=== PATIENT | male | born 1985 | race American Indian/Alaskan Native ===

== ENCOUNTER 2016-09-11 03:20 | Emergency (ER) | payer MEDICAID ==
[2016-09-11 03:20] VITALS: BMI 23.6
[2016-09-11 04:14] VITALS: BP 126/74; PULSE 78; RESP 18; TEMP 98.2; O2SAT 99
--- NOTE | 2016-09-11 04:36 | ED PDOC ---
Arrival/HPI - General Chief Complaint: Lower Extremity Problem/Injury Time Seen by Provider: 09/11/16 03:29 Historian: Patient - History of Present Illness Narrative History of Present Illness (Text): 09/11/16 04:30 Hi Talamantes is a 31 year old male, with a history of diabetes, presents to the emergency department complaining of chronic bilateral leg/foot pain .No hx. of any trauma Patient denies any fever, chills, headache, dizziness, nausea, vomiting, diarrhea, or any other complaints at this time. States he needs a place to sleep. Time/Duration: 4-6 hours Symptom Course: Unchanged Severity Level: Mild Activities at Onset: Light Past Medical History - Provider Review Nursing Documentation Reviewed: Yes - Past History Past History: Non-Contributing - Infectious Disease Hx of Infectious Diseases: None - Tetanus Immunization Tetanus Immunization: Unknown - Cardiac Hx Cardiac Disorders: No - Pulmonary Hx Respiratory Disorders: No - Neurological Hx Neurological Disorder: No - HEENT Hx HEENT Disorder: No - Renal Hx Renal Disorder: No - Endocrine/Metabolic Hx Diabetes Mellitus Type 2: Yes - Hematological/Oncological Hx Blood Disorders: No - Integumentary Hx Dermatological Disorder: No - Musculoskeletal/Rheumatological Hx Musculoskeletal Disorders: No - Gastrointestinal Hx Gastrointestinal Disorders: No - Genitourinary/Gynecological Hx Genitourinary Disorders: No - Psychiatric Hx Psychophysiologic Disorder: Yes Hx Substance Use: Yes (pcp) Other/Comment: substance abuse - Surgical History Other/Comment: hernia surgery - Anesthesia Hx Anesthesia: Yes - Suicidal Assessment Feels Threatened In Home Enviroment: No Family/Social History - Physician Review Nursing Documentation Reviewed: Yes Family/Social History: No Known Family HX Smoking Status: Heavy Smoker > 10 Cigarettes Daily Hx Alcohol Use: Yes Hx Substance Use: Yes (pcp) Substance used: used PCP 08/22/16 Allergies/Home Meds Allergies/Adverse Reactions: Allergies No Known Allergies Allergy (Verified 08/27/16 03:50) Home Medications: Home Meds Medication Instructions Recorded Confirmed No Known Home Med 08/29/16 08/29/16 Review of Systems - Physician Review All systems were reviewed & negative as marked: Yes - Review of Systems Constitutional: Normal. absent: Fatigue, Fevers Respiratory: Normal. absent: SOB, Cough Cardiovascular: Normal. absent: Chest Pain Musculoskeletal: Other (b/l leg pain ) Neurological: Normal. absent: Headache, Dizziness Physical Exam Vital Signs Temp Pulse Resp BP Pulse Ox 09/11/16 04:10 98.2 F 78 18 126/74 99 Temperature: Afebrile Blood Pressure: Normal Pulse: Regular Respiratory Rate: Normal Appearance: Positive for: Well-Appearing, Non-Toxic, Comfortable Pain Distress: None Mental Status: Positive for: Alert and Oriented X 3 - Systems Exam Head: Present: Atraumatic, Normocephalic Pupils: Present: PERRL Extroacular Muscles: Present: EOMI Conjunctiva: Present: Normal Mouth: Present: Moist Mucous Membranes Neck: Present: Normal Range of Motion Respiratory/Chest: Present: Clear to Auscultation, Good Air Exchange. No: Respiratory Distress, Accessory Muscle Use Cardiovascular: Present: Regular Rate and Rhythm, Normal S1, S2. No: Murmurs Back: Present: Normal Inspection Upper Extremity: Present: Normal Inspection, Normal ROM, Neurovascularly Intact. No: Cyanosis, Edema Lower Extremity: Present: Normal Inspection, NORMAL PULSES, Normal ROM, Neurovascularly Intact. No: Edema, Eddie's Sign, Tenderness, Swelling Neurological: Present: GCS=15, CN II-XII Intact, Speech Normal, Motor Func Grossly Intact, Normal Sensory Function Skin: Present: Warm, Dry, Normal Color. No: Rashes Psychiatric: Present: Alert, Oriented x 3, Normal Insight, Normal Concentration Medical Decision Making ED Course and Treatment: 09/11/16 04:47 Impression: A 31 year old male who presents to the emergency department for evaluation of chronic bilateral leg/foot pain. Progress Notes: Patient in no acute distress. Patient is stable for discharge. Advised to present back to emergency department for worsening symptoms and follow up with pmd within few days. - Medication Orders Current Medication Orders: Discontinued Medications Ibuprofen (Motrin Tab) 600 mg PO STAT STA Stop: 09/11/16 04:47 Last Admin: 09/11/16 05:03 Dose: 600 MG - Scribe Statement The provider has reviewed the documentation as recorded by the Dheeraj Zuniga Provider Attestation: All medical record entries made by the Dheeraj were at my direction and personally dictated by me. I have reviewed the chart and agree that the record accurately reflects my personal performance of the history, physical exam, medical decision making, and the department course for this patient. I have also personally directed, reviewed, and agree with the discharge instructions and disposition. Disposition/Present on Arrival - Present on Arrival Any Indicators Present on Arrival: No History of DVT/PE: No History of Uncontrolled Diabetes: No Urinary Catheter: No History of Decub. Ulcer: No History Surgical Site Infection Following: None - Disposition Have Diagnosis and Disposition been Completed?: Yes Diagnosis: Muscle ache of extremity, Chronic leg pain, Homelessness Disposition: HOME/ ROUTINE Disposition Time: 04:42 Patient Plan: Discharge Condition: GOOD Discharge Instructions (ExitCare): Leg Pain (ED), Muscle Strain (ED) Additional Instructions: Rest/avoid excessive walking/advil as directed/follow up [facility] Referrals: [facility], [place], [facility] [Outside] - Follow up with primary
== END 2016-09-11 04:46 | disposition home or self-care (01) ==
LOC: ED 03:20
DX: M79.605 Pain in left leg (principal); M79.604 Pain in right leg; M79.1 Myalgia; G89.29 Other chronic pain; Z59.0 Homelessness

== ENCOUNTER 2016-09-17 01:39 | Emergency (ER) | payer MEDICAID ==
[2016-09-17 01:39] VITALS: BMI 23.6
--- NOTE | 2016-09-17 02:27 | ED PDOC ---
Arrival/HPI <Braden Caceres - Last Filed: 09/17/16 02:48> - General Historian: Patient - History of Present Illness Time/Duration: > month Symptom Course: Unchanged Quality: Aching <Baldev Contreras - Last Filed: 09/17/16 06:04> - General Chief Complaint: Pain, Chronic Time Seen by Provider: 09/17/16 01:48 - History of Present Illness Narrative History of Present Illness (Text): 09/17/16 02:24 22 y/o homeless patient presenting with b/l leg and foot pain. Patient states pain has been ongoing for sometime now. He was seen here in the ED for the same complaints on 09/11/16 before being discharged. He denies any injury, trauma. He denies any fever, chills, n/v/d, chest pain or shortness of breath. (Baldev Contreras) Past Medical History - Provider Review Nursing Documentation Reviewed: Yes - Past History Past History: Non-Contributing - Infectious Disease Hx of Infectious Diseases: None - Tetanus Immunization Tetanus Immunization: Unknown - Cardiac Hx Cardiac Disorders: No - Pulmonary Hx Respiratory Disorders: No - Neurological Hx Neurological Disorder: No - HEENT Hx HEENT Disorder: No - Renal Hx Renal Disorder: No - Endocrine/Metabolic Hx Diabetes Mellitus Type 2: Yes - Hematological/Oncological Hx Blood Disorders: No - Integumentary Hx Dermatological Disorder: No - Musculoskeletal/Rheumatological Hx Musculoskeletal Disorders: No - Gastrointestinal Hx Gastrointestinal Disorders: No - Genitourinary/Gynecological Hx Genitourinary Disorders: No - Psychiatric Hx Psychophysiologic Disorder: Yes Hx Substance Use: Yes (pcp) Other/Comment: substance abuse - Surgical History Other/Comment: hernia surgery - Anesthesia Hx Anesthesia: Yes - Suicidal Assessment Feels Threatened In Home Enviroment: No <Baldev Contreras - Last Filed: 09/17/16 06:04> Family/Social History Family/Social History: Unknown Family HX Smoking Status: Heavy Smoker > 10 Cigarettes Daily Hx Alcohol Use: Yes Hx Substance Use: Yes (pcp) Substance used: used PCP 08/22/16 <Baldev Contreras - Last Filed: 09/17/16 06:04> Allergies/Home Meds <Braden Caceres - Last Filed: 09/17/16 02:48> <Baldev Contreras - Last Filed: 09/17/16 06:04> Allergies/Adverse Reactions: Allergies No Known Allergies Allergy (Verified 08/27/16 03:50) Home Medications: Home Meds Medication Instructions Recorded Confirmed No Known Home Med 08/29/16 08/29/16 Review of Systems - Physician Review All systems were reviewed & negative as marked: Yes - Review of Systems Constitutional: absent: Fevers Musculoskeletal: Other (b/l distal leg and foot pain ) Skin: absent: Rash, Pruritis, Skin Lesions <Baldev Contreras - Last Filed: 09/17/16 06:04> Physical Exam Vital Signs Reviewed: Yes Temperature: Afebrile Blood Pressure: Normal Pulse: Regular Respiratory Rate: Normal Appearance: Positive for: Unkept Pain Distress: Mild Mental Status: Positive for: Alert and Oriented X 3 - Systems Exam Head: Present: Atraumatic, Normocephalic Pupils: Present: PERRL Extroacular Muscles: Present: EOMI Conjunctiva: Present: Normal Mouth: Present: Moist Mucous Membranes Neck: Present: Normal Range of Motion Respiratory/Chest: Present: Clear to Auscultation. No: Wheezes, Rales Cardiovascular: Present: Regular Rate and Rhythm, Normal S1, S2 Abdomen: Present: Normal Bowel Sounds. No: Tenderness Back: Present: Normal Inspection Upper Extremity: Present: Normal Inspection. No: Edema Lower Extremity: No: Normal Inspection (chronic skin changes b/l distal leg. there are no ulcerations or open wounds.) Neurological: Present: GCS=15, Speech Normal Skin: Present: Warm Psychiatric: Present: Alert, Oriented x 3, Normal Insight, Normal Concentration <Baldev Contreras - Last Filed: 09/17/16 06:04> Vital Signs Temp Pulse Resp BP Pulse Ox 09/17/16 02:40 98.1 F 69 18 125/77 96 Medical Decision Making <Braden Caceres - Last Filed: 09/17/16 02:48> <Baldev Contreras - Last Filed: 09/17/16 06:04> ED Course and Treatment: Impression: Pt seen and evaluated with biomedical engineer. Pt presented complaining of chronic bilateral lower extremity pain. Pt is well known to Emergency room staff and has been seen for similar complaint in the past. Pt was seen on 2016 for same complaint and d/c home. Aware and agree with HPI, clinical findings, plan, and management. Plan: -- Reassess and disposition Prior Visits: Notes and results from previous visits were reviewed. (Braden Caceres) 09/17/16 02:30 31 y/o male with presenting with b/l lower extremity pain. Pain is chronic in nature. There is no evidence of cellulitis or wounds. There is no obvious swelling or tenderness. Patient is homeless. Will continue to monitor. 09/17/16 05:59 Leg pain is improved. Patient does not require antibiotics or further treatment. (Baldev Contreras) - PA / VETERINARY PATHOLOGIST / Resident Statement / has reviewed & agrees with the documentation as recorded. / has examined the patient and agrees with the treatment plan. <Braden Caceres - Last Filed: 09/17/16 02:48> Disposition/Present on Arrival <Braden Caceres - Last Filed: 09/17/16 02:48> - Present on Arrival Any Indicators Present on Arrival: No History of DVT/PE: No History of Uncontrolled Diabetes: No Urinary Catheter: No History of Decub. Ulcer: No History Surgical Site Infection Following: None - Disposition Have Diagnosis and Disposition been Completed?: Yes Disposition Time: 06:02 Patient Plan: Discharge <Baldev Contreras - Last Filed: 09/17/16 06:04> - Disposition Diagnosis: Homelessness, Leg pain, bilateral Disposition: HOME/ ROUTINE Condition: GOOD Discharge Instructions (ExitCare): Chronic Wound Care (ED) Additional Instructions: Return to ER if leg pain worsens or symptoms do not resolve.
[2016-09-17 02:42] VITALS: RESP 18; O2SAT 96
[2016-09-17 06:19] VITALS: BP 129/77; PULSE 72; TEMP 97.3
== END 2016-09-17 06:26 | disposition home or self-care (01) ==
LOC: ED 01:39
DX: M79.605 Pain in left leg (principal); M79.604 Pain in right leg; Z59.0 Homelessness

== ENCOUNTER 2016-09-18 02:54 | Emergency (ER) | payer MEDICAID ==
[2016-09-18 23:41] VITALS: BMI 25.1
== END 2016-09-18 06:26 | disposition left against medical advice (07) ==
LOC: ED 02:54
DX: Z02.89 Encounter for other administrative examinations (principal)

== ENCOUNTER 2016-09-18 23:27 | Observation (INO) | payer MEDICAID ==
[2016-09-18 23:41] VITALS: BMI 25.1
[2016-09-18 23:42] VITALS: RESP 18
--- NOTE | 2016-09-19 00:19 | ED PDOC ---
Arrival/HPI - General Chief Complaint: Alcohol Ingestion Time Seen by Provider: 09/18/16 23:28 Historian: Patient - History of Present Illness Narrative History of Present Illness (Text): 09/19/16 00:19 Hi Talamantes is a 31 year old male who presents to the emergency department for alcohol intoxication. Patient admits to drinking alcohol throughout the day. Denies any suicidal or homicidal ideation. Denies any somatic complaints. Patient has numerous visits for etoh intoxication and is well known to emergency department staff. Time/Duration: 4-6 hours Symptom Onset: Gradual Symptom Course: Unchanged Severity Level: Mild Past Medical History - Provider Review Nursing Documentation Reviewed: Yes - Past History Past History: Non-Contributing - Infectious Disease Hx of Infectious Diseases: None - Tetanus Immunization Tetanus Immunization: Unknown - Cardiac Hx Cardiac Disorders: No - Pulmonary Hx Respiratory Disorders: No - Neurological Hx Neurological Disorder: No - HEENT Hx HEENT Disorder: No - Renal Hx Renal Disorder: No - Endocrine/Metabolic Hx Diabetes Mellitus Type 2: Yes - Hematological/Oncological Hx Blood Disorders: No - Integumentary Hx Dermatological Disorder: No - Musculoskeletal/Rheumatological Hx Musculoskeletal Disorders: No - Gastrointestinal Hx Gastrointestinal Disorders: No - Genitourinary/Gynecological Hx Genitourinary Disorders: No - Psychiatric Hx Psychophysiologic Disorder: Yes Hx Substance Use: Yes (pcp) Other/Comment: substance abuse - Surgical History Other/Comment: hernia surgery - Anesthesia Hx Anesthesia: Yes - Suicidal Assessment Feels Threatened In Home Enviroment: No Family/Social History - Physician Review Nursing Documentation Reviewed: Yes Family/Social History: No Known Family HX Smoking Status: Heavy Smoker > 10 Cigarettes Daily Hx Alcohol Use: Yes Hx Substance Use: Yes (pcp) Substance used: used PCP 08/22/16 Allergies/Home Meds Allergies/Adverse Reactions: Allergies No Known Allergies Allergy (Verified 08/27/16 03:50) Home Medications: Home Meds Medication Instructions Recorded Confirmed No Known Home Med 08/29/16 08/29/16 Review of Systems - Physician Review All systems were reviewed & negative as marked: Yes - Review of Systems Constitutional: Normal. absent: Fatigue, Fevers Respiratory: Normal. absent: SOB, Cough Cardiovascular: Normal Gastrointestinal: Normal. absent: Abdominal Pain, Diarrhea, Nausea, Vomiting Genitourinary Male: Normal Psychiatric: Other (intoxicated ). absent: Suicidal Ideation Physical Exam Vital Signs Reviewed: Yes Vital Signs Temp Pulse Resp BP Pulse Ox 09/19/16 02:11 98.0 F 80 18 122/80 98 09/18/16 23:41 98 F 91 H 18 141/76 96 Temperature: Afebrile Blood Pressure: Normal Pulse: Regular Respiratory Rate: Normal Appearance: Positive for: Comfortable Pain Distress: None Mental Status: Positive for: Alert and Oriented X 3 - Systems Exam Head: Present: Atraumatic, Normocephalic Pupils: Present: PERRL Extroacular Muscles: Present: EOMI Conjunctiva: Present: Normal Respiratory/Chest: Present: Clear to Auscultation, Good Air Exchange. No: Respiratory Distress, Accessory Muscle Use Cardiovascular: Present: Regular Rate and Rhythm, Normal S1, S2. No: Murmurs Abdomen: Present: Normal Bowel Sounds. No: Tenderness, Distention, Peritoneal Signs Upper Extremity: Present: Normal Inspection. No: Cyanosis, Edema Lower Extremity: Present: Normal Inspection. No: Edema Neurological: Present: GCS=15, CN II-XII Intact, Speech Normal Psychiatric: Present: Alert, Oriented x 3, Intoxicated Medical Decision Making ED Course and Treatment: 09/19/16 00:23 Impression: A 31 year old male who presents to the emergency department for alcohol intoxication. Progress Notes: Will place patient on EDObs for ETOH intoxication. ED OBSERVATION Discharge: Yes Date of observation admission: 09/18/16 Time of observation admission: 23:55 - Observation admission statement Patient is being placed in observation because:: ETOH intoxication - Goals of Observation Goals of observation are:: awaiting sobriety - Progress Note Progress Note: 09/19/16 00:20 Patient resting comfortably without any complaints. 09/19/16 04:00 Patient sleeping with steady vitals 09/19/16 06:00 Patient is ambulatory in the emergency department with steady gait. Pt is stable for discharge. - Scribe Statement The provider has reviewed the documentation as recorded by the Dheeraj Zuniga Provider Attestation: All medical record entries made by the Scribsaeid were at my direction and personally dictated by me. I have reviewed the chart and agree that the record accurately reflects my personal performance of the history, physical exam, medical decision making, and the department course for this patient. I have also personally directed, reviewed, and agree with the discharge instructions and disposition. Disposition/Present on Arrival - Present on Arrival History of DVT/PE: No History of Uncontrolled Diabetes: No Urinary Catheter: No History of Decub. Ulcer: No History Surgical Site Infection Following: None - Disposition Diagnosis: Homelessness Disposition: HOME/ ROUTINE Patient Problems: Current Active Problems Problem Status Diagnosed Homelessness Acute
[2016-09-19 02:15] VITALS: BP 122/80; PULSE 80; TEMP 98; O2SAT 98
== END 2016-09-19 06:04 | disposition home or self-care (01) ==
LOC: ED 23:27 → EROBSV 23:56
PROVIDERS: ADMIT Emergency Medicine; ATTEND Emergency Medicine
DX: Z59.0 Homelessness (principal)
CPT/HCPCS: 99283; G0378

== ENCOUNTER 2016-09-23 00:03 | Emergency (ER) | payer MEDICAID ==
[2016-09-23 00:03] VITALS: BMI 25.1
[2016-09-23 00:58] VITALS: BP 142/77; PULSE 84; RESP 15; TEMP 99; O2SAT 99
--- NOTE | 2016-09-23 01:12 | ED PDOC ---
Arrival/HPI - General Chief Complaint: Medical Clearance Time Seen by Provider: 09/23/16 00:58 Historian: Patient - History of Present Illness Narrative History of Present Illness (Text): 09/23/16 01:00 Hi Talamantes is a 31 year old male, whose past medical history includes alcohol abuse, who presents to the emergency department for homelessness. Patient is requesting for a place to stay tonight. Patient denies any fever, chills, chest pain, shortness of breath, nausea, vomiting, diarrhea, urinary symptoms, back pain, neck pain, headache, dizziness, or any other complaints. Time/Duration: Other (tonight) Symptom Onset: Gradual Symptom Course: Unchanged Activities at Onset: Rest, Light Context: Street Past Medical History - Provider Review Nursing Documentation Reviewed: Yes - Past History Past History: Non-Contributing - Infectious Disease Hx of Infectious Diseases: None - Tetanus Immunization Tetanus Immunization: Unknown - Cardiac Hx Cardiac Disorders: No - Pulmonary Hx Respiratory Disorders: No - Neurological Hx Neurological Disorder: No - HEENT Hx HEENT Disorder: No - Renal Hx Renal Disorder: No - Endocrine/Metabolic Hx Diabetes Mellitus Type 2: Yes - Hematological/Oncological Hx Blood Disorders: No - Integumentary Hx Dermatological Disorder: No - Musculoskeletal/Rheumatological Hx Musculoskeletal Disorders: No - Gastrointestinal Hx Gastrointestinal Disorders: No - Genitourinary/Gynecological Hx Genitourinary Disorders: No - Psychiatric Hx Psychophysiologic Disorder: Yes Hx Substance Use: Yes (pcp) Other/Comment: substance abuse - Surgical History Other/Comment: hernia surgery - Anesthesia Hx Anesthesia: Yes - Suicidal Assessment Feels Threatened In Home Enviroment: No Family/Social History - Physician Review Nursing Documentation Reviewed: Yes Family/Social History: No Known Family HX Smoking Status: Heavy Smoker > 10 Cigarettes Daily Hx Alcohol Use: Yes Hx Substance Use: Yes (pcp) Substance used: used PCP 08/22/16 Allergies/Home Meds Allergies/Adverse Reactions: Allergies No Known Allergies Allergy (Verified 09/23/16 00:55) Home Medications: Home Meds Medication Instructions Recorded Confirmed No Known Home Med 08/29/16 09/23/16 Review of Systems - Physician Review All systems were reviewed & negative as marked: Yes - Review of Systems Constitutional: Normal. absent: Fevers Eyes: Normal ENT: Normal Respiratory: Normal. absent: SOB, Cough Cardiovascular: Normal. absent: Chest Pain Gastrointestinal: Normal. absent: Abdominal Pain, Diarrhea, Nausea, Vomiting Genitourinary Male: Normal. absent: Dysuria, Frequency, Hematuria, Urinary Output Changes Musculoskeletal: Normal. absent: Back Pain, Neck Pain Skin: Normal. absent: Rash Neurological: Normal. absent: Headache, Dizziness Endocrine: Normal Hemo/Lymphatic: Normal Psychiatric: Normal Physical Exam Vital Signs Reviewed: Yes Vital Signs Temp Pulse Resp BP Pulse Ox 09/23/16 00:56 99 F 84 15 142/77 99 Temperature: Afebrile Blood Pressure: Normal Pulse: Regular Respiratory Rate: Normal Appearance: Positive for: Well-Appearing, Non-Toxic, Comfortable Pain Distress: None Mental Status: Positive for: Alert and Oriented X 3 - Systems Exam Head: Present: Atraumatic, Normocephalic Pupils: Present: PERRL Extroacular Muscles: Present: EOMI Conjunctiva: Present: Normal Mouth: Present: Moist Mucous Membranes Neck: Present: Normal Range of Motion Respiratory/Chest: Present: Clear to Auscultation, Good Air Exchange. No: Respiratory Distress, Accessory Muscle Use Cardiovascular: Present: Regular Rate and Rhythm, Normal S1, S2. No: Murmurs Abdomen: Present: Normal Bowel Sounds. No: Tenderness, Distention, Peritoneal Signs Back: Present: Normal Inspection Upper Extremity: Present: Normal Inspection. No: Cyanosis, Edema Lower Extremity: Present: Normal Inspection. No: Edema Neurological: Present: GCS=15, CN II-XII Intact, Speech Normal Skin: Present: Warm, Dry, Normal Color. No: Rashes Psychiatric: Present: Alert, Oriented x 3, Normal Insight, Normal Concentration Medical Decision Making ED Course and Treatment: 09/23/16 01:00 Impression: 31 year old male requesting a place to stay for tonight. Plan: -- Reassess and disposition Prior Visits: Notes and results from previous visits were reviewed. 09/23/16 02:30 Notified by staff pharmacist hospital julisa borges from ER with announcing. - Scribe Statement The provider has reviewed the documentation as recorded by the Dheeraj Mckee Provider Attestation: All medical record entries made by the Scribe were at my direction and personally dictated by me. I have reviewed the chart and agree that the record accurately reflects my personal performance of the history, physical exam, medical decision making, and the department course for this patient. I have also personally directed, reviewed, and agree with the discharge instructions and disposition. Disposition/Present on Arrival - Present on Arrival Any Indicators Present on Arrival: No History of DVT/PE: No History of Uncontrolled Diabetes: No Urinary Catheter: No History of Decub. Ulcer: No History Surgical Site Infection Following: None - Disposition Have Diagnosis and Disposition been Completed?: Yes Diagnosis: Homelessness Disposition: ELOPEMENT - ER ONLY Disposition Time: 05:00 Condition: UNKNOWN
== END 2016-09-23 03:00 | disposition left against medical advice (07) ==
LOC: ED 00:03
DX: Z59.0 Homelessness (principal)

== ENCOUNTER 2016-09-25 23:35 | Observation (INO) | payer MEDICAID ==
--- NOTE | 2016-09-26 | ED PDOC ---
Arrival/HPI - General Historian: Patient, EMS <Elie Guerrero - Last Filed: 09/26/16 01:52> <Braden Caceres - Last Filed: 09/26/16 06:01> - General Time Seen by Provider: 09/25/16 23:56 - History of Present Illness Narrative History of Present Illness (Text): 09/25/16 23:58 31 y/o male, found etoh in the public with no fall or trauma. Pt. stated that he did had drinks tonight, no abdominal pain or pelvic pain, no dizziness, no headache or night sweat, no other medical or psychological complaints. (Elie Guerrero) Past Medical History - Provider Review Nursing Documentation Reviewed: Yes - Past History Past History: Non-Contributing - Infectious Disease Hx of Infectious Diseases: None - Tetanus Immunization Tetanus Immunization: Unknown - Cardiac Hx Cardiac Disorders: No - Pulmonary Hx Respiratory Disorders: No - Neurological Hx Neurological Disorder: No - HEENT Hx HEENT Disorder: No - Renal Hx Renal Disorder: No - Endocrine/Metabolic Hx Diabetes Mellitus Type 2: Yes - Hematological/Oncological Hx Blood Disorders: No - Integumentary Hx Dermatological Disorder: No - Musculoskeletal/Rheumatological Hx Musculoskeletal Disorders: No - Gastrointestinal Hx Gastrointestinal Disorders: No - Genitourinary/Gynecological Hx Genitourinary Disorders: No - Psychiatric Hx Psychophysiologic Disorder: Yes Hx Substance Use: Yes (pcp) Other/Comment: substance abuse - Surgical History Other/Comment: hernia surgery - Anesthesia Hx Anesthesia: Yes - Suicidal Assessment Feels Threatened In Home Enviroment: No <Elie Guerrero - Last Filed: 09/26/16 01:52> Family/Social History - Physician Review Nursing Documentation Reviewed: Yes Family/Social History: Unknown Family HX Smoking Status: Heavy Smoker > 10 Cigarettes Daily Hx Alcohol Use: Yes Hx Substance Use: Yes (pcp) Substance used: used PCP 08/22/16 <Elie Guerrero - Last Filed: 09/26/16 01:52> Allergies/Home Meds <Elie Guerrero - Last Filed: 09/26/16 01:52> <Braden Caceres - Last Filed: 09/26/16 06:01> Allergies/Adverse Reactions: Allergies No Known Allergies Allergy (Verified 09/23/16 00:55) Home Medications: Home Meds Medication Instructions Recorded Confirmed No Known Home Med 08/29/16 09/23/16 Review of Systems - Review of Systems Systems not reviewed;Unavailable: Intoxicated Constitutional: absent: Fatigue, Fevers Eyes: absent: Vision Changes ENT: absent: Hearing Changes Respiratory: absent: Cough Cardiovascular: absent: Chest Pain Gastrointestinal: absent: Abdominal Pain, Nausea, Vomiting Musculoskeletal: absent: Arthralgias, Back Pain Neurological: absent: Headache, Dizziness, Focal Weakness, Gait Changes, Speech Changes, Facial Droop, Disequilibrium, Seizure Psychiatric: absent: Anxiety, Depression, Suicidal Ideation <Elie Guerrero - Last Filed: 09/26/16 01:52> Physical Exam - Systems Exam Head: Present: Atraumatic, Normocephalic Pupils: Present: PERRL Extroacular Muscles: Present: EOMI Conjunctiva: Present: Normal Mouth: Present: Moist Mucous Membranes Neck: Present: Normal Range of Motion. No: MIDLINE TENDERNESS, Paraspinal Tenderness Respiratory/Chest: Present: Clear to Auscultation, Good Air Exchange. No: Respiratory Distress, Accessory Muscle Use Cardiovascular: Present: Regular Rate and Rhythm, Normal S1, S2. No: Murmurs Abdomen: Present: Normal Bowel Sounds. No: Tenderness, Distention, Peritoneal Signs Back: Present: Normal Inspection. No: CVA Tenderness, Midline Tenderness, Paraspinal Tenderness Upper Extremity: Present: Normal Inspection. No: Cyanosis, Edema Lower Extremity: Present: Normal Inspection. No: Edema Neurological: Present: GCS=15, CN II-XII Intact, Speech Normal, Motor Func Grossly Intact, Gait Normal, Memory Normal Skin: Present: Warm, Dry, Normal Color. No: Rashes Psychiatric: Present: Alert, Oriented x 3, Normal Insight, Normal Concentration <Elie Guerrero - Last Filed: 09/26/16 01:52> Vital Signs Temp Pulse Resp BP Pulse Ox 09/26/16 03:59 98.8 F 65 16 124/76 99 Medical Decision Making <Elie Guerrero - Last Filed: 09/26/16 01:52> <Braden Caceres - Last Filed: 09/26/16 06:01> ED Course and Treatment: 09/26/16 00:01 -FS -Will observe the patient until sober (Elie Guerrero) ED OBSERVATION Date of observation admission: 09/26/16 Time of observation admission: 00:01 <Elie Guerrero - Last Filed: 09/26/16 01:52> Discharge: Yes <Braden Caceres - Last Filed: 09/26/16 06:01> - Observation admission statement Patient is being placed in observation because:: alcohol intoxication (Elie Guerrero) - Goals of Observation Goals of observation are:: sober (Elie Guerrero) - Progress Note Progress Note: 09/26/16 00:01 -FS -Will observe the patient until sober 09/26/16 01:53 -Pt. sign out to the ER attending Dr. Caceres for follow up the patient and re-evaluate until sober. (Elie Guerrero) 09/26/16 02:00 Pt resting comfortably, no new complaints. 09/26/16 04:00 Pt sleeping, in no acute distress. 09/26/16 05:52 Pt awake, alert, and sober. No evidence of intoxication. Pt stable for d/c. ( Braden Caceres) - PA / COLOR BLENDER / Resident Statement JAVON has reviewed & agrees with the documentation as recorded. <Elie Guerrero - Last Filed: 09/26/16 01:52> - PA / COLOR BLENDER / Resident Statement JAVON has reviewed & agrees with the documentation as recorded. <Braden Caceres - Last Filed: 09/26/16 06:01> Disposition/Present on Arrival - Present on Arrival Any Indicators Present on Arrival: No History of DVT/PE: No History of Uncontrolled Diabetes: No Urinary Catheter: No History Surgical Site Infection Following: None - Disposition Have Diagnosis and Disposition been Completed?: Yes Disposition Time: 01:53 <Elie Guerrero - Last Filed: 09/26/16 01:52> - Present on Arrival Any Indicators Present on Arrival: No - Disposition Have Diagnosis and Disposition been Completed?: Yes Disposition Time: 06:01 Patient Plan: Discharge <Braden Caceres - Last Filed: 09/26/16 06:01> - Disposition Diagnosis: Alcohol abuse Disposition: HOME/ ROUTINE Patient Problems: Current Active Problems Problem Status Diagnosed Alcohol abuse Acute Condition: STABLE
[2016-09-26 01:49] VITALS: BMI 23.6
[2016-09-26 04:00] VITALS: RESP 16; TEMP 98.8
[2016-09-26 06:21] VITALS: BP 121/68; PULSE 76; O2SAT 100
== END 2016-09-26 06:01 | disposition home or self-care (01) ==
LOC: ED 23:35 → EROBSV 09-26 01:52
PROVIDERS: ADMIT Emergency Medicine; ATTEND Emergency Medicine
DX: F10.10 Alcohol abuse, uncomplicated (principal)
CPT/HCPCS: 36415; 82947; 99282; G0378

== ENCOUNTER 2016-10-04 13:11 | Inpatient (IN) | payer MEDICAID ==
[2016-10-04 13:46] VITALS: BMI 25.1
--- NOTE | 2016-10-04 13:54 | ED PDOC ---
Arrival/HPI - General Chief Complaint: Psychiatric Evaluation Time Seen by Provider: 10/04/16 13:18 Historian: Patient - History of Present Illness Narrative History of Present Illness (Text): 10/04/16 13:54 31 year old male presents to the emergency department with depression and suicidal ideation. Patient states he wants to "jump in front of a car." Patient admits to drinking. Denies pain or other complaints. Time/Duration: 24 hours Symptom Onset: Gradual Symptom Course: Unchanged Modifying Factors (Text): None Associated Symptoms (Text): None Past Medical History - Provider Review Nursing Documentation Reviewed: Yes - Past History Past History: Non-Contributing - Infectious Disease Hx of Infectious Diseases: None - Tetanus Immunization Tetanus Immunization: Unknown - Cardiac Hx Cardiac Disorders: No - Pulmonary Hx Respiratory Disorders: No - Neurological Hx Neurological Disorder: No - HEENT Hx HEENT Disorder: No - Renal Hx Renal Disorder: No - Endocrine/Metabolic Hx Endocrine Disorders: No - Hematological/Oncological Hx Blood Disorders: No - Integumentary Hx Dermatological Disorder: No - Musculoskeletal/Rheumatological Hx Musculoskeletal Disorders: No - Gastrointestinal Hx Gastrointestinal Disorders: No - Genitourinary/Gynecological Hx Genitourinary Disorders: No - Psychiatric Hx Psychophysiologic Disorder: Yes Hx Substance Use: Yes (pcp) Other/Comment: substance abuse - Surgical History Other/Comment: hernia surgery - Anesthesia Hx Anesthesia: Yes - Suicidal Assessment Feels Threatened In Home Enviroment: No Family/Social History - Physician Review Nursing Documentation Reviewed: Yes Family/Social History: Unknown Family HX Smoking Status: Heavy Smoker > 10 Cigarettes Daily Hx Alcohol Use: Yes Frequency of alcohol use: Daily Hx Substance Use: Yes (pcp) Substance used: used PCP 08/22/16 Allergies/Home Meds Allergies/Adverse Reactions: Allergies No Known Allergies Allergy (Verified 10/04/16 13:45) Home Medications: Home Meds Medication Instructions Recorded Confirmed No Known Home Med 08/29/16 10/04/16 Review of Systems - Physician Review All systems were reviewed & negative as marked: Yes - Review of Systems Respiratory: absent: SOB Psychiatric: Depression, Suicidal Ideation (with plan) Physical Exam Vital Signs Reviewed: Yes Vital Signs Temp Pulse Resp BP Pulse Ox 10/04/16 16:36 66 16 141/76 97 10/04/16 15:49 71 17 135/76 98 10/04/16 13:11 98 F 72 19 144/77 96 Temperature: Afebrile Blood Pressure: Normal Pulse: Regular Respiratory Rate: Normal Appearance: Positive for: Well-Appearing, Non-Toxic, Comfortable Pain Distress: None Mental Status: Positive for: Alert and Oriented X 3 - Systems Exam Head: Present: Atraumatic, Normocephalic Pupils: Present: PERRL Extroacular Muscles: Present: EOMI Conjunctiva: Present: Normal Mouth: Present: Moist Mucous Membranes Neck: Present: Normal Range of Motion Respiratory/Chest: Present: Clear to Auscultation, Good Air Exchange. No: Respiratory Distress, Accessory Muscle Use Cardiovascular: Present: Regular Rate and Rhythm, Normal S1, S2. No: Murmurs Abdomen: Present: Normal Bowel Sounds. No: Tenderness, Distention, Peritoneal Signs Back: Present: Normal Inspection Upper Extremity: Present: Normal Inspection. No: Cyanosis, Edema Lower Extremity: Present: Normal Inspection. No: Edema Neurological: Present: GCS=15, CN II-XII Intact, Speech Normal Skin: Present: Warm, Dry, Normal Color. No: Rashes Psychiatric: Present: Alert, Oriented x 3, Normal Concentration, Suicidal Ideation Medical Decision Making ED Course and Treatment: Impression: 31 year old male presents with depression and suicidal ideation. Differential Diagnosis include but are not limited to: Plan: -- EKG, Chest X-ray -- Labs -- PES evaluation -- Reassess and disposition Prior Visits: Notes and results from previous visits were reviewed. Patient last seen in ED on 09/26/16 for alcohol intoxication and discharged home. Progress Notes: 10/04/16 16:21 Patient is medically cleared 10/04/16 16:[address] Medina - Lab Interpretations Lab Results: 10/04/16 14:00 10/04/16 14:00 Lab Results 10/04/16 16:09: Urine Color Yellow, Urine Appearance Clear, Urine pH 6.0, Ur Specific [place] 1.020, Urine Protein Negative, Urine Glucose (UA) Negative, Urine Ketones Negative, Urine Blood Negative, Urine Nitrate Negative, Urine Bilirubin Negative, Urine Urobilinogen 0.2, Ur Leukocyte Esterase Negative, Urine Opiates Screen Negative, Urine Methadone Screen Negative, Ur Barbiturates Screen Negative, Ur Phencyclidine Scrn Positive H, Ur Amphetamines Screen Negative, U Benzodiazepines Scrn Negative, U Oth Cocaine Metabols Negative, U Cannabinoids Screen Negative 10/04/16 14:00: WBC 7.3, RBC 4.20, Hgb 12.3 L, Hct 36.8 L, MCV 87.6, MCH 29.3, MCHC 33.4, RDW 13.0, Plt Count 241, MPV 9.1, Gran % 59.6, Lymph % (Auto) 30.7, Terry % (Auto) 7.6 H, Eos % (Auto) 2.0, Baso % (Auto) 0.1, Gran # 4.36, Lymph # 2.3, Terry # 0.6, Eos # 0.2, Baso # 0.01, Sodium 137, Potassium 4.4, Chloride 103 , Carbon Dioxide 29, Anion Gap 9 L, BUN 17, Creatinine 1.0, Est GFR ( Amer) > 60, Est GFR (Non-Af Amer) > 60, Random Glucose 97, Calcium 9.2, Total Bilirubin 0.3, AST 24, ALT 41, Alkaline Phosphatase 57, Total Protein 6.7, Albumin 3.8, Globulin 2.9, Albumin/Globulin Ratio 1.3, Salicylates < 1 L, Acetaminophen < 10.0 L, Alcohol, Quantitative < 10 - RAD Interpretation Radiology Orders: 10/04/16 13:47 CHEST PORTABLE [RAD] Stat - EKG Interpretation EKG Interpretation (Text): EKG shows NSR at [address]/T wave changes Interpreted by ED Physician: Yes Type: 12 lead EKG - Scribe Statement The provider has reviewed the documentation as recorded by the Dheeraj Last Provider Scribe Attestation: All medical record entries made by the Dheeraj were at my direction and personally dictated by me. I have reviewed the chart and agree that the record accurately reflects my personal performance of the history, physical exam, medical decision making, and the department course for this patient. I have also personally directed, reviewed, and agree with the discharge instructions and disposition. Disposition/Present on Arrival - Present on Arrival Any Indicators Present on Arrival: No History of DVT/PE: No History of Uncontrolled Diabetes: No Urinary Catheter: No History of Decub. Ulcer: No History Surgical Site Infection Following: None - Disposition Have Diagnosis and Disposition been Completed?: Yes Diagnosis: Depression Disposition: HOSPITALIZED Disposition Time: 09:45 Condition: STABLE
[2016-10-04 14:18] LABS: ADD MANUAL DIFF? NO
[2016-10-04 14:21] LABS: BASO # 0.01 K/mm3 (0.0-2.0); BASO % 0.1 % (0.0-3.0); EOS # 0.2 (0.0-0.7); GRAN # 4.36 (1.4-6.5); GRAN % 59.6 % (50.0-68.0); HEMATOCRIT 36.8 % (42.0-52.0); LYMPH # 2.3 (1.2-3.4); LYMPH % 30.7 % (22.0-35.0); MEAN CELL VOLUME 87.6 fL (80.0-105.0); MEAN CORPUSCULAR HEMOGLOBIN 29.3 pg (25.0-35.0); MEAN CORPUSCULAR HGB CONC 33.4 g/dl (31.0-37.0); MEAN PLATELET VOLUME 9.1 fl (7.0-11.0); MONO # 0.6 (0.1-0.6); MONO % 7.6 % (1.0-6.0); PLATELET COUNT 241 10^3/uL (120.0-450.0); WHITE BLOOD COUNT 7.3 10^3/ul (4.5-11.0)
[2016-10-04 14:32] LABS: ALB/GLOB RATIO 1.3 (1.1-1.8); ALKALINE PHOSPHATASE 57 U/L (38-133); ALT/SGPT 41 U/L (7-56); AST/SGOT 24 U/L (15-59); BILIRUBIN,TOTAL 0.3 mg/dL (0.2-1.3); BLOOD UREA NITROGEN 17 mg/dL (7-21); CALCIUM 9.2 mg/dL (8.4-10.5); CARBON DIOXIDE 29 mmol/L (21-33); CHLORIDE 103 mmol/L (98-107); GFR AFRICAN-AMERICAN > 60; GLUCOSE,RANDOM 97 mg/dL (70-110); POTASSIUM 4.4 mmol/L (3.6-5.0); SODIUM 137 mmol/L (132-148); TOTAL PROTEIN 6.7 g/dL (5.8-8.3)
--- NOTE | 2016-10-04 15:21 | CARD ---
APPROVED REPORT EKG Measurement Heart [id number] <Conclusion> Normal sinus rhythm Normal ECG
[2016-10-04 16:18] LABS: URINE BILIRUBIN NEGATIVE (NEGATIVE); URINE BLOOD NEGATIVE (NEGATIVE); URINE GLUCOSE (UA) NEGATIVE (NEGATIVE); URINE KETONE NEGATIVE (NEGATIVE); URINE LEUKOCYTE ESTERASE NEGATIVE Leu/uL (NEGATIVE); URINE PROTEIN NEGATIVE mg/dL (<30 mg/dL); URINE UROBILINOGEN 0.2 E.U./dL (<1 E.U./dL)
[2016-10-04 16:19] LABS: URINE APPEARANCE CLEAR (CLEAR); URINE COLOR YELLOW (YELLOW)
--- NOTE | 2016-10-04 16:42 | RAD ---
HISTORY: pysch COMPARISON: 08/24/2016 FINDINGS: LUNGS: No active pulmonary disease. PLEURA: No significant pleural effusion identified, no pneumothorax apparent. CARDIOVASCULAR: Normal. OSSEOUS STRUCTURES: No significant abnormalities. VISUALIZED UPPER ABDOMEN: Normal. OTHER FINDINGS: None. IMPRESSION: No active disease.
[2016-10-05 07:17] LABS: CHOLESTEROL 186 mg/dL (130-200); GLUCOSE,FASTING 103 mg/dL (65-110)
--- NOTE | 2016-10-05 11:41 | PCM.PSYCH ---
Initial Psychiatric Evaluation - Initial Psychiatric Evaluation Type of Admission: Voluntary Legal Status: Capacity Chief Complaint (in patient's own words): depressed History of Present Illness and Precipitating Events: Patient is a 31-year-old single -[place] male with a notable history of PCP in alcohol dependence, no prior psychiatric hospital stations no current outpatient psychiatric treatment or medications, who brought him so to our ER for help with depression as well suicidal thoughts of jumping in front of a car. I reviewed recent notes and met with patient at bedside as well as during treatment team meeting. Patient presents as fairly cooperative and oriented to month year and current circumstances. His grooming is poor and he is malodorous. Nonetheless patient can reliably and consistently respond to questioning and appears to be fairly engaged and reliable during the interview process. Patient reports that he's been using a PCP on a daily basis for years and that he has also been drinking 45 beers a day for years. His last use was the day of admission. He indicated he has been depressed and that he feels out of control and would like help with his addiction. Patient also reported he was hallucinating prior to admission however denies having any hallucinations at this time.patient also denies having any suicidal thoughts or or thoughts to harm others. Delusions we're not elicit it during my interviews with him this morning. Presently patient is in fair control and there were no behavioral issues overnight SOCIAL HISTORY Patient was born and raised in [place]. He is single. He has a [id number] daughter. Patient is homeless. Patient has been using PCP daily for years as well as drinking 45 beers daily for years. He indicated he did go to a rehab at 1.3 to 4 years ago for management of both alcohol and PCP to dependency this occurred in [facility]. Patient reports that he smokes 10 cigarettes daily and defers on a nicotine patch. He was apprised of the morbidity and mortality risks associated with continued tobacco use. PSYCHIATRIC HISTORY Patient denies any prior psychiatric hospital stations. Patient denies any prior outpatient psychiatric treatment. He denies any prior suicide attempts Past Psychiatric History - Past Psychiatric History Pertinent Medical Hx (Current Medical&Sleep Prob, Allergies): Allergies Allergy/AdvReac Type Severity Reaction Status Date / Time No Known Allergies Allergy Verified 10/05/16 00:07 No Known Home Med 08/29/16 Mental Status Examination - Affect Affect: Constricted - Motor Activity Motor Activity: Calm - Reliability in Providing Information Reliability in Providing Information: Fair - Speech Speech: Organized - Mood Mood: Depressed, Anxious - Formal Thought Process Formal Thought Process: No Impairment - Cognitive Functions Orientation: Person, Place, Situation Estimate of Intelligence: Average Judgement: Imparied, as evidence by: Lack of insight into illness Memory: Recent intact, as evidence by: Ability to recall events of the day - Risk Risk: Suicidal, Diminished functioning - Strength & Assets Inventory Strength & Assets Inventory: Cooperative DSM 5 DX - DSM 5 DSM 5 Diagnosis: PCP DEPENDENCY ALCOHOL DEPENDENCY SIMD, SIPD R/O MDD, SEVERE - Recommended/Plan of Treatment Treatment Recommendations and Plan of Treatment: * Group, milieu and supportive tx * Ativan 1 mg q6 standing for alcohol withdrawal, taper as vitals tolerate * Risperdal 0.5 mg AM/HS for hx of hallucinations and for help with mood and impulse control * Awaiting medical f/u * Vitals reviewed and noted below: Selected Entries 10/05/16 08:26 Temperature 97.8 F Pulse Rate 75 Respiratory 20 Rate Blood Pressure 102/51 L RECENT FLOOR LABS NOTED BELOW 10/05/16 10/05/16 06:50 07:00 Triglycerides 249 H Cholesterol 186 LDL Cholesterol Direct 104 HDL Cholesterol 43 TSH 3rd Generation 1.30 ER LABS AND STUDIES 10/04/16 16:09: Urine Color Yellow, Urine Appearance Clear, Urine pH 6.0, Ur Specific [place] 1.020, Urine Protein Negative, Urine Glucose (UA) Negative, Urine Ketones Negative, Urine Blood Negative, Urine Nitrate Negative, Urine Bilirubin Negative, Urine Urobilinogen 0.2, Ur Leukocyte Esterase Negative, Urine Opiates Screen Negative, Urine Methadone Screen Negative, Ur Barbiturates Screen Negative, Ur Phencyclidine Scrn Positive H, Ur Amphetamines Screen Negative, U Benzodiazepines Scrn Negative, U Oth Cocaine Metabols Negative, U Cannabinoids Screen Negative 10/04/16 14:00: WBC 7.3, RBC 4.20, Hgb 12.3 L, Hct 36.8 L, MCV 87.6, MCH 29.3, MCHC 33.4, RDW 13.0, Plt Count 241, MPV 9.1, Gran % 59.6, Lymph % (Auto) 30.7, [place] % (Auto) 7.6 H, Eos % (Auto) 2.0, Baso % (Auto) 0.1, Gran # 4.36, Lymph # 2.3, [place] # 0.6, Eos # 0.2, Baso # 0.01, Sodium 137, Potassium 4.4, Chloride 103 , Carbon Dioxide 29, Anion Gap 9 L, BUN 17, Creatinine 1.0, Est GFR ( Amer) > 60, Est GFR (Non-Af Amer) > 60, Random Glucose 97, Calcium 9.2, Total Bilirubin 0.3, AST 24, ALT 41, Alkaline Phosphatase 57, Total Protein 6.7, Albumin 3.8, Globulin 2.9, Albumin/Globulin Ratio 1.3, Salicylates < 1 L, Acetaminophen < 10.0 L, Alcohol, Quantitative < 10 - EKG Interpretation EKG shows NSR at [address]/T wave changes
--- NOTE | 2016-10-05 12:13 | CP.PCM.HP ---
History of Present Illness - History of Present Illness History of Present Illness: Patient is a 31-year-old single -[place] male with history of PCP, alcohol dependence, no prior psychiatric hospital stations no current outpatient psychiatric treatment or medications, who brought him so to our ER for help with depression as well suicidal thoughts of jumping in front of a car. Pt came to ED multiple times in the past with EtOH abuse. Patient presents as fairly cooperative and oriented to month year and current circumstances. His grooming is poor and he is malodorous. Nonetheless patient can reliably and consistently respond to questioning and appears to be fairly engaged and reliable during the interview process. Patient reports that he's been using a PCP on a daily basis for years and that he has also been drinking 4-5 beers a day for years. His last use was the day of admission. He indicated he has been depressed and that he feels out of control and would like help with his addiction. Patient also reported he was hallucinating prior to admission however denies having any hallucinations at this time.patient also denies having any suicidal thoughts or or thoughts to harm others. Delusions we're not elicit it during my interviews with him this morning. Presently patient is in fair control and there were no behavioral issues overnight SOCIAL HISTORY Patient was born and raised in [place]. He is single. He has a [id number] daughter. Patient is homeless. Patient has been using PCP daily for years as well as drinking 4-5 beers daily for years. He indicated he did go to a rehab 3 to 4 years ago for management of both alcohol and PCP to dependency this occurred in [facility]. Patient reports that he smokes 10 cigarettes daily and defers on a nicotine patch. He was apprised of the morbidity and mortality risks associated with continued tobacco use. PSYCHIATRIC HISTORY Patient denies any prior psychiatric hospital stations. Patient denies any prior outpatient psychiatric treatment. He denies any prior suicide attempts Present on Admission - Present on Admission Any Indicators Present on Admission: No Review of Systems - Review of Systems Review of Systems: See HPI Past Patient History - Infectious Disease Hx of Infectious Diseases: None - Tetanus Immunizations Tetanus Immunization: Unknown - Past Social History Smoking Status: Heavy Smoker > 10 Cigarettes Daily - CARDIAC Hx Cardiac Disorders: No - PULMONARY Hx Respiratory Disorders: No - NEUROLOGICAL Hx Neurological Disorder: No - HEENT Hx HEENT Problems: No - RENAL Hx Chronic Kidney Disease: No - ENDOCRINE/METABOLIC Hx Endocrine Disorders: No - HEMATOLOGICAL/ONCOLOGICAL Hx Blood Disorders: No - INTEGUMENTARY Hx Dermatological Problems: No - MUSCULOSKELETAL/RHEUMATOLOGICAL Hx Musculoskeletal Disorders: No - GASTROINTESTINAL Hx Gastrointestinal Disorders: No - GENITOURINARY/GYNECOLOGICAL Hx Genitourinary Disorders: No - PSYCHIATRIC Hx Substance Use: Yes (PCP) - SURGICAL HISTORY Hx Surgeries: Yes (Hernia repair) Other/Comment: hernia surgery - ANESTHESIA Hx Anesthesia: Yes Meds Allergies/Adverse Reactions: Allergies Allergy/AdvReac Type Severity Reaction Status Date / Time No Known Allergies Allergy Verified 10/05/16 00:07 Physical Exam - Constitutional Appears: No Acute Distress - Head Exam Head Exam: ATRAUMATIC, NORMAL INSPECTION, NORMOCEPHALIC - Eye Exam Eye Exam: EOMI, Normal appearance, PERRL Pupil Exam: NORMAL ACCOMODATION, PERRL - ENT Exam ENT Exam: Mucous Membranes Moist, Normal Exam - Neck Exam Neck exam: Positive for: Normal Inspection - Respiratory Exam Respiratory Exam: Clear to Auscultation Bilateral, NORMAL BREATHING PATTERN - Cardiovascular Exam Cardiovascular Exam: REGULAR RHYTHM - GI/Abdominal Exam GI & Abdominal Exam: Normal Bowel Sounds, Soft. absent: Tenderness - Extremities Exam Extremities exam: Positive for: normal inspection - Back Exam Back exam: NORMAL INSPECTION - Neurological Exam Neurological exam: Alert, CN II-XII Intact, Normal Gait, Oriented x3, Reflexes Normal - Psychiatric Exam Psychiatric exam: Flat Affect - Skin Skin Exam: Dry, Intact, Normal Color, Warm Results - Vital Signs Recent Vital Signs: Last Vital Signs Temp 97.8 F 10/05/16 08:26 Pulse 75 10/05/16 08:26 Resp 20 10/05/16 08:26 BP 102/51 L 10/05/16 08:26 Pulse Ox 97 10/04/16 18:26 - Labs Result Diagrams: 10/04/16 14:00 10/04/16 14:00 Labs: Laboratory Results - last 24 hr 10/04/16 10/05/16 10/05/16 18:23 06:50 07:00 POC Glucose (mg/dL) 111 H Fasting Glucose 103 Triglycerides 249 H Cholesterol 186 LDL Cholesterol Direct 104 HDL Cholesterol 43 TSH 3rd Generation 1.30
[2016-10-06 08:25] LABS: CHOLESTEROL 191 mg/dL (130-200)
--- NOTE | 2016-10-06 09:08 | PCM.PYCHPN ---
Psychiatric Progress Note - Psychiatric Progress Note Patient seen today, length of contact: 25 min Patient Chief Complaint: better Problems Identified/Issues Discussed: I reviewed recent notes and met with patient at bedside. Patient remains oriented to month, year and circumstances. He is superficially engaged in questioning this morning. Reports that he is feeling better and denies any recurrence of hallucinations or suicidal thoughts. Patient is not hopeless or suicidal and denies thoughts of harming others. Patient also denies having any paranoid or persecutory thoughts. He doesn't appear to be responding to internal stimuli though does seem a little preoccupied during our meeting. Patient is tolerating his medications and denies any new discomfort or pain. He has been quiet and in good control on the unit. Observed to be playing cards with peers and acting appropriately. There were no behavioral issues overnight. Diagnostic Results: PCP DEPENDENCY ALCOHOL DEPENDENCY SIMD, SIPD R/O MDD, SEVERE Medication Change: No Medical Record Reviewed: Yes (notes, reports, labs, vitals) Mental Status Examination - Cognitive Function Orientation: Person, Place, Situation Attention: Poor Concentration: Poor - Mood Mood: Depressed (better), Anxious - Affect Affect: Constricted - Formal Thought Process Formal Thought Process: No Impairment - Homicidal Ideation Homicidal Ideation: No Goal/Treatment Plan - Goal/Treatment Plan Progress Toward Problem(s) and Goals/Treatment Plan: * Group, milieu and supportive tx * Appreciate f/u by Dr. Tena on 10/05/16~no new recommendations * Ativan 1 mg q6 standing for alcohol withdrawal, taper to 1 mg q8 today, continue taper as vitals tolerate * Risperdal 0.5 mg AM/HS for hx of hallucinations and for help with mood and impulse control * Vitals reviewed and noted below: Selected Entries 10/05/16 10/05/16 08:26 16:20 Temperature 97.8 F Pulse Rate 75 73 Respiratory 20 Rate Blood Pressure 102/51 L 104/62 RECENT FLOOR LABS NOTED BELOW 10/06/16 07:30 Triglycerides 197 H Cholesterol 191 LDL Cholesterol Direct 107 HDL Cholesterol 45 10/05/16 10/05/16 06:50 07:00 Triglycerides 249 H Cholesterol 186 LDL Cholesterol Direct 104 HDL Cholesterol 43 TSH 3rd Generation 1.30 ER LABS AND STUDIES 10/04/16 16:09: Urine Color Yellow, Urine Appearance Clear, Urine pH 6.0, Ur Specific [place] 1.020, Urine Protein Negative, Urine Glucose (UA) Negative, Urine Ketones Negative, Urine Blood Negative, Urine Nitrate Negative, Urine Bilirubin Negative, Urine Urobilinogen 0.2, Ur Leukocyte Esterase Negative, Urine Opiates Screen Negative, Urine Methadone Screen Negative, Ur Barbiturates Screen Negative, Ur Phencyclidine Scrn Positive H, Ur Amphetamines Screen Negative, U Benzodiazepines Scrn Negative, U Oth Cocaine Metabols Negative, U Cannabinoids Screen Negative 10/04/16 14:00: WBC 7.3, RBC 4.20, Hgb 12.3 L, Hct 36.8 L, MCV 87.6, MCH 29.3, MCHC 33.4, RDW 13.0, Plt Count 241, MPV 9.1, Gran % 59.6, Lymph % (Auto) 30.7, [place] % (Auto) 7.6 H, Eos % (Auto) 2.0, Baso % (Auto) 0.1, Gran # 4.36, Lymph # 2.3, [place] # 0.6, Eos # 0.2, Baso # 0.01, Sodium 137, Potassium 4.4, Chloride 103 , Carbon Dioxide 29, Anion Gap 9 L, BUN 17, Creatinine 1.0, Est GFR ( Amer) > 60, Est GFR (Non-Af Amer) > 60, Random Glucose 97, Calcium 9.2, Total Bilirubin 0.3, AST 24, ALT 41, Alkaline Phosphatase 57, Total Protein 6.7, Albumin 3.8, Globulin 2.9, Albumin/Globulin Ratio 1.3, Salicylates < 1 L, Acetaminophen < 10.0 L, Alcohol, Quantitative < 10 - EKG Interpretation EKG shows NSR at [address]/T wave changes - Smoking Cessation Smoking Cessation Initiated: No
--- NOTE | 2016-10-07 08:50 | PCM.PYCHPN ---
Psychiatric Progress Note - Psychiatric Progress Note Patient seen today, length of contact: 25 min Patient Chief Complaint: better Problems Identified/Issues Discussed: I reviewed recent notes and met with patient at bedside. Patient remains oriented to month, year and circumstances. He is a little more engaged with questioning this morning. Reports that he is feeling better and denies any recent recurrence of hallucinations or suicidal thoughts. Fears that hallucinations may return. Patient is not hopeless or suicidal and denies thoughts of harming others. Patient also denies having any paranoid or persecutory thoughts. He doesn't appear to be responding to internal stimuli though does seem a little preoccupied during our meeting. Patient is tolerating his medications and denies any new discomfort or pain. Staff notes indicate that patient has been in good control on the unit. Appears a little brighter and more animated in community. Less quiet and less guarded. Observed to be playing cards with peers and acting appropriately. There were no behavioral issues over the weekend. Diagnostic Results: PCP DEPENDENCY ALCOHOL DEPENDENCY SIMD, SIPD R/O MDD, SEVERE Medication Change: No Medical Record Reviewed: Yes (notes, reports, labs, vitals) Mental Status Examination - Cognitive Function Orientation: Person, Place, Situation Attention: Poor Concentration: Poor - Mood Mood: Depressed (better), Anxious - Affect Affect: Constricted - Formal Thought Process Formal Thought Process: No Impairment - Homicidal Ideation Homicidal Ideation: No Goal/Treatment Plan - Goal/Treatment Plan Progress Toward Problem(s) and Goals/Treatment Plan: * Group, milieu and supportive tx * Appreciate f/u by Dr. Tena on 10/05/16~no new recommendations * Ativan 1 mg q6 standing for alcohol withdrawal, taper to 1 mg q8 today, continue taper as vitals tolerate * Risperdal 0.5 mg AM/HS for hx of hallucinations and for help with mood and impulse control * Vitals reviewed and noted below: Selected Entries 10/06/16 10/06/16 06:00 16:14 Temperature 98.0 F Pulse Rate 75 62 Respiratory 20 Rate Blood Pressure 111/64 117/68 RECENT FLOOR LABS NOTED BELOW 10/06/16 07:30 Triglycerides 197 H Cholesterol 191 LDL Cholesterol Direct 107 HDL Cholesterol 45 10/05/16 10/05/16 06:50 07:00 Triglycerides 249 H Cholesterol 186 LDL Cholesterol Direct 104 HDL Cholesterol 43 TSH 3rd Generation 1.30 ER LABS AND STUDIES 10/04/16 16:09: Urine Color Yellow, Urine Appearance Clear, Urine pH 6.0, Ur Specific [place] 1.020, Urine Protein Negative, Urine Glucose (UA) Negative, Urine Ketones Negative, Urine Blood Negative, Urine Nitrate Negative, Urine Bilirubin Negative, Urine Urobilinogen 0.2, Ur Leukocyte Esterase Negative, Urine Opiates Screen Negative, Urine Methadone Screen Negative, Ur Barbiturates Screen Negative, Ur Phencyclidine Scrn Positive H, Ur Amphetamines Screen Negative, U Benzodiazepines Scrn Negative, U Oth Cocaine Metabols Negative, U Cannabinoids Screen Negative 10/04/16 14:00: WBC 7.3, RBC 4.20, Hgb 12.3 L, Hct 36.8 L, MCV 87.6, MCH 29.3, MCHC 33.4, RDW 13.0, Plt Count 241, MPV 9.1, Gran % 59.6, Lymph % (Auto) 30.7, [place] % (Auto) 7.6 H, Eos % (Auto) 2.0, Baso % (Auto) 0.1, Gran # 4.36, Lymph # 2.3, [place] # 0.6, Eos # 0.2, Baso # 0.01, Sodium 137, Potassium 4.4, Chloride 103 , Carbon Dioxide 29, Anion Gap 9 L, BUN 17, Creatinine 1.0, Est GFR ( Amer) > 60, Est GFR (Non-Af Amer) > 60, Random Glucose 97, Calcium 9.2, Total Bilirubin 0.3, AST 24, ALT 41, Alkaline Phosphatase 57, Total Protein 6.7, Albumin 3.8, Globulin 2.9, Albumin/Globulin Ratio 1.3, Salicylates < 1 L, Acetaminophen < 10.0 L, Alcohol, Quantitative < 10 - EKG Interpretation EKG shows NSR at [address]/T wave changes
[2016-10-08 06:48] VITALS: O2SAT 99
--- NOTE | 2016-10-08 10:51 | PCM.PYCHPN ---
Psychiatric Progress Note - Psychiatric Progress Note Patient seen today, length of contact: 25 min Patient Chief Complaint: better Problems Identified/Issues Discussed: I reviewed recent notes and met with patient in the dayroom. Patient remains oriented to month, year and circumstances. His affect continues to improve in reactivity and relatedness. Reports that he is feeling better and denies any recent recurrence of hallucinations or suicidal thoughts. Fears that hallucinations may return. Patient is not hopeless or suicidal and denies thoughts of harming others. Patient also denies having any paranoid or persecutory thoughts. He doesn't appear to be responding to internal stimuli and seems less preoccupied during our follow up today. Patient is tolerating his medications and denies any new discomfort or pain. Staff notes indicate that patient has been in good control on the unit. Appears a little brighter and more animated in community. Less quiet and less guarded. Interactive with peers and generally acts appropriately with them. Seen socializing a little this morning. There were no behavioral issues overnight. Diagnostic Results: PCP DEPENDENCY ALCOHOL DEPENDENCY SIMD, SIPD R/O MDD, SEVERE Medication Change: Yes (ativan tapered, risperdal decreased) Medical Record Reviewed: Yes (notes, reports, labs, vitals) Mental Status Examination - Cognitive Function Orientation: Person, Place, Situation Attention: Poor Concentration: Poor - Mood Mood: Depressed (better), Anxious - Affect Affect: Constricted - Formal Thought Process Formal Thought Process: No Impairment - Homicidal Ideation Homicidal Ideation: No Goal/Treatment Plan - Goal/Treatment Plan Progress Toward Problem(s) and Goals/Treatment Plan: * Group, milieu and supportive tx * Appreciate f/u by Dr. Tena on 10/05/16~no new recommendations * Ativan tapered to 1 mg qhs, continue taper as vitals tolerate * Risperdal decreased to 0.5 mg AM. Prescribed for hx of PCP related hallucinations and for help with mood and impulse control * Vitals reviewed and noted below: Selected Entries 10/07/16 10/07/16 06:00 14:00 Temperature 97.4 F L Pulse Rate 65 72 Respiratory 18 Rate Blood Pressure 128/73 113/68 RECENT FLOOR LABS NOTED BELOW 10/06/16 07:30 Triglycerides 197 H Cholesterol 191 LDL Cholesterol Direct 107 HDL Cholesterol 45 10/05/16 10/05/16 06:50 07:00 Triglycerides 249 H Cholesterol 186 LDL Cholesterol Direct 104 HDL Cholesterol 43 TSH 3rd Generation 1.30 ER LABS AND STUDIES 10/04/16 16:09: Urine Color Yellow, Urine Appearance Clear, Urine pH 6.0, Ur Specific [place] 1.020, Urine Protein Negative, Urine Glucose (UA) Negative, Urine Ketones Negative, Urine Blood Negative, Urine Nitrate Negative, Urine Bilirubin Negative, Urine Urobilinogen 0.2, Ur Leukocyte Esterase Negative, Urine Opiates Screen Negative, Urine Methadone Screen Negative, Ur Barbiturates Screen Negative, Ur Phencyclidine Scrn Positive H, Ur Amphetamines Screen Negative, U Benzodiazepines Scrn Negative, U Oth Cocaine Metabols Negative, U Cannabinoids Screen Negative 10/04/16 14:00: WBC 7.3, RBC 4.20, Hgb 12.3 L, Hct 36.8 L, MCV 87.6, MCH 29.3, MCHC 33.4, RDW 13.0, Plt Count 241, MPV 9.1, Gran % 59.6, Lymph % (Auto) 30.7, [place] % (Auto) 7.6 H, Eos % (Auto) 2.0, Baso % (Auto) 0.1, Gran # 4.36, Lymph # 2.3, [place] # 0.6, Eos # 0.2, Baso # 0.01, Sodium 137, Potassium 4.4, Chloride 103 , Carbon Dioxide 29, Anion Gap 9 L, BUN 17, Creatinine 1.0, Est GFR ( Amer) > 60, Est GFR (Non-Af Amer) > 60, Random Glucose 97, Calcium 9.2, Total Bilirubin 0.3, AST 24, ALT 41, Alkaline Phosphatase 57, Total Protein 6.7, Albumin 3.8, Globulin 2.9, Albumin/Globulin Ratio 1.3, Salicylates < 1 L, Acetaminophen < 10.0 L, Alcohol, Quantitative < 10 - EKG Interpretation EKG shows NSR at [address]/T wave changes
--- NOTE | 2016-10-08 13:19 | RAD ---
PROCEDURE: Right Foot Radiographs. HISTORY: foot pain COMPARISON: None. FINDINGS: BONES: Normal. No fracture. JOINTS: Normal. SOFT TISSUES: Normal. OTHER FINDINGS: None. IMPRESSION: Normal right foot radiographs.
--- NOTE | 2016-10-09 10:13 | PCM.PYCHPN ---
Psychiatric Progress Note - Psychiatric Progress Note Patient seen today, length of contact: 25 min Patient Chief Complaint: better Problems Identified/Issues Discussed: I reviewed recent notes and met with patient at bedside. Patient remains oriented to month, year and circumstances. His affect continues to improve in reactivity and relatedness. Reports that he is feeling better and denies any recent recurrence of hallucinations or suicidal thoughts. Patient is not hopeless and denies thoughts of harming others. Patient also denies having any paranoid or persecutory thoughts. He doesn't appear to be responding to internal stimuli and appears more open and less preoccupied daily. Patient is tolerating the tapering of his medications and denies any new discomfort or pain. Staff notes indicate that patient has been in good control on the unit. Appears brighter and more animated in community. Less quiet and less guarded. Interactive and socializes with peers and generally acts appropriately with them. There were no behavioral issues overnight. Diagnostic Results: PCP DEPENDENCY ALCOHOL DEPENDENCY SIMD, SIPD R/O MDD, SEVERE Medication Change: Yes (ativan tapered, risperdal decreased) Medical Record Reviewed: Yes (notes, reports, labs, vitals) Mental Status Examination - Cognitive Function Orientation: Person, Place, Situation Attention: Poor Concentration: Poor - Mood Mood: Depressed (better), Anxious - Affect Affect: Constricted - Formal Thought Process Formal Thought Process: No Impairment - Homicidal Ideation Homicidal Ideation: No Goal/Treatment Plan - Goal/Treatment Plan Progress Toward Problem(s) and Goals/Treatment Plan: * Group, milieu and supportive tx * Appreciate f/u by Dr. Tena on 10/05/16~no new recommendations * Note, foot xray on 10/08/16 showed normal right foot. * Ativan tapered to 0.5 mg qhs x1 dose today and discontinue. * Will d/c Risperdal today. Initially prescribed for hx of PCP related hallucinations and for help with mood and impulse control * Vitals reviewed and noted below: Selected Entries 10/08/16 10/08/16 06:47 15:49 Temperature 97.5 F L Pulse Rate 77 84 Respiratory 20 Rate Blood Pressure 120/75 132/79 RECENT FLOOR LABS NOTED BELOW 10/06/16 07:30 Triglycerides 197 H Cholesterol 191 LDL Cholesterol Direct 107 HDL Cholesterol 45 10/05/16 10/05/16 06:50 07:00 Triglycerides 249 H Cholesterol 186 LDL Cholesterol Direct 104 HDL Cholesterol 43 TSH 3rd Generation 1.30 ER LABS AND STUDIES 10/04/16 16:09: Urine Color Yellow, Urine Appearance Clear, Urine pH 6.0, Ur Specific [place] 1.020, Urine Protein Negative, Urine Glucose (UA) Negative, Urine Ketones Negative, Urine Blood Negative, Urine Nitrate Negative, Urine Bilirubin Negative, Urine Urobilinogen 0.2, Ur Leukocyte Esterase Negative, Urine Opiates Screen Negative, Urine Methadone Screen Negative, Ur Barbiturates Screen Negative, Ur Phencyclidine Scrn Positive H, Ur Amphetamines Screen Negative, U Benzodiazepines Scrn Negative, U Oth Cocaine Metabols Negative, U Cannabinoids Screen Negative 10/04/16 14:00: WBC 7.3, RBC 4.20, Hgb 12.3 L, Hct 36.8 L, MCV 87.6, MCH 29.3, MCHC 33.4, RDW 13.0, Plt Count 241, MPV 9.1, Gran % 59.6, Lymph % (Auto) 30.7, [place] % (Auto) 7.6 H, Eos % (Auto) 2.0, Baso % (Auto) 0.1, Gran # 4.36, Lymph # 2.3, [place] # 0.6, Eos # 0.2, Baso # 0.01, Sodium 137, Potassium 4.4, Chloride 103 , Carbon Dioxide 29, Anion Gap 9 L, BUN 17, Creatinine 1.0, Est GFR ( Amer) > 60, Est GFR (Non-Af Amer) > 60, Random Glucose 97, Calcium 9.2, Total Bilirubin 0.3, AST 24, ALT 41, Alkaline Phosphatase 57, Total Protein 6.7, Albumin 3.8, Globulin 2.9, Albumin/Globulin Ratio 1.3, Salicylates < 1 L, Acetaminophen < 10.0 L, Alcohol, Quantitative < 10 - EKG Interpretation EKG shows NSR at [address]/T wave changes
[2016-10-10 09:30] VITALS: BP 120/63; PULSE 80; RESP 18; TEMP 97.9
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
== END 2016-10-10 10:31 | disposition home or self-care (01) | DRG 748 ==
LOC: ED 13:11 → ERH 16:19 → PSYC 18:55
PROVIDERS: ADMIT Psychologist; ATTEND Psychologist
DX: F16.20 Hallucinogen dependence, uncomplicated (principal); F10.20 Alcohol dependence, uncomplicated; Y90.0 Blood alcohol level of less than 20 mg/100 ml; F17.210 Nicotine dependence, cigarettes, uncomplicated; F32.9 Major depressive disorder, single episode, unspecified; Z59.0 Homelessness

== ENCOUNTER 2016-10-12 02:36 | Emergency (ER) | payer MEDICAID ==
[2016-10-12 02:39] VITALS: BMI 30.1
[2016-10-12 02:53] VITALS: TEMP 98.1
--- NOTE | 2016-10-12 02:55 | ED PDOC ---
Arrival/HPI - General Chief Complaint: Medical Clearance Time Seen by Provider: 10/12/16 02:39 Historian: Patient - History of Present Illness Narrative History of Present Illness (Text): 10/12/16 02:50 Hi Talamantes is a 31 year old male who presents to the emergency department requesting for place to stay for the night because he is homeless. Denies any somatic or psychiatric complaints. Severity Level: Mild Past Medical History - Provider Review Nursing Documentation Reviewed: Yes - Past History Past History: Non-Contributing - Infectious Disease Hx of Infectious Diseases: None - Tetanus Immunization Tetanus Immunization: Unknown - Cardiac Hx Cardiac Disorders: No - Pulmonary Hx Respiratory Disorders: No - Neurological Hx Neurological Disorder: No - HEENT Hx HEENT Disorder: No - Renal Hx Renal Disorder: No - Endocrine/Metabolic Hx Endocrine Disorders: No - Hematological/Oncological Hx Blood Disorders: No - Integumentary Hx Dermatological Disorder: No - Musculoskeletal/Rheumatological Hx Musculoskeletal Disorders: No - Gastrointestinal Hx Gastrointestinal Disorders: No - Genitourinary/Gynecological Hx Genitourinary Disorders: No - Psychiatric Hx Psychophysiologic Disorder: Yes Hx Substance Use: Yes (PCP) Other/Comment: substance abuse - Surgical History Other/Comment: hernia surgery - Anesthesia Hx Anesthesia: Yes - Suicidal Assessment Feels Threatened In Home Enviroment: No Family/Social History - Physician Review Nursing Documentation Reviewed: Yes Family/Social History: No Known Family HX Smoking Status: Heavy Smoker > 10 Cigarettes Daily Hx Alcohol Use: Yes Hx Substance Use: Yes (PCP) Substance used: used PCP 08/22/16 Allergies/Home Meds Allergies/Adverse Reactions: Allergies No Known Allergies Allergy (Verified 10/05/16 00:07) Home Medications: Home Meds Medication Instructions Recorded Confirmed No Known Home Med 08/29/16 10/05/16 Physical Exam - Physical Exam Narrative Physical Exam (Text): - Review of Systems Constitutional: Normal. absent: Fatigue, Weight Change, Fevers Eyes: Normal ENT: Normal Respiratory: Normal absent: SOB, Cough, Sputum Cardiovascular: Normal absent: Chest pain, Palpitations, Syncope Gastrointestinal: Normal absent: Abdominal pain, Diarrhea, Nausea, Vomiting Genitourinary: Normal. absent: Dysuria, Frequency, Hematuria Musculoskeletal: Normal. absent: Arthralgias, Back Pain, Neck Pain Skin: Normal Neurological: Normal absent: Focal Weakness Endocrine: Normal Hemo/Lymphatic: Normal Psychiatric: denies suicidal or homicidal ideations - Physical exam Patient appears age appropriate, speaking full sentences without difficulty - Systems Exam Head: Present: Atraumatic, Normocephalic Pupils: Present: PERRL Extraocular Muscles: Present: EOMI Conjunctiva: Present: Normal Mouth: Present: Moist Mucous Membranes Neck: Present: Normal Range of Motion. No: MIDLINE TENDERNESS, Paraspinal Tenderness Respiratory/Chest: Present: Clear to Auscultation, Good Air Exchange. No: Respiratory Distress, Accessory Muscle Use, Tachypneic Cardiovascular: Present: Regular Rate and Rhythm, Normal S1, S2, Peripheral Pulses Present. No: Murmurs Abdomen: Present: Normal Bowel Sounds, No: Tenderness, Peritoneal Signs, Rebound, Guarding, Distention Back: Present: Normal Inspection. No: Midline Tenderness, Paraspinal Tenderness Upper Extremity: Present: Normal Inspection. No: Cyanosis, Edema Lower Extremity: Present: Normal Inspection. No: Edema Neurological: Present: GCS=15, Speech Normal, cranial nerves II through XII fully intact with no cerebellar abnormality, neuro-sensory fully intact. No focal neurological deficits. Ambulatory with steady gait. Skin: Present: Warm, Dry, Normal Color. No: Rashes Lymphatic: Present: OX3, NI, NC Psychiatric: Present: Alert, Oriented x 3, Normal Insight, Normal Concentration Vital Signs Reviewed: Yes Vital Signs Temp Pulse Resp BP Pulse Ox 10/12/16 06:50 68 16 115/76 97 10/12/16 02:52 98.1 F 74 17 113/75 98 Temperature: Afebrile Blood Pressure: Normal Pulse: Regular Respiratory Rate: Normal Appearance: Positive for: Well-Appearing, Non-Toxic, Comfortable Pain Distress: None Mental Status: Positive for: Alert and Oriented X 3 Medical Decision Making ED Course and Treatment: 10/12/16 02:53 Impression: A 31 year old homeless male who presents to the emergency department requesting for place to stay. He denies any somatic complaints. Patient with a alert, Oriented X3 with a steady gait in the emergency department. Progress Notes: Patient is stable for discharge. States that he feels comfortable being dc'd at this time. Has been given a list of shelters. - Scribe Statement The provider has reviewed the documentation as recorded by the Dheeraj Zuniga Provider Attestation: All medical record entries made by the Scribe were at my direction and personally dictated by me. I have reviewed the chart and agree that the record accurately reflects my personal performance of the history, physical exam, medical decision making, and the department course for this patient. I have also personally directed, reviewed, and agree with the discharge instructions and disposition. Disposition/Present on Arrival - Present on Arrival Any Indicators Present on Arrival: No History of DVT/PE: No History of Uncontrolled Diabetes: No Urinary Catheter: No History of Decub. Ulcer: No History Surgical Site Infection Following: None - Disposition Have Diagnosis and Disposition been Completed?: Yes Diagnosis: Homelessness Disposition: HOME/ ROUTINE Disposition Time: 02:52 Patient Plan: Discharge Condition: GOOD Additional Instructions: PLEASE RETURN TO THE EMERGENCY DEPARTMENT FOR NEW OR WORSENING SYMPTOMS. RETURN RIGHT AWAY IF YOU CANNOT FOLLOW UP WITH YOUR PRIMARY CARE DOCTOR, CLINIC, OR SPECIALIST Referrals: at [facility] [Outside] - Follow up with primary
[2016-10-12 06:50] VITALS: BP 115/76; PULSE 68; RESP 16; O2SAT 97
== END 2016-10-12 06:50 | disposition home or self-care (01) ==
LOC: ED 02:36
DX: Z59.0 Homelessness (principal)

== ENCOUNTER 2016-10-14 04:18 | Emergency (ER) | payer MEDICAID ==
[2016-10-14 04:28] VITALS: BMI 25.8
[2016-10-14 04:34] VITALS: TEMP 98; O2SAT 100
--- NOTE | 2016-10-14 04:42 | ED PDOC ---
Arrival/HPI - General Chief Complaint: Medical Clearance Time Seen by Provider: 10/14/16 04:26 Historian: Patient - History of Present Illness Narrative History of Present Illness (Text): 10/14/16 04:42 Hi Talamantes is a 31 year old male, whose past medical history includes alcohol abuse, who presents to the emergency department for homelessness. Patient is requesting for a place to stay tonight. Patient is well known to ER staff and has been seen on multiple occasions for similar complaint. Patient denies any suicidal ideation, homicidal ideation, chest pain, shortness of breath, nausea, vomiting, diarrhea, back pain, neck pain, headache, dizziness, or any other complaints. Time/Duration: Other (tonight) Symptom Onset: Gradual Symptom Course: Unchanged Activities at Onset: Light Context: Street Past Medical History - Provider Review Nursing Documentation Reviewed: Yes - Past History Past History: Non-Contributing - Infectious Disease Hx of Infectious Diseases: None - Tetanus Immunization Tetanus Immunization: Unknown - Cardiac Hx Cardiac Disorders: No - Pulmonary Hx Respiratory Disorders: No - Neurological Hx Neurological Disorder: No - HEENT Hx HEENT Disorder: No - Renal Hx Renal Disorder: No - Endocrine/Metabolic Hx Endocrine Disorders: No - Hematological/Oncological Hx Blood Disorders: No - Integumentary Hx Dermatological Disorder: No - Musculoskeletal/Rheumatological Hx Musculoskeletal Disorders: No - Gastrointestinal Hx Gastrointestinal Disorders: No - Genitourinary/Gynecological Hx Genitourinary Disorders: No - Psychiatric Hx Psychophysiologic Disorder: Yes Hx Substance Use: Yes (PCP) Other/Comment: substance abuse - Surgical History Other/Comment: hernia surgery - Anesthesia Hx Anesthesia: Yes - Suicidal Assessment Feels Threatened In Home Enviroment: No Family/Social History - Physician Review Nursing Documentation Reviewed: Yes Family/Social History: No Known Family HX Smoking Status: Current Some Days Smoker Hx Alcohol Use: Yes Hx Substance Use: Yes (PCP) Substance used: used PCP 08/22/16 Allergies/Home Meds Allergies/Adverse Reactions: Allergies No Known Allergies Allergy (Verified 10/05/16 00:07) Home Medications: Home Meds Medication Instructions Recorded Confirmed No Known Home Med 08/29/16 10/05/16 Review of Systems - Physician Review All systems were reviewed & negative as marked: Yes - Review of Systems Constitutional: Normal. absent: Fevers Eyes: Normal ENT: Normal Respiratory: Normal. absent: SOB, Cough Cardiovascular: Normal. absent: Chest Pain Gastrointestinal: Normal. absent: Abdominal Pain, Diarrhea, Nausea, Vomiting Genitourinary Male: Normal. absent: Dysuria, Frequency, Hematuria, Urinary Output Changes Musculoskeletal: Normal. absent: Back Pain, Neck Pain Skin: Normal. absent: Rash Neurological: Normal. absent: Headache, Dizziness Endocrine: Normal Hemo/Lymphatic: Normal Psychiatric: Normal. absent: Depression, Suicidal Ideation Physical Exam Vital Signs Reviewed: Yes Vital Signs Temp Pulse Resp BP Pulse Ox 10/14/16 04:28 98 F 92 H 20 142/88 100 Temperature: Afebrile Blood Pressure: Normal Pulse: Regular Respiratory Rate: Normal Appearance: Positive for: Well-Appearing, Non-Toxic, Comfortable Pain Distress: None Mental Status: Positive for: Alert and Oriented X 3 - Systems Exam Head: Present: Atraumatic, Normocephalic Pupils: Present: PERRL Extroacular Muscles: Present: EOMI Conjunctiva: Present: Normal Mouth: Present: Moist Mucous Membranes Neck: Present: Normal Range of Motion Respiratory/Chest: Present: Clear to Auscultation, Good Air Exchange. No: Respiratory Distress, Accessory Muscle Use Cardiovascular: Present: Regular Rate and Rhythm, Normal S1, S2. No: Murmurs Abdomen: Present: Normal Bowel Sounds. No: Tenderness, Distention, Peritoneal Signs Back: Present: Normal Inspection Upper Extremity: Present: Normal Inspection. No: Cyanosis, Edema Lower Extremity: Present: Normal Inspection. No: Edema Neurological: Present: GCS=15, CN II-XII Intact, Speech Normal Skin: Present: Warm, Dry, Normal Color. No: Rashes Psychiatric: Present: Alert, Oriented x 3, Normal Insight, Normal Concentration Medical Decision Making ED Course and Treatment: 10/14/16 04:42 Impression: 31 year old male requesting a place to stay for tonight. Plan: -- Reassess and disposition Prior Visits: Notes and results from previous visits were reviewed. Pt is well known to ER staff and has been seen on multiple occasions for similar complaint. - Scribe Statement The provider has reviewed the documentation as recorded by the Dheeraj Mckee Provider Attestation: All medical record entries made by the Scribsaeid were at my direction and personally dictated by me. I have reviewed the chart and agree that the record accurately reflects my personal performance of the history, physical exam, medical decision making, and the department course for this patient. I have also personally directed, reviewed, and agree with the discharge instructions and disposition. Disposition/Present on Arrival - Present on Arrival Any Indicators Present on Arrival: No History of DVT/PE: No History of Uncontrolled Diabetes: No Urinary Catheter: No History of Decub. Ulcer: No History Surgical Site Infection Following: None - Disposition Have Diagnosis and Disposition been Completed?: Yes Diagnosis: Homelessness Disposition: HOME/ ROUTINE Disposition Time: 04:54 Patient Plan: Discharge Patient Problems: Current Active Problems Problem Status Diagnosed Homelessness Acute Condition: STABLE Referrals: [facility] at [facility] [Outside] - Follow up with primary
[2016-10-14 05:44] VITALS: BP 138/77; PULSE 86; RESP 18
== END 2016-10-14 05:44 | disposition home or self-care (01) ==
LOC: ED 04:18
DX: Z59.0 Homelessness (principal)

== ENCOUNTER 2016-10-16 03:42 | Emergency (ER) | payer MEDICAID ==
[2016-10-16 03:43] VITALS: BMI 30.1
== END 2016-10-16 08:00 | disposition left against medical advice (07) ==
LOC: ED 03:42
DX: Z02.89 Encounter for other administrative examinations (principal); Z59.0 Homelessness

== ENCOUNTER 2016-10-16 22:25 | Observation (INO) | payer MEDICAID ==
[2016-10-16 22:41] VITALS: TEMP 98.1; BMI 28.7
[2016-10-17] MEDS ORDERED: Alum-Mag Hydrox-Simethicone Susp (30 mL) PO STA (00:15)
--- NOTE | 2016-10-17 00:17 | ED PDOC ---
Arrival/HPI - General Chief Complaint: Medical Clearance Time Seen by Provider: 10/16/16 22:43 Historian: Patient - History of Present Illness Narrative History of Present Illness (Text): 10/17/16 00:20 31 yo M reports that he is homeless and is requesting to stay for a couple of hours in the emergency room so he has a place to sleep. Patient does report mild heartburn sensation to the lower sternal chest which is not new for him and is chronic related to eating spicy food, states that his symptoms always occur after eating spicy food. Otherwise: (-) chest pain, (-) radiation, (-) diaphoresis, (-) dyspnea, (-) pleuritic component, (-) ripping or tearing quality, (-) positional component, (-) exertional component, (-) dizziness, (-) syncope, (-) nausea, (-) vomiting, (-) abdominal pain, (-) diarrhea, (-) calf swelling/pain, (-) neuro deficits. NATALIE Tello Past Medical History - Provider Review Nursing Documentation Reviewed: Yes - Past History Past History: Non-Contributing - Infectious Disease Hx of Infectious Diseases: None - Tetanus Immunization Tetanus Immunization: Unknown - Cardiac Hx Cardiac Disorders: No - Pulmonary Hx Respiratory Disorders: No - Neurological Hx Neurological Disorder: No - HEENT Hx HEENT Disorder: No - Renal Hx Renal Disorder: No - Endocrine/Metabolic Hx Endocrine Disorders: No - Hematological/Oncological Hx Blood Disorders: No - Integumentary Hx Dermatological Disorder: No - Musculoskeletal/Rheumatological Hx Musculoskeletal Disorders: No - Gastrointestinal Hx Gastrointestinal Disorders: No - Genitourinary/Gynecological Hx Genitourinary Disorders: No - Psychiatric Hx Psychophysiologic Disorder: Yes Hx Substance Use: Yes (PCP) Other/Comment: substance abuse - Surgical History Other/Comment: hernia surgery - Anesthesia Hx Anesthesia: Yes - Suicidal Assessment Feels Threatened In Home Enviroment: No Family/Social History - Physician Review Nursing Documentation Reviewed: Yes Family/Social History: No Known Family HX Smoking Status: Current Some Days Smoker Hx Alcohol Use: Yes Hx Substance Use: Yes (PCP) Substance used: used PCP 08/22/16 Allergies/Home Meds Allergies/Adverse Reactions: Allergies No Known Allergies Allergy (Verified 10/05/16 00:07) Home Medications: Home Meds Medication Instructions Recorded Confirmed No Known Home Med 08/29/16 10/05/16 Review of Systems - Review of Systems Constitutional: Normal. absent: Fatigue, Weight Change, Fevers Respiratory: Normal. absent: SOB, Cough, Sputum Cardiovascular: Normal. absent: Chest Pain, Palpitations, Edema Gastrointestinal: Normal. absent: Abdominal Pain, Stool Changes, Constipation Musculoskeletal: Normal. absent: Arthralgias, Back Pain, Neck Pain Skin: Normal. absent: Rash, Pruritis, Skin Lesions Physical Exam - Physical Exam Narrative Physical Exam (Text): 10/17/16 00:19 GENERAL APPEARANCE: Patient is awake, alert, oriented x 3, in no acute distress. Patient is ill kept. SKIN: Warm, dry; (-) cyanosis. EYES: (-) conjunctival pallor. ENMT: Mucous membranes moist. NECK: (-) tenderness, (-) stiffness, (-) lymphadenopathy, (-) JVD. CHEST AND RESPIRATORY: (-) rash, (-) chest wall tenderness. Lungs: (-) rales , (-) rhonchi, (-) wheezes, (-) rub; breath sounds equal bilaterally. HEART AND CARDIOVASCULAR: (-) irregularity; (-) murmur, (-) gallop, (-) rub. ABDOMEN AND GI: Soft; (-) distention, (-) tenderness, (-) palpable pulsatile mass. EXTREMITIES: (-) deformity; (-) edema, (-) calf tenderness. (+) distal pulses. NEURO AND PSYCH: Mental status as above. Cranial nerves grossly intact; strength symmetric. Vital Signs Temp Pulse Resp BP Pulse Ox 10/16/16 22:39 98.1 F 82 18 144/90 99 Medical Decision Making ED Course and Treatment: 10/17/16 00:18 31 yo M presents to the ER with heartburn symptoms, he is also homeless and is requesting for a place to sleep for the night, has no other complaints. PE is normal. EKG: NSR at 72 bpm, (-) acute ST changes, as read by PA. Patient given Pepcid and Maalox by mouth. Placed in ED observation for further observation and reassessment. - Medication Orders Current Medication Orders: Discontinued Medications Al Hydrox/Mg Hydrox/Simethicone (Maalox Plus 30 Ml) 30 ml PO STAT STA Stop: 10/17/16 00:16 Famotidine (Pepcid) 40 mg PO STAT STA Stop: 10/17/16 00:16 ED OBSERVATION Date of observation admission: 10/16/16 Time of observation admission: 23:30 - Observation admission statement Patient is being placed in observation because:: Patient is homeless and has no place to stay. - Goals of Observation Goals of observation are:: To monitor the patient, see if he develops any other symptoms. - Progress Note Progress Note: 10/17/16 00:15 On reevaluation, patient is lying in bed comfortably in no acute distress. Patient has no other complaints at this time. Given Pepcid by mouth and Maalox by mouth. Vital signs are stable. 10/17/16 02:00 On secondary evaluation, patient is resting comfortably in bed in no acute distress. Patient easily arousable, reports no complaints at this time, denies any chest pain, dyspnea, shortness of breath, abdominal pain or nausea at this time. Physical exam is unchanged. Case endorsed to Dr. Cummings pending re-evaluation and disposition. - PA / HOT WORKER / Resident Statement MD/DO has reviewed & agrees with the documentation as recorded. Disposition/Present on Arrival - Present on Arrival Any Indicators Present on Arrival: No History of DVT/PE: No History of Uncontrolled Diabetes: No Urinary Catheter: No History of Decub. Ulcer: No History Surgical Site Infection Following: None - Disposition Have Diagnosis and Disposition been Completed?: Yes Diagnosis: Heartburn symptom, Homelessness Disposition: HOME/ ROUTINE Disposition Time: 06:00 Patient Plan: Discharge Patient Problems: Current Active Problems Problem Status Onset Heartburn symptom Acute Homelessness Acute Condition: STABLE
[2016-10-17 01:31] VITALS: O2SAT 98
[2016-10-17 04:47] VITALS: BP 142/78; PULSE 82; RESP 16
--- NOTE | 2016-10-17 12:59 | CARD ---
APPROVED REPORT EKG Measurement Heart [id number] TX [id number] <Conclusion> Normal sinus rhythm Normal ECG
== END 2016-10-17 06:00 | disposition home or self-care (01) ==
LOC: ED 22:25 → EROBSV 23:30
PROVIDERS: ADMIT Emergency Medicine; ATTEND Emergency Medicine
DX: R12 Heartburn (principal); Z59.0 Homelessness
CPT/HCPCS: 93005; 99283; G0378

== ENCOUNTER 2016-10-21 18:53 | Inpatient (IN) | payer MEDICAID, OTHER ==
[2016-10-21 18:53] VITALS: BMI 30.1
[2016-10-21 19:07] VITALS: O2SAT 99
--- NOTE | 2016-10-21 19:25 | ED PDOC ---
Arrival/HPI - General Chief Complaint: Psychiatric Evaluation Time Seen by Provider: 10/21/16 19:13 Historian: Patient - History of Present Illness Narrative History of Present Illness (Text): 10/21/16 19:22 31yo male with Pmhx of alcohol dependence and homelessness present to ED for complaint of depression and suicidal ideation. States Depression and suicidal ideation started this evening. He denies somatic complaint, homicidal ideation, hallucination. Past Medical History - Provider Review Nursing Documentation Reviewed: Yes - Past History Past History: Non-Contributing - Infectious Disease Hx of Infectious Diseases: None - Tetanus Immunization Tetanus Immunization: Unknown - Cardiac Hx Cardiac Disorders: No - Pulmonary Hx Respiratory Disorders: No - Neurological Hx Neurological Disorder: No - HEENT Hx HEENT Disorder: No - Renal Hx Renal Disorder: No - Endocrine/Metabolic Hx Endocrine Disorders: No - Hematological/Oncological Hx Blood Disorders: No - Integumentary Hx Dermatological Disorder: No - Musculoskeletal/Rheumatological Hx Musculoskeletal Disorders: No - Gastrointestinal Hx Gastrointestinal Disorders: No - Genitourinary/Gynecological Hx Genitourinary Disorders: No - Psychiatric Hx Psychophysiologic Disorder: Yes Hx Depression: Yes Hx Substance Use: Yes (PCP) Other/Comment: substance abuse - Surgical History Other/Comment: hernia surgery - Anesthesia Hx Anesthesia: Yes Hx Anesthesia Reactions: No Hx Malignant Hyperthermia: No - Suicidal Assessment Feels Threatened In Home Enviroment: No Family/Social History - Physician Review Nursing Documentation Reviewed: Yes Family/Social History: Unknown Family HX Smoking Status: Current Some Days Smoker Hx Alcohol Use: Yes Hx Substance Use: Yes (PCP) Substance used: used PCP 08/22/16 Allergies/Home Meds Allergies/Adverse Reactions: Allergies No Known Allergies Allergy (Verified 10/21/16 19:07) Home Medications: Home Meds Medication Instructions Recorded Confirmed No Known Home Med 08/29/16 10/21/16 Review of Systems - Physician Review All systems were reviewed & negative as marked: Yes - Review of Systems Constitutional: Normal Eyes: Normal ENT: Normal Respiratory: Normal Cardiovascular: Normal Gastrointestinal: Normal Genitourinary Male: Normal Musculoskeletal: Normal Skin: Normal Neurological: Normal Endocrine: Normal Hemo/Lymphatic: Normal Psychiatric: Depression, Suicidal Ideation Physical Exam Vital Signs Reviewed: Yes Vital Signs Temp Pulse Resp BP Pulse Ox 10/21/16 19:02 98 F 73 20 121/77 99 Temperature: Afebrile Blood Pressure: Normal Pulse: Regular Respiratory Rate: Normal Appearance: Positive for: Well-Appearing, Non-Toxic, Comfortable, Other (Poor hygiene) Pain Distress: None Mental Status: Positive for: Alert and Oriented X 3 - Systems Exam Head: Present: Atraumatic, Normocephalic Pupils: Present: PERRL Extroacular Muscles: Present: EOMI Conjunctiva: Present: Normal Mouth: Present: Moist Mucous Membranes Neck: Present: Normal Range of Motion Respiratory/Chest: Present: Clear to Auscultation, Good Air Exchange. No: Respiratory Distress, Accessory Muscle Use Cardiovascular: Present: Regular Rate and Rhythm, Normal S1, S2. No: Murmurs Abdomen: Present: Normal Bowel Sounds. No: Tenderness, Distention, Peritoneal Signs Back: Present: Normal Inspection Upper Extremity: Present: Normal Inspection. No: Cyanosis, Edema Lower Extremity: Present: Normal Inspection. No: Edema Neurological: Present: GCS=15, CN II-XII Intact, Speech Normal Skin: Present: Warm, Dry, Normal Color. No: Rashes Psychiatric: Present: Alert, Oriented x 3, Normal Insight, Normal Concentration Medical Decision Making ED Course and Treatment: 10/21/16 20:49 Pt was cleared medically for psych evaluation. He was seen in ED by channel HALLIE screener. she discussed case with Dr. Green, and concluded that patient will be admitted to the inpatient psych unit. - Lab Interpretations Lab Results: 10/21/16 19:00 10/21/16 19:00 Lab Results 10/21/16 19:00: Alcohol, Quantitative < 10 10/21/16 19:00: Salicylates < 1 L, Acetaminophen < 10.0 L 10/21/16 19:00: Urine Opiates Screen Negative, Urine Methadone Screen Negative, Ur Barbiturates Screen Negative, Ur Phencyclidine Scrn Positive H, Ur Amphetamines Screen Negative, U Benzodiazepines Scrn Negative, U Oth Cocaine Metabols Negative, U Cannabinoids Screen Negative 10/21/16 19:00: Sodium 138, Potassium 3.5 L, Chloride 105, Carbon Dioxide 24, Anion Gap 13, BUN 14, Creatinine 1.0, Est GFR ( Amer) > 60, Est GFR (Non- Af Amer) > 60, Random Glucose 142 H, Calcium 8.8, Total Bilirubin 0.5, AST 22, ALT 45, Alkaline Phosphatase 58, Total Protein 6.8, Albumin 4.0, Globulin 2.9, Albumin/Globulin Ratio 1.4 10/21/16 19:00: Urine Color Yellow, Urine Appearance Clear, Urine pH 5.5, Ur Specific [place] >= 1.030, Urine Protein Negative, Urine Glucose (UA) Negative, Urine Ketones Negative, Urine Blood Negative, Urine Nitrate Negative, Urine Bilirubin Negative, Urine Urobilinogen 0.2, Ur Leukocyte Esterase Negative 10/21/16 19:00: WBC 8.3, RBC 4.24, Hgb 12.5 L, Hct 36.1 L, MCV 85.1, MCH 29.5, MCHC 34.6, RDW 12.7, Plt Count 271, MPV 8.6, Gran % 58.2, Lymph % (Auto) 32.6, [place] % (Auto) 7.4 H, Eos % (Auto) 1.6, Baso % (Auto) 0.2, Gran # 4.82, Lymph # 2.7, [place] # 0.6, Eos # 0.1, Baso # 0.02 Disposition/Present on Arrival - Present on Arrival Any Indicators Present on Arrival: No History of DVT/PE: No History of Uncontrolled Diabetes: No Urinary Catheter: No History of Decub. Ulcer: No History Surgical Site Infection Following: None - Disposition Have Diagnosis and Disposition been Completed?: Yes Diagnosis: Depression, PCP abuse, Suicidal ideation Disposition: HOSPITALIZED Disposition Time: 20:50 Patient Problems: Current Active Problems Problem Status Onset Depression Acute PCP abuse Acute Suicidal ideation Acute Condition: STABLE Referrals: [facility]and[facility], [Non-Staff] - Follow up with primary
[2016-10-21 19:42] LABS: ADD MANUAL DIFF? NO
[2016-10-21 19:45] LABS: BASO # 0.02 K/mm3 (0.0-2.0); BASO % 0.2 % (0.0-3.0); EOS # 0.1 (0.0-0.7); EOS % 1.6 % (1.5-5.0); GRAN # 4.82 (1.4-6.5); GRAN % 58.2 % (50.0-68.0); HEMATOCRIT 36.1 % (42.0-52.0); LYMPH # 2.7 (1.2-3.4); LYMPH % 32.6 % (22.0-35.0); MEAN CELL VOLUME 85.1 fL (80.0-105.0); MEAN CORPUSCULAR HEMOGLOBIN 29.5 pg (25.0-35.0); MEAN CORPUSCULAR HGB CONC 34.6 g/dl (31.0-37.0); MEAN PLATELET VOLUME 8.6 fl (7.0-11.0); MONO # 0.6 (0.1-0.6); MONO % 7.4 % (1.0-6.0); PLATELET COUNT 271 10^3/uL (120.0-450.0); RED CELL DISTRIBUTION WIDTH 12.7 % (11.5-14.5); WHITE BLOOD COUNT 8.3 10^3/ul (4.5-11.0)
[2016-10-21 19:48] LABS: PH,URINE 5.5 (4.7-8.0); URINE BILIRUBIN NEGATIVE (NEGATIVE); URINE BLOOD NEGATIVE (NEGATIVE); URINE GLUCOSE (UA) NEGATIVE (NEGATIVE); URINE KETONE NEGATIVE (NEGATIVE); URINE LEUKOCYTE ESTERASE NEGATIVE Leu/uL (NEGATIVE); URINE PROTEIN NEGATIVE mg/dL (<30 mg/dL); URINE UROBILINOGEN 0.2 E.U./dL (<1 E.U./dL)
[2016-10-21 19:52] LABS: URINE APPEARANCE CLEAR (CLEAR); URINE COLOR YELLOW (YELLOW)
[2016-10-21 19:57] LABS: ALB/GLOB RATIO 1.4 (1.1-1.8); ALKALINE PHOSPHATASE 58 U/L (38-133); ALT/SGPT 45 U/L (7-56); AST/SGOT 22 U/L (15-59); BILIRUBIN,TOTAL 0.5 mg/dL (0.2-1.3); BLOOD UREA NITROGEN 14 mg/dL (7-21); CALCIUM 8.8 mg/dL (8.4-10.5); CARBON DIOXIDE 24 mmol/L (21-33); CHLORIDE 105 mmol/L (98-107); GFR AFRICAN-AMERICAN > 60; GLUCOSE,RANDOM 142 mg/dL (70-110); POTASSIUM 3.5 mmol/L (3.6-5.0); SODIUM 138 mmol/L (132-148); TOTAL PROTEIN 6.8 g/dL (5.8-8.3)
[2016-10-21] MEDS ORDERED: Magnesium Hydroxide Susp 30 ml UD PO PRN (22:45)
[2016-10-21] MEDS ORDERED: Alum-Mag Hydrox-Simethicone Susp (30 mL) PO PRN (22:45)
[2016-10-22 07:59] LABS: CHOLESTEROL 178 mg/dL (130-200); GLUCOSE,FASTING 92 mg/dL (65-110)
[2016-10-22] MEDS ORDERED: Potassium Chloride 20 mEq ER Tab PO ONE (12:10)
--- NOTE | 2016-10-22 12:12 | CP.PCM.CON ---
<Timothy Briones - Last Filed: 10/22/16 12:07> History of Present Illness - History of Present Illness History of Present Illness: Dr. Briones PGY1 Hospitalist Note Patient is a 31 y/p AA M with past medical hx of substance abuse, depression, inguinal hernia, and homelessness who presents to the ED with complaint of suicidal ideations and depression. 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 He is unlcear about plan for killing himself, he says, "I just wanna." He denies any audio or visual hallucinations. He complains of mild chest pain that occurs after eating. When asked to point to the location he points to his stomach. The pain is not reproducible on palpation. He also complains of occasional leg pain but denies any trauma or recent falls. He states he has athelete's foot. He denies any nausea, vomiting, fever, chills, SOB, headache, palpitations. PMD: none Past medical hx: substance abuse, depression, inguinal hernia Past surgical hx: left inguinal hernia repair Family hx: father had lung cancer Social hx: homeless, smokes 10 cigarettes a day, 3L of vodka daily, PCP and marijuana Allergies: NKDA Review of Systems - Constitutional Constitutional: absent: Chills, Fever - EENT Eyes: absent: Change in Vision Ears: absent: Decreased Hearing Nose/Mouth/Throat: absent: Dry Mouth, Mouth Lesions, Odynophagia, Sore Throat - Cardiovascular Cardiovascular: Chest Pain (located in epigastric region). absent: Diaphoresis , Dyspnea, Edema, Palpitations, Pedal Edema - Respiratory Respiratory: absent: Cough, Dyspnea - Gastrointestinal Gastrointestinal: Abdominal Pain. absent: Cramping, Diarrhea, Hematemesis, Melena, Nausea, Vomiting - Musculoskeletal Musculoskeletal: absent: Back Pain, Neck Pain - Integumentary Integumentary: Skin Pain (bilateral feet). absent: Dry Skin, Rash - Neurological Neurological: absent: Dizziness, Weakness - Psychiatric Psychiatric: Depression, Suicidal Ideation. absent: Homicidal Ideation, Visual Hallucinations - Endocrine Endocrine: absent: Fatigue, Palpitations Past Patient History - Infectious Disease Hx of Infectious Diseases: None - Tetanus Immunizations Tetanus Immunization: Unknown - Past Social History Smoking Status: Heavy Smoker > 10 Cigarettes Daily Alcohol: > 2 Drinks/Day Drugs: Cannabis, Other (PCP) Home Situation {Lives}: Homeless - CARDIAC Hx Cardiac Disorders: No - PULMONARY Hx Respiratory Disorders: No - NEUROLOGICAL Hx Neurological Disorder: No - HEENT Hx HEENT Problems: No - RENAL Hx Chronic Kidney Disease: No - ENDOCRINE/METABOLIC Hx Endocrine Disorders: No - HEMATOLOGICAL/ONCOLOGICAL Hx Blood Disorders: No - INTEGUMENTARY Hx Dermatological Problems: No - MUSCULOSKELETAL/RHEUMATOLOGICAL Hx Musculoskeletal Disorders: No - GASTROINTESTINAL Hx Gastrointestinal Disorders: No - GENITOURINARY/GYNECOLOGICAL Hx Genitourinary Disorders: No - PSYCHIATRIC Hx Psychophysiologic Disorder: Yes Hx Depression: Yes Hx Substance Use: Yes (PCP) - SURGICAL HISTORY Hx Surgeries: No Other/Comment: hernia surgery - ANESTHESIA Hx Anesthesia: Yes Hx Anesthesia Reactions: No Hx Malignant Hyperthermia: No Meds Allergies/Adverse Reactions: Allergies Allergy/AdvReac Type Severity Reaction Status Date / Time No Known Allergies Allergy Verified 10/22/16 00:11 - Medications Medications: Current Medications Acetaminophen (Tylenol 325mg Tab) 650 mg PO Q4H PRN PRN Reason: Pain, Mild (1-3) Al Hydrox/Mg Hydrox/Simethicone (Maalox Plus 30 Ml) 30 ml PO DAILY PRN PRN Reason: Upset Stomach Citalopram Hydrobromide (Celexa) 10 mg PO DAILY [facility] Magnesium Hydroxide (Milk Of Magnesia) 30 ml PO DAILY PRN PRN Reason: Constipation Zaleplon (Sonata) 10 mg PO HS PRN PRN Reason: Insomnia Physical Exam - Constitutional Appears: Non-toxic, No Acute Distress, Older Than Stated Age - Head Exam Head Exam: ATRAUMATIC, NORMOCEPHALIC - Eye Exam Eye Exam: EOMI, Normal appearance, PERRL Pupil Exam: NORMAL ACCOMODATION, PERRL - ENT Exam ENT Exam: Mucous Membranes Moist. absent: Normal Oropharynx (poor dentition) - Neck Exam Neck exam: Positive for: Normal Inspection. Negative for: Tenderness - Respiratory Exam Respiratory Exam: NORMAL BREATHING PATTERN. absent: Chest Wall Tenderness, Rales, Rhonchi, Wheezes - Cardiovascular Exam Cardiovascular Exam: REGULAR RHYTHM, +S1, +S2. absent: Gallop, Rubs, Systolic Murmur - GI/Abdominal Exam GI & Abdominal Exam: Normal Bowel Sounds, Soft. absent: Distended, Firm, Tenderness - Extremities Exam Extremities exam: Positive for: normal capillary refill, pedal pulses present. Negative for: normal inspection (dry cracking with mild erythema), pedal edema, tenderness - Back Exam Back exam: NORMAL INSPECTION. absent: rash noted, tenderness - Neurological Exam Neurological exam: Alert, CN II-XII Intact, Oriented x3 - Psychiatric Exam Psychiatric exam: Normal Affect, Normal Mood - Skin Skin Exam: Dry, Intact, Normal Color, Warm Results - Vital Signs Recent Vital Signs: Last Vital Signs Temp 98.2 F 10/22/16 06:43 Pulse 52 L 10/22/16 06:43 Resp 22 10/22/16 06:43 BP 104/61 10/22/16 06:43 Pulse Ox 99 10/21/16 19:02 - Labs Result Diagrams: 10/21/16 19:00 10/21/16 19:00 Labs: Laboratory Results - last 24 hr 10/22/16 10/22/16 06:00 06:00 Fasting Glucose 92 Triglycerides 157 Cholesterol 178 LDL Cholesterol Direct 108 HDL Cholesterol 39 TSH 3rd Generation 1.0 Assessment & Plan - Assessment and Plan (Free Text) Assessment: Patient is a 31 y/o AA M with history of substance abuse, depression, inguinal hernia and homelessness who presented with suicidal ideation. Complaint of abdominal/chest pain after eating and athletes foot. Plan: Depression w/ SI * Patient on psychiatry floor * Management as per psychiatry. * Continue Celexa and Sonata * encouraged to attend groups Chest/Abdominal pain * order EKG * asymptomatic at this time * LFT's and Alk phos wnl * Lipid panel wnl * Start on pepcid Athelete's foot * Lotrimin cream Electrolyte abnormality * Potassium 3.5 on admission * replenish as needed Drug abuse * UDS positive for PCP * encourage cessation * started on thiamine, folic acid, and multivitamin * monitor for withdrawal symptoms PPX: * Tylenol * Milk of Mag * Maalox * Encouraged to ambulate. Assessment and plan discussed with attending. <Regina FARR,Issa - Last Filed: 10/22/16 14:49> Meds - Medications Medications: Current Medications Acetaminophen (Tylenol 325mg Tab) 650 mg PO Q4H PRN PRN Reason: Pain, Mild (1-3) Al Hydrox/Mg Hydrox/Simethicone (Maalox Plus 30 Ml) 30 ml PO DAILY PRN PRN Reason: Upset Stomach Citalopram Hydrobromide (Celexa) 10 mg PO DAILY [facility] Last Admin: 10/22/16 12:34 Dose: 10 mg Clotrimazole (Lotrimin 1%) 0 gm TOP BID [facility] Famotidine (Pepcid) 40 mg PO HS [facility] Folic Acid (Folic Acid) 1 mg PO DAILY [facility] Magnesium Hydroxide (Milk Of Magnesia) 30 ml PO DAILY PRN PRN Reason: Constipation Multivitamins (Thera Tab) 1 tab PO DAILY [facility] Thiamine HCl (Vitamin B1 Tab) 100 mg PO DAILY [facility] Zaleplon (Sonata) 10 mg PO HS PRN PRN Reason: Insomnia Results - Vital Signs Recent Vital Signs: Last Vital Signs Temp 98.2 F 10/22/16 06:43 Pulse 52 L 10/22/16 06:43 Resp 22 10/22/16 06:43 BP 104/61 10/22/16 06:43 Pulse Ox 99 10/21/16 19:02 - Labs Result Diagrams: 10/21/16 19:00 10/21/16 19:00 Labs: Laboratory Results - last 24 hr 10/22/16 10/22/16 06:00 06:00 Fasting Glucose 92 Triglycerides 157 Cholesterol 178 LDL Cholesterol Direct 108 HDL Cholesterol 39 TSH 3rd Generation 1.0 Attending/Attestation - Attestation I have personally seen and examined this patient.: Yes I have fully participated in the care of the patient.: Yes I have reviewed all pertinent clinical information: Yes Notes (Text): Patient was seen and examined with medical office representative .Agreed with resident assessment and plan. 31 y/p AA M with PMH of substance abuse, depression, SP inguinal hernia repair , and homelessness was admitted with suicidal ideation.There is no acute medicalissue.He has epigastric tenderness , localized, not associated with shortness of breath, diaphoresis or radiation.There is no aggravating and relieving factor.EKG is normal. Patient is ambulatory, will recommend trial of PPI. The issue of chronic smoking and drug abuse was discussed in detail with patient. Patient is medically stable, we will sign off, please call us back if any question Management plan was discussed in detail with patient Education was provided.
--- NOTE | 2016-10-22 15:19 | CARD ---
APPROVED REPORT EKG Measurement Heart [id number] <Conclusion> Sinus bradycardia with sinus arrhythmia Otherwise normal ECG
--- NOTE | 2016-10-22 15:26 | PCM.PSYCH ---
Initial Psychiatric Evaluation - Initial Psychiatric Evaluation Type of Admission: Voluntary Legal Status: Capacity (patient has capacity to sign consent for treatment) Chief Complaint (in patient's own words): "I was feeling depressed, I tried to choke myself" Patient's Reaction to Hospitalization: patient was admitted for evaluation and stabilization of possible depressive symptoms, possible thoughts of harming himself , others. History of Present Illness and Precipitating Events: Patient is a 31-year-old single -[place] male with a notable history of PCP in alcohol dependence, one prior psychiatric hospitalization in this facility less than a month ago, pt was d/c with no meds, pt refused to f/u with outpatient psychiatrist and f/u clinics. Pt is homeless, chronic PCP user, brought himself to the hospital, saying that he is depressed, thoughts of harming others and himself (mother of his kids "for messing around with my friend"), pt said that he did not like that feeling and brought himself to the hospital to be "on the safe side", pt needs further observation and stabilization. patient was seen at the treatment team meeting, presented to have poor personal hygiene, fare ADLs. Patient presented to be psychotic, no boundaries pt was cursing during the interview, patient's thought process is disorganized. during the tx team pt said that he wanted to harm his ex-girlfriend and her partner because "they were messing around for a year already", pt said that he was depressed because of that and he wanted to harm her and him, then pt was observed giggling inappropriately. , does why he came to the hospital looking for admission. As per PES evaluation (ED), pt denied any thoughts of harming self or others. during the interview pt said that he tried to choke himself prior to come to the hospital In the ED during the PES evaluation pt: indicated he has been depressed and that he feels out of control and would like help with his addiction. pt denied v/a/t hallucinations, but thought process is disorganized. as per previous assessment: Patient has been using PCP daily for years as well as drinking 45 beers daily for years. He indicated he did go to a rehab at 1.3 to 4 years ago for management of both alcohol and PCP to dependency this occurred in [facility]. Patient reports that he smokes 10 cigarettes daily and defers on a nicotine patch. He was apprised of the morbidity and mortality risks associated with continued tobacco use. past psych h/o: one admission in this facility Less than a month ago, was discharged with no medications, refused to have follow-up plan. Medical history: Denied, patient was seen by medical team. Family history unknown Patient treatment goals are;To go to inpatient rehabilitation 10/21/16 19:00 10/21/16 19:00 Lab Results 10/22/16 06:00: TSH 3rd Generation 1.0 10/22/16 06:00: Fasting Glucose 92, Triglycerides 157, Cholesterol 178, LDL Cholesterol Direct 108, HDL Cholesterol 39 10/21/16 19:00: Alcohol, Quantitative < 10 10/21/16 19:00: Salicylates < 1 L, Acetaminophen < 10.0 L 10/21/16 19:00: Urine Opiates Screen Negative, Urine Methadone Screen Negative, Ur Barbiturates Screen Negative, Ur Phencyclidine Scrn Positive H, Ur Amphetamines Screen Negative, U Benzodiazepines Scrn Negative, U Oth Cocaine Metabols Negative, U Cannabinoids Screen Negative 10/21/16 19:00: Sodium 138, Potassium 3.5 L, Chloride 105, Carbon Dioxide 24, Anion Gap 13, BUN 14, Creatinine 1.0, Est GFR ( Amer) > 60, Est GFR (Non- Af Amer) > 60, Random Glucose 142 H, Calcium 8.8, Total Bilirubin 0.5, AST 22, ALT 45, Alkaline Phosphatase 58, Total Protein 6.8, Albumin 4.0, Globulin 2.9, Albumin/Globulin Ratio 1.4 10/21/16 19:00: Urine Color Yellow, Urine Appearance Clear, Urine pH 5.5, Ur Specific [place] >= 1.030, Urine Protein Negative, Urine Glucose (UA) Negative, Urine Ketones Negative, Urine Blood Negative, Urine Nitrate Negative, Urine Bilirubin Negative, Urine Urobilinogen 0.2, Ur Leukocyte Esterase Negative 10/21/16 19:00: WBC 8.3, RBC 4.24, Hgb 12.5 L, Hct 36.1 L, MCV 85.1, MCH 29.5, MCHC 34.6, RDW 12.7, Plt Count 271, MPV 8.6, Gran % 58.2, Lymph % (Auto) 32.6, [place] % (Auto) 7.4 H, Eos % (Auto) 1.6, Baso % (Auto) 0.2, Gran # 4.82, Lymph # 2.7, [place] # 0.6, Eos # 0.1, Baso # 0.02 Vital Signs Temp Pulse Resp BP Pulse Ox 10/22/16 06:43 98.2 F 52 L 22 104/61 10/21/16 23:42 20 10/21/16 19:02 98 F 73 20 121/77 99 Current Medications: Active Medications Generic Name Dose Route Start Last Admin Trade Name Freq PRN Reason Stop Dose Admin Acetaminophen 650 mg 10/21/16 22:45 Tylenol 325mg Tab PO Q4H PRN Pain, Mild (1-3) Al Hydrox/Mg Hydrox/Simethicone 30 ml 10/21/16 22:45 Maalox Plus 30 Ml PO DAILY PRN Upset Stomach Citalopram Hydrobromide 10 mg 10/22/16 08:00 10/22/16 12:34 Celexa PO 10 mg DAILY [facility] Administration Clotrimazole 0 gm 10/22/16 16:00 Lotrimin 1% TOP BID [facility] Famotidine 40 mg 10/22/16 22:00 Pepcid PO HS [facility] Folic Acid 1 mg 10/22/16 12:15 Folic Acid PO DAILY [facility] Magnesium Hydroxide 30 ml 10/21/16 22:45 Milk Of Magnesia PO DAILY PRN Constipation Multivitamins 1 tab 10/22/16 12:15 Thera Tab PO DAILY [facility] Thiamine HCl 100 mg 10/22/16 12:15 Vitamin B1 Tab PO DAILY [facility] Zaleplon 10 mg 10/21/16 22:35 Sonata PO HS PRN Insomnia Past Psychiatric History - Past Psychiatric History Previous Treatment History: Inpatient Prior Professional Help: see HPI Prior Psychiatric Treatment: see HPI At what hospital: see HPI Duration: see HPI Nature of Treatment: see HPI Explanation of prior treatment: see HPI History of Abuse: see HPI History of ETOH/Drug Use: see HPI History of Family Illness: see HPI Pertinent Medical Hx (Current Medical&Sleep Prob, Allergies): Allergies Allergy/AdvReac Type Severity Reaction Status Date / Time No Known Allergies Allergy Verified 10/22/16 00:11 No Known Home Med 08/29/16 Review of Systems - Review of Systems Systems not reviewed;Unavailable: Acuity of Condition - EENT Eyes: As Per HPI Ears: As Per HPI Nose/Mouth/Throat: As Per HPI - Cardiovascular Cardiovascular: As Per HPI - Respiratory Respiratory: As Per HPI - Gastrointestinal Gastrointestinal: As Per HPI - Genitourinary Genitourinary: As Per HPI - Reproductive: Male Reproductive:Male: As Per HPI - Musculoskeletal Musculoskeletal: As Par HPI - Integumentary Integumentary: As Per HPI - Neurological Neurological: As Per HPI - Psychiatric Psychiatric: As Per HPI - Endocrine Endocrine: As Per HPI - Hematologic/Lymphatic Hematologic: As Per HPI Mental Status Examination - Personal Presentation Personal Presentation: Looks stated age - Affect Affect: Other (inappropriate, patient was giggling when he was talking that he is depressed) - Motor Activity Motor Activity: Calm - Reliability in Providing Information Reliability in Providing Information: Fair, Poor, due to alteration in thoughts - Speech Speech: Disorganized - Mood Mood: Depressed - Formal Thought Process Formal Thought Process: Other (hought processes disorganized) - Obsessions/Compulsions Obsessions: None Compulsions: None - Cognitive Functions Orientation: Person, Place, Situation Sensorium: Alert Attention/Concentration: Easily distracted Abstract Thinking: [place] Estimate of Intelligence: Average Judgement: Intact, as evidence by: Insight regarding need for hospitalization - Risk Risk: Suicidal, Homicidal, Self-mutilation, Diminished functioning - Strength & Assets Inventory Strength & Assets Inventory: Cooperative - Limitations Limitations: Other (chronic piece P Heuser, was noncompliant with the treatment options in the past) DSM 5 DX - DSM 5 DSM 5 Diagnosis: rule out substance-induced psychosis Rule out schizophrenia spectrum PCP use disorder - Recommended/Plan of Treatment Treatment Recommendations and Plan of Treatment: milieu, structure, supportive therapy Celexa was started by Dr. Hermosillo we'll continue that This display card writer cannot exclude that psychotic symptoms related to chronic PCP use, moreover patient want to go to a rehabilitation where psychotropic medications will be not allowed we will give when necessary medications of Geodon in case of psychosis and agitation floor worker well service evaluation Medical team consultation appreciated We'll monitor closely Projected ELOS: days Prognosis: fair Discharge Plan and Discharge Criteria: Pt will be not depressed or manic, will be more hopeful, will be not psychotic or anxious, will be tolerating medications well, will not have major side effects, will be able to function, will not pose threat to self or others. - Smoking Cessation Smoking Cessation Initiated: Yes
[2016-10-22] MEDS: Clotrimazole 1% Cream(30 gm) TOP SCH (17:03)
[2016-10-22] MEDS: Multivitamin Therapeutic Tab PO SCH (17:10)
[2016-10-23] MEDS: Multivitamin Therapeutic Tab PO SCH (09:10)
[2016-10-23] MEDS: Clotrimazole 1% Cream(30 gm) TOP SCH (09:11)
--- NOTE | 2016-10-23 15:22 | PCM.PYCHPN ---
Psychiatric Progress Note - Psychiatric Progress Note Patient seen today, length of contact: 30 minutes Patient Chief Complaint: "I think my body is reacting, I have diarrhea, I had 2 bowel movements" Problems Identified/Issues Discussed: Suicide/ homicide prevention, past psychiatric h/o, current psychiatric symptoms , medical problems, risk/benefits and alternatives of medications, medications compliance, coping strategies, substance abuse h/o, relapse prevention, importance of follow up with psychiatrist and therapist, discharge plan. Medical Problems: patient is healthy Diagnostic Results: 10/21/16 19:00 10/21/16 19:00 Lab Results 10/22/16 06:00: TSH 3rd Generation 1.0 10/22/16 06:00: Fasting Glucose 92, Triglycerides 157, Cholesterol 178, LDL Cholesterol Direct 108, HDL Cholesterol 39 10/21/16 19:00: Alcohol, Quantitative < 10 10/21/16 19:00: Salicylates < 1 L, Acetaminophen < 10.0 L 10/21/16 19:00: Urine Opiates Screen Negative, Urine Methadone Screen Negative, Ur Barbiturates Screen Negative, Ur Phencyclidine Scrn Positive H, Ur Amphetamines Screen Negative, U Benzodiazepines Scrn Negative, U Oth Cocaine Metabols Negative, U Cannabinoids Screen Negative 10/21/16 19:00: Sodium 138, Potassium 3.5 L, Chloride 105, Carbon Dioxide 24, Anion Gap 13, BUN 14, Creatinine 1.0, Est GFR ( Amer) > 60, Est GFR (Non- Af Amer) > 60, Random Glucose 142 H, Calcium 8.8, Total Bilirubin 0.5, AST 22, ALT 45, Alkaline Phosphatase 58, Total Protein 6.8, Albumin 4.0, Globulin 2.9, Albumin/Globulin Ratio 1.4 10/21/16 19:00: Urine Color Yellow, Urine Appearance Clear, Urine pH 5.5, Ur Specific [place] >= 1.030, Urine Protein Negative, Urine Glucose (UA) Negative, Urine Ketones Negative, Urine Blood Negative, Urine Nitrate Negative, Urine Bilirubin Negative, Urine Urobilinogen 0.2, Ur Leukocyte Esterase Negative 10/21/16 19:00: WBC 8.3, RBC 4.24, Hgb 12.5 L, Hct 36.1 L, MCV 85.1, MCH 29.5, MCHC 34.6, RDW 12.7, Plt Count 271, MPV 8.6, Gran % 58.2, Lymph % (Auto) 32.6, [place] % (Auto) 7.4 H, Eos % (Auto) 1.6, Baso % (Auto) 0.2, Gran # 4.82, Lymph # 2.7, [place] # 0.6, Eos # 0.1, Baso # 0.02 Vital Signs Temp Pulse Resp BP Pulse Ox 10/23/16 07:07 97.4 F L 49 L 20 107/65 10/22/16 16:13 55 L 112/58 L 10/22/16 06:43 98.2 F 52 L 22 104/61 10/21/16 23:42 20 10/21/16 19:02 98 F 73 20 121/77 99 DSM 5 Symptoms Update: Patient is a 31-year-old single -Irish male with a notable history of PCP in alcohol dependence, one prior psychiatric hospitalization in this facility less than a month ago, pt was d/c with no meds, pt refused to f/u with outpatient psychiatrist and f/u clinics. Pt is homeless, chronic PCP user, brought himself to the hospital, saying that he is depressed, thoughts of harming others and himself (mother of his kids "for messing around with my friend"), pt said that he did not like that feeling and brought himself to the hospital to be "on the safe side", pt needs further observation and stabilization. patient was seen at the treatment team meeting, presented to have poor personal hygiene, fare ADLs. Patient presented to be less psychotic, patient was not giggling inappropriately , has some improvement with presentation. based on presentation patient is improving in regards of his psychotic symptoms, patient was not on any antipsychotic medications, most likely disorganized thoughts and behavior related to substance abuse, PCP induced psychosis. Patient reported his mood to be "kind of okay, but I think my body is really acting, I have diarrhea, I I'm concerned about that",, patient reported to have 2 bowel movements on the patient was advised to hydrate himself, drinking [place]ie, patient verbalized understanding. Patient denied thoughts of harming himself, denied thoughts of harming others, patient reported no angry feelings towards his ex-girlfriend, patient reported that her lover is incarcerated in skilled nursing. patient has future oriented plans, wants to go to inpatient rehabilitation, was seen by social media strategist, phone calls were made. As per staff patient was pleasant, corporative, no aggressive or agitated behavior. Impression: rule out substance-induced psychosis Rule out schizophrenia spectrum PCP use disorder Medication Change: No Medical Record Reviewed: Yes Consults ordered or reviewed: medical consult appreciated, please see notes for more detailed information. Mental Status Examination - Cognitive Function Orientation: Person, Place, Situation Memory: Intact Attention: Poor (improving) Concentration: Poor (improving) Association: WNL Fund of Knowledge: Poor (cchronic) - Mood Mood: Depressed (I feel kind of okay) - Affect Affect: Broad (mmood-congruent) - Speech Speech: Appropriate - Formal Thought Process Formal Thought Process: No Impairment - Suicidal Ideation Suicidal Ideation: No - Homicidal Ideation Homicidal Ideation: No Goal/Treatment Plan - Goal/Treatment Plan Need for Continued Stay: Remain at risks for inpatient hospitalization, Severe depression anxiety, Discharge may exacerbated symptoms, Failed transitioning, Severe functional impairment Progress Toward Problem(s) and Goals/Treatment Plan: milieu, structure, supportive therapy Celexa was started by Dr. 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
--- NOTE | 2016-10-24 14:29 | PCM.PYCHPN ---
Psychiatric Progress Note - Psychiatric Progress Note Patient seen today, length of contact: 30 minutes Patient Chief Complaint: "I am sleepy" Problems Identified/Issues Discussed: Suicide/ homicide prevention, past psychiatric h/o, current psychiatric symptoms , medical problems, risk/benefits and alternatives of medications, medications compliance, coping strategies, substance abuse h/o, relapse prevention, importance of follow up with psychiatrist and therapist, discharge plan. Medical Problems: patient is healthy Diagnostic Results: 10/21/16 19:00 10/21/16 19:00 Lab Results 10/22/16 06:00: TSH 3rd Generation 1.0 10/22/16 06:00: Fasting Glucose 92, Triglycerides 157, Cholesterol 178, LDL Cholesterol Direct 108, HDL Cholesterol 39 10/21/16 19:00: Alcohol, Quantitative < 10 10/21/16 19:00: Salicylates < 1 L, Acetaminophen < 10.0 L 10/21/16 19:00: Urine Opiates Screen Negative, Urine Methadone Screen Negative, Ur Barbiturates Screen Negative, Ur Phencyclidine Scrn Positive H, Ur Amphetamines Screen Negative, U Benzodiazepines Scrn Negative, U Oth Cocaine Metabols Negative, U Cannabinoids Screen Negative 10/21/16 19:00: Sodium 138, Potassium 3.5 L, Chloride 105, Carbon Dioxide 24, Anion Gap 13, BUN 14, Creatinine 1.0, Est GFR ( Amer) > 60, Est GFR (Non- Af Amer) > 60, Random Glucose 142 H, Calcium 8.8, Total Bilirubin 0.5, AST 22, ALT 45, Alkaline Phosphatase 58, Total Protein 6.8, Albumin 4.0, Globulin 2.9, Albumin/Globulin Ratio 1.4 10/21/16 19:00: Urine Color Yellow, Urine Appearance Clear, Urine pH 5.5, Ur Specific [place] >= 1.030, Urine Protein Negative, Urine Glucose (UA) Negative, Urine Ketones Negative, Urine Blood Negative, Urine Nitrate Negative, Urine Bilirubin Negative, Urine Urobilinogen 0.2, Ur Leukocyte Esterase Negative 10/21/16 19:00: WBC 8.3, RBC 4.24, Hgb 12.5 L, Hct 36.1 L, MCV 85.1, MCH 29.5, MCHC 34.6, RDW 12.7, Plt Count 271, MPV 8.6, Gran % 58.2, Lymph % (Auto) 32.6, [place] % (Auto) 7.4 H, Eos % (Auto) 1.6, Baso % (Auto) 0.2, Gran # 4.82, Lymph # 2.7, Ma[place] # 0.6, Eos # 0.1, Baso # 0.02 Vital Signs Temp Pulse Resp BP Pulse Ox 10/23/16 07:07 97.4 F L 49 L 20 107/65 10/22/16 16:13 55 L 112/58 L 10/22/16 06:43 98.2 F 52 L 22 104/61 10/21/16 23:42 20 10/21/16 19:02 98 F 73 20 121/77 99 Temp Pulse Resp BP Pulse Ox 98.1 F 56 L 20 123/66 99 10/24/16 07:26 10/24/16 07:26 10/24/16 07:26 10/24/16 07:26 10/21/16 19:02 DSM 5 Symptoms Update: Patient is a 31-year-old single -Russian male with a notable history of PCP in alcohol dependence, one prior psychiatric hospitalization in this facility less than a month ago, pt was d/c with no meds, pt refused to f/u with outpatient psychiatrist and f/u clinics. Pt is homeless, chronic PCP user, brought himself to the hospital, saying that he is depressed, thoughts of harming others and himself (mother of his kids "for messing around with my friend"), pt said that he did not like that feeling and brought himself to the hospital to be "on the safe side", pt needs further observation and stabilization. patient was seen at the dining area, fair personal hygiene, fair ADLs. Patient presented to be less psychotic, patient was not giggling inappropriately , has some improvement with presentation.patient does not want to be on any medications, patient wants to go to inpatient rehabilitation, patient denied thoughts of killing himself, denied thoughts of killing others, the same time patient said his mind is "jorge messy", when was asked detailed questions, pt said that he feels "sleepy". As per staff patient was pleasant, corporative, no aggressive or agitated behavior, at times pt giggling inappropriately. yesterday the patient complained of diarrhea, No diarrhea today. Impression: rule out substance-induced psychosis Rule out schizophrenia spectrum PCP use disorder Medication Change: No Medical Record Reviewed: Yes Consults ordered or reviewed: medical consult appreciated, please see notes for more detailed information. Mental Status Examination - Cognitive Function Orientation: Person, Place, Situation Memory: Intact Attention: Poor (improving) Concentration: Poor (improving) Association: WNL Fund of Knowledge: Poor (cchronic) - Mood Mood: Depressed (I feel kind of okay) - Affect Affect: Broad (mmood-congruent) - Speech Speech: Appropriate - Formal Thought Process Formal Thought Process: No Impairment - Suicidal Ideation Suicidal Ideation: No - Homicidal Ideation Homicidal Ideation: No Goal/Treatment Plan - Goal/Treatment Plan Need for Continued Stay: Remain at risks for inpatient hospitalization, Severe depression anxiety, Discharge may exacerbated symptoms, Failed transitioning, Severe functional impairment Progress Toward Problem(s) and Goals/Treatment Plan: milieu, structure, supportive therapy Celexa was started by Dr. Green, but pt does not want to be on it. 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 Estimated Date of D/C: 10/25/16 (we'll monitor closely)
[2016-10-24] MEDS: Clotrimazole 1% Cream(30 gm) TOP SCH (14:51)
[2016-10-24] MEDS: Multivitamin Therapeutic Tab PO SCH (14:51)
[2016-10-25] MEDS: Clotrimazole 1% Cream(30 gm) TOP SCH (09:23)
[2016-10-25] MEDS: Multivitamin Therapeutic Tab PO SCH (09:23)
[2016-10-25 10:09] VITALS: BP 102/64; PULSE 78; RESP 18; TEMP 97.2
--- NOTE | 2016-10-25 15:00 | PCM.PYCHDC ---
Mental Status Examination - Mental Status Examination Orientation: Person, Place, Situation, Time Memory: Intact Mood: Neutral Affect: Broad Speech: Soft Attention: WNL Concentration: WNL Association: WNL Fund of Knowledge: WNL Formal Thought Process: No Impairment (patient still has mildly disorganized thoughts but much better) Description of patient's judgement and insight: Pt has improved insight into mental and medical illness, pt was compliant with medications and unit rules and regulations, pt was going to groups, was calm, cooperative, socially appropriate, no behavioral incidents, no agitation, no aggression. Psychotic Thoughts and Behaviors: Pt denied v/a/t hallucinations, denied paranoid ideations, pt does not appear to be psychotic, and thought process is goal directed. Suicidal Ideation: No Current Homicidal Ideation?: No Plan: pt adamantly denied thoughts of harming self or others denied intent or plan. Discharge Summary - Discharge Note Reason for Hospitalization: patient was admitted for evaluation and stabilization of possible depressive symptoms, possible thoughts of harming himself , others. Psychiatric History (includes Medical, Family, Personal Hx): see HPI Laboratory Data: 10/21/16 19:00 10/21/16 19:00 Lab Results 10/22/16 06:00: TSH 3rd Generation 1.0 10/22/16 06:00: Fasting Glucose 92, Triglycerides 157, Cholesterol 178, LDL Cholesterol Direct 108, HDL Cholesterol 39 10/21/16 19:00: Alcohol, Quantitative < 10 10/21/16 19:00: Salicylates < 1 L, Acetaminophen < 10.0 L 10/21/16 19:00: Urine Opiates Screen Negative, Urine Methadone Screen Negative, Ur Barbiturates Screen Negative, Ur Phencyclidine Scrn Positive H, Ur Amphetamines Screen Negative, U Benzodiazepines Scrn Negative, U Oth Cocaine Metabols Negative, U Cannabinoids Screen Negative 10/21/16 19:00: Sodium 138, Potassium 3.5 L, Chloride 105, Carbon Dioxide 24, Anion Gap 13, BUN 14, Creatinine 1.0, Est GFR ( Amer) > 60, Est GFR (Non- Af Amer) > 60, Random Glucose 142 H, Calcium 8.8, Total Bilirubin 0.5, AST 22, ALT 45, Alkaline Phosphatase 58, Total Protein 6.8, Albumin 4.0, Globulin 2.9, Albumin/Globulin Ratio 1.4 10/21/16 19:00: Urine Color Yellow, Urine Appearance Clear, Urine pH 5.5, Ur Specific [place] >= 1.030, Urine Protein Negative, Urine Glucose (UA) Negative, Urine Ketones Negative, Urine Blood Negative, Urine Nitrate Negative, Urine Bilirubin Negative, Urine Urobilinogen 0.2, Ur Leukocyte Esterase Negative 10/21/16 19:00: WBC 8.3, RBC 4.24, Hgb 12.5 L, Hct 36.1 L, MCV 85.1, MCH 29.5, MCHC 34.6, RDW 12.7, Plt Count 271, MPV 8.6, Gran % 58.2, Lymph % (Auto) 32.6, [place] % (Auto) 7.4 H, Eos % (Auto) 1.6, Baso % (Auto) 0.2, Gran # 4.82, Lymph # 2.7, [place] # 0.6, Eos # 0.1, Baso # 0.02 Vital Signs Temp Pulse Resp BP Pulse Ox 10/25/16 08:00 97.2 F L 78 18 102/64 10/25/16 07:34 97.4 F L 50 L 20 91/46 L 10/24/16 16:40 70 19 106/56 L 10/24/16 07:26 98.1 F 56 L 20 123/66 10/23/16 15:59 57 L 108/62 10/23/16 07:07 97.4 F L 49 L 20 107/65 10/22/16 16:13 55 L 112/58 L 10/22/16 06:43 98.2 F 52 L 22 104/61 10/21/16 23:42 20 10/21/16 19:02 98 F 73 20 121/77 99 Consultations:: List each consultation separately and include: 1. Reason for request. 2. Findings. 3. Follow-up Consultations: medical consult appreciated, please see notes for more detailed information. Summary of Hospital Course include:: 1. Description of specific treatment plan utilized for patients during their course of treatmen. 2. Summarize the time- course for resolution of acute symptoms and/or regressed behaviors. 3. Describe issues identified and worked on during hospitalization. 4. Describe medication utilized. 5. Describe medical problems identified and treated. 6. Reassessment of suicide risk Summary of Hospital Course: Patient is a 31-year-old single -[place] male with a notable history of PCP in alcohol dependence, one prior psychiatric hospitalization in this facility less than a month ago, pt was d/c with no meds, pt refused to f/u with outpatient psychiatrist and f/u clinics. Pt is homeless, chronic PCP user, brought himself to the hospital, saying that he is depressed, thoughts of harming others and himself (mother of his kids "for messing around with my friend"), pt said that he did not like that feeling and brought himself to the hospital to be "on the safe side", pt needs further observation and stabilization. at the time of admission, presented to have poor personal hygiene, fare ADLs. Patient presented to be psychotic, no boundaries pt was cursing during the interview, patient's thought process is disorganized. most likely psychosis was related to the chronic substance abuse. 10/21/16 19:00 10/21/16 19:00 Lab Results 10/22/16 06:00: TSH 3rd Generation 1.0 10/22/16 06:00: Fasting Glucose 92, Triglycerides 157, Cholesterol 178, LDL Cholesterol Direct 108, HDL Cholesterol 39 10/21/16 19:00: Alcohol, Quantitative < 10 10/21/16 19:00: Salicylates < 1 L, Acetaminophen < 10.0 L 10/21/16 19:00: Urine Opiates Screen Negative, Urine Methadone Screen Negative, Ur Barbiturates Screen Negative, Ur Phencyclidine Scrn Positive H, Ur Amphetamines Screen Negative, U Benzodiazepines Scrn Negative, U Oth Cocaine Metabols Negative, U Cannabinoids Screen Negative 10/21/16 19:00: Sodium 138, Potassium 3.5 L, Chloride 105, Carbon Dioxide 24, Anion Gap 13, BUN 14, Creatinine 1.0, Est GFR ( Amer) > 60, Est GFR (Non- Af Amer) > 60, Random Glucose 142 H, Calcium 8.8, Total Bilirubin 0.5, AST 22, ALT 45, Alkaline Phosphatase 58, Total Protein 6.8, Albumin 4.0, Globulin 2.9, Albumin/Globulin Ratio 1.4 10/21/16 19:00: Urine Color Yellow, Urine Appearance Clear, Urine pH 5.5, Ur Specific [place] >= 1.030, Urine Protein Negative, Urine Glucose (UA) Negative, Urine Ketones Negative, Urine Blood Negative, Urine Nitrate Negative, Urine Bilirubin Negative, Urine Urobilinogen 0.2, Ur Leukocyte Esterase Negative 10/21/16 19:00: WBC 8.3, RBC 4.24, Hgb 12.5 L, Hct 36.1 L, MCV 85.1, MCH 29.5, MCHC 34.6, RDW 12.7, Plt Count 271, MPV 8.6, Gran % 58.2, Lymph % (Auto) 32.6, [place] % (Auto) 7.4 H, Eos % (Auto) 1.6, Baso % (Auto) 0.2, Gran # 4.82, Lymph # 2.7, [place] # 0.6, Eos # 0.1, Baso # 0.02 Vital Signs Temp Pulse Resp BP Pulse Ox 10/22/16 06:43 98.2 F 52 L 22 104/61 10/21/16 23:42 20 10/21/16 19:02 98 F 73 20 121/77 99 pt was not on any antipsychotic meds, but improved significantly pt refused to take celexa which was started by . pt did not want to take any vitamines. pt's tx goal was to go to Rehab pt was accepted to [facility]. Over the course of this hospitalization pt was attending groups, had therapeutic milieu. Overall pt improved significantly, pt's affect became brighter, pt was less depressed, has realistic future oriented plans, pt also does not appear to be psychotic, or anxious, pt was socially appropriate, no behavioral issues, pts insight improved as well and soon pt deemed to be ready for discharge. At the time of the discharge pt denied been depressed, denied thoughts of harming self or others, denied psychotic symptoms, and pt does not appeared to be psychotic, denied been anxious, was considered to pose no threat to self or others, will be d/c to [facility], information about follow up appointment, time and address provided to the pt, it is patient responsibility to follow up with outpatient clinic, PMD as well as specialists (see SW note for more detailed information). In case pt will need to obtain results of studies pending at discharge pt was provided with contact information of Psychiatric Inpatient unit [phone] as well as Medical Record Department [phone]. Nicotine patch was offered Counseling about smoking and alcohol cessation provided AA meetings as well as [facility] smoking cessation treatment program information was provided by the pt was not provided with prescriptions pt refused to be on any meds moreover pt was found not depressed, psychosis is much better. Pt was educated about safety plan in case of worsening of symptoms or in case of suicidal or homicidal ideation call 911 or go to the nearest ER, also was educated to take meds as prescribed and stay away from drugs, pt verbalized understanding. - Diagnosis (1) Phencyclidine (PCP)-induced psychosis Status: Acute (2) Stimulant use disorder Status: Acute - Final Diagnosis (DSM 5) Condition upon Discharge: STABLE Disposition: HOME/ ROUTINE Follow-up Treatment Plan: At the time of the discharge pt denied been depressed, denied thoughts of harming self or others, denied psychotic symptoms, and pt does not appeared to be psychotic, denied been anxious, was considered to pose no threat to self or others, will be d/c to [facility], information about follow up appointment, time and address provided to the pt, it is patient responsibility to follow up with outpatient clinic, PMD as well as specialists (see note for more detailed information). In case pt will need to obtain results of studies pending at discharge pt was provided with contact information of Psychiatric Inpatient unit [phone] as well as Medical Record Department [phone]. Nicotine patch was offered Counseling about smoking and alcohol cessation provided AA meetings as well as [facility] smoking cessation treatment program information was provided by the pt was not provided with prescriptions pt refused to be on any meds moreover pt was found not depressed, psychosis is much better. Pt was educated about safety plan in case of worsening of symptoms or in case of suicidal or homicidal ideation call 911 or go to the nearest ER, also was educated to take meds as prescribed and stay away from drugs, pt verbalized understanding. - Smoking Cessation Smoking Cessation Medication prescribed: Yes - Antipsychotic Medications Pt discharged on 2 or more routine antipsychotic medications: No
== END 2016-10-25 13:24 | disposition home or self-care (01) | DRG 748 ==
LOC: ED 18:53 → ERH 20:48 → PSYC 22:11
PROVIDERS: ADMIT Psychiatry & Neurology Psychiatry; ATTEND Psychiatry & Neurology Psychiatry
DX: F16.159 Hallucinogen abuse with hallucinogen-induced psychotic disorder, unspecified (principal); F10.20 Alcohol dependence, uncomplicated; F32.9 Major depressive disorder, single episode, unspecified; R45.851 Suicidal ideations; Z59.0 Homelessness; F17.210 Nicotine dependence, cigarettes, uncomplicated; Z80.1 Family history of malignant neoplasm of trachea, bronchus and lung

== ENCOUNTER 2016-10-26 03:40 | Emergency (ER) | payer MEDICAID, OTHER ==
[2016-10-26 03:42] VITALS: BMI 28.7
--- NOTE | 2016-10-26 03:52 | ED PDOC ---
Arrival/HPI - General Chief Complaint: Lower Extremity Problem/Injury Time Seen by Provider: 10/26/16 03:41 Historian: Patient - History of Present Illness Narrative History of Present Illness (Text): 10/26/16 03:49 31 y.o. male whose PMHx includes etoh and PCP abuse who says he was walking near the hospital and felt a a pain below the right knee anteriorly about 20 minutes prior to arrival. No cp or sob. No injury. Past Medical History - Past History Past History: Non-Contributing - Infectious Disease Hx of Infectious Diseases: None - Tetanus Immunization Tetanus Immunization: Unknown - Cardiac Hx Cardiac Disorders: No - Pulmonary Hx Respiratory Disorders: No - Neurological Hx Neurological Disorder: No - HEENT Hx HEENT Disorder: No - Renal Hx Renal Disorder: No - Endocrine/Metabolic Hx Endocrine Disorders: No - Hematological/Oncological Hx Blood Disorders: No - Integumentary Hx Dermatological Disorder: No - Musculoskeletal/Rheumatological Hx Musculoskeletal Disorders: No - Gastrointestinal Hx Gastrointestinal Disorders: No - Genitourinary/Gynecological Hx Genitourinary Disorders: No - Psychiatric Hx Psychophysiologic Disorder: Yes Hx Depression: Yes Hx Substance Use: Yes (PCP) - Surgical History Other/Comment: hernia surgery - Anesthesia Hx Anesthesia: Yes Hx Anesthesia Reactions: No Hx Malignant Hyperthermia: No - Suicidal Assessment Feels Threatened In Home Enviroment: No Family/Social History Family/Social History: Unknown Family HX Smoking Status: Heavy Smoker > 10 Cigarettes Daily Hx Alcohol Use: Yes Hx Substance Use: Yes (PCP) Substance used: used PCP 08/22/16 Allergies/Home Meds Allergies/Adverse Reactions: Allergies No Known Allergies Allergy (Verified 10/22/16 00:11) Home Medications: Home Meds Medication Instructions Recorded Confirmed No Known Home Med 08/29/16 10/22/16 Review of Systems - Review of Systems Constitutional: absent: Fevers Respiratory: absent: SOB Cardiovascular: absent: Chest Pain Musculoskeletal: Other (R leg pain; no calf pain) Physical Exam Temperature: Afebrile Blood Pressure: Normal Pulse: Regular Respiratory Rate: Normal Appearance: Positive for: Well-Appearing, Non-Toxic, Comfortable Pain Distress: None Mental Status: Positive for: Alert and Oriented X 3 - Systems Exam Head: Present: Atraumatic, Normocephalic Respiratory/Chest: No: Respiratory Distress Lower Extremity: Present: Normal Inspection, NORMAL PULSES, Normal ROM. No: Edema, CALF TENDERNESS, Tenderness, Swelling, Erythema, Deformity Medical Decision Making ED Course and Treatment: 10/26/16 03:51 Patient c/o pain below the right knee without injury x 20 minutes. No other symptoms. Normal exam and is nv intact. No further w/u is indicated at this time - will d/c. - Medication Orders Current Medication Orders: Ibuprofen (Motrin Tab) 200 mg PO STAT STA Stop: 10/26/16 03:49 Disposition/Present on Arrival - Present on Arrival Any Indicators Present on Arrival: No History of DVT/PE: No History of Uncontrolled Diabetes: No Urinary Catheter: No History of Decub. Ulcer: No History Surgical Site Infection Following: None - Disposition Have Diagnosis and Disposition been Completed?: Yes Diagnosis: Right leg pain Disposition: HOME/ ROUTINE Disposition Time: 03:55 Patient Plan: Discharge Condition: GOOD Additional Instructions: Return to the emergency department if any new concerning symptoms. Referrals: [facility] at [facility] [Outside] - Follow up with primary
[2016-10-26 03:59] VITALS: BP 133/76; PULSE 84; RESP 16; TEMP 98.3; O2SAT 98
--- NOTE | 2016-10-27 15:36 | CARD ---
APPROVED REPORT EKG Measurement Heart [id number] <Conclusion> Normal sinus rhythm Possible Left atrial enlargement Borderline ECG
== END 2016-10-26 04:05 | disposition home or self-care (01) ==
LOC: ED 03:40
DX: M79.604 Pain in right leg (principal)

== ENCOUNTER 2016-10-26 22:39 | Emergency (ER) | payer MEDICAID, OTHER ==
[2016-10-26 22:40] VITALS: BMI 28.7
--- NOTE | 2016-10-26 23:06 | ED PDOC ---
Arrival/HPI - General Historian: Patient - General Chief Complaint: Cough, Cold, Congestion Time Seen by Provider: 10/26/16 22:56 - History of Present Illness Narrative History of Present Illness (Text): 10/26/16 23:06 31yo male with history of alcohol abuse and PCP present with complaint of generalized bodyache. He denies fever, chills, chest pain, SOB, diaphoresis, any other complaint. He was seen here earlier in the morning for leg pain and was DC home yesterday. (Agatha Vinson) Past Medical History - Provider Review Nursing Documentation Reviewed: Yes - Past History Past History: Non-Contributing - Infectious Disease Hx of Infectious Diseases: None - Tetanus Immunization Tetanus Immunization: Unknown - Cardiac Hx Cardiac Disorders: No - Pulmonary Hx Respiratory Disorders: No - Neurological Hx Neurological Disorder: No - HEENT Hx HEENT Disorder: No - Renal Hx Renal Disorder: No - Endocrine/Metabolic Hx Endocrine Disorders: No - Hematological/Oncological Hx Blood Disorders: No - Integumentary Hx Dermatological Disorder: No - Musculoskeletal/Rheumatological Hx Musculoskeletal Disorders: No - Gastrointestinal Hx Gastrointestinal Disorders: No - Genitourinary/Gynecological Hx Genitourinary Disorders: No - Psychiatric Hx Psychophysiologic Disorder: Yes Hx Depression: Yes Hx Substance Use: Yes (PCP) - Surgical History Other/Comment: hernia surgery - Anesthesia Hx Anesthesia: Yes Hx Anesthesia Reactions: No Hx Malignant Hyperthermia: No - Suicidal Assessment Feels Threatened In Home Enviroment: No Family/Social History - Physician Review Nursing Documentation Reviewed: Yes Family/Social History: Unknown Family HX Smoking Status: Heavy Smoker > 10 Cigarettes Daily Hx Alcohol Use: Yes Frequency of alcohol use: Daily Hx Substance Use: Yes (PCP) Substance used: used PCP 08/22/16 Allergies/Home Meds Allergies/Adverse Reactions: Allergies No Known Allergies Allergy (Verified 10/26/16 22:50) Home Medications: Home Meds Medication Instructions Recorded Confirmed No Known Home Med 08/29/16 10/26/16 Review of Systems - Physician Review All systems were reviewed & negative as marked: Yes - Review of Systems Constitutional: Fatigue Eyes: Normal ENT: Normal Respiratory: Normal Cardiovascular: Normal Gastrointestinal: Normal Genitourinary Male: Normal Musculoskeletal: Normal Skin: Normal Neurological: Normal Endocrine: Normal Hemo/Lymphatic: Normal Psychiatric: Normal Physical Exam Vital Signs Reviewed: Yes Temperature: Afebrile Blood Pressure: Normal Pulse: Regular Respiratory Rate: Normal Appearance: Positive for: Well-Appearing, Non-Toxic, Comfortable Pain Distress: None Mental Status: Positive for: Alert and Oriented X 3 - Systems Exam Head: Present: Atraumatic, Normocephalic Pupils: Present: PERRL Extroacular Muscles: Present: EOMI Conjunctiva: Present: Normal Mouth: Present: Moist Mucous Membranes Neck: Present: Normal Range of Motion Respiratory/Chest: Present: Clear to Auscultation, Good Air Exchange. No: Respiratory Distress, Accessory Muscle Use Cardiovascular: Present: Regular Rate and Rhythm, Normal S1, S2. No: Murmurs Abdomen: Present: Normal Bowel Sounds. No: Tenderness, Distention, Peritoneal Signs Back: Present: Normal Inspection Upper Extremity: Present: Normal Inspection. No: Cyanosis, Edema Lower Extremity: Present: Normal Inspection. No: Edema Neurological: Present: GCS=15, CN II-XII Intact, Speech Normal Skin: Present: Warm, Dry, Normal Color. No: Rashes Psychiatric: Present: Alert, Oriented x 3, Normal Insight, Normal Concentration Vital Signs Temp Pulse Resp BP Pulse Ox 10/26/16 23:08 98.5 F 85 20 147/82 97 Medical Decision Making ED Course and Treatment: 10/26/16 23:24 I was available for consultation during PA evaluation. The chart was reviewed by me, and I agree with disposition. The documented history was done by the physician regulatory agency director. The documented physical exam was done by the physician regulatory agency director. The documented procedures were done by the physician regulatory agency director. (Kevin Shook) 10/27/16 02:09 PT was comfortable. Ambulatory with normal gait. AAO x3. In no distress while in ED. I suspect malingering. He was DC home . Referred to his PMD. (Agatha Vinson A) - Medication Orders Current Medication Orders: Discontinued Medications Ibuprofen (Motrin Tab) 600 mg PO STAT STA Stop: 10/26/16 23:06 Last Admin: 10/26/16 23:14 Dose: 600 mg Disposition/Present on Arrival - Present on Arrival Any Indicators Present on Arrival: No History of DVT/PE: No History of Uncontrolled Diabetes: No Urinary Catheter: No History of Decub. Ulcer: No History Surgical Site Infection Following: None - Disposition Have Diagnosis and Disposition been Completed?: Yes Disposition Time: 23:15 Patient Plan: Discharge - Disposition Diagnosis: Malaise Disposition: HOME/ ROUTINE Condition: STABLE Discharge Instructions (ExitCare): Fatigue (ED) Additional Instructions: Follow up with the clinic Return to ED for any new or worsening symptoms Referrals: [facility] at [facility] [Outside] - Follow up with primary
[2016-10-26 23:09] VITALS: BP 147/82; PULSE 85; RESP 20; TEMP 98.5; O2SAT 97
== END 2016-10-26 23:24 | disposition home or self-care (01) ==
LOC: ED 22:39
DX: R53.81 Other malaise (principal)

== ENCOUNTER 2016-11-10 21:52 | Inpatient (IN) | payer MEDICAID, OTHER ==
--- NOTE | 2016-11-10 22:34 | ED PDOC ---
Arrival/HPI - General Time Seen by Provider: 11/10/16 22:25 Historian: Patient - History of Present Illness Narrative History of Present Illness (Text): 11/10/16 22:33 Hi Talamantes is a 31 year old male, whose past medical history includes substance abuse and depression, who presents to the Emergency department complaining of suicidal ideation. Patient states he has been feeling depressed and suicidal. Patient states he wants to choke himself to . Patient admits to smoking and using PCP. Patient denies any alcohol use, homicidal ideation, fever, chills, chest pain, shortness of breath, nausea, vomiting, diarrhea, urinary symptoms, back pain, neck pain, headache, dizziness, or any other complaints. Time/Duration: Other (tonight) Symptom Onset: Gradual Symptom Course: Unchanged Activities at Onset: Rest, Light Past Medical History - Provider Review Nursing Documentation Reviewed: Yes - Past History Past History: Non-Contributing - Infectious Disease Hx of Infectious Diseases: None - Tetanus Immunization Tetanus Immunization: Unknown - Cardiac Hx Cardiac Disorders: No - Pulmonary Hx Respiratory Disorders: No - Neurological Hx Neurological Disorder: No - HEENT Hx HEENT Disorder: No - Renal Hx Renal Disorder: No - Endocrine/Metabolic Hx Endocrine Disorders: No - Hematological/Oncological Hx Blood Disorders: No - Integumentary Hx Dermatological Disorder: No - Musculoskeletal/Rheumatological Hx Musculoskeletal Disorders: No - Gastrointestinal Hx Gastrointestinal Disorders: No - Genitourinary/Gynecological Hx Genitourinary Disorders: No - Psychiatric Hx Psychophysiologic Disorder: Yes Hx Depression: Yes Hx Substance Use: Yes (PCP) - Surgical History Other/Comment: hernia surgery - Anesthesia Hx Anesthesia: Yes Hx Anesthesia Reactions: No Hx Malignant Hyperthermia: No - Suicidal Assessment Feels Threatened In Home Enviroment: No Family/Social History - Physician Review Nursing Documentation Reviewed: Yes Family/Social History: No Known Family HX Smoking Status: Heavy Smoker > 10 Cigarettes Daily Hx Alcohol Use: Yes Hx Substance Use: Yes (PCP) Substance used: used PCP 08/22/16 Allergies/Home Meds Allergies/Adverse Reactions: Allergies No Known Allergies Allergy (Verified 10/26/16 22:50) Home Medications: Home Meds Medication Instructions Recorded Confirmed No Known Home Med 08/29/16 11/10/16 Review of Systems - Physician Review All systems were reviewed & negative as marked: Yes - Review of Systems Constitutional: Normal. absent: Fevers Eyes: Normal ENT: Normal Respiratory: Normal. absent: SOB, Cough Cardiovascular: Normal. absent: Chest Pain Gastrointestinal: Normal. absent: Abdominal Pain, Diarrhea, Nausea, Vomiting Genitourinary Male: Normal. absent: Dysuria, Frequency, Hematuria, Urinary Output Changes Musculoskeletal: Normal. absent: Back Pain, Neck Pain Skin: Normal. absent: Rash Neurological: Normal. absent: Headache, Dizziness Endocrine: Normal Hemo/Lymphatic: Normal Psychiatric: Depression, Suicidal Ideation Physical Exam Vital Signs Reviewed: Yes Vital Signs Temp Pulse Resp BP Pulse Ox 11/10/16 22:51 97.6 F 78 18 130/80 98 Temperature: Afebrile Blood Pressure: Normal Pulse: Regular Respiratory Rate: Normal Appearance: Positive for: Well-Appearing, Non-Toxic, Comfortable Pain Distress: None Mental Status: Positive for: Alert and Oriented X 3 - Systems Exam Head: Present: Atraumatic, Normocephalic Pupils: Present: PERRL Extroacular Muscles: Present: EOMI Conjunctiva: Present: Normal Mouth: Present: Moist Mucous Membranes Neck: Present: Normal Range of Motion Respiratory/Chest: Present: Clear to Auscultation, Good Air Exchange. No: Respiratory Distress, Accessory Muscle Use Cardiovascular: Present: Regular Rate and Rhythm, Normal S1, S2. No: Murmurs Abdomen: Present: Normal Bowel Sounds. No: Tenderness, Distention, Peritoneal Signs Back: Present: Normal Inspection Upper Extremity: Present: Normal Inspection. No: Cyanosis, Edema Lower Extremity: Present: Normal Inspection. No: Edema Neurological: Present: GCS=15, CN II-XII Intact, Speech Normal Skin: Present: Warm, Dry, Normal Color. No: Rashes Psychiatric: Present: Alert, Oriented x 3, Normal Insight, Normal Concentration Medical Decision Making ED Course and Treatment: 11/10/16 22:33 Impression: 31 year old male complaining of depression and suicidal ideation. Differential Diagnosis include but are not limited to: depression vs. suicidal ideation Plan: -- EKG -- Chest X-ray -- Labs, alcohol level -- Urinalysis, urine drug screen -- Reassess and disposition Prior Visits: Notes and results from previous visits were reviewed. Progress Notes: 11/10/16 22:55 Reviewed EKG, NSR at [address]-segment elevations or depressions, no T-wave inversions, normal intervals. 11/10/16 23:01 Reviewed radiology, Chest X-ray shows no acute processes. 11/11/16 01:05 Reviewed labs, no acute abnormalities, alcohol<10, positive PCP. Pt medically cleared for psychiatric evaluation. 11/11/16 06:15 Pt seen and evaluated by PES wong Leonard, who discussed case with psychiatrist. Pt will be admitted to behavioral health for depression under Dr. Palacios's service. Pt agreeable with plan. - Lab Interpretations Lab Results: 11/10/16 22:45 11/10/16 22:45 Lab Results 11/10/16 23:50: Urine Opiates Screen Negative, Urine Methadone Screen Negative, Ur Barbiturates Screen Negative, Ur Phencyclidine Scrn Positive H, Ur Amphetamines Screen Negative, U Benzodiazepines Scrn Negative, U Oth Cocaine Metabols Negative, U Cannabinoids Screen Negative 11/10/16 22:45: Alcohol, Quantitative < 10 11/10/16 22:45: Salicylates < 1 L, Acetaminophen < 10.0 L 11/10/16 22:45: Sodium 140, Potassium 4.1, Chloride 105, Carbon Dioxide 25, Anion Gap 14, BUN 14, Creatinine 0.9, Est GFR ( Amer) > 60, Est GFR (Non- Af Amer) > 60, Random Glucose 85, Calcium 9.3, Total Bilirubin 0.4, AST 28, ALT 44, Alkaline Phosphatase 68, Total Protein 7.7, Albumin 4.7, Globulin 3.0, Albumin/Globulin Ratio 1.6 11/10/16 22:45: WBC 9.6, RBC 4.73, Hgb 13.8 L, Hct 40.0 L, MCV 84.6, MCH 29.2, MCHC 34.5, RDW 13.0, Plt Count 259, MPV 8.6, Gran % 54.4, Lymph % (Auto) 36.1 H , [place] % (Auto) 7.1 H, Eos % (Auto) 2.2, Baso % (Auto) 0.2, Gran # 5.25, Lymph # 3.5 H, [place] # 0.7 H, Eos # 0.2, Baso # 0.02 I have reviewed the lab results: Yes - RAD Interpretation Radiology Orders: 11/10/16 22:38 CHEST PORTABLE [RAD] Stat Customer Contact Sales Associate: ED Physician - EKG Interpretation Interpreted by ED Physician: Yes Type: 12 lead EKG - Scribe Statement The provider has reviewed the documentation as recorded by the Dawitibsaeid Mckee All medical record entries made by the Dawitibsaeid were at my direction and personally dictated by me. I have reviewed the chart and agree that the record accurately reflects my personal performance of the history, physical exam, medical decision making, and the department course for this patient. I have also personally directed, reviewed, and agree with the discharge instructions and disposition. Disposition/Present on Arrival - Present on Arrival Any Indicators Present on Arrival: No History of DVT/PE: No History of Uncontrolled Diabetes: No Urinary Catheter: No History Surgical Site Infection Following: None - Disposition Have Diagnosis and Disposition been Completed?: Yes Diagnosis: Depression Disposition: HOSPITALIZED Disposition Time: 06:00 Patient Plan: Admission Condition: STABLE
[2016-11-10 22:37] VITALS: BMI 25.8
[2016-11-10 22:53] LABS: ADD MANUAL DIFF? NO
[2016-11-10 23:02] LABS: BASO # 0.02 K/mm3 (0.0-2.0); BASO % 0.2 % (0.0-3.0); EOS # 0.2 (0.0-0.7); EOS % 2.2 % (1.5-5.0); GRAN # 5.25 (1.4-6.5); GRAN % 54.4 % (50.0-68.0); LYMPH # 3.5 (1.2-3.4); LYMPH % 36.1 % (22.0-35.0); MEAN CELL VOLUME 84.6 fL (80.0-105.0); MEAN CORPUSCULAR HEMOGLOBIN 29.2 pg (25.0-35.0); MEAN CORPUSCULAR HGB CONC 34.5 g/dl (31.0-37.0); MEAN PLATELET VOLUME 8.6 fl (7.0-11.0); MONO # 0.7 (0.1-0.6); MONO % 7.1 % (1.0-6.0); PLATELET COUNT 259 10^3/uL (120.0-450.0); WHITE BLOOD COUNT 9.6 10^3/ul (4.5-11.0)
[2016-11-10 23:05] LABS: ALB/GLOB RATIO 1.6 (1.1-1.8); ALKALINE PHOSPHATASE 68 U/L (38-133); ALT/SGPT 44 U/L (7-56); AST/SGOT 28 U/L (15-59); BILIRUBIN,TOTAL 0.4 mg/dL (0.2-1.3); BLOOD UREA NITROGEN 14 mg/dL (7-21); CALCIUM 9.3 mg/dL (8.4-10.5); CARBON DIOXIDE 25 mmol/L (21-33); CHLORIDE 105 mmol/L (98-107); GFR AFRICAN-AMERICAN > 60; GLUCOSE,RANDOM 85 mg/dL (70-110); POTASSIUM 4.1 mmol/L (3.6-5.0); SODIUM 140 mmol/L (132-148); TOTAL PROTEIN 7.7 g/dL (5.8-8.3)
[2016-11-11 06:56] VITALS: O2SAT 99
--- NOTE | 2016-11-11 10:55 | RAD ---
HISTORY: medical clearance COMPARISON: 10/04/2016 FINDINGS: LUNGS: No active pulmonary disease. PLEURA: No significant pleural effusion identified, no pneumothorax apparent. CARDIOVASCULAR: Normal. OSSEOUS STRUCTURES: No significant abnormalities. VISUALIZED UPPER ABDOMEN: Normal. OTHER FINDINGS: None. IMPRESSION: No active disease.
[2016-11-11] MEDS ORDERED: Magnesium Hydroxide Susp 30 ml UD PO PRN (11:06)
[2016-11-11] MEDS ORDERED: Alum-Mag Hydrox-Simethicone Susp (30 mL) PO PRN (11:06)
--- NOTE | 2016-11-11 17:12 | CP.PCM.CON ---
History of Present Illness - History of Present Illness History of Present Illness: Patient is a 31 y/p AA M with past medical hx of substance abuse, depression, inguinal hernia, and homelessness who presents to the ED with complaint of suicidal ideation and depression. He has history of multiple admission to Psychiatry for similar reason. Patient states he has been feeling depressed and suicidal. Patient states he wants to choke himself to . Patient was using PCP and was also drinking alcohol. He is having epeigastric abdominal pain when ever he is drinking, there is no history of abdominal distension,nausea, vomiting or diarrhea. There is no history of radiation of pain.There is no history of fever , chills or rigor. There is no history of retrosternal chest pain, no history of dyspnea, .There is no history of fever or chills. There is no H/O swelling of leg. Review of Systems - Constitutional Constitutional: As Per HPI - Gastrointestinal Gastrointestinal: Abdominal Pain Additional comments: epigastric pain as described above - Psychiatric Psychiatric: Depression, Suicidal Ideation Past Patient History - Tetanus Immunizations Tetanus Immunization: Unknown - Past Medical History & Family History Past Medical History?: No - Past Social History Smoking Status: Heavy Smoker > 10 Cigarettes Daily Drugs: Other (homeless, smokes 10 cigarettes a day, drink alcohl, last intake 2 days back, about 2-3 drinks daily, PCP and marijuana) Home Situation {Lives}: Homeless - CARDIAC Hx Cardiac Disorders: No Hx Angina: No Hx Atrial Fibrillation: No Hx Cardia Arrhythmia: No Hx Circulatory Problems: No Hx Congestive Heart Failure: No Hx Heart Attack: No Hx Heart Murmur: No Hx Heart Transplant: No Hx Hypertension: No Hx Hypotension: No Hx Internal Defibrillator: No Hx Mitral Valve Prolapse: No Hx Pacemaker: No Hx Peripheral Edema: No Hx Peripheral Vascular Disease: No - PULMONARY Hx Respiratory Disorders: No Hx Asthma: No Hx Bronchitis: No Hx Chronic Obstructive Pulmonary Disease (COPD): No Hx Emphysema: No Hx Lung Cancer: No Hx Pneumonia: No Hx Pulmonary Edema: No Hx Pulmonary Embolism: No Hx Respiratory Aspiration: No Hx Respiratory Tract Infection: No Hx Sleep Apnea: No Hx Tuberculosis: No - NEUROLOGICAL Hx Neurological Disorder: No Hx Alzheimer's Disease: No HX Cerebrovascular Accident: No Hx Dementia: No Hx Dizziness: No Hx Meningitis: No Hx Migraine: No Hx Multiple Sclerosis: No Hx Paralysis: No Hx Parkinson's Disease: No Hx Seizures: No Hx Syncope: No Hx Transient Ischemic Attacks (TIA): No Hx Vertigo: No - HEENT Hx HEENT Problems: No Hx Blind: No Hx Cataracts: No Hx Deafness: No Hx Difficulty Chewing: No Hx Epistaxis: No Hx Glaucoma: No Hx Macular Degeneration: No Hx Sinusitis: No - RENAL Hx Chronic Kidney Disease: No - ENDOCRINE/METABOLIC Hx Endocrine Disorders: No - HEMATOLOGICAL/ONCOLOGICAL Hx Blood Disorders: No - INTEGUMENTARY Hx Dermatological Problems: No - MUSCULOSKELETAL/RHEUMATOLOGICAL Hx Musculoskeletal Disorders: No - GASTROINTESTINAL Hx Gastrointestinal Disorders: No - GENITOURINARY/GYNECOLOGICAL Hx Genitourinary Disorders: No - PSYCHIATRIC Hx Substance Use: Yes - SURGICAL HISTORY Other/Comment: hernia surgery - ANESTHESIA Hx Anesthesia: Yes Hx Anesthesia Reactions: No Hx Malignant Hyperthermia: No Meds Allergies/Adverse Reactions: Allergies Allergy/AdvReac Type Severity Reaction Status Date / Time No Known Allergies Allergy Verified 10/26/16 22:50 - Medications Medications: Current Medications Acetaminophen (Tylenol 325mg Tab) 650 mg PO Q6H PRN PRN Reason: Pain, Mild (1-3) Al Hydrox/Mg Hydrox/Simethicone (Maalox Plus 30 Ml) 30 ml PO DAILY PRN PRN Reason: Upset Stomach Lorazepam (Ativan) 0.5 mg PO AMHS VALERIA PRN Reason: Protocol Magnesium Hydroxide (Milk Of Magnesia) 30 ml PO DAILY PRN PRN Reason: Constipation Zaleplon (Sonata) 10 mg PO HS PRN PRN Reason: Insomnia Physical Exam - Constitutional Appears: Non-toxic, No Acute Distress - Head Exam Head Exam: ATRAUMATIC, NORMAL INSPECTION - Eye Exam Eye Exam: Normal appearance Pupil Exam: NORMAL ACCOMODATION - ENT Exam ENT Exam: Mucous Membranes Moist - Neck Exam Neck exam: Positive for: Normal Inspection - Respiratory Exam Respiratory Exam: Clear to Auscultation Bilateral - Cardiovascular Exam Cardiovascular Exam: REGULAR RHYTHM Additional comments: no rubs or gallop - GI/Abdominal Exam GI & Abdominal Exam: Normal Bowel Sounds, Soft Additional comments: mild epigastric tenderness - Extremities Exam Additional comments: no cynosis or clubbing, no edema - Neurological Exam Neurological exam: Alert, CN II-XII Intact, Oriented x3 Additional comments: non focal - Psychiatric Exam Psychiatric exam: Suicidal Ideation Results - Vital Signs Recent Vital Signs: Last Vital Signs Temp 97.9 F 11/11/16 04:00 Pulse 78 11/11/16 06:00 Resp 18 11/11/16 06:00 BP 128/74 11/11/16 06:00 Pulse Ox 99 11/11/16 06:00 - Labs Result Diagrams: 11/10/16 22:45 11/10/16 22:45 Assessment & Plan - Assessment and Plan (Free Text) Assessment: Patient is a 31 y/o AA M with history of substance abuse, depression, inguinal hernia and homelessness who presented with suicidal ideation. Complaint of intermittent epigastric pain, has epigastric tenderness 1. Depression w/ SI Patient on psychiatry floor Management as per psychiatry. 2.Epigastric Pain likely GERD/Gastritis, EKG is NSR, no ischemic changes asymptomatic at this time LFT's and Alk phos wnl Previous Lipid panel wnl Start on protonix 40 mg PO daily Avoid NSAID 3.Alcohol and drug Drug abuse No sign of alcohol encourage cessation started on thiamine, folic acid, and multivitamin monitor for withdrawal symptoms There is no active medical issue at this time .We will sign off .Please call us back if any question.
--- NOTE | 2016-11-12 01:38 | CARD ---
APPROVED REPORT EKG Measurement Heart [id number] ID [id number] <Conclusion> Normal sinus rhythm Normal ECG
[2016-11-12] MEDS ORDERED: Pantoprazole 40 mg EC Tab PO SCH (06:30)
[2016-11-12] MEDS: Pantoprazole 40 mg EC Tab PO SCH (08:51)
[2016-11-12 09:14] LABS: CHOLESTEROL 196 mg/dL (130-200); GLUCOSE,FASTING 150 mg/dL (65-110)
[2016-11-12 09:38] LABS: FREE T4 0.68 ng/dL (0.78-2.19)
[2016-11-12 09:52] LABS: THYROID STIMULATING HORMONE 0.85 mIU/mL (0.46-4.68)
--- NOTE | 2016-11-12 15:37 | PCM.PSYCH ---
Initial Psychiatric Evaluation - Initial Psychiatric Evaluation Type of Admission: Voluntary Legal Status: Capacity (patient has capacity to sign consent for treatment) Chief Complaint (in patient's own words): "I know my problem, I need to stop using drugs, but I am enjoying it, what should I do?" Patient's Reaction to Hospitalization: patient was admitted to psychiatric inpatient unit for questionable suicidal ideations, at the moment of interview patient denied History of Present Illness and Precipitating Events: Patient is a 31-year-old single -[place]ian male with a notable history of PCP in alcohol dependence, one prior psychiatric hospitalization in this facility less than a month ago, pt was d/c with no meds, last admission patient was discharged to inpatient rehabilitation. Pt is homeless, chronic PCP user, brought himself to the hospital, saying that he is depressed, thoughts of harming imself, patient denied thoughts of killing himself during the interview today. patient was seen at the treatment team meeting, presented to have poor personal hygiene, fare ADLs. Patient presented to be not psychotic, not depressed, not anxious. Patient presented to have some cognitive limitations most likely due to his chronic substance abuse. patient was giggling inappropriately, patient said "I know my problem, I need to stop using drugs, but I really enjoyed it, I know that I need to go to 3 years inpatient rehabilitation, this is what they really needed" In the ED during the PES evaluation pt: "Feeling suicidal on and off, was feeling depressed" pt denied v/a/t hallucinations, but thought process is disorganized. as per previous assessment: Patient has been using PCP daily for years as well as drinking 45 beers daily for years. He indicated he did go to a rehab at 1.3 to 4 years ago for management of both alcohol and PCP to dependency this occurred in [facility]. Patient reports that he smokes 10 cigarettes daily and defers on a nicotine patch. He was apprised of the morbidity and mortality risks associated with continued tobacco use. past psych h/o: one admission in this facility Less than a month ago, was discharged to [facility] rehabilitation. Medical history: Denied, patient was seen by medical team. Family history unknown Patient treatment goals are;To go to inpatient rehabilitation 11/10/16 22:45 11/10/16 22:45 Lab Results 11/12/16 09:00: Free T4 0.68 L, TSH 3rd Generation 0.85 11/12/16 09:00: Fasting Glucose 150 H, Triglycerides 235 H, Cholesterol 196, LDL Cholesterol Direct 102, HDL Cholesterol 47 11/10/16 23:50: Urine Opiates Screen Negative, Urine Methadone Screen Negative, Ur Barbiturates Screen Negative, Ur Phencyclidine Scrn Positive H, Ur Amphetamines Screen Negative, U Benzodiazepines Scrn Negative, U Oth Cocaine Metabols Negative, U Cannabinoids Screen Negative 11/10/16 22:45: Alcohol, Quantitative < 10 11/10/16 22:45: Salicylates < 1 L, Acetaminophen < 10.0 L 11/10/16 22:45: Sodium 140, Potassium 4.1, Chloride 105, Carbon Dioxide 25, Anion Gap 14, BUN 14, Creatinine 0.9, Est GFR ( Amer) > 60, Est GFR (Non- Af Amer) > 60, Random Glucose 85, Calcium 9.3, Total Bilirubin 0.4, AST 28, ALT 44, Alkaline Phosphatase 68, Total Protein 7.7, Albumin 4.7, Globulin 3.0, Albumin/Globulin Ratio 1.6 11/10/16 22:45: WBC 9.6, RBC 4.73, Hgb 13.8 L, Hct 40.0 L, MCV 84.6, MCH 29.2, MCHC 34.5, RDW 13.0, Plt Count 259, MPV 8.6, Gran % 54.4, Lymph % (Auto) 36.1 H , [place] % (Auto) 7.1 H, Eos % (Auto) 2.2, Baso % (Auto) 0.2, Gran # 5.25, Lymph # 3.5 H, [place] # 0.7 H, Eos # 0.2, Baso # 0.02 11/10/16 22:42: POC Glucose (mg/dL) 100 Vital Signs Temp Pulse Resp BP Pulse Ox 11/12/16 07:48 97.9 F 66 20 114/73 11/11/16 16:00 97.9 F 62 18 116/68 11/11/16 06:00 78 18 128/74 99 11/11/16 04:00 97.9 F 72 16 122/74 100 11/11/16 02:00 78 18 127/74 99 11/11/16 00:00 74 18 100 05/20/17 22:51 97.6 F 78 18 130/80 98 Current Medications: Active Medications Generic Name Dose Route Start Last Admin Trade Name Chanelle PRN Reason Stop Dose Admin Acetaminophen 650 mg 11/11/16 11:06 Tylenol 325mg Tab PO Q6H PRN Pain, Mild (1-3) Al Hydrox/Mg Hydrox/Simethicone 30 ml 11/11/16 11:06 Maalox Plus 30 Ml PO DAILY PRN Upset Stomach Folic Acid 1 mg 11/12/16 08:00 11/12/16 08:52 Folic Acid PO 1 mg DAILY VALERIA Administration Lorazepam 0.5 mg 11/11/16 22:00 11/12/16 10:49 Ativan PO 0.5 mg AMHS VALERIA Administration Protocol Magnesium Hydroxide 30 ml 11/11/16 11:06 Milk Of Magnesia PO DAILY PRN Constipation Pantoprazole Sodium 40 mg 11/12/16 07:30 11/12/16 08:51 Protonix Ec Tab PO 40 mg ACB VALERIA Administration Thiamine HCl 100 mg 11/12/16 08:00 11/12/16 08:51 Vitamin B1 Tab PO 100 mg DAILY VALERIA Administration Zaleplon 10 mg 11/11/16 13:22 Sonata PO HS PRN Insomnia Past Psychiatric History - Past Psychiatric History Previous Treatment History: Inpatient Prior Professional Help: see HPI Prior Psychiatric Treatment: see HPI At what hospital: see HPI Duration: see HPI Nature of Treatment: see HPI Explanation of prior treatment: see HPI History of Abuse: see HPI History of ETOH/Drug Use: see HPI History of Family Illness: see HPI Pertinent Medical Hx (Current Medical&Sleep Prob, Allergies): Allergies Allergy/AdvReac Type Severity Reaction Status Date / Time No Known Allergies Allergy Verified 11/12/16 06:04 No Known Home Med 08/29/16 Review of Systems - Review of Systems Systems not reviewed;Unavailable: Acuity of Condition - EENT Eyes: As Per HPI Ears: As Per HPI Nose/Mouth/Throat: As Per HPI - Cardiovascular Cardiovascular: As Per HPI - Respiratory Respiratory: As Per HPI - Gastrointestinal Gastrointestinal: As Per HPI - Genitourinary Genitourinary: As Per HPI - Reproductive: Male Reproductive:Male: As Per HPI - Musculoskeletal Musculoskeletal: As Par HPI - Integumentary Integumentary: As Per HPI - Neurological Neurological: As Per HPI - Psychiatric Psychiatric: As Per HPI - Endocrine Endocrine: As Per HPI - Hematologic/Lymphatic Hematologic: As Per HPI Mental Status Examination - Personal Presentation Personal Presentation: Looks stated age - Affect Affect: Other (giggling inappropriately) - Motor Activity Motor Activity: Calm - Reliability in Providing Information Reliability in Providing Information: Poor, due to cognitve impairment (likely due to chronic PCP use) - Speech Speech: Disorganized - Obsessions/Compulsions Obsessions: None Compulsions: None - Cognitive Functions Orientation: Person, Place Sensorium: Alert Attention/Concentration: Easily distracted Abstract Thinking: [place] Estimate of Intelligence: Below average Judgement: Intact, as evidence by: Insight regarding need for hospitalization - Risk Risk: Diminished functioning - Strength & Assets Inventory Strength & Assets Inventory: Cooperative - Limitations Limitations: Other (chronic substance abuse) DSM 5 DX - DSM 5 DSM 5 Diagnosis: rule out substance-induced mood disorder PCP use disorder rule out malingering - Recommended/Plan of Treatment Treatment Recommendations and Plan of Treatment: milieu, structure, supportive therapy workers compensation defense attorney evaluation We'll observe patient for 24 hours most likely patient will be discharged then There is no signs of depression, anxiety, psychosis But obviously patient is having cognitive limitations due to chronic substance abuse We'll monitor closely Projected ELOS: 48 hours Prognosis: guarded Discharge Plan and Discharge Criteria: Pt will be not depressed or manic, will be more hopeful, will be not psychotic or anxious, will be not having thoughts of harming self or others, will be tolerating medications well, will not have major side effects, will be able to function, will not pose threat to self or others. - Smoking Cessation Smoking Cessation Initiated: Yes
[2016-11-13] MEDS: Pantoprazole 40 mg EC Tab PO SCH (08:21)
--- NOTE | 2016-11-13 16:02 | PCM.PYCHPN ---
Psychiatric Progress Note - Psychiatric Progress Note Patient seen today, length of contact: 30 minutes Patient Chief Complaint: "I heard some voices that everything is going to be okay" Problems Identified/Issues Discussed: Suicide/ homicide prevention, past psychiatric h/o, current psychiatric symptoms , medical problems, risk/benefits and alternatives of medications, medications compliance, coping strategies, substance abuse h/o, relapse prevention, importance of follow up with psychiatrist and therapist, discharge plan. Medical Problems: patient is healthy Diagnostic Results: Acetaminophen (Tylenol 325mg Tab) 650 mg PO Q6H PRN PRN Reason: Pain, Mild (1-3) Al Hydrox/Mg Hydrox/Simethicone (Maalox Plus 30 Ml) 30 ml PO DAILY PRN PRN Reason: Upset Stomach Folic Acid (Folic Acid) 1 mg PO DAILY [facility] Last Admin: 11/13/16 08:21 Dose: 1 mg Magnesium Hydroxide (Milk Of Magnesia) 30 ml PO DAILY PRN PRN Reason: Constipation Pantoprazole Sodium (Protonix Ec Tab) 40 mg PO ACB [facility] Last Admin: 11/13/16 08:21 Dose: 40 mg Paroxetine HCl (Paxil) 20 mg PO HS [facility] Risperidone (Risperdal Tab) 0.5 mg PO AMHS [facility] PRN Reason: Protocol Risperidone (Risperdal Tab) 0.5 mg PO 1400 [facility] PRN Reason: Protocol Last Admin: 11/13/16 15:17 Dose: 0.5 mg Thiamine HCl (Vitamin B1 Tab) 100 mg PO DAILY [facility] Last Admin: 11/13/16 08:21 Dose: 100 mg Zaleplon (Sonata) 10 mg PO HS PRN PRN Reason: Insomnia Last Admin: 11/12/16 21:35 Dose: 10 mg Discontinued Medications Lorazepam (Ativan) 0.5 mg PO AMHS [facility] PRN Reason: Protocol Last Admin: 11/13/16 09:06 Dose: 0.5 mg Re-Assess: Reassess Psych Meds Document 11/13/16 10:06 SD (Rec: 11/13/16 10:26 SD [id number]) Reassess Psych Med Effective Pantoprazole Sodium (Protonix Ec Tab) 40 mg PO 0630 [facility] Vital Signs Temp Pulse Resp BP Pulse Ox 11/13/16 09:51 97.8 F 67 20 119/52 L 11/13/16 06:55 97.8 F 67 20 119/50 L 11/12/16 16:32 68 103/54 L 11/12/16 07:48 97.9 F 66 20 114/73 11/11/16 16:00 97.9 F 62 18 116/68 11/11/16 06:00 78 18 128/74 99 11/11/16 04:00 97.9 F 72 16 122/74 100 11/11/16 02:00 78 18 127/74 99 11/11/16 00:00 74 18 100 11/10/16 22:51 97.6 F 78 18 130/80 98 DSM 5 Symptoms Update: Patient is a 31-year-old single -Surinamese male with a notable history of PCP in alcohol dependence, one prior psychiatric hospitalization in this facility less than a month ago, pt was d/c with no meds, last admission patient was discharged to inpatient rehabilitation. Pt is homeless, chronic PCP user, brought himself to the hospital, saying that he is depressed, thoughts of harming imself, patient denied thoughts of killing himself during the interview today. patient was seen at the treatment team Room, presented to have poor personal hygiene, fare ADLs. as per staff patient had inappropriate behavior, patient tries to show his penis to female staff, patient was redirected, no physical aggression, no agitation. This sign writer letterer or painter educated patient about unit rules and regulations, patient was advised to be socially appropriate, patient verbalized understanding , patient said that he will apologize to the staff, at the same time patient was giggling about this incident. Patient reported to hear some voices saying"you can do it" when patient was asked about the interpretation patient said"I don't know what does it mean". Patient was educated about the Risperdal, risk, benefits, alternatives explained. Patient presented to have some cognitive limitations most likely due to his chronic substance abuse. patient reported to feel depressed, feeling of hopelessness,denied suicidal ideations today. Patient was educated about Paxilrisk: Benefits, alternatives discussed. Impression: Substance-induced mood disorder Substance-induced psychotic disorder Stimulant use disorder Medication Change: Yes (Risperdal, Paxil started) Medical Record Reviewed: Yes Consults ordered or reviewed: medical consult called Mental Status Examination - Cognitive Function Orientation: Person, Place Memory: Impaired Attention: Poor Concentration: Poor Association: Loose Fund of Knowledge: Poor - Mood Mood: Depressed, Anxious - Affect Affect: Constricted, Other (giggling inappropriately) - Speech Speech: Appropriate (there is some poverty of speech) - Formal Thought Process Formal Thought Process: Hallucinations (patient reported to hear voices today) Psychotic Thoughts and Behaviors: patient tried to show his penis to female staff - Suicidal Ideation Suicidal Ideation: No - Homicidal Ideation Homicidal Ideation: No Goal/Treatment Plan - Goal/Treatment Plan Need for Continued Stay: Remain at risks for inpatient hospitalization, Severe depression anxiety, Discharge may exacerbated symptoms, Failed transitioning, Severe functional impairment Progress Toward Problem(s) and Goals/Treatment Plan: milieu, structure, supportive therapy roll scale worker evaluation risperdal 0.5 mg 3 times a day for psychotic symptoms Paxil 20 mg at the nighttime for depression as well as anxiety patient meets criteria to stay in the hospital longer, because it will be not see discharge patient is sexually inappropriate But obviously patient is having cognitive limitations due to chronic substance abuse We'll monitor closely Estimated Date of D/C: 11/19/16 (we'll monitor closely) - Smoking Cessation Smoking Cessation Initiated: Yes
[2016-11-14] MEDS: Pantoprazole 40 mg EC Tab PO SCH (09:28)
--- NOTE | 2016-11-14 16:15 | PCM.PYCHPN ---
Psychiatric Progress Note - Psychiatric Progress Note Patient seen today, length of contact: 30 minutes Patient Chief Complaint: "I feel sleepy today" Problems Identified/Issues Discussed: Suicide/ homicide prevention, past psychiatric h/o, current psychiatric symptoms , medical problems, risk/benefits and alternatives of medications, medications compliance, coping strategies, substance abuse h/o, relapse prevention, importance of follow up with psychiatrist and therapist, discharge plan. Medical Problems: patient is healthy Diagnostic Results: Acetaminophen (Tylenol 325mg Tab) 650 mg PO Q6H PRN PRN Reason: Pain, Mild (1-3) Al Hydrox/Mg Hydrox/Simethicone (Maalox Plus 30 Ml) 30 ml PO DAILY PRN PRN Reason: Upset Stomach Folic Acid (Folic Acid) 1 mg PO DAILY [facility] Last Admin: 11/13/16 08:21 Dose: 1 mg Magnesium Hydroxide (Milk Of Magnesia) 30 ml PO DAILY PRN PRN Reason: Constipation Pantoprazole Sodium (Protonix Ec Tab) 40 mg PO ACB [facility] Last Admin: 11/13/16 08:21 Dose: 40 mg Paroxetine HCl (Paxil) 20 mg PO HS [facility] Risperidone (Risperdal Tab) 0.5 mg PO AMHS [facility] PRN Reason: Protocol Risperidone (Risperdal Tab) 0.5 mg PO 1400 [facility] PRN Reason: Protocol Last Admin: 11/13/16 15:17 Dose: 0.5 mg Thiamine HCl (Vitamin B1 Tab) 100 mg PO DAILY [facility] Last Admin: 11/13/16 08:21 Dose: 100 mg Zaleplon (Sonata) 10 mg PO HS PRN PRN Reason: Insomnia Last Admin: 11/12/16 21:35 Dose: 10 mg Discontinued Medications Lorazepam (Ativan) 0.5 mg PO AMHS [facility] PRN Reason: Protocol Last Admin: 11/13/16 09:06 Dose: 0.5 mg Re-Assess: Reassess Psych Meds Document 11/13/16 10:06 SD (Rec: 11/13/16 10:26 SD [id number]) Reassess Psych Med Effective Pantoprazole Sodium (Protonix Ec Tab) 40 mg PO 0630 [facility] Vital Signs Temp Pulse Resp BP Pulse Ox 11/13/16 09:51 97.8 F 67 20 119/52 L 11/13/16 06:55 97.8 F 67 20 119/50 L 11/12/16 16:32 68 103/54 L 11/12/16 07:48 97.9 F 66 20 114/73 11/11/16 16:00 97.9 F 62 18 116/68 11/11/16 06:00 78 18 128/74 99 11/11/16 04:00 97.9 F 72 16 122/74 100 11/11/16 02:00 78 18 127/74 99 11/11/16 00:00 74 18 100 11/10/16 22:51 97.6 F 78 18 130/80 98 Temp Pulse Resp BP Pulse Ox 98.0 F 54 L 20 114/68 99 11/14/16 07:46 11/14/16 07:46 11/14/16 07:46 11/14/16 07:46 11/11/16 06:00 DSM 5 Symptoms Update: Patient is a 31-year-old single -[place] male with a notable history of PCP in alcohol dependence, one prior psychiatric hospitalization in this facility less than a month ago, pt was d/c with no meds, last admission patient was discharged to inpatient rehabilitation. Pt is homeless, chronic PCP user, brought himself to the hospital, saying that he is depressed, thoughts of harming imself, patient denied thoughts of killing himself during the interview today. patient was seen at the treatment team Room, presented to have poor personal hygiene, fare ADLs, sleepy, as per RN there is no inappropriate behavior, of note yesterday patient tries to show his penis to female staff. pt reported his mood to be "improving", pt denied thoughts of harming self or others, pt reported no voices today. Patient presented to have some cognitive limitations most likely due to his chronic substance abuse. patient reported to feel depressed, feeling of hopelessness,denied suicidal ideations today. Patient was educated about Paxilrisk: Benefits, alternatives discussed. Impression: Substance-induced mood disorder Substance-induced psychotic disorder Stimulant use disorder Medication Change: Yes (Risperdal, Paxil started) Medical Record Reviewed: Yes Consults ordered or reviewed: medical consult appreciated Mental Status Examination - Cognitive Function Orientation: Person, Place Memory: Impaired Attention: Poor Concentration: Poor Association: Loose Fund of Knowledge: Poor - Mood Mood: Depressed, Anxious - Affect Affect: Constricted, Other (giggling inappropriately) - Speech Speech: Appropriate (there is some poverty of speech) - Formal Thought Process Formal Thought Process: Hallucinations (patient reported to hear voices today) Psychotic Thoughts and Behaviors: patient tried to show his penis to female staff - Suicidal Ideation Suicidal Ideation: No - Homicidal Ideation Homicidal Ideation: No Goal/Treatment Plan - Goal/Treatment Plan Need for Continued Stay: Remain at risks for inpatient hospitalization, Severe depression anxiety, Discharge may exacerbated symptoms, Failed transitioning, Severe functional impairment Progress Toward Problem(s) and Goals/Treatment Plan: milieu, structure, supportive therapy cue worker evaluation risperdal 0.5 mg 3 times a day for psychotic symptoms Paxil 20 mg at the nighttime for depression as well as anxiety patient meets criteria to stay in the hospital longer, because it will be not see discharge patient is sexually inappropriate But obviously patient is having cognitive limitations due to chronic substance abuse We'll monitor closely UDS will be checked today, in order to go to inpatient rehab Estimated Date of D/C: 11/19/16 (we'll monitor closely)
[2016-11-15] MEDS: Pantoprazole 40 mg EC Tab PO SCH (08:55)
--- NOTE | 2016-11-15 15:22 | PCM.PYCHPN ---
Psychiatric Progress Note - Psychiatric Progress Note Patient seen today, length of contact: 30 minutes Patient Chief Complaint: "I feel groggy in my had" Problems Identified/Issues Discussed: Suicide/ homicide prevention, past psychiatric h/o, current psychiatric symptoms , medical problems, risk/benefits and alternatives of medications, medications compliance, coping strategies, substance abuse h/o, relapse prevention, importance of follow up with psychiatrist and therapist, discharge plan. Medical Problems: patient is healthy Diagnostic Results: Acetaminophen (Tylenol 325mg Tab) 650 mg PO Q6H PRN PRN Reason: Pain, Mild (1-3) Al Hydrox/Mg Hydrox/Simethicone (Maalox Plus 30 Ml) 30 ml PO DAILY PRN PRN Reason: Upset Stomach Folic Acid (Folic Acid) 1 mg PO DAILY [facility] Last Admin: 11/13/16 08:21 Dose: 1 mg Magnesium Hydroxide (Milk Of Magnesia) 30 ml PO DAILY PRN PRN Reason: Constipation Pantoprazole Sodium (Protonix Ec Tab) 40 mg PO ACB [facility] Last Admin: 11/13/16 08:21 Dose: 40 mg Paroxetine HCl (Paxil) 20 mg PO HS [facility] Risperidone (Risperdal Tab) 0.5 mg PO AMHS [facility] PRN Reason: Protocol Risperidone (Risperdal Tab) 0.5 mg PO 1400 [facility] PRN Reason: Protocol Last Admin: 11/13/16 15:17 Dose: 0.5 mg Thiamine HCl (Vitamin B1 Tab) 100 mg PO DAILY [facility] Last Admin: 11/13/16 08:21 Dose: 100 mg Zaleplon (Sonata) 10 mg PO HS PRN PRN Reason: Insomnia Last Admin: 11/12/16 21:35 Dose: 10 mg Discontinued Medications Lorazepam (Ativan) 0.5 mg PO AMHS [facility] PRN Reason: Protocol Last Admin: 11/13/16 09:06 Dose: 0.5 mg Re-Assess: Reassess Psych Meds Document 11/13/16 10:06 SD (Rec: 11/13/16 10:26 SD [id number]) Reassess Psych Med Effective Pantoprazole Sodium (Protonix Ec Tab) 40 mg PO 0630 [facility] Vital Signs Temp Pulse Resp BP Pulse Ox 11/13/16 09:51 97.8 F 67 20 119/52 L 11/13/16 06:55 97.8 F 67 20 119/50 L 11/12/16 16:32 68 103/54 L 11/12/16 07:48 97.9 F 66 20 114/73 11/11/16 16:00 97.9 F 62 18 116/68 11/11/16 06:00 78 18 128/74 99 11/11/16 04:00 97.9 F 72 16 122/74 100 11/11/16 02:00 78 18 127/74 99 11/11/16 00:00 74 18 100 11/10/16 22:51 97.6 F 78 18 130/80 98 Temp Pulse Resp BP Pulse Ox 98.0 F 54 L 20 114/68 99 11/14/16 07:46 11/14/16 07:46 11/14/16 07:46 11/14/16 07:46 11/11/16 06:00 DSM 5 Symptoms Update: Patient is a 31-year-old single -[place] Islander male with a notable history of PCP in alcohol dependence, one prior psychiatric hospitalization in this facility less than a month ago, pt was d/c with no meds, last admission patient was discharged to inpatient rehabilitation. Pt is homeless, chronic PCP user, brought himself to the hospital, saying that he is depressed, thoughts of harming imself, patient denied thoughts of killing himself during the interview today. patient was seen at the treatment team Room, presented to have poor personal hygiene, fare ADLs, sleepy, as per RN Patient again had inappropriate behavior, was making sexual remarks, patient was warned another sexual remarks and he will be discharged. Patient verbalized understanding, patient apologized. patient reported feeling depressed, hearing voices still. Patient presented to have some cognitive limitations most likely due to his chronic substance abuse. patient reported to feel depressed, feeling of hopelessness,denied suicidal ideations today. Patient was educated about Paxilrisk: Benefits, alternatives discussed. Impression: Substance-induced mood disorder Substance-induced psychotic disorder Stimulant use disorder Medication Change: Yes (Risperdal, Paxil started) Medical Record Reviewed: Yes Consults ordered or reviewed: medical consult appreciated Mental Status Examination - Cognitive Function Orientation: Person, Place Memory: Impaired Attention: Poor Concentration: Poor Association: Loose Fund of Knowledge: Poor - Mood Mood: Depressed, Anxious - Affect Affect: Constricted, Other (giggling inappropriately) - Speech Speech: Appropriate (there is some poverty of speech) - Formal Thought Process Formal Thought Process: Hallucinations (patient reported to hear voices today) Psychotic Thoughts and Behaviors: patient tried to show his penis to female staff - Suicidal Ideation Suicidal Ideation: No - Homicidal Ideation Homicidal Ideation: No Goal/Treatment Plan - Goal/Treatment Plan Need for Continued Stay: Remain at risks for inpatient hospitalization, Severe depression anxiety, Discharge may exacerbated symptoms, Failed transitioning, Severe functional impairment Progress Toward Problem(s) and Goals/Treatment Plan: milieu, structure, supportive therapy cash office worker evaluation risperdal 0.5 mg 3 times a day for psychotic symptoms Paxil 20 mg at the nighttime for depression as well as anxiety patient meets criteria to stay in the hospital longer, because it will be not see discharge patient is sexually inappropriate But obviously patient is having cognitive limitations due to chronic substance abuse We'll monitor closely UDS will be checked today, in order to go to inpatient rehab Estimated Date of D/C: 11/19/16 (we'll monitor closely)
[2016-11-16] MEDS: Pantoprazole 40 mg EC Tab PO SCH (09:03)
--- NOTE | 2016-11-16 15:57 | PCM.PYCHPN ---
Psychiatric Progress Note - Psychiatric Progress Note Patient seen today, length of contact: 30 minutes Patient Chief Complaint: "U medications messing with my brain, I have mood up and down" Problems Identified/Issues Discussed: Suicide/ homicide prevention, past psychiatric h/o, current psychiatric symptoms , medical problems, risk/benefits and alternatives of medications, medications compliance, coping strategies, substance abuse h/o, relapse prevention, importance of follow up with psychiatrist and therapist, discharge plan. Medical Problems: patient is healthy Diagnostic Results: Acetaminophen (Tylenol 325mg Tab) 650 mg PO Q6H PRN PRN Reason: Pain, Mild (1-3) Al Hydrox/Mg Hydrox/Simethicone (Maalox Plus 30 Ml) 30 ml PO DAILY PRN PRN Reason: Upset Stomach Folic Acid (Folic Acid) 1 mg PO DAILY [facility] Last Admin: 11/13/16 08:21 Dose: 1 mg Magnesium Hydroxide (Milk Of Magnesia) 30 ml PO DAILY PRN PRN Reason: Constipation Pantoprazole Sodium (Protonix Ec Tab) 40 mg PO ACB [facility] Last Admin: 11/13/16 08:21 Dose: 40 mg Paroxetine HCl (Paxil) 20 mg PO HS [facility] Risperidone (Risperdal Tab) 0.5 mg PO AMHS [facility] PRN Reason: Protocol Risperidone (Risperdal Tab) 0.5 mg PO 1400 [facility] PRN Reason: Protocol Last Admin: 11/13/16 15:17 Dose: 0.5 mg Thiamine HCl (Vitamin B1 Tab) 100 mg PO DAILY [facility] Last Admin: 11/13/16 08:21 Dose: 100 mg Zaleplon (Sonata) 10 mg PO HS PRN PRN Reason: Insomnia Last Admin: 11/12/16 21:35 Dose: 10 mg Discontinued Medications Lorazepam (Ativan) 0.5 mg PO AMHS [facility] PRN Reason: Protocol Last Admin: 11/13/16 09:06 Dose: 0.5 mg Re-Assess: Reassess Psych Meds Document 11/13/16 10:06 SD (Rec: 11/13/16 10:26 SD [id number]) Reassess Psych Med Effective Pantoprazole Sodium (Protonix Ec Tab) 40 mg PO 0630 [facility] Vital Signs Temp Pulse Resp BP Pulse Ox 11/13/16 09:51 97.8 F 67 20 119/52 L 11/13/16 06:55 97.8 F 67 20 119/50 L 11/12/16 16:32 68 103/54 L 11/12/16 07:48 97.9 F 66 20 114/73 11/11/16 16:00 97.9 F 62 18 116/68 11/11/16 06:00 78 18 128/74 99 11/11/16 04:00 97.9 F 72 16 122/74 100 11/11/16 02:00 78 18 127/74 99 11/11/16 00:00 74 18 100 11/10/16 22:51 97.6 F 78 18 130/80 98 Temp Pulse Resp BP Pulse Ox 98.0 F 54 L 20 114/68 99 11/14/16 07:46 11/14/16 07:46 11/14/16 07:46 11/14/16 07:46 11/11/16 06:00 Temp Pulse Resp BP Pulse Ox 97.9 F 76 20 148/92 H 99 11/16/16 07:47 11/16/16 07:47 11/16/16 07:47 11/16/16 07:47 11/11/16 06:00 DSM 5 Symptoms Update: Patient is a 31-year-old single -[place] male with a notable history of PCP in alcohol dependence, one prior psychiatric hospitalization in this facility less than a month ago, pt was d/c with no meds, last admission patient was discharged to inpatient rehabilitation. Pt is homeless, chronic PCP user, brought himself to the hospital, saying that he is depressed, thoughts of harming imself, patient denied thoughts of killing himself during the interview today. patient was seen In his room, presented to have poor personal hygiene, fare ADLs , sleepy, was talking to this production underwriter looking on the wall and showing his back towards her. Patient said "your medications messing up my brain", patient was not able to explain it was way. As per staff there is no inappropriate behavior no sexual remarks. yesterday Patient had inappropriate behavior, was making sexual remarks inpatient rehabilitation will not accept patient unless urine drug screen was negative. Urine drug screen was done yesterday, still showing PCP positive. patient reported to feel depressed, feeling of hopelessness,denied suicidal ideations today. patient tolerates medications well, no side effects observed or reported Impression: Substance-induced mood disorder Substance-induced psychotic disorder Stimulant use disorder Medication Change: No Medical Record Reviewed: Yes Consults ordered or reviewed: medical consult appreciated Mental Status Examination - Cognitive Function Orientation: Person, Place Memory: Impaired Attention: Poor Concentration: Poor Association: Loose Fund of Knowledge: Poor - Mood Mood: Depressed, Anxious - Affect Affect: Constricted, Other (giggling inappropriately) - Speech Speech: Appropriate (there is some poverty of speech) - Formal Thought Process Formal Thought Process: Hallucinations (patient reported to hear voices today) Psychotic Thoughts and Behaviors: patient tried to show his penis to female staff - Suicidal Ideation Suicidal Ideation: No - Homicidal Ideation Homicidal Ideation: No Goal/Treatment Plan - Goal/Treatment Plan Need for Continued Stay: Remain at risks for inpatient hospitalization, Severe depression anxiety, Discharge may exacerbated symptoms, Failed transitioning, Severe functional impairment Progress Toward Problem(s) and Goals/Treatment Plan: milieu, structure, supportive therapy hospital social worker evaluation risperdal 0.5 mg 3 times a day for psychotic symptoms Paxil 20 mg at the nighttime for depression as well as anxiety patient meets criteria to stay in the hospital longer, pt was accepted by [facility] inpatient rehab, waiting UDS to be negative. UDS was positive for PCP 11/14/16 UDS on Saturday But obviously /patient is having cognitive limitations due to chronic substance abuse We'll monitor closely Estimated Date of D/C: 11/19/16 (we'll monitor closely)
[2016-11-17] MEDS: Pantoprazole 40 mg EC Tab PO SCH (07:55)
--- NOTE | 2016-11-17 09:22 | PCM.PYCHPN ---
Psychiatric Progress Note - Psychiatric Progress Note Patient seen today, length of contact: 25 minutes Patient Chief Complaint: better, alright Problems Identified/Issues Discussed: I reviewed recent notes and met with patient at bedside. Patient remains oriented to month, year and circumstances. Reports that he is feeling better and denies any recent recurrence of hallucinations or suicidal thoughts. Patient is not hopeless and denies thoughts of harming others. Patient also denies having any paranoid or persecutory thoughts. He doesn't appear to be responding to internal stimuli and responses are relevant to questioning. Patient denies any new discomfort or pain. Staff notes indicate that patient has been been labile and inappropriate with a female but generally showing good control on the unit. Appears brighter and more animated in community.. There were no behavioral issues overnight. 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 Stimulant use disorder Medication Change: No Medical Record Reviewed: Yes Mental Status Examination - Cognitive Function Orientation: Person, Place, Situation Memory: Impaired Attention: Poor Concentration: Poor Association: Loose Fund of Knowledge: Poor - Mood Mood: Depressed (better), Anxious - Affect Affect: Constricted, Other (giggling inappropriately) - Speech Speech: Appropriate (there is some poverty of speech) - Formal Thought Process Formal Thought Process: Hallucinations (denies today) - Suicidal Ideation Suicidal Ideation: No - Homicidal Ideation Homicidal Ideation: No Goal/Treatment Plan - Goal/Treatment Plan Need for Continued Stay: Remain at risks for inpatient hospitalization, Severe depression anxiety, Discharge may exacerbated symptoms, Failed transitioning, Severe functional impairment Progress Toward Problem(s) and Goals/Treatment Plan: * c/w current tx and plan * No new labs overnight * Vitals reviewed and noted below: Selected Entries 11/16/16 11/16/16 07:47 19:59 Temperature 97.9 F Pulse Rate 76 72 Respiratory 20 20 Rate Blood Pressure 148/92 H 113/50 L Estimated Date of D/C: 11/19/16 (we'll monitor closely)
[2016-11-18] MEDS: Pantoprazole 40 mg EC Tab PO SCH (07:51)
--- NOTE | 2016-11-18 09:22 | PCM.PYCHPN ---
Psychiatric Progress Note - Psychiatric Progress Note Patient seen today, length of contact: 25 minutes Patient Chief Complaint: better, alright Problems Identified/Issues Discussed: I reviewed recent notes and met with patient at bedside. Patient remains oriented to month, year and circumstances. Continues to report that he is feeling better and denies any recent recurrence of hallucinations or suicidal thoughts. Patient is not hopeless and denies thoughts of harming others. Patient also denies having any paranoid or persecutory thoughts. He doesn't appear to be responding to internal stimuli and responses are relevant to questioning. Patient denies any new discomfort or pain. Staff notes indicate that patient has been been labile, inappropriate and cocky at times on the unit. He can be redirected but requires limit setting. Overall he appears brighter and more animated in community. There were no major behavioral issues overnight. 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 Stimulant use disorder Medication Change: No Medical Record Reviewed: Yes (reports, labs, vitals, notes) Mental Status Examination - Cognitive Function Orientation: Person, Place, Situation Memory: Impaired Attention: Poor Concentration: Poor Association: Loose Fund of Knowledge: Poor - Mood Mood: Depressed (better), Anxious - Affect Affect: Constricted, Other (giggling inappropriately) - Speech Speech: Appropriate (there is some poverty of speech) - Formal Thought Process Formal Thought Process: Hallucinations (denies today) - Suicidal Ideation Suicidal Ideation: No - Homicidal Ideation Homicidal Ideation: No Goal/Treatment Plan - Goal/Treatment Plan Need for Continued Stay: Remain at risks for inpatient hospitalization, Severe depression anxiety, Discharge may exacerbated symptoms, Failed transitioning, Severe functional impairment Progress Toward Problem(s) and Goals/Treatment Plan: * c/w current tx and plan * risperdal 0.5 mg 3 times a day for psychotic symptoms * Paxil 20 mg at the nighttime for depression as well as anxiety * patient meets criteria to stay in the hospital longer, pt was accepted by [facility] inpatient rehab, waiting UDS to be negative. UDS was positive for PCP 11/14/16 UDS on Saturday * No new labs overnight * Vitals reviewed and noted below: Selected Entries 11/17/16 11/17/16 07:00 16:32 Temperature 97.1 F L Pulse Rate 77 76 Respiratory 18 Rate Blood Pressure 108/70 128/82 Estimated Date of D/C: 11/19/16 (we'll monitor closely)
[2016-11-19 07:39] VITALS: RESP 20
[2016-11-19] MEDS: Pantoprazole 40 mg EC Tab PO SCH (09:25)
--- NOTE | 2016-11-19 09:31 | PCM.PYCHPN ---
Psychiatric Progress Note - Psychiatric Progress Note Patient seen today, length of contact: 25 minutes Patient Chief Complaint: better, alright Problems Identified/Issues Discussed: I reviewed recent notes and met with patient at bedside. Patient remains oriented to month, year and circumstances. Continues to report that he is feeling better and denies any recent recurrence of hallucinations or suicidal thoughts. Patient is not hopeless and denies thoughts of harming others. Patient also denies having any paranoid or persecutory thoughts. He doesn't appear to be responding to internal stimuli and responses are relevant to questioning. Patient denies any new discomfort or pain. Staff notes indicate that patient has been been a little inappropriate and cocky at times on the unit. Friendly with the female patients. He can be redirected but required limit setting. Patient was in better behavioral control on Saturday. Overall he appears brighter and more animated in community. There were no major behavioral issues overnight. 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 Stimulant use disorder Medication Change: No Medical Record Reviewed: Yes (reports, labs, vitals, notes) Mental Status Examination - Cognitive Function Orientation: Person, Place, Situation Memory: Impaired Attention: Poor Concentration: Poor Association: Loose Fund of Knowledge: Poor - Mood Mood: Depressed (better), Anxious - Affect Affect: Constricted (improved reactivity), Other ( ) - Speech Speech: Appropriate (there is some poverty of speech) - Formal Thought Process Formal Thought Process: Hallucinations (denied all ) - Suicidal Ideation Suicidal Ideation: No - Homicidal Ideation Homicidal Ideation: No Goal/Treatment Plan - Goal/Treatment Plan Need for Continued Stay: Remain at risks for inpatient hospitalization, Severe depression anxiety, Discharge may exacerbated symptoms, Failed transitioning, Severe functional impairment Progress Toward Problem(s) and Goals/Treatment Plan: * c/w current tx and plan * Risperdal 0.5 mg 3 times a day for psychotic symptoms * Paxil 20 mg at the nighttime for depression as well as anxiety * Pt was accepted by [facility] inpatient rehab, waiting UDS to be negative. UDS was positive for PCP 11/14/16 UDS on Saturday: urine uncollected as of this note, have requested STAT UDS for today. * No new weekend labs * Vitals reviewed and noted below: Selected Entries 11/19/16 07:38 Temperature 98 F Pulse Rate 74 Respiratory 20 Rate Blood Pressure 130/86 Estimated Date of D/C: 11/19/16 (we'll monitor closely)
[2016-11-20 08:05] VITALS: BP 123/89; PULSE 77; TEMP 97.8
[2016-11-20] MEDS: Pantoprazole 40 mg EC Tab PO SCH (08:52)
--- NOTE | 2016-11-20 15:38 | PCM.PYCHDC ---
Mental Status Examination - Mental Status Examination Orientation: Person, Place, Situation, Time Memory: Intact Mood: Neutral Affect: Broad (mood congruent) Speech: Appropriate Attention: WNL Concentration: WNL Association: WNL Fund of Knowledge: WNL Formal Thought Process: No Impairment Description of patient's judgement and insight: Pt has improved insight into mental and medical illness, pt was compliant with medications and unit rules and regulations, pt was going to groups, was calm, cooperative, socially appropriate, no behavioral incidents, no agitation, no aggression. Psychotic Thoughts and Behaviors: Pt denied v/a/t hallucinations, denied paranoid ideations, pt does not appear to be psychotic, and thought process is goal directed. Suicidal Ideation: No Current Homicidal Ideation?: No Plan: pt adamantly denied thoughts of harming self or others denied intent or plan. Discharge Summary - Discharge Note Reason for Hospitalization: patient was admitted to psychiatric inpatient unit for questionable suicidal ideations, at the moment of interview patient denied Psychiatric History (includes Medical, Family, Personal Hx): see HPI Laboratory Data: 11/10/16 22:45 11/10/16 22:45 Lab Results 11/19/16 12:30: Urine Opiates Screen Negative, Urine Methadone Screen Negative, Ur Barbiturates Screen Negative, Ur Phencyclidine Scrn Positive H, Ur Amphetamines Screen Negative, U Benzodiazepines Scrn Negative, U Oth Cocaine Metabols Negative, U Cannabinoids Screen Negative 11/14/16 16:30: Urine Opiates Screen Negative, Urine Methadone Screen Negative, Ur Barbiturates Screen Negative, Ur Phencyclidine Scrn Positive H, Ur Amphetamines Screen Negative, U Benzodiazepines Scrn Negative, U Oth Cocaine Metabols Negative, U Cannabinoids Screen Negative 11/12/16 09:00: RPR Nonreactive 11/12/16 09:00: Free T4 0.68 L, TSH 3rd Generation 0.85 11/12/16 09:00: Fasting Glucose 150 H, Triglycerides 235 H, Cholesterol 196, LDL Cholesterol Direct 102, HDL Cholesterol 47 11/10/16 23:50: Urine Opiates Screen Negative, Urine Methadone Screen Negative, Ur Barbiturates Screen Negative, Ur Phencyclidine Scrn Positive H, Ur Amphetamines Screen Negative, U Benzodiazepines Scrn Negative, U Oth Cocaine Metabols Negative, U Cannabinoids Screen Negative 11/10/16 22:45: Alcohol, Quantitative < 10 11/10/16 22:45: Salicylates < 1 L, Acetaminophen < 10.0 L 11/10/16 22:45: Sodium 140, Potassium 4.1, Chloride 105, Carbon Dioxide 25, Anion Gap 14, BUN 14, Creatinine 0.9, Est GFR ( Amer) > 60, Est GFR (Non- Af Amer) > 60, Random Glucose 85, Calcium 9.3, Total Bilirubin 0.4, AST 28, ALT 44, Alkaline Phosphatase 68, Total Protein 7.7, Albumin 4.7, Globulin 3.0, Albumin/Globulin Ratio 1.6 11/10/16 22:45: WBC 9.6, RBC 4.73, Hgb 13.8 L, Hct 40.0 L, MCV 84.6, MCH 29.2, MCHC 34.5, RDW 13.0, Plt Count 259, MPV 8.6, Gran % 54.4, Lymph % (Auto) 36.1 H , [place] % (Auto) 7.1 H, Eos % (Auto) 2.2, Baso % (Auto) 0.2, Gran # 5.25, Lymph # 3.5 H, [place] # 0.7 H, Eos # 0.2, Baso # 0.02 11/10/16 22:42: POC Glucose (mg/dL) 100 Vital Signs Temp Pulse Resp BP Pulse Ox 11/20/16 08:05 97.8 F 77 20 123/89 11/19/16 16:46 73 114/68 11/19/16 07:38 98 F 74 20 130/86 11/18/16 16:00 81 136/88 11/18/16 08:24 97.5 F L 72 18 129/99 H 11/17/16 16:32 76 128/82 11/17/16 07:00 97.1 F L 77 18 108/70 11/16/16 19:59 72 20 113/50 L 11/16/16 07:47 97.9 F 76 20 148/92 H 11/15/16 07:51 98.2 F 59 L 20 111/77 11/14/16 18:30 71 131/74 11/14/16 07:46 98.0 F 54 L 20 114/68 11/13/16 16:17 76 133/73 05/23/17 09:51 97.8 F 67 20 119/52 L 11/13/16 06:55 97.8 F 67 20 119/50 L 11/12/16 16:32 68 103/54 L 11/12/16 07:48 97.9 F 66 20 114/73 11/11/16 16:00 97.9 F 62 18 116/68 11/11/16 06:00 78 18 128/74 99 11/11/16 04:00 97.9 F 72 16 122/74 100 11/11/16 02:00 78 18 127/74 99 11/11/16 00:00 74 18 100 11/10/16 22:51 97.6 F 78 18 130/80 98 Consultations:: List each consultation separately and include: 1. Reason for request. 2. Findings. 3. Follow-up Consultations: medical consult appreciated Summary of Hospital Course include:: 1. Description of specific treatment plan utilized for patients during their course of treatmen. 2. Summarize the time- course for resolution of acute symptoms and/or regressed behaviors. 3. Describe issues identified and worked on during hospitalization. 4. Describe medication utilized. 5. Describe medical problems identified and treated. 6. Reassessment of suicide risk Summary of Hospital Course: Patient is a 31-year-old single -English male with a notable history of PCP in alcohol dependence, one prior psychiatric hospitalization in this facility less than a month ago, pt was d/c with no meds, last admission patient was discharged to inpatient rehabilitation. Pt is homeless, chronic PCP user, brought himself to the hospital, saying that he is depressed, thoughts of harming imself, patient denied thoughts of killing himself during the interview today. initially patient presented to have poor personal hygiene, fare ADLs. Patient presented to be not psychotic, not depressed, not anxious. Patient presented to have some cognitive limitations most likely due to his chronic substance abuse. patient was giggling inappropriately, patient said "I know my problem, I need to stop using drugs, but I really enjoyed it, I know that I need to go to 3 years inpatient rehabilitation, this is what they really needed" In the ED during the PES evaluation pt: "Feeling suicidal on and off, was feeling depressed" during this hospitalization patient had episodes of inappropriate behavior, he shouldn't was trying to intimidate female staff by showing his penis needed to be redirected frequently during the first few days of admission, for the past 5 days patient did not exhibit any of those behavior. 11/10/16 22:45 11/10/16 22:45 Lab Results 11/12/16 09:00: Free T4 0.68 L, TSH 3rd Generation 0.85 11/12/16 09:00: Fasting Glucose 150 H, Triglycerides 235 H, Cholesterol 196, LDL Cholesterol Direct 102, HDL Cholesterol 47 11/10/16 23:50: Urine Opiates Screen Negative, Urine Methadone Screen Negative, Ur Barbiturates Screen Negative, Ur Phencyclidine Scrn Positive H, Ur Amphetamines Screen Negative, U Benzodiazepines Scrn Negative, U Oth Cocaine Metabols Negative, U Cannabinoids Screen Negative 11/10/16 22:45: Alcohol, Quantitative < 10 11/10/16 22:45: Salicylates < 1 L, Acetaminophen < 10.0 L 11/10/16 22:45: Sodium 140, Potassium 4.1, Chloride 105, Carbon Dioxide 25, Anion Gap 14, BUN 14, Creatinine 0.9, Est GFR ( Amer) > 60, Est GFR (Non- Af Amer) > 60, Random Glucose 85, Calcium 9.3, Total Bilirubin 0.4, AST 28, ALT 44, Alkaline Phosphatase 68, Total Protein 7.7, Albumin 4.7, Globulin 3.0, Albumin/Globulin Ratio 1.6 11/10/16 22:45: WBC 9.6, RBC 4.73, Hgb 13.8 L, Hct 40.0 L, MCV 84.6, MCH 29.2, MCHC 34.5, RDW 13.0, Plt Count 259, MPV 8.6, Gran % 54.4, Lymph % (Auto) 36.1 H , [place] % (Auto) 7.1 H, Eos % (Auto) 2.2, Baso % (Auto) 0.2, Gran # 5.25, Lymph # 3.5 H, [place] # 0.7 H, Eos # 0.2, Baso # 0.02 11/10/16 22:42: POC Glucose (mg/dL) 100 Vital Signs Temp Pulse Resp BP Pulse Ox 11/12/16 07:48 97.9 F 66 20 114/73 11/11/16 16:00 97.9 F 62 18 116/68 11/11/16 06:00 78 18 128/74 99 11/11/16 04:00 97.9 F 72 16 122/74 100 11/11/16 02:00 78 18 127/74 99 11/11/16 00:00 74 18 100 11/10/16 22:51 97.6 F 78 18 130/80 98 patient will stabilize on the following medications: Paxil 20 mg at the nighttime for depression and anxiety Risperdal 0.5 mg twice a day Patient tolerated medications well, no side effects observed or reported, aims 0 , no EPS. Patient was seen today patient requested to be discharged patient changed his mind did not want to go to [facility] inpatient rehabilitation, patient said "I want to go home, my grandmother will arrange inpatient rehabilitation for me". Patient also complains that psychotropic medications are "messing me up ", this underwriter mortgage loan has opposite impression, patient presented much better, less psychotic, more appropriate. Over the course of this hospitalization pt was attending groups, pt also had medication management, had therapeutic milieu. Overall pt improved significantly, pt's affect became brighter, pt was less depressed, has realistic future oriented plans, pt also does not appear to be psychotic, or anxious, pt was socially appropriate, no behavioral issues, pts insight improved as well and soon pt deemed to be ready for discharge. At the time of the discharge pt denied been depressed, denied thoughts of harming self or others, denied psychotic symptoms, and pt does not appeared to be psychotic, denied been anxious, was considered to pose no threat to self or others, will be following up at [facility]/Inpatient rehab programs, information about follow up appointment, time and address provided to the pt, it is patient responsibility to follow up with outpatient clinic, PMD as well as specialists ( see note for more detailed information). In case pt will need to obtain results of studies pending at discharge pt was provided with contact information of Psychiatric Inpatient unit [phone] as well as Medical Record Department [phone]. Counseling about smoking PCP and alcohol cessation provided AA meetings as well as inpatient treatment program information was provided by the pt wants to be d/c today. pt was provided with prescriptions for all of medications (please see medication reconciliation form) Pt was educated about safety plan in case of worsening of symptoms or in case of suicidal or homicidal ideation call 911 or go to the nearest ER, also was educated to take meds as prescribed and stay away from drugs, pt verbalized understanding. - Diagnosis (1) PCP-induced organic mental disorder Current Visit: Yes Status: Acute (2) Depression Current Visit: Yes Status: Acute (3) PCP abuse Current Visit: No Status: Acute (4) Phencyclidine (PCP)-induced psychosis Current Visit: No Status: Acute - Final Diagnosis (DSM 5) Condition upon Discharge: STABLE Disposition: HOME/ ROUTINE Follow-up Treatment Plan: At the time of the discharge pt denied been depressed, denied thoughts of harming self or others, denied psychotic symptoms, and pt does not appeared to be psychotic, denied been anxious, was considered to pose no threat to self or others, will be following up at [facility]/Inpatient rehab programs, information about follow up appointment, time and address provided to the pt, it is patient responsibility to follow up with outpatient clinic, PMD as well as specialists ( see note for more detailed information). In case pt will need to obtain results of studies pending at discharge pt was provided with contact information of Psychiatric Inpatient unit [phone] as well as Medical Record Department [phone]. Counseling about smoking PCP and alcohol cessation provided AA meetings as well as inpatient treatment program information was provided by the pt wants to be d/c today. pt was provided with prescriptions for all of medications (please see medication reconciliation form) Pt was educated about safety plan in case of worsening of symptoms or in case of suicidal or homicidal ideation call 911 or go to the nearest ER, also was educated to take meds as prescribed and stay away from drugs, pt verbalized understanding. Prescriptions/Medication Reconciliation: PARoxetine [Paxil] 20 mg PO HS #14 tab risperiDONE [RisperDAL Tab] 0.5 mg PO TID #45 tab - Smoking Cessation Smoking Cessation Medication prescribed: No Reason for not providing: pt does not smoke
== END 2016-11-20 15:55 | disposition home or self-care (01) | DRG 748 ==
LOC: ED 21:52 → ERH 11-11 06:16 → PSYC 11-11 07:08
PROVIDERS: ADMIT Psychiatry & Neurology Psychiatry; ATTEND Psychiatry & Neurology Psychiatry
DX: F19.959 Other psychoactive substance use, unspecified with psychoactive substance-induced psychotic disorder, unspecified (principal); R45.851 Suicidal ideations; Z59.0 Homelessness; F17.210 Nicotine dependence, cigarettes, uncomplicated; F32.89 Other specified depressive episodes; F41.9 Anxiety disorder, unspecified; K21.9 Gastro-esophageal reflux disease without esophagitis; K29.70 Gastritis, unspecified, without bleeding; Z79.899 Other long term (current) drug therapy; G47.00 Insomnia, unspecified; G93.9 Disorder of brain, unspecified; Z72.89 Other problems related to lifestyle; F12.90 Cannabis use, unspecified, uncomplicated; F16.14 Hallucinogen abuse with hallucinogen-induced mood disorder

== ENCOUNTER 2016-11-21 01:20 | Emergency (ER) | payer MEDICAID ==
[2016-11-21 01:21] VITALS: BMI 25.8
--- NOTE | 2016-11-21 01:48 | ED PDOC ---
Arrival/HPI - General Chief Complaint: Psychiatric Evaluation Time Seen by Provider: 11/21/16 01:41 Historian: Patient - History of Present Illness Narrative History of Present Illness (Text): 11/21/16 01:48 Hi Talamantes is a 31 year old male, whose past medical history includes substance abuse and depression, who presents to the Emergency department complaining of suicidal ideation and hallucinations. Patient states he has been feeling depressed and wants to harm himself. Patient states he has also been hearing voices. Patient denies any homicidal ideation, fever, chills, chest pain , shortness of breath, nausea, vomiting, diarrhea, urinary symptoms, back pain, neck pain, headache, dizziness, or any other complaints. Time/Duration: Other (tonight) Symptom Onset: Gradual Symptom Course: Unchanged Activities at Onset: Rest, Light Past Medical History - Provider Review Nursing Documentation Reviewed: Yes - Past History Past History: Non-Contributing - Infectious Disease Hx of Infectious Diseases: None - Tetanus Immunization Tetanus Immunization: Unknown - Cardiac Hx Cardiac Disorders: No Hx Angina: No Hx Atrial Fibrillation: No Hx Cardiac Arrhythmia: No Hx Circulatory Problems: No Hx Congestive Heart Failure: No Hx VT: No Hx Heart Murmur: No Hx Heart Transplant: No Hx Hypertension: No Hx Hypotension: No Hx Internal Defibrillator: No Hx Mitral Valve Prolapse: No Hx Pacemaker: No Hx Peripheral Edema: No Hx Peripheral Vascular Disease: No - Pulmonary Hx Respiratory Disorders: No Hx Asthma: No Hx Bronchitis: No Hx Chronic Obstructive Pulmonary Disease (COPD): No Hx Emphysema: No Hx Lung Cancer: No Hx Pneumonia: No Hx Pulmonary Edema: No Hx Pulmonary Embolism: No Hx Respiratory Aspiration: No Hx Respiratory Tract Infection: No Hx Sleep Apnea: No Hx Tuberculosis: No - Neurological Hx Neurological Disorder: No Hx Alzheimer's Disease: No HX Cerebrovascular Accident: No Hx Dementia: No Hx Dizziness: No Hx Meningitis: No Hx Migraine: No Hx Multiple Sclerosis: No Hx Paralysis: No Hx Parkinson's Disease: No Hx Seizures: No Hx Syncope: No Hx Transient Ischemic Attacks (TIA): No Hx Vertigo: No - HEENT Hx HEENT Disorder: No Hx Blind: No Hx Cataracts: No Hx Deafness: No Hx Difficulty Chewing: No Hx Epistaxis: No Hx Glaucoma: No Hx Macular Degeneration: No - Renal Hx Renal Disorder: No - Endocrine/Metabolic Hx Endocrine Disorders: No - Hematological/Oncological Hx Blood Disorders: No - Integumentary Hx Dermatological Disorder: No - Musculoskeletal/Rheumatological Hx Musculoskeletal Disorders: No - Gastrointestinal Hx Gastrointestinal Disorders: No - Genitourinary/Gynecological Hx Genitourinary Disorders: No - Psychiatric Hx Psychophysiologic Disorder: Yes Hx Depression: Yes Hx Substance Use: Yes - Surgical History Other/Comment: hernia surgery - Anesthesia Hx Anesthesia: Yes Hx Anesthesia Reactions: No Hx Malignant Hyperthermia: No - Suicidal Assessment Feels Threatened In Home Enviroment: No Family/Social History - Physician Review Nursing Documentation Reviewed: Yes Family/Social History: No Known Family HX Smoking Status: Heavy Smoker > 10 Cigarettes Daily Hx Alcohol Use: Yes Hx Substance Use: Yes Substance used: used PCP 08/22/16 Allergies/Home Meds Allergies/Adverse Reactions: Allergies No Known Allergies Allergy (Verified 11/21/16 01:39) Review of Systems - Physician Review All systems were reviewed & negative as marked: Yes - Review of Systems Constitutional: Normal. absent: Fevers Eyes: Normal ENT: Normal Respiratory: Normal. absent: SOB, Cough Cardiovascular: Normal. absent: Chest Pain Gastrointestinal: Normal. absent: Abdominal Pain, Diarrhea, Nausea, Vomiting Genitourinary Male: Normal. absent: Dysuria, Frequency, Hematuria, Urinary Output Changes Musculoskeletal: Normal. absent: Back Pain, Neck Pain Skin: Normal. absent: Rash Neurological: Normal. absent: Headache, Dizziness Endocrine: Normal Hemo/Lymphatic: Normal Psychiatric: Depression, Suicidal Ideation, Other (+hallucinations) Physical Exam Vital Signs Reviewed: Yes Vital Signs Temp Pulse Resp BP Pulse Ox 11/21/16 05:13 97.9 F 11/21/16 03:34 97.2 F L 69 20 125/63 97 11/21/16 01:42 97.8 F 89 18 141/94 H 99 Temperature: Afebrile Blood Pressure: Normal Pulse: Regular Respiratory Rate: Normal Appearance: Positive for: Well-Appearing, Non-Toxic, Comfortable Pain Distress: None Mental Status: Positive for: Alert and Oriented X 3 - Systems Exam Head: Present: Atraumatic, Normocephalic Pupils: Present: PERRL Extroacular Muscles: Present: EOMI Conjunctiva: Present: Normal Mouth: Present: Moist Mucous Membranes Neck: Present: Normal Range of Motion Respiratory/Chest: Present: Clear to Auscultation, Good Air Exchange. No: Respiratory Distress, Accessory Muscle Use Cardiovascular: Present: Regular Rate and Rhythm, Normal S1, S2. No: Murmurs Abdomen: Present: Normal Bowel Sounds. No: Tenderness, Distention, Peritoneal Signs Back: Present: Normal Inspection Upper Extremity: Present: Normal Inspection. No: Cyanosis, Edema Lower Extremity: Present: Normal Inspection. No: Edema Neurological: Present: GCS=15, CN II-XII Intact, Speech Normal Skin: Present: Warm, Dry, Normal Color. No: Rashes Psychiatric: Present: Alert, Oriented x 3, Normal Insight, Normal Concentration Medical Decision Making ED Course and Treatment: 11/21/16 01:48 Impression: 31 year old male complaining of depression, suicidal ideation, and auditory hallucinations. Plan: -- EKG -- Chest X-ray -- Labs, alcohol level -- Urine drug screen -- Reassess and disposition Progress Notes: Reviewed EKG, NSR at [address]-segment elevations or depressions, no T-wave inversions, normal intervals. 11/21/16 03:40 Reviewed radiology, Chest X-ray shows no active disease. Alcohol <10. Positive PCP. Potassium: 5.2, given kayexalate. Pt cleared for PES evaluation. 11/21/16 06:06 Pt seen and evaluated by PES screener Ashley, who discussed case with psychiatrist. Pt advised to f/u outpt as instructed yesterday upon discharge from [facility]. Pt agreeable with plan. - Lab Interpretations Lab Results: 11/21/16 02:35 11/21/16 02:35 Lab Results 11/21/16 03:20: Urine Opiates Screen Negative, Urine Methadone Screen Negative, Ur Barbiturates Screen Negative, Ur Phencyclidine Scrn Positive H, Ur Amphetamines Screen Negative, U Benzodiazepines Scrn Negative, U Oth Cocaine Metabols Negative, U Cannabinoids Screen Negative 11/21/16 02:35: Alcohol, Quantitative < 10 11/21/16 02:35: Sodium 137, Potassium 5.2 H, Chloride 99, Carbon Dioxide 27, Anion Gap 16, BUN 12, Creatinine 0.9, Est GFR ( Amer) > 60, Est GFR (Non- Af Amer) > 60, Random Glucose 104, Calcium 9.9, Total Bilirubin 0.4, AST 45, ALT 92 H, Alkaline Phosphatase 55, Total Protein 7.7, Albumin 4.6, Globulin 3.0 , Albumin/Globulin Ratio 1.5 11/21/16 02:35: WBC 14.1 H D, RBC 4.42, Hgb 13.1 L, Hct 37.8 L, MCV 85.5, MCH 29.6, MCHC 34.7, RDW 12.9, Plt Count 238, MPV 9.1, Gran % 80.9 H, Lymph % (Auto ) 10.4 L, [place] % (Auto) 8.3 H, Eos % (Auto) 0.3 L, Baso % (Auto) 0.1, Gran # 11.37 H, Lymph # 1.5, [place] # 1.2 H, Eos # 0.0, Baso # 0.02 I have reviewed the lab results: Yes - RAD Interpretation Radiology Orders: 11/21/16 01:52 CHEST PORTABLE [RAD] Stat Director Style: ED Physician - EKG Interpretation Interpreted by ED Physician: Yes Type: 12 lead EKG - Medication Orders Current Medication Orders: Discontinued Medications Sodium Polystyrene Sulfonate (Kayexalate Oral Susp) 15 gm PO ONCE ONE Stop: 11/21/16 04:01 Last Admin: 11/21/16 04:20 Dose: 15 gm - Scribe Statement The provider has reviewed the documentation as recorded by the Dawitibsaeid Mckee All medical record entries made by the Dheeraj were at my direction and personally dictated by me. I have reviewed the chart and agree that the record accurately reflects my personal performance of the history, physical exam, medical decision making, and the department course for this patient. I have also personally directed, reviewed, and agree with the discharge instructions and disposition. Disposition/Present on Arrival - Present on Arrival Any Indicators Present on Arrival: No History of DVT/PE: No History of Uncontrolled Diabetes: No Urinary Catheter: No History of Decub. Ulcer: No History Surgical Site Infection Following: None - Disposition Have Diagnosis and Disposition been Completed?: Yes Diagnosis: PCP-induced organic mental disorder Disposition: HOME/ ROUTINE Disposition Time: 06:10 Patient Plan: Discharge Condition: STABLE Additional Instructions: Follow up outpatient as instructed Referrals: [facility] [Outside] - Follow up with primary
[2016-11-21 02:48] LABS: ADD MANUAL DIFF? NO
[2016-11-21 02:50] LABS: BASO # 0.02 K/mm3 (0.0-2.0); BASO % 0.1 % (0.0-3.0); EOS % 0.3 % (1.5-5.0); GRAN # 11.37 (1.4-6.5); GRAN % 80.9 % (50.0-68.0); HEMATOCRIT 37.8 % (42.0-52.0); LYMPH # 1.5 (1.2-3.4); LYMPH % 10.4 % (22.0-35.0); MEAN CELL VOLUME 85.5 fL (80.0-105.0); MEAN CORPUSCULAR HEMOGLOBIN 29.6 pg (25.0-35.0); MEAN CORPUSCULAR HGB CONC 34.7 g/dl (31.0-37.0); MEAN PLATELET VOLUME 9.1 fl (7.0-11.0); MONO # 1.2 (0.1-0.6); MONO % 8.3 % (1.0-6.0); PLATELET COUNT 238 10^3/uL (120.0-450.0); RED CELL DISTRIBUTION WIDTH 12.9 % (11.5-14.5)
[2016-11-21 03:01] LABS: ALB/GLOB RATIO 1.5 (1.1-1.8); ALKALINE PHOSPHATASE 55 U/L (38-133); ALT/SGPT 92 U/L (7-56); AST/SGOT 45 U/L (15-59); BILIRUBIN,TOTAL 0.4 mg/dL (0.2-1.3); BLOOD UREA NITROGEN 12 mg/dL (7-21); CALCIUM 9.9 mg/dL (8.4-10.5); CARBON DIOXIDE 27 mmol/L (21-33); CHLORIDE 99 mmol/L (98-107); GFR AFRICAN-AMERICAN > 60; GLUCOSE,RANDOM 104 mg/dL (70-110); POTASSIUM 5.2 mmol/L (3.6-5.0); SODIUM 137 mmol/L (132-148); TOTAL PROTEIN 7.7 g/dL (5.8-8.3)
[2016-11-21 03:06] LABS: WHITE BLOOD COUNT 14.1 10^3/ul (4.5-11.0)
[2016-11-21] MEDS ORDERED: Sod Polystyrene Sulf 15 gm/60 ml Oral Susp PO ONE (04:00)
[2016-11-21 06:22] VITALS: BP 129/64; PULSE 72; RESP 19; TEMP 98.2; O2SAT 98
--- NOTE | 2016-11-21 08:04 | RAD ---
HISTORY: medical clearance COMPARISON: PrintNo prior. FINDINGS: LUNGS: No active pulmonary disease. PLEURA: No significant pleural effusion identified, no pneumothorax apparent. CARDIOVASCULAR: Normal. OSSEOUS STRUCTURES: No significant abnormalities. VISUALIZED UPPER ABDOMEN: Normal. OTHER FINDINGS: None. IMPRESSION: No active disease.
--- NOTE | 2016-11-21 22:41 | CARD ---
APPROVED REPORT EKG Measurement Heart [id number] <Conclusion> Normal sinus rhythm Normal ECG
== END 2016-11-21 06:22 | disposition home or self-care (01) ==
LOC: ED 01:20
DX: F15.99 Other stimulant use, unspecified with unspecified stimulant-induced disorder (principal); F17.210 Nicotine dependence, cigarettes, uncomplicated

== ENCOUNTER 2016-11-23 20:19 | Observation (INO) | payer MEDICAID, OTHER ==
[2016-11-23 20:23] VITALS: BMI 29.4
--- NOTE | 2016-11-23 20:55 | ED PDOC ---
Arrival/HPI - General Chief Complaint: Psychiatric Evaluation Time Seen by Provider: 11/23/16 20:22 Historian: Patient - History of Present Illness Narrative History of Present Illness (Text): 11/23/16 20:52 31 year old male presents to the emergency department for alcohol intoxication. Admits to drinking throughout the day. Patient denies suicidal or homicidal ideations. Denies any trauma or injury. Patient requesting food and a place to sleep. Time/Duration: Prior to Arrival Symptom Onset: Gradual Modifying Factors (Text): None Associated Symptoms (Text): None Past Medical History - Provider Review Nursing Documentation Reviewed: Yes - Past History Past History: Non-Contributing - Infectious Disease Hx of Infectious Diseases: None - Tetanus Immunization Tetanus Immunization: Unknown - Cardiac Hx Cardiac Disorders: No Hx Angina: No Hx Atrial Fibrillation: No Hx Cardiac Arrhythmia: No Hx Circulatory Problems: No Hx Congestive Heart Failure: No Hx UT: No Hx Heart Murmur: No Hx Heart Transplant: No Hx Hypertension: No Hx Hypotension: No Hx Internal Defibrillator: No Hx Mitral Valve Prolapse: No Hx Pacemaker: No Hx Peripheral Edema: No Hx Peripheral Vascular Disease: No - Pulmonary Hx Respiratory Disorders: No Hx Asthma: No Hx Bronchitis: No Hx Chronic Obstructive Pulmonary Disease (COPD): No Hx Emphysema: No Hx Lung Cancer: No Hx Pneumonia: No Hx Pulmonary Edema: No Hx Pulmonary Embolism: No Hx Respiratory Aspiration: No Hx Respiratory Tract Infection: No Hx Sleep Apnea: No Hx Tuberculosis: No - Neurological Hx Neurological Disorder: No Hx Alzheimer's Disease: No HX Cerebrovascular Accident: No Hx Dementia: No Hx Dizziness: No Hx Meningitis: No Hx Migraine: No Hx Multiple Sclerosis: No Hx Paralysis: No Hx Parkinson's Disease: No Hx Seizures: No Hx Syncope: No Hx Transient Ischemic Attacks (TIA): No Hx Vertigo: No - HEENT Hx HEENT Disorder: No Hx Blind: No Hx Cataracts: No Hx Deafness: No Hx Difficulty Chewing: No Hx Epistaxis: No Hx Glaucoma: No Hx Macular Degeneration: No - Renal Hx Renal Disorder: No - Endocrine/Metabolic Hx Endocrine Disorders: No - Hematological/Oncological Hx Blood Disorders: No - Integumentary Hx Dermatological Disorder: No - Musculoskeletal/Rheumatological Hx Musculoskeletal Disorders: No - Gastrointestinal Hx Gastrointestinal Disorders: No - Genitourinary/Gynecological Hx Genitourinary Disorders: No - Psychiatric Hx Psychophysiologic Disorder: Yes Hx Depression: Yes Hx Substance Use: Yes - Surgical History Other/Comment: hernia surgery - Anesthesia Hx Anesthesia: Yes Hx Anesthesia Reactions: No Hx Malignant Hyperthermia: No - Suicidal Assessment Feels Threatened In Home Enviroment: No Family/Social History - Physician Review Nursing Documentation Reviewed: Yes Family/Social History: Unknown Family HX Smoking Status: Heavy Smoker > 10 Cigarettes Daily Hx Alcohol Use: Yes Hx Substance Use: Yes Substance used: used PCP 08/22/16 Allergies/Home Meds Allergies/Adverse Reactions: Allergies No Known Allergies Allergy (Verified 11/23/16 20:23) Physical Exam - Physical Exam Narrative Physical Exam (Text): Constitutional: No acute distress. Head: Normocephalic. Atraumatic. Eyes: PERRL. ENT: Moist mucous membranes. Neck: Supple. Cardiovascular: Regular rate. Chest: No tenderness. Respiratory: Clear to auscultation bilaterally. GI: Soft. Nontender. Nondistended. Back: No CVA tenderness. Musculoskeletal: No tenderness or swelling of extremities. Skin: No rash. Neurologic: Awake, answering questions without difficulty. Vital Signs Reviewed: Yes Vital Signs Temp Pulse Resp BP Pulse Ox 11/24/16 06:10 97.6 F 80 17 131/81 97 11/24/16 03:40 68 17 111/64 99 11/24/16 00:34 97.9 F 84 16 105/60 100 11/23/16 20:20 98.0 F 102 H 16 128/74 98 Temperature: Afebrile Blood Pressure: Normal Pulse: Tachycardic Respiratory Rate: Normal Appearance: Positive for: Well-Appearing, Non-Toxic, Comfortable Pain Distress: None Mental Status: Positive for: other (Awake, cooperative) Medical Decision Making ED Course and Treatment: Impression: 31 year old male presents to the emergency department for alcohol intoxication. Plan: -- Observation -- Reassess and disposition Progress Notes: ED OBSERVATION Discharge: Yes Date of observation admission: 11/23/16 Time of observation admission: 20:53 - Observation admission statement Patient is being placed in observation because:: intoxication - Goals of Observation Goals of observation are:: sobriety - Progress Note Progress Note: 2250 Sleeping 0050 Sleeping 0250 Sleeping 0450 Sleeping 0613 Patient awake, steady gait. - Scribe Statement The provider has reviewed the documentation as recorded by the Dheeraj Last Provider Scribe Attestation: All medical record entries made by the Dawitibe were at my direction and personally dictated by me. I have reviewed the chart and agree that the record accurately reflects my personal performance of the history, physical exam, medical decision making, and the department course for this patient. I have also personally directed, reviewed, and agree with the discharge instructions and disposition. Disposition/Present on Arrival - Present on Arrival Any Indicators Present on Arrival: No History of DVT/PE: No History of Uncontrolled Diabetes: No Urinary Catheter: No History of Decub. Ulcer: No History Surgical Site Infection Following: None - Disposition Have Diagnosis and Disposition been Completed?: Yes Diagnosis: Alcohol abuse Disposition: HOME/ ROUTINE Disposition Time: 06:13 Patient Plan: Discharge Condition: STABLE
[2016-11-24 03:41] VITALS: RESP 17
[2016-11-24 06:11] VITALS: BP 131/81; PULSE 80; TEMP 97.6; O2SAT 97
== END 2016-11-24 06:14 | disposition home or self-care (01) ==
LOC: ED 20:19 → EROBSV 20:53
PROVIDERS: ADMIT Student in an Organized Health Care Education/Training Program; ATTEND Student in an Organized Health Care Education/Training Program
DX: F10.10 Alcohol abuse, uncomplicated (principal); Y90.9 Presence of alcohol in blood, level not specified
CPT/HCPCS: 99284; G0378

== ENCOUNTER 2016-11-27 23:45 | Emergency (ER) | payer OTHER ==
[2016-11-27 23:46] VITALS: BMI 29.4
[2016-11-28 00:13] VITALS: BP 121/74; PULSE 78; RESP 18; TEMP 98.1; O2SAT 99
== END 2016-11-28 00:40 | disposition left against medical advice (07) ==
LOC: ED 23:45
DX: Z02.89 Encounter for other administrative examinations (principal); R07.0 Pain in throat

== ENCOUNTER 2016-11-29 20:04 | Emergency (ER) | payer OTHER ==
[2016-11-29 20:04] VITALS: BMI 29.4
[2016-11-29 20:28] VITALS: RESP 18; TEMP 98.2
--- NOTE | 2016-11-29 21:15 | ED PDOC ---
Arrival/HPI - General Chief Complaint: Psychiatric Evaluation Time Seen by Provider: 11/29/16 20:41 Historian: Patient - History of Present Illness Narrative History of Present Illness (Text): 11/29/16 21:56 A 31 year old male presents to the emergency department for psych evaluation. Patient reports to suicidal ideation, depression and hearing voices that are telling him to hurt himself. Patient admits to smoking and drinking and notes smoked earlier today. Patient was last admitted to the emergency department for 9 days 3 weeks ago. Patient denies homicidal ideation, any specific plan, fever , headache, nausea, vomiting, chest pain, abdominal pain or any other complaints at this time. Symptom Onset: Sudden Symptom Course: Unchanged Activities at Onset: Rest Context: Home Past Medical History - Provider Review Nursing Documentation Reviewed: Yes - Past History Past History: Non-Contributing - Infectious Disease Hx of Infectious Diseases: None - Tetanus Immunization Tetanus Immunization: Unknown - Cardiac Hx Cardiac Disorders: No Hx Angina: No Hx Atrial Fibrillation: No Hx Cardiac Arrhythmia: No Hx Circulatory Problems: No - Pulmonary Hx Respiratory Disorders: No Hx Asthma: No Hx Bronchitis: No Hx Chronic Obstructive Pulmonary Disease (COPD): No Hx Emphysema: No Hx Lung Cancer: No Hx Pneumonia: No Hx Pulmonary Edema: No Hx Pulmonary Embolism: No Hx Respiratory Aspiration: No Hx Respiratory Tract Infection: No Hx Sleep Apnea: No Hx Tuberculosis: No - Neurological Hx Neurological Disorder: No Hx Alzheimer's Disease: No HX Cerebrovascular Accident: No Hx Dementia: No Hx Dizziness: No Hx Meningitis: No Hx Migraine: No Hx Multiple Sclerosis: No Hx Paralysis: No Hx Parkinson's Disease: No Hx Seizures: No Hx Syncope: No Hx Transient Ischemic Attacks (TIA): No Hx Vertigo: No - HEENT Hx HEENT Disorder: No Hx Blind: No Hx Cataracts: No Hx Deafness: No Hx Difficulty Chewing: No Hx Epistaxis: No Hx Glaucoma: No Hx Macular Degeneration: No - Renal Hx Renal Disorder: No - Endocrine/Metabolic Hx Endocrine Disorders: No - Hematological/Oncological Hx Blood Disorders: No - Integumentary Hx Dermatological Disorder: No - Musculoskeletal/Rheumatological Hx Musculoskeletal Disorders: No - Gastrointestinal Hx Gastrointestinal Disorders: No - Genitourinary/Gynecological Hx Genitourinary Disorders: No - Psychiatric Hx Psychophysiologic Disorder: Yes Hx Depression: Yes Hx Hallucinations: Yes Hx Substance Use: Yes - Surgical History Other/Comment: hernia surgery - Anesthesia Hx Anesthesia: Yes Hx Anesthesia Reactions: No Hx Malignant Hyperthermia: No - Suicidal Assessment Feels Threatened In Home Enviroment: No Family/Social History - Physician Review Nursing Documentation Reviewed: Yes Family/Social History: No Known Family HX Smoking Status: Heavy Smoker > 10 Cigarettes Daily Hx Alcohol Use: Yes Hx Substance Use: Yes Substance used: used PCP 11/29/16 Allergies/Home Meds Allergies/Adverse Reactions: Allergies No Known Allergies Allergy (Verified 11/29/16 20:28) Home Medications: Home Meds Medication Instructions Recorded Confirmed No Known Home Med 11/29/16 11/29/16 Review of Systems - Physician Review All systems were reviewed & negative as marked: Yes - Review of Systems Constitutional: absent: Fevers Cardiovascular: absent: Chest Pain Gastrointestinal: absent: Abdominal Pain, Nausea, Vomiting Neurological: absent: Headache Psychiatric: Depression, Suicidal Ideation, Other (hearing voices; no HI) Physical Exam Vital Signs Reviewed: Yes Vital Signs Temp Pulse Resp BP Pulse Ox 11/30/16 00:33 84 18 122/83 97 11/29/16 20:21 98.2 F 92 H 18 128/85 96 Temperature: Afebrile Blood Pressure: Normal Pulse: Regular Respiratory Rate: Normal Appearance: Positive for: Ill-Appearing Pain Distress: None Mental Status: Positive for: Alert and Oriented X 3 - Systems Exam Head: Present: Atraumatic, Normocephalic Pupils: Present: PERRL Extroacular Muscles: Present: EOMI Conjunctiva: Present: Normal Mouth: Present: Moist Mucous Membranes Neck: Present: Normal Range of Motion Respiratory/Chest: Present: Clear to Auscultation, Good Air Exchange. No: Respiratory Distress, Accessory Muscle Use Cardiovascular: Present: Regular Rate and Rhythm, Normal S1, S2. No: Murmurs Abdomen: Present: Normal Bowel Sounds. No: Tenderness, Distention, Peritoneal Signs Back: Present: Normal Inspection Upper Extremity: Present: Normal Inspection. No: Cyanosis, Edema Lower Extremity: Present: Normal Inspection. No: Edema Neurological: Present: GCS=15, CN II-XII Intact, Speech Normal Skin: Present: Warm, Dry, Normal Color. No: Rashes Psychiatric: Present: Alert, Oriented x 3, Depressed Mood, Suicidal Ideation. No: Homicidal Ideation Medical Decision Making ED Course and Treatment: 11/29/16 21:54 Impression: A 31 year old male with suicidal ideation, depression and hearing voices. Plan: -- EKG -- chest xray -- labs -- Urinalysis -- Reassess and disposition Prior Visits: Notes and results from previous visits were reviewed. Patient reported to the emergency department on 11/23/16 for evaluation of alcohol intoxication. Progress Notes: EKG : NSR at 72 bpm, (-) acute ST changes, as read by PA. CXR : pt refused Labs reviewed and are wnl, except urine drug screen +PCP, etoh level is 11. Patient is medically cleared for PES evaluation. Patient seen and evaluated by PES. As per PES patient is cleared from a psychiatric standpoint and does not meet any criteria for inpatient psychiatric treatment at this time. PES counselor recommends outpatient follow-up. Patient states he fully agrees with and understands discharge instructions. States that he agrees with the plan and disposition. Verbalized and repeated discharge instructions and plan. I have given the patient opportunity to ask any additional questions. Follow up with outpatient psychiatric referral provided by PES in 1-2 days without fail. Return to the emergency room at any time for any new or worsening symptoms. - Lab Interpretations Lab Results: 11/29/16 21:24 11/29/16 21:24 Lab Results 11/29/16 21:24: Alcohol, Quantitative 11 H 11/29/16 21:24: Urine Opiates Screen Negative, Urine Methadone Screen Negative, Ur Barbiturates Screen Negative, Ur Phencyclidine Scrn Positive H, Ur Amphetamines Screen Negative, U Benzodiazepines Scrn Negative, U Oth Cocaine Metabols Negative, U Cannabinoids Screen Negative 11/29/16 21:24: Sodium 140, Potassium 3.7, Chloride 105, Carbon Dioxide 22, Anion Gap 17, BUN 12, Creatinine 1.1, Est GFR ( Amer) > 60, Est GFR (Non- Af Amer) > 60, Random Glucose 86, Calcium 9.4, Total Bilirubin 0.4, AST 41, ALT 57 H, Alkaline Phosphatase 69, Total Protein 7.5, Albumin 4.7, Globulin 2.8, Albumin/Globulin Ratio 1.7 11/29/16 21:24: Urine Color Yellow, Urine Appearance Clear, Urine pH 6.0, Ur Specific [place] 1.025, Urine Protein Negative, Urine Glucose (UA) Negative, Urine Ketones Negative, Urine Blood Negative, Urine Nitrate Negative, Urine Bilirubin Negative, Urine Urobilinogen 0.2, Ur Leukocyte Esterase Negative 11/29/16 21:24: WBC 8.3 D, RBC 4.63, Hgb 13.7 L, Hct 39.8 L, MCV 86.0, MCH 29.6 , MCHC 34.4, RDW 13.1, Plt Count 314, MPV 8.9, Gran % 52.9, Lymph % (Auto) 38.1 H, [place] % (Auto) 6.7 H, Eos % (Auto) 2.1, Baso % (Auto) 0.2, Gran # 4.37, Lymph # 3.2, [place] # 0.6, Eos # 0.2, Baso # 0.02 I have reviewed the lab results: Yes - RAD Interpretation Radiology Orders: 11/29/16 21:14 CHEST PORTABLE [RAD] Stat - EKG Interpretation Interpreted by ED Physician: Yes Type: 12 lead EKG - PA / LICENSED EMBALMER SUPERVISOR / Resident Statement MD/DO has reviewed & agrees with the documentation as recorded. - Scribe Statement The provider has reviewed the documentation as recorded by the Dheeraj Saez Provider Scribe Attestation: All medical record entries made by the Dheeraj were at my direction and personally dictated by me. I have reviewed the chart and agree that the record accurately reflects my personal performance of the history, physical exam, medical decision making, and the department course for this patient. I have also personally directed, reviewed, and agree with the discharge instructions and disposition. Disposition/Present on Arrival - Present on Arrival Any Indicators Present on Arrival: No History of DVT/PE: No History of Uncontrolled Diabetes: No Urinary Catheter: No History of Decub. Ulcer: No History Surgical Site Infection Following: None - Disposition Have Diagnosis and Disposition been Completed?: Yes Diagnosis: Depression (emotion), PCP (phencyclidine) abuse Disposition: HOME/ ROUTINE Disposition Time: 23:30 Patient Plan: Discharge Condition: STABLE Discharge Instructions (ExitCare): Depression (ED), Polysubstance Abuse (ED) Print Language: MAORI Additional Instructions: Follow up with outpatient psychiatry referral provided by PES counselor. Return to the emergency room at any time for any new or worsening symptoms.
[2016-11-29 21:24] LABS: ADD MANUAL DIFF? NO
[2016-11-29 21:32] LABS: BASO # 0.02 K/mm3 (0.0-2.0); BASO % 0.2 % (0.0-3.0); EOS # 0.2 (0.0-0.7); EOS % 2.1 % (1.5-5.0); GRAN # 4.37 (1.4-6.5); GRAN % 52.9 % (50.0-68.0); HEMATOCRIT 39.8 % (42.0-52.0); LYMPH # 3.2 (1.2-3.4); LYMPH % 38.1 % (22.0-35.0); MEAN CORPUSCULAR HEMOGLOBIN 29.6 pg (25.0-35.0); MEAN CORPUSCULAR HGB CONC 34.4 g/dl (31.0-37.0); MEAN PLATELET VOLUME 8.9 fl (7.0-11.0); MONO # 0.6 (0.1-0.6); MONO % 6.7 % (1.0-6.0); PLATELET COUNT 314 10^3/uL (120.0-450.0); RED CELL DISTRIBUTION WIDTH 13.1 % (11.5-14.5); URINE BILIRUBIN NEGATIVE (NEGATIVE); URINE BLOOD NEGATIVE (NEGATIVE); URINE GLUCOSE (UA) NEGATIVE (NEGATIVE); URINE KETONE NEGATIVE (NEGATIVE); URINE LEUKOCYTE ESTERASE NEGATIVE Leu/uL (NEGATIVE); URINE PROTEIN NEGATIVE mg/dL (<30 mg/dL); URINE UROBILINOGEN 0.2 E.U./dL (<1 E.U./dL); WHITE BLOOD COUNT 8.3 10^3/ul (4.5-11.0)
[2016-11-29 21:45] LABS: URINE APPEARANCE CLEAR (CLEAR); URINE COLOR YELLOW (YELLOW)
[2016-11-29 21:48] LABS: ALB/GLOB RATIO 1.7 (1.1-1.8); ALKALINE PHOSPHATASE 69 U/L (38-133); ALT/SGPT 57 U/L (7-56); AST/SGOT 41 U/L (15-59); BILIRUBIN,TOTAL 0.4 mg/dL (0.2-1.3); BLOOD UREA NITROGEN 12 mg/dL (7-21); CALCIUM 9.4 mg/dL (8.4-10.5); CARBON DIOXIDE 22 mmol/L (21-33); CHLORIDE 105 mmol/L (98-107); GFR AFRICAN-AMERICAN > 60; GLUCOSE,RANDOM 86 mg/dL (70-110); POTASSIUM 3.7 mmol/L (3.6-5.0); SODIUM 140 mmol/L (132-148); TOTAL PROTEIN 7.5 g/dL (5.8-8.3)
[2016-11-30 00:34] VITALS: BP 122/83; PULSE 84; O2SAT 97
--- NOTE | 2016-11-30 10:46 | CARD ---
APPROVED REPORT EKG Measurement Heart [id number] <Conclusion> Normal sinus rhythm Normal ECG No change
== END 2016-11-30 00:33 | disposition home or self-care (01) ==
LOC: ED 20:04
DX: F16.10 Hallucinogen abuse, uncomplicated (principal); F32.9 Major depressive disorder, single episode, unspecified

== ENCOUNTER 2016-12-07 00:07 | Emergency (ER) | payer OTHER ==
[2016-12-07 02:55] VITALS: TEMP 97.1
--- NOTE | 2016-12-07 02:55 | ED PDOC ---
Arrival/HPI - General Time Seen by Provider: 12/07/16 00:08 Historian: Patient - History of Present Illness Narrative History of Present Illness (Text): 12/07/16 00:10 Hi Talamantes is a 31 year old male, whose past medical history includes ETOH abuse, drug abuse, and PCP abuse, who presents to the emergency department complaining that he "doesn't feel good" and is dizzy prior to arrival. Patient admits to drinking heavily and using PCP earlier. At present, patient feels dizzy and wanting to sleep. Patient denies any fever, chills, chest pain, shortness of breath, nausea, vomiting, diarrhea, urinary symptoms, back pain, neck pain, headache, dizziness, or any other complaints. Time/Duration: Prior to Arrival Symptom Onset: Gradual Symptom Course: Unchanged Activities at Onset: Rest Context: Street Past Medical History - Provider Review Nursing Documentation Reviewed: Yes - Past History Past History: Non-Contributing - Infectious Disease Hx of Infectious Diseases: None - Tetanus Immunization Tetanus Immunization: Unknown - Cardiac Hx Cardiac Disorders: No Hx Angina: No Hx Atrial Fibrillation: No Hx Cardiac Arrhythmia: No Hx Circulatory Problems: No - Pulmonary Hx Respiratory Disorders: No Hx Asthma: No Hx Bronchitis: No Hx Chronic Obstructive Pulmonary Disease (COPD): No Hx Emphysema: No Hx Lung Cancer: No Hx Pneumonia: No Hx Pulmonary Edema: No Hx Pulmonary Embolism: No Hx Respiratory Aspiration: No Hx Respiratory Tract Infection: No Hx Sleep Apnea: No Hx Tuberculosis: No - Neurological Hx Neurological Disorder: No Hx Alzheimer's Disease: No HX Cerebrovascular Accident: No Hx Dementia: No Hx Dizziness: No Hx Meningitis: No Hx Migraine: No Hx Multiple Sclerosis: No Hx Paralysis: No Hx Parkinson's Disease: No Hx Seizures: No Hx Syncope: No Hx Transient Ischemic Attacks (TIA): No Hx Vertigo: No - HEENT Hx HEENT Disorder: No Hx Blind: No Hx Cataracts: No Hx Deafness: No Hx Difficulty Chewing: No Hx Epistaxis: No Hx Glaucoma: No Hx Macular Degeneration: No - Renal Hx Renal Disorder: No - Endocrine/Metabolic Hx Endocrine Disorders: No - Hematological/Oncological Hx Blood Disorders: No - Integumentary Hx Dermatological Disorder: No - Musculoskeletal/Rheumatological Hx Musculoskeletal Disorders: No - Gastrointestinal Hx Gastrointestinal Disorders: No - Genitourinary/Gynecological Hx Genitourinary Disorders: No - Psychiatric Hx Psychophysiologic Disorder: Yes Hx Depression: Yes Hx Hallucinations: Yes Hx Substance Use: Yes - Surgical History Other/Comment: hernia surgery - Anesthesia Hx Anesthesia: Yes Hx Anesthesia Reactions: No Hx Malignant Hyperthermia: No - Suicidal Assessment Feels Threatened In Home Enviroment: No Family/Social History - Physician Review Nursing Documentation Reviewed: Yes Family/Social History: No Known Family HX Smoking Status: Heavy Smoker > 10 Cigarettes Daily Hx Alcohol Use: Yes Hx Substance Use: Yes Substance used: used PCP 11/29/16 Allergies/Home Meds Allergies/Adverse Reactions: Allergies No Known Allergies Allergy (Verified 12/07/16 02:55) Home Medications: Home Meds Medication Instructions Recorded Confirmed No Known Home Med 11/29/16 11/29/16 Review of Systems - Physician Review All systems were reviewed & negative as marked: Yes - Review of Systems Constitutional: absent: Fevers, Night Sweats Eyes: absent: Vision Changes ENT: absent: Hearing Changes Respiratory: absent: SOB, Cough Cardiovascular: absent: Chest Pain Gastrointestinal: absent: Abdominal Pain Genitourinary Male: absent: Dysuria Musculoskeletal: absent: Arthralgias, Back Pain Skin: absent: Rash Neurological: Dizziness. absent: Headache Endocrine: absent: Diaphoresis Hemo/Lymphatic: absent: Adenopathy Psychiatric: absent: Anxiety Physical Exam Vital Signs Temp Pulse Resp BP Pulse Ox 12/07/16 02:54 97.1 F L 58 L 18 130/84 99 Temperature: Afebrile Blood Pressure: Normal Pulse: Regular Respiratory Rate: Normal Appearance: Positive for: Well-Appearing, Non-Toxic, Comfortable Pain Distress: None Mental Status: Positive for: Alert and Oriented X 3 - Systems Exam Head: Present: Atraumatic, Normocephalic Pupils: Present: PERRL Conjunctiva: Present: Normal Mouth: Present: Moist Mucous Membranes Pharnyx: Present: Normal Neck: Present: Normal Range of Motion Respiratory/Chest: Present: Clear to Auscultation, Good Air Exchange. No: Respiratory Distress, Accessory Muscle Use Cardiovascular: Present: Regular Rate and Rhythm, Normal S1, S2. No: Murmurs Abdomen: Present: Normal Bowel Sounds. No: Tenderness, Distention, Peritoneal Signs Upper Extremity: Present: Normal Inspection. No: Cyanosis, Edema Lower Extremity: Present: Normal Inspection. No: Edema Skin: Present: Warm, Dry, Normal Color. No: Rashes Psychiatric: Present: Intoxicated Medical Decision Making ED Course and Treatment: 12/07/16 00:10 Impression: 31 year old male complaining of dizziness and discomfort after drinking alcohol heavily and using PCP earlier today Differential Diagnosis included but are not limited to: ETOH abuse, PCP Abuse, undomiciled wanting place to sleep Plan: -- Reassess and disposition Prior Visits: Notes and results from previous visits were reviewed. Patient last seen in the ED on 11/29/16 for psych evaluation after reporting suicidal ideation, depression and hearing voices thay day. Patient was discharged home. Progress Notes: 12/07/16 00:10 Will observe patient until he is sober. 12/07/16 05:43 Patient is now walking soberly and is ready for discharge. - Scribe Statement The provider has reviewed the documentation as recorded by the Dheeraj Pate Provider Scribe Attestation: All medical record entries made by the Scribe were at my direction and personally dictated by me. I have reviewed the chart and agree that the record accurately reflects my personal performance of the history, physical exam, medical decision making, and the department course for this patient. I have also personally directed, reviewed, and agree with the discharge instructions and disposition. Disposition/Present on Arrival - Present on Arrival Any Indicators Present on Arrival: No History of DVT/PE: No History of Uncontrolled Diabetes: No Urinary Catheter: No History Surgical Site Infection Following: None - Disposition Have Diagnosis and Disposition been Completed?: Yes Diagnosis: Alcohol abuse Disposition: HOME/ ROUTINE Disposition Time: 17:45 Patient Plan: Discharge Condition: GOOD Additional Instructions: Stop alcohol and drug use. Return to the emergency department if any new concerning symptoms. Referrals: [facility] [place]Outside] - Follow up with primary
[2016-12-07 02:56] VITALS: BMI 22.9
[2016-12-07 05:47] VITALS: BP 128/76; PULSE 62; RESP 14; O2SAT 98
== END 2016-12-07 05:48 | disposition home or self-care (01) ==
LOC: ED 00:07
DX: F10.10 Alcohol abuse, uncomplicated (principal)

== ENCOUNTER 2016-12-10 20:11 | Emergency (ER) | payer OTHER ==
[2016-12-10 23:21] VITALS: BMI 28.7
== END 2016-12-10 20:17 | disposition left against medical advice (07) ==
LOC: ED 20:11
DX: Z02.89 Encounter for other administrative examinations (principal); R69 Illness, unspecified

== ENCOUNTER 2016-12-10 23:10 | Emergency (ER) | payer OTHER ==
[2016-12-10 23:21] VITALS: RESP 16; O2SAT 98; BMI 28.7
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
--- NOTE | 2016-12-11 04:32 | CT ---
EXAM: CT Head Without Intravenous Contrast CLINICAL HISTORY: 31 years old, male; Pain; Headache; Additional info: Injury TECHNIQUE: Axial computed tomography images of the head/brain without intravenous contrast. This CT exam was performed using one or more of the following dose reduction techniques: automated exposure control, adjustment of the mA and/or kV according to patient size, and/or use of iterative reconstruction technique. COMPARISON: CT - HEAD W/O CONTRAST 05/24/2016 6:19:17 AM FINDINGS: Brain: There is no evidence of intracranial hemorrhage. No evidence of acute territorial infarction. No significant white matter disease. No edema. Ventricles: Unremarkable. No ventriculomegaly. Bones/joints: Unremarkable. No acute fracture. Soft tissues: Unremarkable. Sinuses: There is a mucous retention cyst or polyp in the right maxillary sinus. Mild mucosal thickening of multiple ethmoid air cells. Mastoid air cells: Unremarkable as visualized. No mastoid effusion. IMPRESSION: 1. No evidence for acute intracranial abnormality or displaced calvarial fracture. 2. Additional incidental and/or chronic findings as described.
[2016-12-11 05:15] VITALS: BP 130/84; PULSE 72; TEMP 97.9
--- NOTE | 2016-12-11 08:33 | RAD ---
PROCEDURE: Radiographs of the Chest and Left Ribs. HISTORY: injury COMPARISON: 11/21/2016. TECHNIQUE: Frontal radiograph of the chest and multiple oblique radiographs of the left ribs were obtained. FINDINGS: LEFT RIBS: No fracture or focal lesion visualized. LUNGS: Clear. PLEURA: No pneumothorax or pleural fluid. CARDIOVASCULAR: Normal sized heart. No pulmonary vascular congestion. OTHER FINDINGS: None. IMPRESSION: Unremarkable radiographs of the chest and left ribs. No left rib fracture.
== END 2016-12-11 05:40 | disposition home or self-care (01) ==
LOC: ED 23:10
DX: S20.212A Contusion of left front wall of thorax, initial encounter (principal); S09.90XA Unspecified injury of head, initial encounter; Y04.2XXA Assault by strike against or bumped into by another person, initial encounter; Y93.89 Activity, other specified; Y92.89 Other specified places as the place of occurrence of the external cause

== ENCOUNTER 2016-12-19 07:17 | Observation (INO) | payer OTHER ==
[2016-12-19 07:32] VITALS: BMI 29.4
[2016-12-19 07:37] VITALS: TEMP 96.5
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
[2016-12-19 11:00] VITALS: BP 154/83; PULSE 86; RESP 18; O2SAT 96
== END 2016-12-19 13:47 | disposition home or self-care (01) ==
LOC: ED 07:17 → EROBSV 07:54
PROVIDERS: ADMIT Student in an Organized Health Care Education/Training Program; ATTEND Student in an Organized Health Care Education/Training Program
DX: F10.129 Alcohol abuse with intoxication, unspecified (principal); Z59.0 Homelessness
CPT/HCPCS: 82948; 96372; 99282; G0378; J1885

== ENCOUNTER 2016-12-27 03:12 | Emergency (ER) | payer OTHER ==
[2016-12-27 03:12] VITALS: BMI 29.4
[2016-12-27 03:36] VITALS: PULSE 68; TEMP 98.2; O2SAT 99
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
[2016-12-27 03:40] VITALS: BP 152/60; RESP 18
--- NOTE | 2016-12-27 08:29 | RAD ---
HISTORY: fall COMPARISON: 12/11/2016 TECHNIQUE: Chest PA and lateral FINDINGS: LUNGS: No active pulmonary disease. PLEURA: No significant pleural effusion identified. No pneumothorax apparent. CARDIOVASCULAR: Normal. OSSEOUS STRUCTURES: No significant abnormalities. VISUALIZED UPPER ABDOMEN: Normal. OTHER FINDINGS: None. IMPRESSION: No active disease.
== END 2016-12-27 04:44 | disposition home or self-care (01) ==
LOC: ED 03:12
DX: S20.212A Contusion of left front wall of thorax, initial encounter (principal); Y08.89XA Assault by other specified means, initial encounter; Y93.89 Activity, other specified; Y92.89 Other specified places as the place of occurrence of the external cause

== ENCOUNTER 2017-01-01 03:21 | Emergency (ER) | payer OTHER ==
[2017-01-01 03:31] VITALS: BMI 31.1
[2017-01-01 03:36] VITALS: O2SAT 98
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
[2017-01-01 06:50] VITALS: BP 130/72; PULSE 72; RESP 18; TEMP 98
== END 2017-01-01 06:30 | disposition home or self-care (01) ==
LOC: ED 03:21
DX: F10.10 Alcohol abuse, uncomplicated (principal)

== ENCOUNTER 2017-01-04 05:53 | Emergency (ER) | payer OTHER ==
[2017-01-04 05:53] VITALS: BMI 31.1
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
--- NOTE | 2017-01-04 08:53 | RAD ---
PROCEDURE: Radiographs of the Chest and Left Ribs. HISTORY: left sided rib pain COMPARISON: None available. TECHNIQUE: Frontal radiograph of the chest and multiple oblique radiographs of the left ribs were obtained. FINDINGS: LEFT RIBS: No fracture or focal lesion visualized. LUNGS: Clear. PLEURA: No pneumothorax or pleural fluid. CARDIOVASCULAR: Normal sized heart. No pulmonary vascular congestion. OTHER FINDINGS: None. IMPRESSION: Unremarkable radiographs of the chest and left ribs. No left rib fracture.
--- NOTE | 2017-01-04 09:23 | CARD ---
APPROVED REPORT EKG Measurement Heart [id number] [id number] <Conclusion> Normal sinus rhythm Normal ECG
[2017-01-04 10:18] VITALS: BP 128/79; PULSE 76; RESP 16; TEMP 98.3; O2SAT 97
== END 2017-01-04 09:50 | disposition home or self-care (01) ==
LOC: ED 05:53
DX: S20.212A Contusion of left front wall of thorax, initial encounter (principal); W22.8XXA Striking against or struck by other objects, initial encounter; Y92.9 Unspecified place or not applicable
CPT/HCPCS: 71101; 93005; 96372; 99283; J1885

== ENCOUNTER 2017-01-06 07:24 | Emergency (ER) | payer OTHER ==
[2017-01-06 07:57] VITALS: TEMP 98.1; BMI 29.4
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
[2017-01-06 10:02] VITALS: BP 131/62; PULSE 76; RESP 16; O2SAT 97
--- NOTE | 2017-01-06 16:55 | RAD ---
PROCEDURE: Radiographs of the Chest and Left Ribs. HISTORY: r/o fx - tender to anterior rib 7-8 area COMPARISON: Comparison made with radiographs of the chest and left ribs 01/04/2017 TECHNIQUE: Frontal radiograph of the chest and multiple oblique radiographs of the left ribs were obtained. FINDINGS: LEFT RIBS: No definitive evidence of acute displaced rib fracture identified on this study however if symptoms persist or occult fracture suspected clinically, recommend followup CT scan of the chest which is much more sensitive for detecting subtle rib fractures that may be missed on plain film radiographs. LUNGS: Lung oh are clear without focal consolidation effusion or pneumothorax PLEURA: No no definitive pneumothorax. No evidence pleural effusion seen. CARDIOVASCULAR: Normal sized heart. No pulmonary vascular congestion. OTHER FINDINGS: None. IMPRESSION: No definitive radiographic evidence of acute displaced left-sided rib fracture. If symptoms persist or occult rib fracture suspected clinically recommend followup CT scan of the chest which is much more sensitive for detecting subtle rib fractures that may be missed on plain film radiographs. No acute cardiopulmonary disease. No definitive evidence of pneumothorax or pleural effusion. . Note that this report was placed in PA review folder for followup
== END 2017-01-06 10:10 | disposition home or self-care (01) ==
LOC: ED 07:24
DX: S20.212A Contusion of left front wall of thorax, initial encounter (principal); Y08.89XA Assault by other specified means, initial encounter; Y93.9 Activity, unspecified; Y92.9 Unspecified place or not applicable

== ENCOUNTER 2017-01-09 19:36 | Observation (INO) | payer OTHER ==
[2017-01-09 19:53] VITALS: BMI 28.7
--- NOTE | 2017-01-09 21:13 | ED PDOC ---
Arrival/HPI - General Chief Complaint: Alcohol Ingestion Time Seen by Provider: 01/09/17 20:11 Historian: Patient - History of Present Illness Narrative History of Present Illness (Text): 01/09/17 20:10 Hi Talamantes is a 31 year old male, whose past medical history includes alcohol/substance abuse, who presents to the Emergency Department for alcohol intoxication tonight. Patient admits to drinking alcohol tonight. Patient denies any suicidal ideation, homicidal ideation, fever, chills, chest pain, shortness of breath, nausea, vomiting, diarrhea, urinary symptoms, back pain, neck pain, headache, dizziness, or any other complaints. Time/Duration: Other (today) Symptom Onset: Gradual Symptom Course: Unchanged Activities at Onset: Rest, Light Past Medical History - Provider Review Nursing Documentation Reviewed: Yes - Past History Past History: Non-Contributing - Infectious Disease Hx of Infectious Diseases: None - Tetanus Immunization Tetanus Immunization: Unknown - Cardiac Hx Cardiac Disorders: No Hx Angina: No Hx Atrial Fibrillation: No Hx Cardiac Arrhythmia: No Hx Circulatory Problems: No - Pulmonary Hx Respiratory Disorders: No Hx Asthma: No Hx Bronchitis: No Hx Chronic Obstructive Pulmonary Disease (COPD): No Hx Emphysema: No Hx Lung Cancer: No Hx Pneumonia: No Hx Pulmonary Edema: No Hx Pulmonary Embolism: No Hx Respiratory Aspiration: No Hx Respiratory Tract Infection: No Hx Sleep Apnea: No Hx Tuberculosis: No - Neurological Hx Neurological Disorder: No Hx Alzheimer's Disease: No HX Cerebrovascular Accident: No Hx Dementia: No Hx Dizziness: No Hx Meningitis: No Hx Migraine: No Hx Multiple Sclerosis: No Hx Paralysis: No Hx Parkinson's Disease: No Hx Seizures: No Hx Syncope: No Hx Transient Ischemic Attacks (TIA): No Hx Vertigo: No - HEENT Hx HEENT Disorder: No Hx Blind: No Hx Cataracts: No Hx Deafness: No Hx Difficulty Chewing: No Hx Epistaxis: No Hx Glaucoma: No Hx Macular Degeneration: No - Renal Hx Renal Disorder: No - Endocrine/Metabolic Hx Endocrine Disorders: No - Hematological/Oncological Hx Blood Disorders: No - Integumentary Hx Dermatological Disorder: No - Musculoskeletal/Rheumatological Hx Musculoskeletal Disorders: No - Gastrointestinal Hx Gastrointestinal Disorders: No - Genitourinary/Gynecological Hx Genitourinary Disorders: No - Psychiatric Hx Psychophysiologic Disorder: Yes Hx Depression: Yes Hx Hallucinations: Yes Hx Substance Use: Yes - Surgical History Other/Comment: hernia surgery - Anesthesia Hx Anesthesia: Yes Hx Anesthesia Reactions: No Hx Malignant Hyperthermia: No - Suicidal Assessment Feels Threatened In Home Enviroment: No Family/Social History - Physician Review Nursing Documentation Reviewed: Yes Family/Social History: Unknown Family HX Smoking Status: Heavy Smoker > 10 Cigarettes Daily Hx Alcohol Use: Yes Hx Substance Use: Yes Substance used: used PCP 11/29/16 Allergies/Home Meds Allergies/Adverse Reactions: Allergies No Known Allergies Allergy (Verified 01/09/17 19:53) Home Medications: Home Meds Medication Instructions Recorded Confirmed No Known Home Med 01/09/17 01/09/17 Review of Systems - Physician Review All systems were reviewed & negative as marked: Yes - Review of Systems Constitutional: Normal. absent: Fevers Eyes: Normal ENT: Normal Respiratory: Normal. absent: SOB, Cough Cardiovascular: Normal. absent: Chest Pain Gastrointestinal: Normal. absent: Abdominal Pain, Diarrhea, Nausea, Vomiting Genitourinary Male: Normal. absent: Dysuria, Frequency, Hematuria, Urinary Output Changes Musculoskeletal: Normal. absent: Back Pain, Neck Pain Skin: Normal. absent: Rash Neurological: Normal. absent: Headache, Dizziness Endocrine: Normal Hemo/Lymphatic: Normal Psychiatric: Other (+alcohol intoxication). absent: Suicidal Ideation Physical Exam Vital Signs Reviewed: Yes Vital Signs Temp Pulse Resp BP Pulse Ox 01/10/17 06:15 75 16 127/83 95 01/10/17 04:34 59 L 16 146/75 96 01/10/17 01:00 69 16 144/64 96 01/09/17 23:11 98.2 F 95 H 16 125/69 96 01/09/17 20:04 98.8 F 98 H 96 H 138/79 96 Temperature: Afebrile Blood Pressure: Normal Pulse: Regular Respiratory Rate: Normal Appearance: Positive for: Well-Appearing, Non-Toxic, Comfortable Pain Distress: None Mental Status: Positive for: Alert and Oriented X 3 - Systems Exam Head: Present: Atraumatic, Normocephalic Pupils: Present: PERRL Extroacular Muscles: Present: EOMI Conjunctiva: Present: Normal Mouth: Present: Moist Mucous Membranes Neck: Present: Normal Range of Motion Respiratory/Chest: Present: Clear to Auscultation, Good Air Exchange. No: Respiratory Distress, Accessory Muscle Use Cardiovascular: Present: Regular Rate and Rhythm, Normal S1, S2. No: Murmurs Abdomen: Present: Normal Bowel Sounds. No: Tenderness, Distention, Peritoneal Signs Back: Present: Normal Inspection Upper Extremity: Present: Normal Inspection. No: Cyanosis, Edema Lower Extremity: Present: Normal Inspection. No: Edema Neurological: Present: GCS=15, CN II-XII Intact, Speech Normal Skin: Present: Warm, Dry, Normal Color. No: Rashes Psychiatric: Present: Alert, Oriented x 3, Normal Insight, Normal Concentration Medical Decision Making ED Course and Treatment: 01/09/17 20:10 Impression: 32 year old male c/o alcohol intoxication today. Differential Diagnosis included but are not limited to: alcohol intoxication Plan: -- Reassess and disposition Re-evaluation Time: 06:30 Reassessment Condition: Re-examined, Improved ED OBSERVATION Discharge: Yes Date of observation admission: 01/09/17 Time of observation admission: 21:42 - Observation admission statement Patient is being placed in observation because:: alcohol intoxication - Goals of Observation Goals of observation are:: sobriety - Progress Note Progress Note: 01/09/17 21:42 Pt is resting comfortably, in no acute distress. Denies any complaints. Will observe pending sobriety. 01/09/17 23:40 Patient sleeping, in no acute distress. 01/10/17 01:40 Pt resting comfortably, no complaints. 01/10/17 03:40 Patient sleeping, in no acute distress. 01/10/17 05:40 Pt resting comfortably, no complaints. 01/10/17 06:15 Pt awake, alert, and ambulating with steady gait. Pt stable for d/c. - Scribe Statement The provider has reviewed the documentation as recorded by the Dheeraj Mckee Provider Attestation: All medical record entries made by the Dheeraj were at my direction and personally dictated by me. I have reviewed the chart and agree that the record accurately reflects my personal performance of the history, physical exam, medical decision making, and the department course for this patient. I have also personally directed, reviewed, and agree with the discharge instructions and disposition. Disposition/Present on Arrival - Present on Arrival Any Indicators Present on Arrival: No History of DVT/PE: No History of Uncontrolled Diabetes: No Urinary Catheter: No History of Decub. Ulcer: No History Surgical Site Infection Following: None - Disposition Have Diagnosis and Disposition been Completed?: Yes Diagnosis: Alcohol abuse Disposition: HOME/ ROUTINE Disposition Time: 06:31 Condition: GOOD
[2017-01-09 23:12] VITALS: RESP 16; TEMP 98.2
[2017-01-10 06:16] VITALS: BP 127/83; PULSE 75; O2SAT 95
== END 2017-01-10 06:33 | disposition home or self-care (01) ==
LOC: ED 19:36 → EROBSV 21:42
PROVIDERS: ADMIT Emergency Medicine; ATTEND Emergency Medicine
DX: F10.10 Alcohol abuse, uncomplicated (principal)
CPT/HCPCS: 99283; G0378

== ENCOUNTER 2017-01-16 07:02 | Emergency (ER) | payer OTHER ==
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
[2017-01-16 12:12] VITALS: BP 137/83; PULSE 71; RESP 18; TEMP 98.3; O2SAT 98
--- NOTE | 2017-01-16 13:25 | RAD ---
PROCEDURE: Radiographs of the Chest and Left Ribs. HISTORY: injury r/o fx COMPARISON: None available. TECHNIQUE: Frontal radiograph of the chest and multiple oblique radiographs of the left ribs were obtained. FINDINGS: LEFT RIBS: No fracture or focal lesion visualized. LUNGS: Clear. PLEURA: No pneumothorax or pleural fluid. CARDIOVASCULAR: Normal sized heart. No pulmonary vascular congestion. OTHER FINDINGS: None. IMPRESSION: Unremarkable radiographs of the chest and left ribs. No left rib fracture.
== END 2017-01-16 11:30 | disposition home or self-care (01) ==
LOC: ED 08:43
DX: R07.81 Pleurodynia (principal)
CPT/HCPCS: 71101; 96372; 99282; J1885

== ENCOUNTER 2017-01-18 08:34 | Emergency (ER) | payer MEDICAID, OTHER ==
[2017-01-18 08:34] VITALS: BMI 28.7
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
== END 2017-01-18 09:01 | disposition home or self-care (01) ==
LOC: ED 08:34
DX: M54.9 Dorsalgia, unspecified (principal)

== ENCOUNTER 2017-01-20 00:12 | Emergency (ER) | payer OTHER ==
[2017-01-20 00:12] VITALS: BMI 28.7
[2017-01-20 02:31] VITALS: TEMP 98.2
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
[2017-01-20 06:32] VITALS: BP 125/75; PULSE 70; RESP 15; O2SAT 95
--- NOTE | 2017-01-20 14:01 | RAD ---
PROCEDURE: Radiographs of the Chest and Right Ribs. HISTORY: injury COMPARISON: Prior chest radiograph 01/16/2017. TECHNIQUE: Frontal radiograph of the chest and multiple oblique radiographs of the right ribs were obtained. FINDINGS: RIGHT RIBS: No fracture or focal lesion visualized. LUNGS: Clear. PLEURA: No pneumothorax or pleural fluid. CARDIOVASCULAR: Normal sized heart. No pulmonary vascular congestion. OTHER FINDINGS: None. IMPRESSION: Unremarkable radiographs of the chest and right ribs. No right rib fracture.
== END 2017-01-20 06:02 | disposition home or self-care (01) ==
LOC: ED 00:12
DX: S20.211A Contusion of right front wall of thorax, initial encounter (principal); Y08.89XA Assault by other specified means, initial encounter; Y93.9 Activity, unspecified; Y92.9 Unspecified place or not applicable

== ENCOUNTER 2017-01-22 13:47 | Emergency (ER) | payer OTHER ==
[2017-01-22 13:47] VITALS: BMI 28.7
[2017-01-22 14:09] VITALS: BP 136/78; PULSE 92; RESP 16; TEMP 98; O2SAT 98
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
== END 2017-01-22 15:10 | disposition home or self-care (01) ==
LOC: ED 13:47
DX: Z59.0 Homelessness (principal)

== ENCOUNTER 2017-01-23 01:13 | Emergency (ER) | payer OTHER ==
[2017-01-23 01:18] VITALS: BMI 28.7
[2017-01-23 01:47] VITALS: BP 150/80; PULSE 95; RESP 18; TEMP 97.8; O2SAT 96
== END 2017-01-23 01:14 | disposition left against medical advice (07) ==
LOC: ED 01:13
DX: Z02.89 Encounter for other administrative examinations (principal); M79.1 Myalgia

== ENCOUNTER 2017-01-27 05:36 | Emergency (ER) | payer OTHER ==
[2017-01-27 05:46] VITALS: BMI 29.4
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
[2017-01-27 05:59] VITALS: BP 135/75; PULSE 85; TEMP 98.5
[2017-01-27 06:00] VITALS: O2SAT 98
[2017-01-27 06:53] VITALS: RESP 18
--- NOTE | 2017-01-27 11:35 | RAD ---
HISTORY: fall COMPARISON: 01/20/2017 TECHNIQUE: Chest PA and lateral FINDINGS: LUNGS: No active pulmonary disease. PLEURA: No significant pleural effusion identified. No pneumothorax apparent. CARDIOVASCULAR: Normal. OSSEOUS STRUCTURES: No significant abnormalities. VISUALIZED UPPER ABDOMEN: Normal. OTHER FINDINGS: None. IMPRESSION: No active disease.
== END 2017-01-27 06:53 | disposition home or self-care (01) ==
LOC: ED 05:36
DX: S20.212A Contusion of left front wall of thorax, initial encounter (principal); S20.211A Contusion of right front wall of thorax, initial encounter; W50.0XXA Accidental hit or strike by another person, initial encounter; Y92.410 Unspecified street and highway as the place of occurrence of the external cause

== ENCOUNTER 2017-02-05 19:23 | Observation (INO) | payer OTHER ==
[2017-02-05 19:23] VITALS: BMI 29.4
--- NOTE | 2017-02-05 20:04 | ED PDOC ---
Arrival/HPI - General Chief Complaint: Medical Clearance Time Seen by Provider: 02/05/17 19:31 Historian: Patient EM Caveat: Intoxicated - History of Present Illness Narrative History of Present Illness (Text): 02/05/17 20:03 A 32 year old male, with a history of etoh abuse, presents to the emergency department for intoxication. The patient admits to drinking earlier and prior to arrival. The patient is completely asymptomatic and denies any complaints at this time. Time/Duration: 4-6 hours Symptom Course: Unchanged Activities at Onset: Significant (etoh consumption) Context: Walking Past Medical History - Provider Review Nursing Documentation Reviewed: Yes - Past History Past History: Non-Contributing - Infectious Disease Hx of Infectious Diseases: None - Tetanus Immunization Tetanus Immunization: Unknown - Cardiac Hx Cardiac Disorders: No Hx Angina: No Hx Atrial Fibrillation: No Hx Cardiac Arrhythmia: No Hx Circulatory Problems: No - Pulmonary Hx Respiratory Disorders: No Hx Asthma: No Hx Bronchitis: No Hx Chronic Obstructive Pulmonary Disease (COPD): No Hx Emphysema: No Hx Lung Cancer: No Hx Pneumonia: No Hx Pulmonary Edema: No Hx Pulmonary Embolism: No Hx Respiratory Aspiration: No Hx Respiratory Tract Infection: No Hx Sleep Apnea: No Hx Tuberculosis: No - Neurological Hx Neurological Disorder: No Hx Alzheimer's Disease: No HX Cerebrovascular Accident: No Hx Dementia: No Hx Dizziness: No Hx Meningitis: No Hx Migraine: No Hx Multiple Sclerosis: No Hx Paralysis: No Hx Parkinson's Disease: No Hx Seizures: No Hx Syncope: No Hx Transient Ischemic Attacks (TIA): No Hx Vertigo: No - HEENT Hx HEENT Disorder: No Hx Blind: No Hx Cataracts: No Hx Deafness: No Hx Difficulty Chewing: No Hx Epistaxis: No Hx Glaucoma: No Hx Macular Degeneration: No - Renal Hx Renal Disorder: No - Endocrine/Metabolic Hx Endocrine Disorders: No - Hematological/Oncological Hx Blood Disorders: No - Integumentary Hx Dermatological Disorder: No - Musculoskeletal/Rheumatological Hx Musculoskeletal Disorders: No - Gastrointestinal Hx Gastrointestinal Disorders: No - Genitourinary/Gynecological Hx Genitourinary Disorders: No - Psychiatric Hx Psychophysiologic Disorder: Yes Hx Depression: Yes Hx Hallucinations: Yes Hx Substance Use: Yes Other/Comment: alcohol abuse - Surgical History Other/Comment: hernia surgery - Anesthesia Hx Anesthesia: Yes Hx Anesthesia Reactions: No Hx Malignant Hyperthermia: No - Suicidal Assessment Feels Threatened In Home Enviroment: No Family/Social History - Physician Review Nursing Documentation Reviewed: Yes Family/Social History: No Known Family HX Smoking Status: Heavy Smoker > 10 Cigarettes Daily Hx Alcohol Use: Yes Hx Substance Use: Yes Substance used: used PCP 11/29/16 Allergies/Home Meds Allergies/Adverse Reactions: Allergies No Known Allergies Allergy (Verified 01/27/17 05:46) Home Medications: Home Meds Medication Instructions Recorded Confirmed No Known Home Med 01/16/17 02/05/17 Review of Systems - Physician Review All systems were reviewed & negative as marked: Yes - Review of Systems Systems not reviewed;Unavailable: Intoxicated Constitutional: absent: Fevers Respiratory: absent: SOB Cardiovascular: absent: Chest Pain Gastrointestinal: absent: Abdominal Pain, Nausea, Vomiting Musculoskeletal: absent: Back Pain, Neck Pain Neurological: absent: Headache Physical Exam Vital Signs Reviewed: Yes Vital Signs Pulse Resp BP Pulse Ox 02/05/17 21:23 62 16 131/89 100 - Systems Exam Head: Present: Atraumatic, Normocephalic Pupils: Present: PERRL Conjunctiva: Present: Normal Mouth: Present: Moist Mucous Membranes Neck: Present: Normal Range of Motion Respiratory/Chest: Present: Clear to Auscultation, Good Air Exchange. No: Respiratory Distress, Accessory Muscle Use Cardiovascular: Present: Regular Rate and Rhythm, Normal S1, S2. No: Murmurs Abdomen: Present: Normal Bowel Sounds. No: Tenderness, Distention, Peritoneal Signs Upper Extremity: Present: Normal Inspection. No: Cyanosis, Edema Lower Extremity: Present: Normal Inspection. No: Edema Neurological: Present: GCS=15, CN II-XII Intact, Speech Normal Skin: Present: Warm, Dry, Normal Color. No: Rashes Psychiatric: Present: Alert, Oriented x 3 Medical Decision Making ED Course and Treatment: 02/05/17 20:07 Impression: A 32 year old male who is intoxicated. Differential Diagnosis included but are not limited to: Plan: -- Reassess and disposition Prior Visits: Notes and results from previous visits were reviewed. The patient was last seen in the emergency department on 01/27/17 for flank pain. The patient was discharged home. Progress Notes: ED OBSERVATION Discharge: Yes - Observation admission statement Patient is being placed in observation because:: Patient is being placed because of alcohol intoxication. - Goals of Observation Goals of observation are:: Patient's goal is sobriety. - Progress Note Progress Note: 02/05/17 20:05 Patient has been examined and will remain under emergency department observation until ultimate goal of sobriety. 02/05/17 22:16 Patient currently sleeping, in no acute distress. 02/06/17 00:20 Patient resting comfortably, no new complaints. 02/06/17 02:24 Patient sleeping comfortably, in no acute distress. 02/06/17 04:21 Patient currently sleeping, in no acute distress. - PA / CERTIFIED OPHTHALMIC SURGICAL ASSISTANT / Resident Statement MD/DO has reviewed & agrees with the documentation as recorded. - Scribe Statement The provider has reviewed the documentation as recorded by the Dawitibe Shanice Noel Provider Scribe Attestation: All medical record entries made by the Dheeraj were at my direction and personally dictated by me. I have reviewed the chart and agree that the record accurately reflects my personal performance of the history, physical exam, medical decision making, and the department course for this patient. I have also personally directed, reviewed, and agree with the discharge instructions and disposition. Disposition/Present on Arrival - Present on Arrival Any Indicators Present on Arrival: No History of DVT/PE: No History of Uncontrolled Diabetes: No Urinary Catheter: No History of Decub. Ulcer: No History Surgical Site Infection Following: None - Disposition Have Diagnosis and Disposition been Completed?: Yes Diagnosis: Alcohol abuse Disposition: HOME/ ROUTINE Disposition Time: 06:02 Patient Problems: Current Active Problems Problem Status Onset Alcohol abuse Acute Condition: GOOD
[2017-02-06 01:17] VITALS: RESP 16; O2SAT 100
[2017-02-06 06:33] VITALS: BP 135/84; PULSE 65
== END 2017-02-06 06:03 | disposition home or self-care (01) ==
LOC: ED 19:23 → EROBSV 20:50
PROVIDERS: ADMIT Emergency Medicine; ATTEND Emergency Medicine
DX: F10.10 Alcohol abuse, uncomplicated (principal)
CPT/HCPCS: 99282; G0378

== ENCOUNTER 2017-02-08 16:52 | Inpatient (IN) | payer MEDICAID, OTHER ==
[2017-02-08 17:10] VITALS: BMI 28.7
--- NOTE | 2017-02-08 17:21 | ED PDOC ---
Arrival/HPI - General Chief Complaint: Psychiatric Evaluation Time Seen by Provider: 02/08/17 17:03 Historian: Patient - History of Present Illness Narrative History of Present Illness (Text): 02/08/17 17:18 A 32 year old male presents to the emergency department complaining of depression and suicidal ideation that started this morning "over a female", but refuses to offer anymore explanation. His plan is to choke himself. Reports daily alcohol use and PCP use. Patient denies any other complaints at this time. Symptom Onset: Sudden Symptom Course: Unchanged Activities at Onset: Rest Context: Home Past Medical History - Provider Review Nursing Documentation Reviewed: Yes - Past History Past History: Non-Contributing - Infectious Disease Hx of Infectious Diseases: None - Tetanus Immunization Tetanus Immunization: Unknown - Cardiac Hx Cardiac Disorders: No Hx Angina: No Hx Atrial Fibrillation: No Hx Cardiac Arrhythmia: No Hx Circulatory Problems: No - Pulmonary Hx Respiratory Disorders: No Hx Asthma: No Hx Bronchitis: No Hx Chronic Obstructive Pulmonary Disease (COPD): No Hx Emphysema: No Hx Lung Cancer: No Hx Pneumonia: No Hx Pulmonary Edema: No Hx Pulmonary Embolism: No Hx Respiratory Aspiration: No Hx Respiratory Tract Infection: No Hx Sleep Apnea: No Hx Tuberculosis: No - Neurological Hx Neurological Disorder: No Hx Alzheimer's Disease: No HX Cerebrovascular Accident: No Hx Dementia: No Hx Dizziness: No Hx Meningitis: No Hx Migraine: No Hx Multiple Sclerosis: No Hx Paralysis: No Hx Parkinson's Disease: No Hx Seizures: No Hx Syncope: No Hx Transient Ischemic Attacks (TIA): No Hx Vertigo: No - HEENT Hx HEENT Disorder: No Hx Blind: No Hx Cataracts: No Hx Deafness: No Hx Difficulty Chewing: No Hx Epistaxis: No Hx Glaucoma: No Hx Macular Degeneration: No - Renal Hx Renal Disorder: No - Endocrine/Metabolic Hx Endocrine Disorders: No - Hematological/Oncological Hx Blood Disorders: No - Integumentary Hx Dermatological Disorder: No - Musculoskeletal/Rheumatological Hx Musculoskeletal Disorders: No - Gastrointestinal Hx Gastrointestinal Disorders: No - Genitourinary/Gynecological Hx Genitourinary Disorders: No - Psychiatric Hx Psychophysiologic Disorder: Yes Hx Depression: Yes Hx Hallucinations: Yes Hx Substance Use: Yes Other/Comment: alcohol abuse - Surgical History Other/Comment: hernia surgery - Anesthesia Hx Anesthesia: Yes Hx Anesthesia Reactions: No Hx Malignant Hyperthermia: No - Suicidal Assessment Feels Threatened In Home Enviroment: No Family/Social History - Physician Review Nursing Documentation Reviewed: Yes Family/Social History: No Known Family HX Smoking Status: Heavy Smoker > 10 Cigarettes Daily Hx Alcohol Use: Yes Frequency of alcohol use: Daily Hx Substance Use: Yes Substance used: used PCP 02/07/17 Allergies/Home Meds Allergies/Adverse Reactions: Allergies No Known Allergies Allergy (Verified 02/09/17 03:49) Home Medications: Home Meds Medication Instructions Recorded Confirmed No Known Home Med 01/16/17 02/09/17 Review of Systems - Physician Review All systems were reviewed & negative as marked: Yes - Review of Systems Constitutional: absent: Fevers Psychiatric: Depression, Suicidal Ideation Physical Exam Vital Signs Reviewed: Yes Vital Signs Temp Pulse Resp BP Pulse Ox 02/08/17 23:19 72 16 150/82 100 02/08/17 17:05 98.1 F 70 14 152/81 H 96 Appearance: Positive for: Comfortable, Unkept Pain Distress: None Mental Status: Positive for: Alert and Oriented X 3 - Systems Exam Head: Present: Atraumatic, Normocephalic Pupils: Present: PERRL Extroacular Muscles: Present: EOMI Conjunctiva: Present: Normal Mouth: Present: Moist Mucous Membranes Neck: Present: Normal Range of Motion Respiratory/Chest: Present: Clear to Auscultation, Good Air Exchange. No: Respiratory Distress, Accessory Muscle Use Cardiovascular: Present: Regular Rate and Rhythm, Normal S1, S2. No: Murmurs Abdomen: Present: Normal Bowel Sounds. No: Tenderness, Distention, Peritoneal Signs Back: Present: Normal Inspection Upper Extremity: Present: Normal Inspection. No: Cyanosis, Edema Lower Extremity: Present: Normal Inspection. No: Edema Neurological: Present: GCS=15, CN II-XII Intact, Speech Normal Skin: Present: Warm, Dry, Normal Color. No: Rashes Psychiatric: Present: Alert, Oriented x 3, Depressed Mood, Suicidal Ideation Medical Decision Making ED Course and Treatment: 02/08/17 18:04 EKG: Ordered, reviewed, and independently interpreted the EKG. Rate : 62 BPM Rhythm : NSR Interpretation : Normal intervals, normal axis, no acute ischemia - Lab Interpretations Lab Results: 02/08/17 17:25 02/08/17 17:25 Lab Results 02/08/17 18:22: Urine Opiates Screen Negative, Urine Methadone Screen Negative, Ur Barbiturates Screen Negative, Ur Phencyclidine Scrn Positive H, Ur Amphetamines Screen Negative, U Benzodiazepines Scrn Positive H, U Oth Cocaine Metabols Negative, U Cannabinoids Screen Negative 02/08/17 18:22: Urine Color Yellow, Urine Appearance Clear, Urine pH 6.0, Ur Specific [place] 1.025, Urine Protein Negative, Urine Glucose (UA) Negative, Urine Ketones Trace H, Urine Blood Negative, Urine Nitrate Negative, Urine Bilirubin Negative, Urine Urobilinogen 0.2, Ur Leukocyte Esterase Negative 02/08/17 17:25: Alcohol, Quantitative < 10 02/08/17 17:25: Salicylates < 1 L, Acetaminophen < 10.0 L 02/08/17 17:25: Sodium 142, Potassium 3.8, Chloride 106, Carbon Dioxide 23, Anion Gap 17, BUN 12, Creatinine 0.9, Est GFR ( Amer) > 60, Est GFR (Non- Af Amer) > 60, Random Glucose 80, Calcium 9.2, Total Bilirubin 0.6, AST 33, ALT 55, Alkaline Phosphatase 70, Total Protein 6.8, Albumin 4.4, Globulin 2.4, Albumin/Globulin Ratio 1.8 02/08/17 17:25: WBC 7.2, RBC 4.41, Hgb 13.3 L, Hct 38.3 L, MCV 86.8, MCH 30.2, MCHC 34.7, RDW 12.8, Plt Count 213, MPV 8.9, Gran % 59.1, Lymph % (Auto) 30.7, [place] % (Auto) 8.7 H, Eos % (Auto) 1.2 L, Baso % (Auto) 0.3, Gran # 4.26, Lymph # 2.2, Chaves # 0.6, Eos # 0.1, Baso # 0.02 I have reviewed the lab results: Yes - EKG Interpretation Interpreted by ED Physician: Yes Type: 12 lead EKG - Medication Orders Current Medication Orders: Acetaminophen (Tylenol 325mg Tab) 650 mg PO Q4H PRN PRN Reason: Pain, Mild (1-3) Al Hydrox/Mg Hydrox/Simethicone (Maalox Plus 30 Ml) 30 ml PO DAILY PRN PRN Reason: Upset Stomach Lorazepam (Ativan) 2 mg PO Q8 VALERIA PRN Reason: Protocol Last Admin: 02/09/17 14:11 Dose: 2 mg Magnesium Hydroxide (Milk Of Magnesia) 30 ml PO DAILY PRN PRN Reason: Constipation Pantoprazole Sodium (Protonix Ec Tab) 40 mg PO ACB VALERIA Paroxetine HCl (Paxil) 10 mg PO HS VALERIA Risperidone (Risperdal Tab) 1 mg PO HS VALERIA PRN Reason: Protocol Zaleplon (Sonata) 10 mg PO HS PRN PRN Reason: Insomnia Discontinued Medications Lorazepam (Ativan) 0.5 mg PO AMHS VALERIA PRN Reason: Protocol - Scribe Statement The provider has reviewed the documentation as recorded by the Dheeraj Saez Provider Scribe Attestation: All medical record entries made by the Scribe were at my direction and personally dictated by me. I have reviewed the chart and agree that the record accurately reflects my personal performance of the history, physical exam, medical decision making, and the department course for this patient. I have also personally directed, reviewed, and agree with the discharge instructions and disposition. Disposition/Present on Arrival - Present on Arrival Any Indicators Present on Arrival: No History of DVT/PE: No History of Uncontrolled Diabetes: No Urinary Catheter: No History of Decub. Ulcer: No History Surgical Site Infection Following: None - Disposition Have Diagnosis and Disposition been Completed?: Yes Diagnosis: Suicidal ideation Disposition: HOSPITALIZED Disposition Time: 20:00 Condition: STABLE
[2017-02-08 17:37] LABS: BASO # 0.02 K/mm3 (0.0-2.0); BASO % 0.3 % (0.0-3.0); EOS # 0.1 (0.0-0.7); EOS % 1.2 % (1.5-5.0); GRAN # 4.26 (1.4-6.5); GRAN % 59.1 % (50.0-68.0); HEMATOCRIT 38.3 % (42.0-52.0); LYMPH # 2.2 (1.2-3.4); LYMPH % 30.7 % (22.0-35.0); MEAN CELL VOLUME 86.8 fl (80.0-105.0); MEAN CORPUSCULAR HEMOGLOBIN 30.2 pg (25.0-35.0); MEAN CORPUSCULAR HGB CONC 34.7 g/dl (31.0-37.0); MEAN PLATELET VOLUME 8.9 fl (7.0-11.0); MONO # 0.6 (0.1-0.6); MONO % 8.7 % (1.0-6.0); RED CELL DISTRIBUTION WIDTH 12.8 % (11.5-14.5); WHITE BLOOD COUNT 7.2 10^3/ul (4.5-11.0)
[2017-02-08 17:49] LABS: ALB/GLOB RATIO 1.8 (1.1-1.8); ALKALINE PHOSPHATASE 70 U/L (38-133); ALT/SGPT 55 U/L (7-56); AST/SGOT 33 U/L (15-59); BILIRUBIN,TOTAL 0.6 mg/dL (0.2-1.3); BLOOD UREA NITROGEN 12 mg/dL (7-21); CALCIUM 9.2 mg/dL (8.4-10.5); CARBON DIOXIDE 23 mmol/L (21-33); CHLORIDE 106 mmol/L (98-107); GFR AFRICAN-AMERICAN > 60; GLUCOSE,RANDOM 80 mg/dL (70-110); POTASSIUM 3.8 mmol/L (3.6-5.0); SODIUM 142 mmol/L (132-148); TOTAL PROTEIN 6.8 g/dL (5.8-8.3)
[2017-02-08 18:48] LABS: URINE BILIRUBIN NEGATIVE (NEGATIVE); URINE BLOOD NEGATIVE (NEGATIVE); URINE GLUCOSE (UA) NEGATIVE (NEGATIVE); URINE KETONE TRACE mg/dL (NEGATIVE); URINE LEUKOCYTE ESTERASE NEGATIVE Leu/uL (NEGATIVE); URINE PROTEIN NEGATIVE mg/dL (<30 mg/dL); URINE UROBILINOGEN 0.2 E.U./dL (<1 E.U./dL)
[2017-02-08 18:49] LABS: URINE APPEARANCE CLEAR (CLEAR); URINE COLOR YELLOW (YELLOW)
[2017-02-09] MEDS ORDERED: Alum-Mag Hydrox-Simethicone Susp (30 mL) PO PRN (01:48)
[2017-02-09] MEDS ORDERED: Magnesium Hydroxide Susp 30 ml UD PO PRN (01:48)
[2017-02-09 08:54] LABS: CHOLESTEROL 178 mg/dL (130-200)
--- NOTE | 2017-02-09 09:18 | PCM.PSYCH ---
Initial Psychiatric Evaluation - Initial Psychiatric Evaluation Type of Admission: Voluntary Legal Status: Capacity History of Present Illness and Precipitating Events: Patient is a 32-year-old single -Maldivian male with a notable history of PCP and alcohol dependence, 3 prior psychiatric hospitalizations at [facility] [place] most recently October 2016, no current outpatient psychiatric treatment or medications, who brought himself to our ER for help with depression as well suicidal thoughts to choke himself. ER records indicate that patient has been using PCP and alcohol daily. I reviewed recent notes and met with patient at bedside. Patient presents as fairly cooperative and oriented to month, year and current circumstances. His grooming is poor and he is malodorous. Patient reports that he's been drinking alcohol and using PCP on a daily basis for years. Presently drinking 4-5 beers daily. He indicated he has been depressed and hopeless. He feels out of control and would like help with his addiction. Patient denied that he was hallucinating prior to admission. Patient also denies having any suicidal thoughts or thoughts to harm others. Delusions were not elicited during my interviews with him this morning. Presently patient is in fair control and there were no behavioral issues overnight SOCIAL HISTORY Patient was born and raised in [place]. He is single. He has a [id number] daughter. Patient is homeless. Patient has been using PCP daily for years as well as drinking beer daily for years. He indicated he did go to a rehab at 1.3 to 4 years ago for management of both alcohol and PCP to dependency; this occurred in [facility]. Patient reports that he smokes 10 cigarettes daily and defers on a nicotine patch. He was apprised of the morbidity and mortality risks associated with continued tobacco use. PSYCHIATRIC HISTORY Patient with 3 prior admissions at [facility] [place] 10/04/16-10/10/16, 10/21/16-10/25/16 and -11/20/16. Most recently discharged on Paxil 20 mg HS and Risperdal 0.5 mg po TID. Given diagnosis of PCP-induced organic mental disorder, Depression, PCP abuse, PCP induced Psychosis. He denies any prior suicide attempts During most recent admission in October 2016 patient had episodes of inappropriate behavior, he was trying to intimidate female staff by showing his penis and needed to be redirected frequently. This behavior resolved after the first few days of admission, Current Medications: Active Medications Generic Name Dose Route Start Last Admin Trade Name Freq PRN Reason Stop Dose Admin Acetaminophen 650 mg 02/09/17 01:48 Tylenol 325mg Tab PO Q4H PRN Pain, Mild (1-3) Al Hydrox/Mg Hydrox/Simethicone 30 ml 02/09/17 01:48 Maalox Plus 30 Ml PO DAILY PRN Upset Stomach Lorazepam 0.5 mg 02/09/17 10:00 Ativan PO AMHS VAELRIA Protocol Magnesium Hydroxide 30 ml 02/09/17 01:48 Milk Of Magnesia PO DAILY PRN Constipation Paroxetine HCl 10 mg 02/09/17 22:00 Paxil PO HS VALERIA Risperidone 1 mg 02/09/17 22:00 Risperdal Tab PO HS VALERIA Protocol Zaleplon 10 mg 02/08/17 22:34 Sonata PO HS PRN Insomnia Past Psychiatric History - Past Psychiatric History Pertinent Medical Hx (Current Medical&Sleep Prob, Allergies): Allergies Allergy/AdvReac Type Severity Reaction Status Date / Time No Known Allergies Allergy Verified 02/09/17 03:49 No Known Home Med 01/16/17 Mental Status Examination - Personal Presentation Personal Presentation: Looks stated age - Affect Affect: Constricted - Motor Activity Motor Activity: Calm - Reliability in Providing Information Reliability in Providing Information: Fair - Speech Speech: Organized - Mood Mood: Depressed - Formal Thought Process Formal Thought Process: No Impairment - Obsessions/Compulsions Obsessions: No Compulsions: No - Cognitive Functions Orientation: Person, Place Sensorium: Drowsy Estimate of Intelligence: Below average Judgement: Imparied, as evidence by: Poor judgement, Imparied, as evidence by: Lack of insight into illness - Risk Risk: Suicidal, Withdrawal, Diminished functioning DSM 5 DX - DSM 5 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 - Recommended/Plan of Treatment Treatment Recommendations and Plan of Treatment: * group, milieu and supportive tx * Paxil 10 mg HS for depression * Risperdal 1 mg HS for hx of hallucinations and for impulse control * Ativan 2 mg q8 for alcohol withdrawal, taper as tolerated * Sonata 10 mg HS for insomnia * Awaiting medical consult * Vitals reviewed and noted below: Selected Entries 02/08/17 02/08/17 17:05 23:19 Temperature 98.1 F Pulse Rate 70 72 Respiratory 14 16 Rate Blood Pressure 152/81 H 150/82 ER LABS AND STUDIES 02/08/17 EKG: Rhythm : NSR Interpretation : Normal intervals, normal axis, no acute ischemia 02/08/17 17:25: Alcohol, Quantitative < 10 02/08/17 17:25: Salicylates < 1 L, Acetaminophen < 10.0 L 02/08/17 17:25: Sodium 142, Potassium 3.8, Chloride 106, Carbon Dioxide 23, Anion Gap 17, BUN 12, Creatinine 0.9, Est GFR ( Amer) > 60, Est GFR (Non- Af Amer) > 60, Random Glucose 80, Calcium 9.2, Total Bilirubin 0.6, AST 33, ALT 55, Alkaline Phosphatase 70, Total Protein 6.8, Albumin 4.4, Globulin 2.4, Albumin/Globulin Ratio 1.8 02/08/17 17:25: WBC 7.2, RBC 4.41, Hgb 13.3 L, Hct 38.3 L, MCV 86.8, MCH 30.2, MCHC 34.7, RDW 12.8, Plt Count 213, MPV 8.9, Gran % 59.1, Lymph % (Auto) 30.7, Smith % (Auto) 8.7 H, Eos % (Auto) 1.2 L, Baso % (Auto) 0.3, Gran # 4.26, Lymph # 2.2, Smith # 0.6, Eos # 0.1, Baso # 0.02 FLOOR LABS 02/09/17 07:30 Triglycerides 75 Cholesterol 178 LDL Cholesterol Direct 105 HDL Cholesterol 59 - Smoking Cessation Smoking Cessation Initiated: No
--- NOTE | 2017-02-09 11:42 | CP.PCM.CON ---
<TANG ZAYAS - Last Filed: 02/09/17 11:32> History of Present Illness - History of Present Illness History of Present Illness: CC: Suicidal ideation HPI: 32 yo M with no PMHx presents with suicidal ideation and depression. Pt is homeless and came to the hospital voluntarily. Pt states that he planned to "stop his pulse" because his ex-girlfriend decided to be with someone else. But did not specify as to how he was going to do so. Pt admits to using PCP for years as well as crack cocaine and marijuana. Pt said he was hearing voices that told him to hurt other people and himself. Pt also c/o body aches, vertigo , dull abdominal pain for the 1-2 days, nausea, but no vomiting or diarrhea. Pt denies any aggravating or alleviating factors. Pt denies CP, SOB, fever, chills , WIGGINS, dysuria, constipation, visual hallucinations. PMHx: denied Surg: Denied FHx: Lung CA SH: PCP, crack cocaine, marijuana use, 4-5 beers daily, 1 ppd smoker Meds: Denied All: NKDA Review of Systems - Review of Systems All systems: reviewed and no additional remarkable complaints except (12 point ROS negative other than what is stated in HPI) Past Patient History - Infectious Disease Hx of Infectious Diseases: None - Tetanus Immunizations Tetanus Immunization: Unknown - Past Medical History & Family History Past Medical History?: No - Past Social History Smoking Status: Heavy Smoker > 10 Cigarettes Daily - CARDIAC Hx Cardiac Disorders: No Hx Angina: No Hx Atrial Fibrillation: No Hx Cardia Arrhythmia: No Hx Circulatory Problems: No - PULMONARY Hx Respiratory Disorders: No Hx Asthma: No Hx Bronchitis: No Hx Chronic Obstructive Pulmonary Disease (COPD): No Hx Emphysema: No Hx Lung Cancer: No Hx Pneumonia: No Hx Pulmonary Edema: No Hx Pulmonary Embolism: No Hx Respiratory Aspiration: No Hx Respiratory Tract Infection: No Hx Sleep Apnea: No Hx Tuberculosis: No - NEUROLOGICAL Hx Neurological Disorder: No Hx Alzheimer's Disease: No HX Cerebrovascular Accident: No Hx Dementia: No Hx Dizziness: No Hx Meningitis: No Hx Migraine: No Hx Multiple Sclerosis: No Hx Paralysis: No Hx Parkinson's Disease: No Hx Seizures: No Hx Syncope: No Hx Transient Ischemic Attacks (TIA): No Hx Vertigo: No - HEENT Hx HEENT Problems: No Hx Cataracts: No Hx Deafness: No Hx Difficulty Chewing: No Hx Epistaxis: No Hx Glaucoma: No Hx Macular Degeneration: No - RENAL Hx Chronic Kidney Disease: No - ENDOCRINE/METABOLIC Hx Endocrine Disorders: No - HEMATOLOGICAL/ONCOLOGICAL Hx Blood Disorders: No - INTEGUMENTARY Hx Dermatological Problems: No - MUSCULOSKELETAL/RHEUMATOLOGICAL Hx Musculoskeletal Disorders: No - GASTROINTESTINAL Hx Gastrointestinal Disorders: No - GENITOURINARY/GYNECOLOGICAL Hx Genitourinary Disorders: No - PSYCHIATRIC Hx Bipolar Disorder: Yes Hx Substance Use: Yes - SURGICAL HISTORY Hx Kidney Transplant: No Other/Comment: hernia surgery - ANESTHESIA Hx Anesthesia: Yes Hx Anesthesia Reactions: No Hx Malignant Hyperthermia: No Meds Allergies/Adverse Reactions: Allergies Allergy/AdvReac Type Severity Reaction Status Date / Time No Known Allergies Allergy Verified 02/09/17 03:49 - Medications Medications: Current Medications Acetaminophen (Tylenol 325mg Tab) 650 mg PO Q4H PRN PRN Reason: Pain, Mild (1-3) Al Hydrox/Mg Hydrox/Simethicone (Maalox Plus 30 Ml) 30 ml PO DAILY PRN PRN Reason: Upset Stomach Lorazepam (Ativan) 2 mg PO Q8 VALERIA PRN Reason: Protocol Last Admin: 02/09/17 07:28 Dose: 2 mg Magnesium Hydroxide (Milk Of Magnesia) 30 ml PO DAILY PRN PRN Reason: Constipation Paroxetine HCl (Paxil) 10 mg PO HS VALERIA Risperidone (Risperdal Tab) 1 mg PO HS VALERIA PRN Reason: Protocol Zaleplon (Sonata) 10 mg PO HS PRN PRN Reason: Insomnia Physical Exam - Constitutional Appears: No Acute Distress - Head Exam Head Exam: ATRAUMATIC, NORMOCEPHALIC - Eye Exam Eye Exam: EOMI, PERRL - ENT Exam ENT Exam: Mucous Membranes Moist - Neck Exam Neck exam: Positive for: Full Rom. Negative for: Lymphadenopathy, Tenderness, Thyromegaly - Respiratory Exam Respiratory Exam: Clear to Auscultation Bilateral. absent: Rales, Rhonchi, Wheezes - Cardiovascular Exam Cardiovascular Exam: RRR, +S1, +S2. absent: Diastolic murmur, Gallop, Rubs, Systolic Murmur - GI/Abdominal Exam GI & Abdominal Exam: Soft. absent: Distended, Guarding, Rebound, Rigid, Tenderness - Extremities Exam Extremities exam: Positive for: normal inspection - Back Exam Back exam: NORMAL INSPECTION - Neurological Exam Neurological exam: Abnormal Gait, Alert, Oriented x3 - Psychiatric Exam Psychiatric exam: Normal Affect, Normal Mood - Skin Skin Exam: Dry, Intact, Normal Color, Warm Results - Vital Signs Recent Vital Signs: Last Vital Signs Temp 98.1 F 02/08/17 17:05 Pulse 72 02/08/17 23:19 Resp 16 02/08/17 23:19 BP 150/82 02/08/17 23:19 Pulse Ox 100 02/08/17 23:19 - Labs Result Diagrams: 02/08/17 17:25 02/08/17 17:25 Labs: Laboratory Results - last 24 hr 02/09/17 02/09/17 07:30 07:30 Triglycerides 75 Cholesterol 178 LDL Cholesterol Direct 105 HDL Cholesterol 59 TSH 3rd Generation 1.34 Assessment & Plan - Assessment and Plan (Free Text) Assessment: 32 yo M with no PMHx was admitted for evaluation and treatment of suicidal/ homicidal ideation and substance abuse. Plan: 1. Suicidal/Homicidal Ideation - Defer treatment plan to psych - Continue psych medications 2. Substance abuse with possible withdrawal - Urine drug screen positive for PCP and benzos - Ativan 2 mg PO Q8H PRN for withdrawal - Counselled pt on risks of illicit drug use and advised cessation - Monitor for signs of withdrawal 3. Tobacco abuse - Counselled pt on risks of tobacco use and advised cessation 4. Alcohol abuse - Counselled pt on risks of EtOH use and advised cessation GI/DVT PPx - Protonix PO - Ambulate Pt medically clear at this time, no further workup needed, please re-consult if necessary. Pt was seen and discussed in detail with Dr. Kim. <Shamar Kim - Last Filed: 02/09/17 12:21> Meds - Medications Medications: Current Medications Acetaminophen (Tylenol 325mg Tab) 650 mg PO Q4H PRN PRN Reason: Pain, Mild (1-3) Al Hydrox/Mg Hydrox/Simethicone (Maalox Plus 30 Ml) 30 ml PO DAILY PRN PRN Reason: Upset Stomach Lorazepam (Ativan) 2 mg PO Q8 VALERIA PRN Reason: Protocol Last Admin: 02/09/17 07:28 Dose: 2 mg Magnesium Hydroxide (Milk Of Magnesia) 30 ml PO DAILY PRN PRN Reason: Constipation Pantoprazole Sodium (Protonix Ec Tab) 40 mg PO ACB VALERIA Paroxetine HCl (Paxil) 10 mg PO HS VALERIA Risperidone (Risperdal Tab) 1 mg PO HS VALERIA PRN Reason: Protocol Zaleplon (Sonata) 10 mg PO HS PRN PRN Reason: Insomnia Results - Vital Signs Recent Vital Signs: Last Vital Signs Temp 98.1 F 02/08/17 17:05 Pulse 72 02/08/17 23:19 Resp 16 02/08/17 23:19 BP 150/82 02/08/17 23:19 Pulse Ox 100 02/08/17 23:19 - Labs Result Diagrams: 02/08/17 17:25 02/08/17 17:25 Labs: Laboratory Results - last 24 hr 02/09/17 02/09/17 07:30 07:30 Triglycerides 75 Cholesterol 178 LDL Cholesterol Direct 105 HDL Cholesterol 59 TSH 3rd Generation 1.34 Attending/Attestation - Attestation I have personally seen and examined this patient.: Yes I have fully participated in the care of the patient.: Yes I have reviewed all pertinent clinical information: Yes Notes (Text): 02/09/17 12:17 MEDICAL CONSULTATION 32 year old male with past medical history of substance abuse who presented wit suicidal ideation. UTox was positive for PCP and benzodiazepines. Continue with supportive care. Continue with management as per psychiatry. He is on ativan for possible withdrawal symptoms. He was counselled on risks of continued subtance abuse on on alcohol abstinence. Thank you Dr. Green for allowing us to participate in the care of this patient. Labs and chart were reviewed. We will sign off. Please re-consult as needed. Shamar Kim MD Hospitalist.
--- NOTE | 2017-02-09 13:29 | CARD ---
APPROVED REPORT EKG Measurement Heart [id number] <Conclusion> Normal sinus rhythm with sinus arrhythmia
[2017-02-10] MEDS: Pantoprazole 40 mg EC Tab PO SCH (06:59)
--- NOTE | 2017-02-10 08:57 | PCM.PYCHPN ---
Psychiatric Progress Note - Psychiatric Progress Note Patient seen today, length of contact: 25 min Patient Chief Complaint: "feeling much better than what I did yesterday". Problems Identified/Issues Discussed: History of Present Illness and Precipitating Events: Patient is a 32-year-old single -[place] male with a notable history of PCP and alcohol dependence, 3 prior psychiatric hospitalizations at [facility], most recently October 2016, no current outpatient psychiatric treatment or medications, who brought himself to our ER for help with depression as well suicidal thoughts to choke himself. ER records indicate that patient has been using PCP and alcohol daily. I reviewed recent notes and met with patient at bedside. Patient presents as fairly cooperative and oriented to month, year and current circumstances. His grooming is poor and he is malodorous. Patient reports that he's been drinking alcohol and using PCP on a daily basis for years. Presently drinking 4-5 beers daily. He indicated he has been depressed and hopeless. He feels out of control and would like help with his addiction. Patient denied that he was hallucinating prior to admission. Patient also denies having any suicidal thoughts or thoughts to harm others. Delusions were not elicited during my interviews with him this morning. Presently patient is in fair control and there were no behavioral issues overnight SOCIAL HISTORY Patient was born and raised in [place]. He is single. He has a [id number] daughter. Patient is homeless. Patient has been using PCP daily for years as well as drinking beer daily for years. He indicated he did go to a rehab at 1.3 to 4 years ago for management of both alcohol and PCP to dependency; this occurred in [facility]. Patient reports that he smokes 10 cigarettes daily and defers on a nicotine patch. He was apprised of the morbidity and mortality risks associated with continued tobacco use. PSYCHIATRIC HISTORY Patient with 3 prior admissions at [facility] 10/04/16-10/10/16, 10/21/16-10/25/16 and -11/20/16. Most recently discharged on Paxil 20 mg HS and Risperdal 0.5 mg po TID. Given diagnosis of PCP-induced organic mental disorder, Depression, PCP abuse, PCP induced Psychosis. He denies any prior suicide attempts During most recent admission in October 2016 patient had episodes of inappropriate behavior, he was trying to intimidate female staff by showing his penis and needed to be redirected frequently. This behavior resolved after the first few days of admission. ~~~~~~~~~~~~~~~~~~~~~~~~~~~~ I reviewed recent notes and met with patient at bedside. He remains unkempt and tired-appearing. Eye contact is poor. Patient has been mahoney and withdrawn on the unit. Nursing admission notes also indicate that patient complained of hearing voices to harm himself. He continues to deny perceptual disturbance during our interview today. Responses are brief but relevant. Has been reluctant to attend group activities. He is disengaged and this is likely secondary to current recovery from the drugs and alcohol he used prior to admission. Patient tells me that he is "feeling much better than what I did yesterday". Patient continues to deny side effects or new discomfort or pain except for body aches. He doesn't have thoughts to harm himself or others. There were no overt signs of psychosis. He is not bizarre during interview. There were no major behavioral issues over the weekend. Diagnostic Results: PCP-induced organic mental disorder Depression, PCP abuse, PCP induced Psychosis. Medication Change: No Medical Record Reviewed: Yes Mental Status Examination - Cognitive Function Orientation: Person, Place - Mood Mood: Depressed ("feeling much better than what I did yesterday".) - Affect Affect: Constricted - Speech Speech: Appropriate - Formal Thought Process Formal Thought Process: No Impairment - Suicidal Ideation Suicidal Ideation: No - Homicidal Ideation Homicidal Ideation: No Goal/Treatment Plan - Goal/Treatment Plan Progress Toward Problem(s) and Goals/Treatment Plan: * group, milieu and supportive tx * Paxil 20 mg HS for depression * Risperdal 1 mg HS for hx of hallucinations and for impulse control * Ativan 2 mg q8 for alcohol withdrawal, taper as tolerated * Sonata 10 mg HS for insomnia * Appreciate f/u by Dr. Kim on 02/09/17~signed off * Vitals reviewed and noted below: Selected Entries 02/08/17 02/08/17 02/09/17 17:05 23:19 16:03 Temperature 98.1 F Pulse Rate 70 72 56 L Respiratory 14 16 Rate Blood Pressure 152/81 H 150/82 117/71 O2 Sat by Pulse 96 100 Oximetry ER LABS AND STUDIES 02/08/17 EKG: Rhythm : NSR Interpretation : Normal intervals, normal axis, no acute ischemia 02/08/17 17:25: Alcohol, Quantitative < 10 02/08/17 17:25: Salicylates < 1 L, Acetaminophen < 10.0 L 02/08/17 17:25: Sodium 142, Potassium 3.8, Chloride 106, Carbon Dioxide 23, Anion Gap 17, BUN 12, Creatinine 0.9, Est GFR ( Amer) > 60, Est GFR (Non- Af Amer) > 60, Random Glucose 80, Calcium 9.2, Total Bilirubin 0.6, AST 33, ALT 55, Alkaline Phosphatase 70, Total Protein 6.8, Albumin 4.4, Globulin 2.4, Albumin/Globulin Ratio 1.8 02/08/17 17:25: WBC 7.2, RBC 4.41, Hgb 13.3 L, Hct 38.3 L, MCV 86.8, MCH 30.2, MCHC 34.7, RDW 12.8, Plt Count 213, MPV 8.9, Gran % 59.1, Lymph % (Auto) 30.7, [place] % (Auto) 8.7 H, Eos % (Auto) 1.2 L, Baso % (Auto) 0.3, Gran # 4.26, Lymph # 2.2, [place] # 0.6, Eos # 0.1, Baso # 0.02 FLOOR LABS Laboratory Results - last 24 hr 02/09/17 02/09/17 07:30 07:30 Triglycerides 75 Cholesterol 178 LDL Cholesterol Direct 105 HDL Cholesterol 59 TSH 3rd Generation 1.34
[2017-02-11] MEDS: Pantoprazole 40 mg EC Tab PO SCH (06:57)
[2017-02-11 07:11] VITALS: BP 118/70; PULSE 52; RESP 18; TEMP 97.5; O2SAT 98
--- NOTE | 2017-03-02 05:55 | DS ---
IDENTIFYING INFORMATION: The patient is a 32-year-old, single, male with a history of PCP and alcohol dependence along with 3 prior psychiatric hospitalizations at [facility] (most recently October 2016). He had no apparent outpatient treatment or medications. He brought himself to the emergency room because he was depressed with suicidal thoughts of wanting to choke himself. He had been using PCP and alcohol daily. The patient was noted to have poor grooming and was malodorous. He had been drinking alcohol and using PCP on a daily basis for years (presently 4 to 5 beers daily). He reported feelings of depression and hopelessness, feeling that he was out of control, and wanted to help with his addiction. He denied that he was hallucinating and denied any suicidal thoughts or homicidal thoughts or delusional thinking. He had been born and raised in [place]. He is single. He has a 6-year-old daughter. He is homeless. He had been using PCP daily for years as well as drinking beer daily for years. He did go to a rehab approximately 3 to 4 years ago for both alcohol and PCP dependency in [place], [place]. He had been smoking 10 cigarettes daily. He refuses nicotine patch. 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 He was discharged upon his request, explaining that his grandmother was in the intensive care unit at [facility]. He was allowed to leave against medical advice. DISCHARGE DIAGNOSIS: As noted above. He left without a prescription for medication. CBC and differential on 02/08/2017 showed lowered hemoglobin of 13.3, hematocrit 38.3, elevated monocyte percent of 8.7 and low eosinophil percent at 1.2. A drug screen on admission was positive for PCP and benzodiazepines. Urinalysis trace ketones. Biochemical profile within normal limits. Clifford Elam MD/ PhD
== END 2017-02-11 14:30 | disposition left against medical advice (07) | DRG 746 ==
LOC: ED 16:52 → PSYC 20:00
PROVIDERS: ADMIT Psychiatry & Neurology Addiction Medicine; ATTEND Psychiatry & Neurology Addiction Medicine
DX: F16.159 Hallucinogen abuse with hallucinogen-induced psychotic disorder, unspecified (principal); R45.851 Suicidal ideations; F31.9 Bipolar disorder, unspecified; F19.939 Other psychoactive substance use, unspecified with withdrawal, unspecified; Z59.0 Homelessness; Z80.1 Family history of malignant neoplasm of trachea, bronchus and lung; F12.90 Cannabis use, unspecified, uncomplicated; F17.210 Nicotine dependence, cigarettes, uncomplicated; Z72.89 Other problems related to lifestyle; Z79.899 Other long term (current) drug therapy; R40.2412 Glasgow coma scale score 13-15, at arrival to emergency department

== ENCOUNTER 2017-02-12 23:25 | Emergency (ER) | payer MEDICAID, OTHER ==
[2017-02-12 23:26] VITALS: BMI 28.7
[2017-02-12 23:38] VITALS: RESP 18; TEMP 98.3; O2SAT 98
--- NOTE | 2017-02-13 00:08 | ED PDOC ---
Arrival/HPI - General Chief Complaint: Medical Clearance Time Seen by Provider: 02/12/17 23:40 Historian: Patient - History of Present Illness Narrative History of Present Illness (Text): 02/13/17 00:07 Hi Talamantes is a 32 year old male, whose past medical history includes alcohol abuse, who presents to the emergency department for homelessness. Patient is requesting for a place to stay tonight. Patient is well known to ER staff and has been seen on multiple occasions for similar complaint. Patient denies any suicidal ideation, homicidal ideation, chest pain, shortness of breath, nausea, vomiting, diarrhea, back pain, neck pain, headache, dizziness, or any other complaints Time/Duration: Other (tonight) Symptom Onset: Gradual Symptom Course: Unchanged Activities at Onset: Light Past Medical History - Provider Review Nursing Documentation Reviewed: Yes - Past History Past History: Non-Contributing - Infectious Disease Hx of Infectious Diseases: None - Tetanus Immunization Tetanus Immunization: Unknown - Cardiac Hx Cardiac Disorders: No Hx Angina: No Hx Atrial Fibrillation: No Hx Cardiac Arrhythmia: No Hx Circulatory Problems: No - Pulmonary Hx Respiratory Disorders: No Hx Asthma: No Hx Bronchitis: No Hx Chronic Obstructive Pulmonary Disease (COPD): No Hx Emphysema: No Hx Lung Cancer: No Hx Pneumonia: No Hx Pulmonary Edema: No Hx Pulmonary Embolism: No Hx Respiratory Aspiration: No Hx Respiratory Tract Infection: No Hx Sleep Apnea: No Hx Tuberculosis: No - Neurological Hx Neurological Disorder: No Hx Alzheimer's Disease: No HX Cerebrovascular Accident: No Hx Dementia: No Hx Dizziness: No Hx Meningitis: No Hx Migraine: No Hx Multiple Sclerosis: No Hx Paralysis: No Hx Parkinson's Disease: No Hx Seizures: No Hx Syncope: No Hx Transient Ischemic Attacks (TIA): No Hx Vertigo: No - HEENT Hx HEENT Disorder: No Hx Blind: No Hx Cataracts: No Hx Deafness: No Hx Difficulty Chewing: No Hx Epistaxis: No Hx Glaucoma: No Hx Macular Degeneration: No - Renal Hx Renal Disorder: No - Endocrine/Metabolic Hx Endocrine Disorders: No - Hematological/Oncological Hx Blood Disorders: No - Integumentary Hx Dermatological Disorder: No - Musculoskeletal/Rheumatological Hx Musculoskeletal Disorders: No - Gastrointestinal Hx Gastrointestinal Disorders: No - Genitourinary/Gynecological Hx Genitourinary Disorders: No - Psychiatric Hx Psychophysiologic Disorder: Yes Hx Depression: Yes Hx Hallucinations: Yes Hx Substance Use: Yes Other/Comment: alcohol abuse - Surgical History Other/Comment: hernia surgery - Anesthesia Hx Anesthesia: Yes Hx Anesthesia Reactions: No Hx Malignant Hyperthermia: No - Suicidal Assessment Feels Threatened In Home Enviroment: No Family/Social History - Physician Review Nursing Documentation Reviewed: Yes Family/Social History: Unknown Family HX Smoking Status: Heavy Smoker > 10 Cigarettes Daily Hx Alcohol Use: Yes Hx Substance Use: Yes Substance used: used PCP 02/07/17 Allergies/Home Meds Allergies/Adverse Reactions: Allergies No Known Allergies Allergy (Verified 02/12/17 23:47) Home Medications: Home Meds Medication Instructions Recorded Confirmed No Known Home Med 01/16/17 02/12/17 Review of Systems - Physician Review All systems were reviewed & negative as marked: Yes - Review of Systems Constitutional: Normal. absent: Fevers Eyes: Normal ENT: Normal Respiratory: Normal. absent: SOB, Cough Cardiovascular: Normal. absent: Chest Pain Gastrointestinal: Normal. absent: Abdominal Pain, Diarrhea, Nausea, Vomiting Genitourinary Male: Normal. absent: Dysuria, Frequency, Hematuria, Urinary Output Changes Musculoskeletal: Normal. absent: Back Pain, Neck Pain Skin: Normal. absent: Rash Neurological: Normal. absent: Headache, Dizziness Endocrine: Normal Hemo/Lymphatic: Normal Psychiatric: Normal Physical Exam Vital Signs Reviewed: Yes Vital Signs Temp Pulse Resp BP Pulse Ox 02/12/17 23:37 98.3 F 84 18 127/84 98 Temperature: Afebrile Blood Pressure: Normal Pulse: Regular Respiratory Rate: Normal Appearance: Positive for: Well-Appearing, Non-Toxic, Comfortable Pain Distress: None Mental Status: Positive for: Alert and Oriented X 3 - Systems Exam Head: Present: Atraumatic, Normocephalic Pupils: Present: PERRL Extroacular Muscles: Present: EOMI Conjunctiva: Present: Normal Mouth: Present: Moist Mucous Membranes Neck: Present: Normal Range of Motion Respiratory/Chest: Present: Clear to Auscultation, Good Air Exchange. No: Respiratory Distress, Accessory Muscle Use Cardiovascular: Present: Regular Rate and Rhythm, Normal S1, S2. No: Murmurs Abdomen: Present: Normal Bowel Sounds. No: Tenderness, Distention, Peritoneal Signs Back: Present: Normal Inspection Upper Extremity: Present: Normal Inspection. No: Cyanosis, Edema Lower Extremity: Present: Normal Inspection. No: Edema Neurological: Present: GCS=15, CN II-XII Intact, Speech Normal Skin: Present: Warm, Dry, Normal Color. No: Rashes Psychiatric: Present: Alert, Oriented x 3, Normal Insight, Normal Concentration Medical Decision Making ED Course and Treatment: 02/13/17 00:08 Impression: 32 year old homeless male requesting a place to stay for tonight. Plan: -- Reassess and disposition Prior Visits: Notes and results from previous visits were reviewed. Pt is well known to ER staff and has been seen on multiple occasions for similar complaint. - Scribe Statement The provider has reviewed the documentation as recorded by the Dheeraj Mckee Provider Scribe Attestation: All medical record entries made by the Dheeraj were at my direction and personally dictated by me. I have reviewed the chart and agree that the record accurately reflects my personal performance of the history, physical exam, medical decision making, and the department course for this patient. I have also personally directed, reviewed, and agree with the discharge instructions and disposition. Disposition/Present on Arrival - Present on Arrival Any Indicators Present on Arrival: No History of DVT/PE: No History of Uncontrolled Diabetes: No Urinary Catheter: No History of Decub. Ulcer: No History Surgical Site Infection Following: None - Disposition Have Diagnosis and Disposition been Completed?: Yes Diagnosis: Homelessness Disposition: HOME/ ROUTINE Disposition Time: 03:05 Patient Plan: Discharge Condition: STABLE Referrals: [facility] [Outside] - Follow up with primary Forms: [employer] (Guatemalan)
[2017-02-13 03:40] VITALS: BP 124/80; PULSE 78
== END 2017-02-13 05:30 | disposition home or self-care (01) ==
LOC: ED 23:25
DX: Z59.0 Homelessness (principal); F17.210 Nicotine dependence, cigarettes, uncomplicated

== ENCOUNTER 2017-02-17 19:42 | Emergency (ER) | payer OTHER ==
[2017-02-17 19:42] VITALS: BMI 28.7
--- NOTE | 2017-02-17 20:25 | ED PDOC ---
Arrival/HPI - General Chief Complaint: Psychiatric Evaluation Time Seen by Provider: 02/17/17 19:45 Historian: Patient - History of Present Illness Narrative History of Present Illness (Text): 02/17/17 20:25 A 32 year old male, whose past medical history includes PCP drug abuse, alcohol abuse and depression, was brought in by EMS to the emergency department for suicidal ideation, homicidal ideation and depression. Patient stated he was feeling extremely depressed and wanting to hurt himself and hurt others. Patient denies any drug or alcohol use. Patient denies any somatic complaints. Symptom Onset: Sudden Symptom Course: Unchanged Activities at Onset: Rest Context: Home Past Medical History - Provider Review Nursing Documentation Reviewed: Yes - Past History Past History: Non-Contributing - Infectious Disease Hx of Infectious Diseases: None - Tetanus Immunization Tetanus Immunization: Unknown - Cardiac Hx Cardiac Disorders: No Hx Angina: No Hx Atrial Fibrillation: No Hx Cardiac Arrhythmia: No Hx Circulatory Problems: No - Pulmonary Hx Respiratory Disorders: No Hx Asthma: No Hx Bronchitis: No Hx Chronic Obstructive Pulmonary Disease (COPD): No Hx Emphysema: No Hx Lung Cancer: No Hx Pneumonia: No Hx Pulmonary Edema: No Hx Pulmonary Embolism: No Hx Respiratory Aspiration: No Hx Respiratory Tract Infection: No Hx Sleep Apnea: No Hx Tuberculosis: No - Neurological Hx Neurological Disorder: No Hx Alzheimer's Disease: No HX Cerebrovascular Accident: No Hx Dementia: No Hx Dizziness: No Hx Meningitis: No Hx Migraine: No Hx Multiple Sclerosis: No Hx Paralysis: No Hx Parkinson's Disease: No Hx Seizures: No Hx Syncope: No Hx Transient Ischemic Attacks (TIA): No Hx Vertigo: No - HEENT Hx HEENT Disorder: No Hx Blind: No Hx Cataracts: No Hx Deafness: No Hx Difficulty Chewing: No Hx Epistaxis: No Hx Glaucoma: No Hx Macular Degeneration: No - Renal Hx Renal Disorder: No - Endocrine/Metabolic Hx Endocrine Disorders: No - Hematological/Oncological Hx Blood Disorders: No - Integumentary Hx Dermatological Disorder: No - Musculoskeletal/Rheumatological Hx Musculoskeletal Disorders: No - Gastrointestinal Hx Gastrointestinal Disorders: No - Genitourinary/Gynecological Hx Genitourinary Disorders: No - Psychiatric Hx Psychophysiologic Disorder: Yes Hx Depression: Yes Hx Hallucinations: Yes Hx Substance Use: Yes Other/Comment: alcohol abuse - Surgical History Other/Comment: hernia surgery - Anesthesia Hx Anesthesia: Yes Hx Anesthesia Reactions: No Hx Malignant Hyperthermia: No - Suicidal Assessment Feels Threatened In Home Enviroment: No Family/Social History - Physician Review Nursing Documentation Reviewed: Yes Family/Social History: No Known Family HX Smoking Status: Heavy Smoker > 10 Cigarettes Daily Hx Alcohol Use: Yes Frequency of alcohol use: Few days per week Hx Substance Use: Yes Substance used: used PCP 02/07/17 Allergies/Home Meds Allergies/Adverse Reactions: Allergies No Known Allergies Allergy (Verified 02/17/17 19:54) Home Medications: Home Meds Medication Instructions Recorded Confirmed No Known Home Med 01/16/17 02/17/17 Review of Systems - Physician Review All systems were reviewed & negative as marked: Yes - Review of Systems Constitutional: absent: Fevers Respiratory: absent: SOB Neurological: absent: Headache, Dizziness Psychiatric: Depression, Suicidal Ideation, Other (homicidal ideation) Physical Exam Vital Signs Reviewed: Yes Vital Signs Temp Pulse Resp BP Pulse Ox 02/18/17 11:45 71 18 133/77 98 02/18/17 08:21 61 17 138/82 98 02/18/17 05:42 80 16 129/70 100 02/18/17 01:19 82 16 128/90 98 02/17/17 20:11 98.2 F 88 17 154/90 H 100 02/17/17 19:50 98.6 F 76 19 142/93 H 97 Temperature: Afebrile Blood Pressure: Hypertensive Pulse: Regular Respiratory Rate: Normal Appearance: Positive for: Well-Appearing, Non-Toxic, Comfortable Pain Distress: None Mental Status: Positive for: other (sleepy but arousable) - Systems Exam Head: Present: Atraumatic, Normocephalic Pupils: Present: PERRL Extroacular Muscles: Present: EOMI Conjunctiva: Present: Normal Mouth: Present: Moist Mucous Membranes Neck: Present: Normal Range of Motion Respiratory/Chest: Present: Clear to Auscultation, Good Air Exchange. No: Respiratory Distress, Accessory Muscle Use Cardiovascular: Present: Regular Rate and Rhythm, Normal S1, S2. No: Murmurs Abdomen: Present: Normal Bowel Sounds. No: Tenderness, Distention, Peritoneal Signs Back: Present: Normal Inspection Upper Extremity: Present: Normal Inspection. No: Cyanosis, Edema Lower Extremity: Present: Normal Inspection. No: Edema Neurological: Present: GCS=15, CN II-XII Intact, Speech Normal Skin: Present: Warm, Dry, Normal Color. No: Rashes Psychiatric: Present: Oriented x 3, Depressed Mood, Suicidal Ideation, Homicidal Ideation Medical Decision Making ED Course and Treatment: 02/17/17 20:22 Impression: A 32 year old male with depression, homicidal ideation and suicidal ideation. Plan: -- EKG -- labs -- Reassess and disposition Prior Visits: Notes and results from previous visits were reviewed. Patient was last seen in the emergency department on 02/12/17 for homelessness. Progress Notes: EKG: Ordered, reviewed, and independently interpreted the EKG. Rate : 60 BPM Rhythm : NSR Interpretation : Normal intervals, normal axis 02/18/17 07:[address] Marvin, pt for PES re-eval later this morning when pt is more cooperative for interview as per PES worker Aisha/Dr.Olga Harden - Lab Interpretations Lab Results: 02/17/17 20:30 02/17/17 20:30 Lab Results 02/18/17 01:33: Urine Opiates Screen Negative, Urine Methadone Screen Negative, Ur Barbiturates Screen Negative, Ur Phencyclidine Scrn Positive H, Ur Amphetamines Screen Negative, U Benzodiazepines Scrn Negative, U Oth Cocaine Metabols Negative, U Cannabinoids Screen Negative 02/17/17 20:30: Alcohol, Quantitative < 10 02/17/17 20:30: Salicylates < 1 L, Acetaminophen < 10.0 L 02/17/17 20:30: Sodium 144, Potassium 3.6, Chloride 109 H, Carbon Dioxide 24, Anion Gap 15, BUN 17, Creatinine 0.9, Est GFR ( Amer) > 60, Est GFR (Non- Af Amer) > 60, Random Glucose 87, Calcium 9.1, Total Bilirubin 0.4, AST 30, ALT 61 H, Alkaline Phosphatase 69, Total Protein 6.9, Albumin 4.4, Globulin 2.4, Albumin/Globulin Ratio 1.8 02/17/17 20:30: WBC 7.6, RBC 4.37, Hgb 13.2 L, Hct 38.5 L, MCV 88.1, MCH 30.2, MCHC 34.3, RDW 12.8, Plt Count 226, MPV 9.3, Gran % 56.6, Lymph % (Auto) 33.6, [place] % (Auto) 7.8 H, Eos % (Auto) 1.6, Baso % (Auto) 0.4, Gran # 4.31, Lymph # 2.6, [place] # 0.6, Eos # 0.1, Baso # 0.03 I have reviewed the lab results: Yes - EKG Interpretation Interpreted by ED Physician: Yes Type: 12 lead EKG - Scribe Statement The provider has reviewed the documentation as recorded by the Dheeraj Saez Provider Scribe Attestation: All medical record entries made by the Scribe were at my direction and personally dictated by me. I have reviewed the chart and agree that the record accurately reflects my personal performance of the history, physical exam, medical decision making, and the department course for this patient. I have also personally directed, reviewed, and agree with the discharge instructions and disposition. Disposition/Present on Arrival - Present on Arrival Any Indicators Present on Arrival: No History of DVT/PE: No History of Uncontrolled Diabetes: No Urinary Catheter: No History of Decub. Ulcer: No History Surgical Site Infection Following: None - Disposition Have Diagnosis and Disposition been Completed?: No Diagnosis: Psychiatric care Disposition Time: 07:00 Condition: IMPROVED Additional Instructions: Mr Talamantes, thank you for letting us take care of you today. Your provider was Dr. Marvin. You were treated for Psychiatric Care. The emergency medical care you received today was directed at your acute symptoms. If you were prescribed any medication, please fill it and take as directed. It may take several days for your symptoms to resolve. Return to the Emergency Department if your symptoms worsen, do not improve, or if you have any other problems. Please contact your doctor or call one of the physicians/clinics you have been referred to that are listed on the Patient Visit Information form that is included in your discharge packet. Bring any paperwork you were given at discharge with you along with any medications you are taking to your follow up visit. Our treatment cannot replace ongoing medical care by a primary care provider (PCP) outside of the emergency department. Thank you for allowing the [facility] team to be part of your care today. If you had an X-Ray or CT scan: A Radiologist will review the ED reading if any change in treatment is needed we will contact you. If you had a blood, urine, or wound culture: It will take several days for the results, if any change in treatment is needed we will contact you. If you had an STI test: It will take 48 hours for the results. Please call after 1 week if you have not heard back. Referrals: [facility] [Outside] - Follow up with primary Forms: [employer] (Wol[place])
[2017-02-17 21:03] LABS: BASO # 0.03 K/mm3 (0.0-2.0); BASO % 0.4 % (0.0-3.0); EOS # 0.1 (0.0-0.7); EOS % 1.6 % (1.5-5.0); GRAN # 4.31 (1.4-6.5); GRAN % 56.6 % (50.0-68.0); HEMATOCRIT 38.5 % (42.0-52.0); LYMPH # 2.6 (1.2-3.4); LYMPH % 33.6 % (22.0-35.0); MEAN CELL VOLUME 88.1 fl (80.0-105.0); MEAN CORPUSCULAR HEMOGLOBIN 30.2 pg (25.0-35.0); MEAN CORPUSCULAR HGB CONC 34.3 g/dl (31.0-37.0); MEAN PLATELET VOLUME 9.3 fl (7.0-11.0); MONO # 0.6 (0.1-0.6); MONO % 7.8 % (1.0-6.0); RED CELL DISTRIBUTION WIDTH 12.8 % (11.5-14.5); WHITE BLOOD COUNT 7.6 10^3/ul (4.5-11.0)
[2017-02-17 21:09] LABS: ALB/GLOB RATIO 1.8 (1.1-1.8); ALKALINE PHOSPHATASE 69 U/L (38-133); ALT/SGPT 61 U/L (7-56); AST/SGOT 30 U/L (15-59); BILIRUBIN,TOTAL 0.4 mg/dL (0.2-1.3); BLOOD UREA NITROGEN 17 mg/dL (7-21); CALCIUM 9.1 mg/dL (8.4-10.5); CARBON DIOXIDE 24 mmol/L (21-33); CHLORIDE 109 mmol/L (98-107); GFR AFRICAN-AMERICAN > 60; GLUCOSE,RANDOM 87 mg/dL (70-110); POTASSIUM 3.6 mmol/L (3.6-5.0); SODIUM 144 mmol/L (132-148); TOTAL PROTEIN 6.9 g/dL (5.8-8.3)
[2017-02-17 22:40] VITALS: TEMP 98.2
--- NOTE | 2017-02-18 07:15 | ED PDOC ---
Physical Exam Vital Signs Temp Pulse Resp BP Pulse Ox 02/18/17 05:42 80 16 129/70 100 02/18/17 01:19 82 16 128/90 98 02/17/17 20:11 98.2 F 88 17 154/90 H 100 02/17/17 19:50 98.6 F 76 19 142/93 H 97 Medical Decision Making ED Course and Treatment: 02/18/17 07:00 Patient signed out to me by Dr. Caceres. Pending psych reevaluation. 02/18/17 13:30 PES came to evaluate patient with Dr. Ursula Palacios who cleared patient for psychiatric discharge. Patient agreed with plan for discharge with follow up at the [facility]. - Lab Interpretations Lab Results: 02/17/17 20:30 02/17/17 20:30 Lab Results 02/18/17 01:33: Urine Opiates Screen Negative, Urine Methadone Screen Negative, Ur Barbiturates Screen Negative, Ur Phencyclidine Scrn Positive H, Ur Amphetamines Screen Negative, U Benzodiazepines Scrn Negative, U Oth Cocaine Metabols Negative, U Cannabinoids Screen Negative 02/17/17 20:30: Alcohol, Quantitative < 10 02/17/17 20:30: Salicylates < 1 L, Acetaminophen < 10.0 L 02/17/17 20:30: Sodium 144, Potassium 3.6, Chloride 109 H, Carbon Dioxide 24, Anion Gap 15, BUN 17, Creatinine 0.9, Est GFR ( Amer) > 60, Est GFR (Non- Af Amer) > 60, Random Glucose 87, Calcium 9.1, Total Bilirubin 0.4, AST 30, ALT 61 H, Alkaline Phosphatase 69, Total Protein 6.9, Albumin 4.4, Globulin 2.4, Albumin/Globulin Ratio 1.8 02/17/17 20:30: WBC 7.6, RBC 4.37, Hgb 13.2 L, Hct 38.5 L, MCV 88.1, MCH 30.2, MCHC 34.3, RDW 12.8, Plt Count 226, MPV 9.3, Gran % 56.6, Lymph % (Auto) 33.6, [place] % (Auto) 7.8 H, Eos % (Auto) 1.6, Baso % (Auto) 0.4, Gran # 4.31, Lymph # 2.6, Early # 0.6, Eos # 0.1, Baso # 0.03 I have reviewed the lab results: Yes - Scribe Statement The provider has reviewed the documentation as recorded by the Dheeraj Pate Provider Scribe Attestation: All medical record entries made by the Scribe were at my direction and personally dictated by me. I have reviewed the chart and agree that the record accurately reflects my personal performance of the history, physical exam, medical decision making, and the department course for this patient. I have also personally directed, reviewed, and agree with the discharge instructions and disposition. Disposition/Present on Arrival - Present on Arrival Any Indicators Present on Arrival: No History of DVT/PE: No History of Uncontrolled Diabetes: No Urinary Catheter: No History of Decub. Ulcer: No History Surgical Site Infection Following: None - Disposition Have Diagnosis and Disposition been Completed?: Yes Diagnosis: Psychiatric care Disposition: HOME/ ROUTINE Disposition Time: 13:30 Patient Plan: Discharge Condition: IMPROVED Additional Instructions: Mr Talamantes, thank you for letting us take care of you today. Your provider was Dr. Marvin. You were treated for Psychiatric Care. The emergency medical care you received today was directed at your acute symptoms. If you were prescribed any medication, please fill it and take as directed. It may take several days for your symptoms to resolve. Return to the Emergency Department if your symptoms worsen, do not improve, or if you have any other problems. Please contact your doctor or call one of the physicians/clinics you have been referred to that are listed on the Patient Visit Information form that is included in your discharge packet. Bring any paperwork you were given at discharge with you along with any medications you are taking to your follow up visit. Our treatment cannot replace ongoing medical care by a primary care provider (PCP) outside of the emergency department. Thank you for allowing the [facility] team to be part of your care today. If you had an X-Ray or CT scan: A Radiologist will review the ED reading if any change in treatment is needed we will contact you. If you had a blood, urine, or wound culture: It will take several days for the results, if any change in treatment is needed we will contact you. If you had an STI test: It will take 48 hours for the results. Please call after 1 week if you have not heard back. Referrals: [facility] [Outside] - Follow up with primary Forms: [employer] (Armenian)
[2017-02-18 08:23] VITALS: O2SAT 98
[2017-02-18 14:41] VITALS: BP 133/77; PULSE 71; RESP 18
--- NOTE | 2017-02-18 21:46 | CARD ---
APPROVED REPORT EKG Measurement Heart [id number] <Conclusion> Normal sinus rhythm Normal ECG
--- NOTE | 2017-02-19 08:05 | CON ---
HISTORY OF PRESENT ILLNESS: The patient is a 32-year-old -Citizen Of [place] male with long debilitating history of polysubstance abuse and dependence including PCP and alcohol. The patient had 3 previous psychiatric admissions in the past, most recent was on 02/11. The patient was discharged by Dr. Elam. At this time, the patient brought himself into the hospital saying that he wants to harm himself, looking for admission to the psychiatric inpatient unit while being intoxicated. This senior technical writer did one-to-one evaluation for this patient in the emergency room. This senior technical writer is very familiar from the previous admissions to the psychiatric inpatient unit, which took place here in [place] in 10/2016. The patient presented initially to be deeply sedated, seems to be under the influence of drugs. The patient stayed overnight in the emergency room. This senior technical writer initiated [id number] evaluation because this senior technical writer wants to make sure that the patient meets criteria for psychiatric admission. The patient was found to be alert. The patient has underlying cognitive deficit due to chronic PCP use. The patient was not able to memorize the fact that this senior technical writer is a medical doctor, kept referring this senior technical writer as Miss. The patient said that he has court hearing today which he missed and he is careless about that. The patient requested to go to upstairs. When was asked what upstairs, the patient said to the psychiatric inpatient unit. At the same time, the patient does not know what is his plan and he does not report any feeling of hopelessness or helplessness. The patient denied thoughts of harming himself or others. The patient said "I want to live, Miss". The patient denied thought of harming others. The patient reported that he did not follow up with outpatient psychiatrist from the previous admission, the patient said that he was using PCP and alcohol daily. The patient reported being homeless and poor social support. The patient does not believe that he needs to be on psychotropic medications and usually after admission here he used to take medication in the . This senior technical writer obtained collateral information in the emergency room. The patient does not exhibit any aggressive or agitated behavior. The patient deemed to be not in danger to self or others, just slept throughout the night. Based on the history, the patient usually comes to the hospital, sleep overnight, and at the morning time, discharged because the patient is clearing up which gives this senior technical writer impression mostly likely disorganized thoughts and suicidal statements or related to the fact that he was using drugs. PHYSICAL EXAMINATION: VITAL SIGNS: Reviewed. Temperature 98.2, pulse 61, blood pressure 138/82, respirations 17 and oxygen saturation is 98%. LABORATORY DATA: Reviewed. Hemoglobin 13.2 and hematocrit 38.5. Chemistry; chloride 109 and ALT is 61. Toxicology reviewed. PCP is positive. PAST PSYCHIATRIC HISTORY: Long debilitating history of polysubstance abuse and dependence, three admissions to the psychiatric inpatient unit, the most recent was less than 7 days ago. The patient has chronic noncompliance with medications and followup appointments. The patient has a history of malingering, trying to hide from the court in the psychiatric inpatient unit. Please see web content & social media manager note for the most recent admission. At the present moment, secondary gain cannot be excluded as well because the patient's court date was scheduled for today. MENTAL STATUS EXAMINATION: The patient appears to be alert, oriented himself and place as well as date. Intermittent eye contact. Speech was slow, low volume, mood described "I want to go upstairs, I'm depressed." Affect was reactive. Mood congruent. Thought process seems to be circumstantial, but the patient seems to be at his baseline. At baseline, the patient has circumstantial thought process and he has cognitive deficit due to chronic PCP use. Thought content; the patient denied hearing voices, denied seeing things, the patient denied thoughts of harming himself or others, denied intent or plan: "Miss I want to continue living". Insight and judgment is limited for PCP addiction, as well as the patient noncompliant with the medications and followup appointment. Impulses are well predictable. This senior technical writer would like to emphasize the fact that the patient does not have history of violence or aggression or suicidal attempt. IMPRESSION: Most likely, all of the above symptoms are related to chronic PCP use, PCP addiction, PCP intoxication, alcohol use disorder. PLAN: 1. The patient requested to be admitted to the psychiatric inpatient unit, but from this senior technical writer's perspective, the patient pose no imminent danger to self or others. Symptoms what the patient was describing related to intoxication to PCP. 2. The patient does not have history of aggression or agitation. 3. The patient might benefit from going to alcohol rehab, the patient verbalized understanding. The patient was advised to stay off drugs, follow up with outpatient psychiatrist, as well as come back to the hospital if symptoms will be worsening. 4. This senior technical writer had impression that the patient is not in any imminent danger to self or others. 5. The patient is chronic substance abuser, presented at his baseline. 6. This senior technical writer will recommend discharge. Case was discussed with nursing staff, with PS worker. Should you have any questions, give me a call back. Thank you very much for letting me to participate in the care of your patient. Ursula Palacios MD
== END 2017-02-18 13:30 | disposition home or self-care (01) ==
LOC: ED 19:42
DX: Z00.8 Encounter for other general examination (principal); F32.9 Major depressive disorder, single episode, unspecified; F16.10 Hallucinogen abuse, uncomplicated

== ENCOUNTER 2017-02-20 00:20 | Emergency (ER) | payer OTHER ==
[2017-02-20 00:31] VITALS: BMI 29.4
--- NOTE | 2017-02-20 00:41 | ED PDOC ---
Arrival/HPI - General Historian: Patient - History of Present Illness Time/Duration: Prior to Arrival Symptom Onset: Sudden Symptom Course: Unchanged Severity Level: Mild Activities at Onset: Rest - General Chief Complaint: Psychiatric Evaluation Time Seen by Provider: 02/20/17 00:25 - History of Present Illness Narrative History of Present Illness (Text): 02/20/17 00:36 32yo M well known to the ED staff here for evaluation of dizziness. Patient states that he feels like the entire room is spinning, and states that it has been going on for about 20 mins. Admits to drinking about 6 beers this evening. And states that he has been smoking PCP all day today. He states that he "has a lot of anger and depression built up inside of him" as well. Denies any other complaints. No CP/SOB. No N/V/D. No F/C. No Abd pain. No Urinary complaints. ([place] Champagne) Past Medical History - Provider Review Nursing Documentation Reviewed: Yes - Past History Past History: Non-Contributing - Infectious Disease Hx of Infectious Diseases: None - Tetanus Immunization Tetanus Immunization: Unknown - Cardiac Hx Cardiac Disorders: No Hx Angina: No Hx Atrial Fibrillation: No Hx Cardiac Arrhythmia: No Hx Circulatory Problems: No - Pulmonary Hx Respiratory Disorders: No Hx Asthma: No Hx Bronchitis: No Hx Chronic Obstructive Pulmonary Disease (COPD): No Hx Emphysema: No Hx Lung Cancer: No Hx Pneumonia: No Hx Pulmonary Edema: No Hx Pulmonary Embolism: No Hx Respiratory Aspiration: No Hx Respiratory Tract Infection: No Hx Sleep Apnea: No Hx Tuberculosis: No - Neurological Hx Neurological Disorder: No Hx Alzheimer's Disease: No HX Cerebrovascular Accident: No Hx Dementia: No Hx Dizziness: No Hx Meningitis: No Hx Migraine: No Hx Multiple Sclerosis: No Hx Paralysis: No Hx Parkinson's Disease: No Hx Seizures: No Hx Syncope: No Hx Transient Ischemic Attacks (TIA): No Hx Vertigo: No - HEENT Hx HEENT Disorder: No Hx Blind: No Hx Cataracts: No Hx Deafness: No Hx Difficulty Chewing: No Hx Epistaxis: No Hx Glaucoma: No Hx Macular Degeneration: No - Renal Hx Renal Disorder: No - Endocrine/Metabolic Hx Endocrine Disorders: No - Hematological/Oncological Hx Blood Disorders: No - Integumentary Hx Dermatological Disorder: No - Musculoskeletal/Rheumatological Hx Musculoskeletal Disorders: No - Gastrointestinal Hx Gastrointestinal Disorders: No - Genitourinary/Gynecological Hx Genitourinary Disorders: No - Psychiatric Hx Psychophysiologic Disorder: Yes Hx Depression: Yes Hx Hallucinations: Yes Hx Substance Use: Yes Other/Comment: alcohol abuse - Surgical History Other/Comment: hernia surgery - Anesthesia Hx Anesthesia: Yes Hx Anesthesia Reactions: No Hx Malignant Hyperthermia: No - Suicidal Assessment Feels Threatened In Home Enviroment: No Family/Social History - Physician Review Nursing Documentation Reviewed: Yes Family/Social History: Unknown Family HX Smoking Status: Heavy Smoker > 10 Cigarettes Daily Hx Alcohol Use: Yes Frequency of alcohol use: Daily Hx Substance Use: Yes Substance used: used PCP 02/07/17 Allergies/Home Meds Allergies/Adverse Reactions: Allergies No Known Allergies Allergy (Verified 02/20/17 00:26) Home Medications: Home Meds Medication Instructions Recorded Confirmed No Known Home Med 01/16/17 02/20/17 Review of Systems - Physician Review All systems were reviewed & negative as marked: Yes - Review of Systems Constitutional: absent: Fevers Eyes: absent: Vision Changes ENT: absent: Hearing Changes Respiratory: absent: SOB Cardiovascular: absent: Chest Pain, Calf Pain Gastrointestinal: absent: Abdominal Pain, Diarrhea, Nausea, Vomiting Genitourinary Male: absent: Dysuria, Frequency Neurological: Dizziness. absent: Gait Changes Psychiatric: Depression. absent: Anxiety Physical Exam Vital Signs Reviewed: Yes Temperature: Afebrile Blood Pressure: Normal Pulse: Regular Respiratory Rate: Normal Appearance: Positive for: Non-Toxic, Unkept Mental Status: Positive for: Alert and Oriented X 3 - Systems Exam Head: Present: Atraumatic, Normocephalic Extroacular Muscles: Present: EOMI Mouth: Present: Moist Mucous Membranes Neck: Present: Normal Range of Motion. No: JVD Respiratory/Chest: Present: Clear to Auscultation, Good Air Exchange. No: Respiratory Distress, Accessory Muscle Use, Wheezes, Decreased Breath Sounds Cardiovascular: Present: Regular Rate and Rhythm, Normal S1, S2. No: Murmurs Abdomen: No: Tenderness, Peritoneal Signs, Rebound, Guarding Upper Extremity: Present: Normal Inspection, Normal ROM, NORMAL PULSES Lower Extremity: Present: Normal Inspection. No: CALF TENDERNESS, NORMAL PULSES Skin: Present: Warm, Normal Color Psychiatric: Present: Alert Vital Signs Temp Pulse Resp BP Pulse Ox 02/20/17 03:44 60 14 113/76 99 02/20/17 00:41 97.6 F 56 L 18 126/76 98 Medical Decision Making ED Course and Treatment: In agreement with resident note, which includes further HPI details. Patient was seen and evaluated with resident, came up with plan and treatment together. (Markie Cummings) 02/20/17 00:44 32yo M here with dizziness - in the setting of ETOH and PCP abuse - EKG - CXR - CBC - CMP - UA - Urine Drug Screen - ETOH level - Tylenol and Aspirin level - Reassess and dispo 02/20/17 00:56 EKG - NSR @ 51. No ST changes 02/20/17 02:01 ETOH level 80. CXR - no acute findings Labs wnl Awaiting Urine and sobriety for PES eval 02/20/17 04:18 UA negative UDS - Positive for PCP On reevaluation, patient is resting comfortably. PES contacted. Awaiting evaluation. 02/20/17 05:34 Seen by PES, and patient cleared for discharge. Patient requesting something to eat prior to discharge. Patient to follow up with [facility]. Patient understands and agrees with plan. ([place] Champagne) - Lab Interpretations Lab Results: 02/20/17 01:00 02/20/17 01:00 Lab Results 02/20/17 03:10: Urine Color Yellow, Urine Appearance Clear, Urine pH 6.0, Ur Specific [place] <= 1.005, Urine Protein Negative, Urine Glucose (UA) Negative, Urine Ketones Negative, Urine Blood Negative, Urine Nitrate Negative, Urine Bilirubin Negative, Urine Urobilinogen 0.2, Ur Leukocyte Esterase Negative 02/20/17 03:10: Urine Opiates Screen Negative, Urine Methadone Screen Negative, Ur Barbiturates Screen Negative, Ur Phencyclidine Scrn Positive H, Ur Amphetamines Screen Negative, U Benzodiazepines Scrn Negative, U Oth Cocaine Metabols Negative, U Cannabinoids Screen Negative 02/20/17 01:00: Salicylates < 1 L, Acetaminophen < 10.0 L 02/20/17 01:00: Alcohol, Quantitative 81 H 02/20/17 01:00: Sodium 138, Potassium 3.7, Chloride 100, Carbon Dioxide 27, Anion Gap 15, BUN 15, Creatinine 0.9, Est GFR ( Amer) > 60, Est GFR (Non- Af Amer) > 60, Random Glucose 78, Calcium 9.1, Total Bilirubin 0.7, AST 36, ALT 51, Alkaline Phosphatase 71, Total Protein 7.0, Albumin 4.5, Globulin 2.6, Albumin/Globulin Ratio 1.7 02/20/17 01:00: WBC 9.8 D, RBC 4.48, Hgb 13.5 L, Hct 39.3 L, MCV 87.7, MCH 30.1 , MCHC 34.4, RDW 12.9, Plt Count 206, MPV 9.1, Gran % 66.3, Lymph % (Auto) 25.8 , [place] % (Auto) 6.8 H, Eos % (Auto) 0.9 L, Baso % (Auto) 0.2, Gran # 6.50, Lymph # 2.5, [place] # 0.7 H, Eos # 0.1, Baso # 0.02 - RAD Interpretation Radiology Orders: 02/20/17 00:33 CHEST PORTABLE [RAD] Stat - PA / POT BUILDER / Resident Statement / has reviewed & agrees with the documentation as recorded. / has examined the patient and agrees with the treatment plan. Disposition/Present on Arrival - Present on Arrival Any Indicators Present on Arrival: No History of DVT/PE: No History of Uncontrolled Diabetes: No Urinary Catheter: No History of Decub. Ulcer: No History Surgical Site Infection Following: None - Disposition Have Diagnosis and Disposition been Completed?: Yes Disposition Time: 05:37 Patient Plan: Discharge - Disposition Diagnosis: Substance abuse Disposition: HOME/ ROUTINE Condition: STABLE Discharge Instructions (ExitCare): Polysubstance Abuse (ED) Additional Instructions: 1. Follow up with [facility] clinic. Call for appointment 2. Stop using PCP. Stop drinking alcohol 3. Return to the ER with any concerning symptoms Referrals: Kem Flynn PA [Primary Care Provider] - Follow up with primary [facility] [Outside] - Follow up with primary Forms: [employer] (Arabic)
[2017-02-20 00:42] VITALS: TEMP 97.6
[2017-02-20 01:19] LABS: BASO # 0.02 K/mm3 (0.0-2.0); BASO % 0.2 % (0.0-3.0); EOS # 0.1 (0.0-0.7); EOS % 0.9 % (1.5-5.0); GRAN # 6.5 (1.4-6.5); GRAN % 66.3 % (50.0-68.0); HEMATOCRIT 39.3 % (42.0-52.0); LYMPH # 2.5 (1.2-3.4); LYMPH % 25.8 % (22.0-35.0); MEAN CELL VOLUME 87.7 fl (80.0-105.0); MEAN CORPUSCULAR HEMOGLOBIN 30.1 pg (25.0-35.0); MEAN CORPUSCULAR HGB CONC 34.4 g/dl (31.0-37.0); MEAN PLATELET VOLUME 9.1 fl (7.0-11.0); MONO # 0.7 (0.1-0.6); MONO % 6.8 % (1.0-6.0); RED CELL DISTRIBUTION WIDTH 12.9 % (11.5-14.5); WHITE BLOOD COUNT 9.8 10^3/ul (4.5-11.0)
[2017-02-20 01:33] LABS: ALB/GLOB RATIO 1.7 (1.1-1.8); ALKALINE PHOSPHATASE 71 U/L (38-133); ALT/SGPT 51 U/L (7-56); AST/SGOT 36 U/L (15-59); BILIRUBIN,TOTAL 0.7 mg/dL (0.2-1.3); BLOOD UREA NITROGEN 15 mg/dL (7-21); CALCIUM 9.1 mg/dL (8.4-10.5); CARBON DIOXIDE 27 mmol/L (21-33); CHLORIDE 100 mmol/L (95-110); GFR AFRICAN-AMERICAN > 60; GLUCOSE,RANDOM 78 mg/dL (70-110); POTASSIUM 3.7 mmol/L (3.6-5.0); SODIUM 138 mmol/L (132-148)
[2017-02-20 03:45] VITALS: BP 113/76; PULSE 60; RESP 14; O2SAT 99
[2017-02-20 04:09] LABS: URINE BILIRUBIN NEGATIVE (NEGATIVE); URINE BLOOD NEGATIVE (NEGATIVE); URINE GLUCOSE (UA) NEGATIVE (NEGATIVE); URINE KETONE NEGATIVE (NEGATIVE); URINE LEUKOCYTE ESTERASE NEGATIVE Leu/uL (NEGATIVE); URINE PROTEIN NEGATIVE mg/dL (<30 mg/dL); URINE UROBILINOGEN 0.2 E.U./dL (<1 E.U./dL)
[2017-02-20 04:10] LABS: URINE APPEARANCE CLEAR (CLEAR); URINE COLOR YELLOW (YELLOW)
--- NOTE | 2017-02-20 08:48 | RAD ---
HISTORY: psych COMPARISON: Chest radiographs 01/27/2017 FINDINGS: LUNGS: No acute infiltrate is identified. Inspiratory volume appears somewhat diminished. PLEURA: No significant pleural effusion identified, no pneumothorax apparent. CARDIOVASCULAR: Normal. OSSEOUS STRUCTURES: No significant abnormalities. VISUALIZED UPPER ABDOMEN: Normal. OTHER FINDINGS: None. IMPRESSION: No acute infiltrate or pleural effusion is identified in the interval. No interval cardiomegaly or pulmonary vascular derangement. Diminished inspiratory volume noted.
--- NOTE | 2017-02-20 09:28 | CARD ---
APPROVED REPORT EKG Measurement Heart [id number] <Conclusion> Sinus bradycardia Otherwise normal ECG
== END 2017-02-20 06:00 | disposition home or self-care (01) ==
LOC: ED 00:20
DX: F19.10 Other psychoactive substance abuse, uncomplicated (principal); F32.9 Major depressive disorder, single episode, unspecified

== ENCOUNTER 2017-02-20 12:39 | Emergency (ER) | payer OTHER ==
[2017-02-20 12:45] VITALS: BMI 27.9
[2017-02-20 12:48] VITALS: TEMP 98.1
--- NOTE | 2017-02-20 13:09 | ED PDOC ---
Arrival/HPI - General Chief Complaint: Headache Time Seen by Provider: 02/20/17 12:49 - History of Present Illness Narrative History of Present Illness (Text): 32M c/o feeling "depressed and angry" and says "I need to go up to the 5th floor." He says "left on my own last time but I want to stay this time." when asked about SI he says "I'll use a sharp object." he admits to recent PCP and etoh use. he did not mention a headache initially to me but when asked about triage note he says he has a "migraine" and has been getting this same headache "one in a blue" for "years." Past Medical History - Past History Past History: Non-Contributing - Infectious Disease Hx of Infectious Diseases: None - Tetanus Immunization Tetanus Immunization: Unknown - Cardiac Hx Cardiac Disorders: No Hx Angina: No Hx Atrial Fibrillation: No Hx Cardiac Arrhythmia: No Hx Circulatory Problems: No - Pulmonary Hx Respiratory Disorders: No Hx Asthma: No Hx Bronchitis: No Hx Chronic Obstructive Pulmonary Disease (COPD): No Hx Emphysema: No Hx Lung Cancer: No Hx Pneumonia: No Hx Pulmonary Edema: No Hx Pulmonary Embolism: No Hx Respiratory Aspiration: No Hx Respiratory Tract Infection: No Hx Sleep Apnea: No Hx Tuberculosis: No - Neurological Hx Neurological Disorder: No Hx Alzheimer's Disease: No HX Cerebrovascular Accident: No Hx Dementia: No Hx Dizziness: No Hx Meningitis: No Hx Migraine: No Hx Multiple Sclerosis: No Hx Paralysis: No Hx Parkinson's Disease: No Hx Seizures: No Hx Syncope: No Hx Transient Ischemic Attacks (TIA): No Hx Vertigo: No - HEENT Hx HEENT Disorder: No Hx Blind: No Hx Cataracts: No Hx Deafness: No Hx Difficulty Chewing: No Hx Epistaxis: No Hx Glaucoma: No Hx Macular Degeneration: No - Renal Hx Renal Disorder: No - Endocrine/Metabolic Hx Endocrine Disorders: No - Hematological/Oncological Hx Blood Disorders: No - Integumentary Hx Dermatological Disorder: No - Musculoskeletal/Rheumatological Hx Musculoskeletal Disorders: No - Gastrointestinal Hx Gastrointestinal Disorders: No - Genitourinary/Gynecological Hx Genitourinary Disorders: No - Psychiatric Hx Psychophysiologic Disorder: Yes Hx Depression: Yes Hx Hallucinations: Yes Hx Substance Use: Yes Other/Comment: alcohol abuse - Surgical History Other/Comment: hernia surgery - Anesthesia Hx Anesthesia: Yes Hx Anesthesia Reactions: No Hx Malignant Hyperthermia: No - Suicidal Assessment Feels Threatened In Home Enviroment: No Family/Social History Family/Social History: Other (nc) Smoking Status: Heavy Smoker > 10 Cigarettes Daily Hx Alcohol Use: Yes Hx Substance Use: Yes Substance used: used PCP 02/07/17 Allergies/Home Meds Allergies/Adverse Reactions: Allergies No Known Allergies Allergy (Verified 02/20/17 12:45) Home Medications: Home Meds Medication Instructions Recorded Confirmed No Known Home Med 01/16/17 02/20/17 Review of Systems - Physician Review All systems were reviewed & negative as marked: Yes - Review of Systems Constitutional: absent: Fevers Eyes: absent: Vision Changes Respiratory: absent: SOB, Cough Cardiovascular: absent: Chest Pain Gastrointestinal: absent: Abdominal Pain, Vomiting Neurological: Headache, Dizziness Psychiatric: Depression, Suicidal Ideation Physical Exam Vital Signs Reviewed: Yes Vital Signs Temp Pulse Resp BP Pulse Ox 02/20/17 16:30 84 18 131/78 99 02/20/17 13:58 98.1 F 88 16 99 02/20/17 12:45 98.1 F 85 19 139/86 97 Pain Distress: None Mental Status: Positive for: Alert and Oriented X 3 - Systems Exam Head: Present: Atraumatic Pupils: Present: PERRL Extroacular Muscles: Present: EOMI Mouth: Present: Moist Mucous Membranes Neck: Present: Normal Range of Motion Respiratory/Chest: Present: Clear to Auscultation. No: Respiratory Distress, Accessory Muscle Use Cardiovascular: Present: Regular Rate and Rhythm Abdomen: No: Tenderness, Distention Lower Extremity: No: Edema Neurological: Present: GCS=15, CN II-XII Intact, Motor Func Grossly Intact, Normal Sensory Function, Gait Normal Skin: Present: Warm, Dry Psychiatric: Present: Alert, Oriented x 3 Medical Decision Making ED Course and Treatment: 02/20/17 14:30 psych eval and rec re-eval at 1830 02/20/17 18:32 psych re-eval. pt no longer suicidal. psych cleared for dc. - Lab Interpretations Lab Results: 02/20/17 13:10 02/20/17 13:10 Lab Results 02/20/17 13:42: Urine Opiates Screen Negative, Urine Methadone Screen Negative, Ur Barbiturates Screen Negative, Ur Phencyclidine Scrn Positive H, Ur Amphetamines Screen Negative, U Benzodiazepines Scrn Negative, U Oth Cocaine Metabols Negative, U Cannabinoids Screen Negative 02/20/17 13:42: Urine Color Yellow, Urine Appearance Clear, Urine pH 6.0, Ur Specific [place] 1.025, Urine Protein Trace H, Urine Glucose (UA) Negative, Urine Ketones 15 H, Urine Blood Negative, Urine Nitrate Negative, Urine Bilirubin Negative, Urine Urobilinogen 0.2, Ur Leukocyte Esterase Negative, Urine RBC Negative, Urine WBC Negative 02/20/17 13:10: Alcohol, Quantitative < 10 02/20/17 13:10: Salicylates < 1 L, Acetaminophen < 10.0 L 02/20/17 13:10: Sodium 143, Potassium 3.8, Chloride 106, Carbon Dioxide 24, Anion Gap 17, BUN 18, Creatinine 0.9, Est GFR ( Amer) > 60, Est GFR (Non- Af Amer) > 60, Random Glucose 72, Calcium 9.3, Total Bilirubin 0.5, AST 27, ALT 49, Alkaline Phosphatase 68, Total Protein 6.7, Albumin 4.3, Globulin 2.4, Albumin/Globulin Ratio 1.8 02/20/17 13:10: WBC 7.4 D, RBC 4.49, Hgb 13.4 L, Hct 39.1 L, MCV 87.1, MCH 29.8 , MCHC 34.3, RDW 12.7, Plt Count 225, MPV 9.5, Gran % 64.8, Lymph % (Auto) 24.9 , [place] % (Auto) 7.8 H, Eos % (Auto) 2.2, Baso % (Auto) 0.3, Gran # 4.77, Lymph # 1.8, [place] # 0.6, Eos # 0.2, Baso # 0.02 I have reviewed the lab results: Yes - Medication Orders Current Medication Orders: Discontinued Medications Acetaminophen (Tylenol 325mg Tab) 975 mg PO STAT STA Stop: 02/20/17 13:12 Last Admin: 02/20/17 13:32 Dose: 975 mg Disposition/Present on Arrival - Present on Arrival Any Indicators Present on Arrival: No History of DVT/PE: No History of Uncontrolled Diabetes: No Urinary Catheter: No History of Decub. Ulcer: No History Surgical Site Infection Following: None - Disposition Have Diagnosis and Disposition been Completed?: Yes Diagnosis: PCP abuse, Homelessness Disposition: HOME/ ROUTINE Disposition Time: 18:35 Patient Problems: Current Active Problems Problem Status Onset Homelessness Acute PCP abuse Acute Condition: STABLE Referrals: [facility] [Outside] - Follow up with primary [facility] [Outside] - Follow up with primary Alcoholics Anonymous [Outside] - Follow up with primary [facility] [Outside] - Follow up with primary Forms: [employer] (Setswana)
[2017-02-20 13:49] LABS: BASO # 0.02 K/mm3 (0.0-2.0); BASO % 0.3 % (0.0-3.0); EOS # 0.2 (0.0-0.7); EOS % 2.2 % (1.5-5.0); GRAN # 4.77 (1.4-6.5); GRAN % 64.8 % (50.0-68.0); HEMATOCRIT 39.1 % (42.0-52.0); LYMPH # 1.8 (1.2-3.4); LYMPH % 24.9 % (22.0-35.0); MEAN CELL VOLUME 87.1 fl (80.0-105.0); MEAN CORPUSCULAR HEMOGLOBIN 29.8 pg (25.0-35.0); MEAN CORPUSCULAR HGB CONC 34.3 g/dl (31.0-37.0); MEAN PLATELET VOLUME 9.5 fl (7.0-11.0); MONO # 0.6 (0.1-0.6); MONO % 7.8 % (1.0-6.0); RED CELL DISTRIBUTION WIDTH 12.7 % (11.5-14.5); WHITE BLOOD COUNT 7.4 10^3/ul (4.5-11.0)
[2017-02-20 13:57] LABS: URINE BILIRUBIN NEGATIVE (NEGATIVE); URINE BLOOD NEGATIVE (NEGATIVE); URINE GLUCOSE (UA) NEGATIVE (NEGATIVE); URINE KETONE 15 mg/dL (NEGATIVE); URINE LEUKOCYTE ESTERASE NEGATIVE Leu/uL (NEGATIVE); URINE PROTEIN TRACE mg/dL (<30 mg/dL); URINE UROBILINOGEN 0.2 E.U./dL (<1 E.U./dL)
[2017-02-20 14:00] LABS: URINE APPEARANCE CLEAR (CLEAR); URINE COLOR YELLOW (YELLOW)
[2017-02-20 14:04] LABS: ALB/GLOB RATIO 1.8 (1.1-1.8); ALKALINE PHOSPHATASE 68 U/L (38-133); ALT/SGPT 49 U/L (7-56); AST/SGOT 27 U/L (15-59); BILIRUBIN,TOTAL 0.5 mg/dL (0.2-1.3); BLOOD UREA NITROGEN 18 mg/dL (7-21); CALCIUM 9.3 mg/dL (8.4-10.5); CARBON DIOXIDE 24 mmol/L (21-33); CHLORIDE 106 mmol/L (98-107); GFR AFRICAN-AMERICAN > 60; GLUCOSE,RANDOM 72 mg/dL (70-110); POTASSIUM 3.8 mmol/L (3.6-5.0); SODIUM 143 mmol/L (132-148); TOTAL PROTEIN 6.7 g/dL (5.8-8.3)
[2017-02-20 14:10] LABS: URINE RBC NEGATIVE /hpf (0-2); URINE WBC NEGATIVE /hpf (0-6)
[2017-02-20 18:44] VITALS: BP 109/59; PULSE 82
[2017-02-20 18:57] VITALS: RESP 18; O2SAT 98
--- NOTE | 2017-02-21 09:50 | CARD ---
APPROVED REPORT EKG Measurement Heart [id number] <Conclusion> Normal sinus rhythm Normal ECG
== END 2017-02-20 18:57 | disposition home or self-care (01) ==
LOC: ED 12:39
DX: F16.10 Hallucinogen abuse, uncomplicated (principal); Z59.0 Homelessness; F32.9 Major depressive disorder, single episode, unspecified

== ENCOUNTER 2017-03-02 02:50 | Inpatient (IN) | payer MEDICAID, OTHER ==
[2017-03-02 03:02] VITALS: BMI 25.8
--- NOTE | 2017-03-02 03:09 | ED PDOC ---
Arrival/HPI - General Time Seen by Provider: 03/02/17 03:01 Historian: Patient EM Caveat: Intoxicated - History of Present Illness Narrative History of Present Illness (Text): 03/02/17 03:06 32 year old male, whose past medical history includes depression and alcohol abuse, present for depression and anger. Patient is currently intoxicated and admits to drinking. He states, "I wanna kill the man that slept with the woman I loved". He also reports that he [facility]. Patient has homicidal ideation, but denies any suicidal ideation, fever, chills , chest pain, shortness of breath, nausea, vomiting, diarrhea, urinary symptoms , back pain, neck pain, headache, dizziness, or any other complaints. PMD: Dr. Flynn Time/Duration: Prior to Arrival Symptom Onset: Gradual Symptom Course: Unchanged Activities at Onset: Light Past Medical History - Provider Review Nursing Documentation Reviewed: Yes - Past History Past History: Non-Contributing - Infectious Disease Hx of Infectious Diseases: None - Tetanus Immunization Tetanus Immunization: Unknown - Cardiac Hx Cardiac Disorders: No Hx Angina: No Hx Atrial Fibrillation: No Hx Cardiac Arrhythmia: No Hx Circulatory Problems: No - Pulmonary Hx Respiratory Disorders: No Hx Asthma: No Hx Bronchitis: No Hx Chronic Obstructive Pulmonary Disease (COPD): No Hx Emphysema: No Hx Lung Cancer: No Hx Pneumonia: No Hx Pulmonary Edema: No Hx Pulmonary Embolism: No Hx Respiratory Aspiration: No Hx Respiratory Tract Infection: No Hx Sleep Apnea: No Hx Tuberculosis: No - Neurological Hx Neurological Disorder: No Hx Alzheimer's Disease: No HX Cerebrovascular Accident: No Hx Dementia: No Hx Dizziness: No Hx Meningitis: No Hx Migraine: No Hx Multiple Sclerosis: No Hx Paralysis: No Hx Parkinson's Disease: No Hx Seizures: No Hx Syncope: No Hx Transient Ischemic Attacks (TIA): No Hx Vertigo: No - HEENT Hx HEENT Disorder: No Hx Blind: No Hx Cataracts: No Hx Deafness: No Hx Difficulty Chewing: No Hx Epistaxis: No Hx Glaucoma: No Hx Macular Degeneration: No - Renal Hx Renal Disorder: No - Endocrine/Metabolic Hx Endocrine Disorders: No - Hematological/Oncological Hx Blood Disorders: No - Integumentary Hx Dermatological Disorder: No - Musculoskeletal/Rheumatological Hx Musculoskeletal Disorders: No - Gastrointestinal Hx Gastrointestinal Disorders: No - Genitourinary/Gynecological Hx Genitourinary Disorders: No - Psychiatric Hx Psychophysiologic Disorder: Yes Hx Depression: Yes Hx Hallucinations: Yes Hx Substance Use: Yes Other/Comment: alcohol abuse - Surgical History Other/Comment: hernia surgery - Anesthesia Hx Anesthesia: Yes Hx Anesthesia Reactions: No Hx Malignant Hyperthermia: No - Suicidal Assessment Feels Threatened In Home Enviroment: No Family/Social History - Physician Review Nursing Documentation Reviewed: Yes Family/Social History: No Known Family HX Smoking Status: Heavy Smoker > 10 Cigarettes Daily Hx Alcohol Use: Yes Hx Substance Use: Yes Substance used: used PCP 02/07/17 Allergies/Home Meds Allergies/Adverse Reactions: Allergies No Known Allergies Allergy (Verified 02/20/17 12:45) Home Medications: Home Meds Medication Instructions Recorded Confirmed No Known Home Med 01/16/17 03/02/17 Review of Systems - Physician Review All systems were reviewed & negative as marked: Yes - Review of Systems Constitutional: absent: Fevers, Other (Chills) Respiratory: absent: SOB Cardiovascular: absent: Chest Pain Gastrointestinal: absent: Diarrhea, Nausea, Vomiting Genitourinary Male: absent: Dysuria, Frequency, Hematuria Musculoskeletal: absent: Back Pain, Neck Pain Neurological: absent: Dizziness Psychiatric: Depression, Other (Homicidal Ideation). absent: Suicidal Ideation Physical Exam - Physical Exam Narrative Physical Exam (Text): Constitutional: No acute distress. Head: Normocephalic. Atraumatic. Eyes: PERRL. ENT: Moist mucous membranes. Alcohol on breath. Neck: Supple. Cardiovascular: Regular rate. Chest: No tenderness. Respiratory: Clear to auscultation bilaterally. GI: Soft. Nontender. Nondistended. Back: No CVA tenderness. Musculoskeletal: No tenderness or swelling of extremities. Skin: No rash. Neurologic: Alert, no focal deficit. Vital Signs Reviewed: Yes Vital Signs Temp Pulse Resp BP Pulse Ox 03/02/17 03:01 98.1 F 77 18 139/92 H 98 Temperature: Afebrile Blood Pressure: Normal Pulse: Regular Respiratory Rate: Normal Appearance: Positive for: Well-Appearing, Non-Toxic, Comfortable Pain Distress: None Mental Status: Positive for: Alert and Oriented X 3 Medical Decision Making ED Course and Treatment: 03/02/17 03:08 Impression: 32 year old male present complaining of depression and angry episodes. He states to have homicidal ideation and admit to alcohol intoxication. Plan: -- Alcohol levels will be checked once sober. If patient remains to have homicidal Ideation, PES evaluation will be done. -- EKG -- Labs -- Chest X-ray -- Urinalysis -- Reassess and disposition Prior Visits: Notes and results from previous visits were reviewed. Patient was last seen in the emergency department on 02/20/2017 feeling depressed and angry. Progress Notes: Patient with numerous visits to ED. Observed in ED, sleeping. Awaiting sobriety. Will re-evaluate patient's statements after sober, then determine if PES evaluation is indicated. Will sign out to ED day team. - Lab Interpretations Lab Results: 03/02/17 05:00 03/02/17 05:00 Lab Results 03/02/17 05:40: Urine Color Yellow, Urine Appearance Clear, Urine pH 6.5, Ur Specific [place] 1.010, Urine Protein Negative, Urine Glucose (UA) Negative, Urine Ketones Negative, Urine Blood Negative, Urine Nitrate Negative, Urine Bilirubin Negative, Urine Urobilinogen 0.2, Ur Leukocyte Esterase Negative 03/02/17 05:00: Alcohol, Quantitative < 10 03/02/17 05:00: Salicylates < 1 L, Acetaminophen < 10.0 L 03/02/17 05:00: Sodium 146, Potassium 3.9, Chloride 105, Carbon Dioxide 29, Anion Gap 16, BUN 9, Creatinine 1.0, Est GFR ( Amer) > 60, Est GFR (Non- Af Amer) > 60, Random Glucose 77, Calcium 9.5, Total Bilirubin 0.3, AST 48, ALT 73 H, Alkaline Phosphatase 69, Total Protein 6.7, Albumin 4.3, Globulin 2.5, Albumin/Globulin Ratio 1.7 03/02/17 05:00: WBC 8.0, RBC 4.47, Hgb 13.2 L, Hct 40.0 L, MCV 89.5, MCH 29.5, MCHC 33.0, RDW 13.1, Plt Count 265, MPV 9.0, Gran % 51.0, Lymph % (Auto) 38.2 H , [place] % (Auto) 8.6 H, Eos % (Auto) 1.9, Baso % (Auto) 0.3, Gran # 4.06, Lymph # 3.0, [place] # 0.7 H, Eos # 0.2, Baso # 0.02 - RAD Interpretation Radiology Orders: 03/02/17 04:00 CHEST PORTABLE [RAD] Stat - Scribe Statement The provider has reviewed the documentation as recorded by the Scribe Chris Hess All medical record entries made by the Scribe were at my direction and personally dictated by me. I have reviewed the chart and agree that the record accurately reflects my personal performance of the history, physical exam, medical decision making, and the department course for this patient. I have also personally directed, reviewed, and agree with the discharge instructions and disposition. Disposition/Present on Arrival - Present on Arrival History of DVT/PE: No History of Uncontrolled Diabetes: No Urinary Catheter: No History Surgical Site Infection Following: None - Disposition Referrals: Kem Flynn PA [Primary Care Provider] - Follow up with primary
[2017-03-02 05:37] LABS: BASO # 0.02 K/mm3 (0.0-2.0); BASO % 0.3 % (0.0-3.0); EOS # 0.2 (0.0-0.7); EOS % 1.9 % (1.5-5.0); GRAN # 4.06 (1.4-6.5); LYMPH % 38.2 % (22.0-35.0); MEAN CELL VOLUME 89.5 fl (80.0-105.0); MEAN CORPUSCULAR HEMOGLOBIN 29.5 pg (25.0-35.0); MONO # 0.7 (0.1-0.6); MONO % 8.6 % (1.0-6.0); RED CELL DISTRIBUTION WIDTH 13.1 % (11.5-14.5)
[2017-03-02 05:38] LABS: ALB/GLOB RATIO 1.7 (1.1-1.8); ALKALINE PHOSPHATASE 69 U/L (38-126); ALT/SGPT 73 U/L (7-56); AST/SGOT 48 U/L (17-59); BILIRUBIN,TOTAL 0.3 mg/dL (0.2-1.3); BLOOD UREA NITROGEN 9 mg/dL (7-21); CALCIUM 9.5 mg/dL (8.4-10.5); CARBON DIOXIDE 29 mmol/L (21-33); CHLORIDE 105 mmol/L (98-107); GFR AFRICAN-AMERICAN > 60; GLUCOSE,RANDOM 77 mg/dL (70-110); POTASSIUM 3.9 mmol/L (3.6-5.0); SODIUM 146 mmol/L (132-148); TOTAL PROTEIN 6.7 g/dL (5.8-8.3)
[2017-03-02 05:56] LABS: PH,URINE 6.5 (4.7-8.0); URINE BILIRUBIN NEGATIVE (NEGATIVE); URINE BLOOD NEGATIVE (NEGATIVE); URINE GLUCOSE (UA) NEGATIVE (NEGATIVE); URINE KETONE NEGATIVE (NEGATIVE); URINE LEUKOCYTE ESTERASE NEGATIVE Leu/uL (NEGATIVE); URINE PROTEIN NEGATIVE mg/dL (<30 mg/dL); URINE UROBILINOGEN 0.2 E.U./dL (<1 E.U./dL)
[2017-03-02 05:57] LABS: URINE APPEARANCE CLEAR (CLEAR); URINE COLOR YELLOW (YELLOW)
[2017-03-02 06:50] VITALS: O2SAT 99
--- NOTE | 2017-03-02 07:40 | ED PDOC ---
Physical Exam Vital Signs Temp Pulse Resp BP Pulse Ox 03/02/17 06:49 78 16 132/79 99 03/02/17 03:01 98.1 F 77 18 139/92 H 98 Temperature: Afebrile Blood Pressure: Hypertensive Pulse: Regular Respiratory Rate: Normal Appearance: Positive for: Well-Appearing, Non-Toxic, Comfortable Pain Distress: None Mental Status: Positive for: Alert and Oriented X 3 Medical Decision Making ED Course and Treatment: 03/02/17 07:39: Patient sign out from overnight, pending sobriety. Will reevaluate and disposition. 03/02/17 10:11 Patient is AAOx3. No slurred speech. PES evaluated patient and pending disposition. 03/02/17 10:58 Patient was recommended for admission for Psych and admitted to Dr. Urslua Palacios's services. - Lab Interpretations Lab Results: 03/02/17 05:00 03/02/17 05:00 Lab Results 03/02/17 05:40: Urine Opiates Screen Negative, Urine Methadone Screen Negative, Ur Barbiturates Screen Negative, Ur Phencyclidine Scrn Positive H, Ur Amphetamines Screen Negative, U Benzodiazepines Scrn Positive H, U Oth Cocaine Metabols Negative, U Cannabinoids Screen Negative 03/02/17 05:40: Urine Color Yellow, Urine Appearance Clear, Urine pH 6.5, Ur Specific [place] 1.010, Urine Protein Negative, Urine Glucose (UA) Negative, Urine Ketones Negative, Urine Blood Negative, Urine Nitrate Negative, Urine Bilirubin Negative, Urine Urobilinogen 0.2, Ur Leukocyte Esterase Negative 03/02/17 05:00: Alcohol, Quantitative < 10 03/02/17 05:00: Salicylates < 1 L, Acetaminophen < 10.0 L 03/02/17 05:00: Sodium 146, Potassium 3.9, Chloride 105, Carbon Dioxide 29, Anion Gap 16, BUN 9, Creatinine 1.0, Est GFR ( Amer) > 60, Est GFR (Non- Af Amer) > 60, Random Glucose 77, Calcium 9.5, Total Bilirubin 0.3, AST 48, ALT 73 H, Alkaline Phosphatase 69, Total Protein 6.7, Albumin 4.3, Globulin 2.5, Albumin/Globulin Ratio 1.7 03/02/17 05:00: WBC 8.0, RBC 4.47, Hgb 13.2 L, Hct 40.0 L, MCV 89.5, MCH 29.5, MCHC 33.0, RDW 13.1, Plt Count 265, MPV 9.0, Gran % 51.0, Lymph % (Auto) 38.2 H , [place] % (Auto) 8.6 H, Eos % (Auto) 1.9, Baso % (Auto) 0.3, Gran # 4.06, Lymph # 3.0, [place] # 0.7 H, Eos # 0.2, Baso # 0.02 - RAD Interpretation Radiology Orders: 03/02/17 04:00 CHEST PORTABLE [RAD] Stat - Scribe Statement The provider has reviewed the documentation as recorded by the Dawitibsaeid Durán Provider Dawitibe Attestation: All medical record entries made by the Scribe were at my direction and personally dictated by me. I have reviewed the chart and agree that the record accurately reflects my personal performance of the history, physical exam, medical decision making, and the department course for this patient. I have also personally directed, reviewed, and agree with the discharge instructions and disposition Disposition/Present on Arrival - Present on Arrival Any Indicators Present on Arrival: No History of DVT/PE: No History of Uncontrolled Diabetes: No Urinary Catheter: No History of Decub. Ulcer: No History Surgical Site Infection Following: None - Disposition Have Diagnosis and Disposition been Completed?: Yes Diagnosis: Psychiatric care Disposition: HOSPITALIZED Disposition Time: 10:58 Patient Plan: Admission Condition: FAIR
--- NOTE | 2017-03-02 10:45 | RAD ---
HISTORY: intoxication COMPARISON: 02/20/2017 FINDINGS: LUNGS: No active pulmonary disease. PLEURA: No significant pleural effusion identified, no pneumothorax apparent. CARDIOVASCULAR: Normal. OSSEOUS STRUCTURES: No significant abnormalities. VISUALIZED UPPER ABDOMEN: Normal. OTHER FINDINGS: None. IMPRESSION: No active disease.
[2017-03-02] MEDS ORDERED: Magnesium Hydroxide Susp 30 ml UD PO PRN (12:39)
[2017-03-02] MEDS ORDERED: Alum-Mag Hydrox-Simethicone Susp (30 mL) PO PRN (12:40)
[2017-03-02 13:32] LABS: CHOLESTEROL 145 mg/dL (130-200)
--- NOTE | 2017-03-02 15:55 | PCM.BM ---
Treatment Plan Problems - Problems identified on initial assessmt Problem 1 Date Initiated: 03/02/17 Time Initiated: 15:53 Assessment reference: NA Status: Active Problem 2 Date Initiated: 03/02/17 Time Initiated: 15:54 Assessment reference: NA Status: Active Problem 3 Date Initiated: 03/02/17 Time Initiated: 15:54 Assessment reference: NA Status: Active Problem 4 Date Initiated: 03/02/17 Time Initiated: 15:54 Assessment reference: NA Status: Active Treatment assets and liabiliti Patient Assests: adapts well, ADL independent, negotiates basic needs Patient Liabilities: poor support system, substance abuse, legal issue - Milieu Protocol Maintain good personal hygiene: every shift Encourage regular showers, every shift Remind patient to perform daily oral care, every shift Assist patient to perform ADL's Maintain personal safety: every shift Educate patient to report safety concerns to staff, every shift Monitor environment for contraband/sharps Medication safety: Monitor for expected outcome, potential side effects: every shift, Assess barriers to learning: every shift, Assess readiness for medication education: every shift Discharge/Continuing Care - Education Needs Education Needs: Patient Medication, Patient Anger Management skills, Patient Placement options, Patient Community resources, Patient Activities of Daily Living, Patient Pain, Patient Health Practices/Safety, Patient Personal Hygiene/ Grooming, Patient Aftercare Safety Plan - Discharge Discharge Criteria: Tolerates medication w/o severe side effects, Other, Free of Suicidal thoughts, Free of Homicidal thoughts, Free of paranoid thoughts, Free of agitation, Normal sleep pattern, Ability to care for self, No longer exhibiting s/s of withdrawal, Reduction of target symptoms Discharge to:: [facility]
--- NOTE | 2017-03-02 19:24 | CARD ---
APPROVED REPORT EKG Measurement Heart [id number] <Conclusion> Sinus bradycardia with sinus arrhythmia Otherwise normal ECG
--- NOTE | 2017-03-03 08:45 | PCM.PYCHPN ---
Psychiatric Progress Note - Psychiatric Progress Note Patient seen today, length of contact: 35 min Patient Chief Complaint: "I wanna kill the man that slept with the woman I loved Problems Identified/Issues Discussed: Patient was recently hospitalized 02/08/17-02/11/17. Patient left AMA without scripts due to [place] [facility] [place] Please refer to my Initial Psychiatric Evaluation dated 02/09/17 for full assessment. Patient was recently in [facility]. He arrived in ER intoxicated and made homicidal threats "I wanna kill the man that slept with the woman I loved". I reviewed recent notes and met with patient at bedside. Patient presents as superficially cooperative and oriented to month, year and current circumstances. His grooming is poor, similar to prior admissions. Patient reports that he's been drinking alcohol and using PCP on a daily basis for years. Presently drinking 4-6 beers daily. He indicated he has been depressed and hopeless. He also admits he had thoughts to harm "Najaffe" (sp?) prior to admission. This individual "got with his girlfriend". He no longer has these thoughts or plans. Patient indicated having auditory hallucinations of voices in the ER. Denies any current AH. Patient also denies having any suicidal thoughts and delusions were not elicited during my interviews with him this morning. 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) - Homicidal Ideation Homicidal Ideation: Yes Goal/Treatment Plan - Goal/Treatment Plan Progress Toward Problem(s) and Goals/Treatment Plan: * group, milieu and supportive tx * Paxil 10 mg HS for depression * Risperdal 1 mg HS for hx of hallucinations and for impulse control * Ativan 1 mg q8 for alcohol withdrawal, taper as tolerated * Sonata 10 mg HS for insomnia * Awaiting medical consult * Vitals reviewed and noted below: Selected Entries 03/02/17 03/02/17 03/02/17 03:01 06:49 10:57 Temperature 98.1 F Pulse Rate 77 78 64 Respiratory 18 16 18 Rate Blood Pressure 139/92 H 132/79 125/64 O2 Sat by Pulse 98 99 99 Oximetry ER LABS 03/02/17 05:40: Urine Color Yellow, Urine Appearance Clear, Urine pH 6.5, Ur Specific [place] 1.010, Urine Protein Negative, Urine Glucose (UA) Negative, Urine Ketones Negative, Urine Blood Negative, Urine Nitrate Negative, Urine Bilirubin Negative, Urine Urobilinogen 0.2, Ur Leukocyte Esterase Negative 03/02/17 05:00: Alcohol, Quantitative < 10 03/02/17 05:00: Salicylates < 1 L, Acetaminophen < 10.0 L 03/02/17 05:00: Sodium 146, Potassium 3.9, Chloride 105, Carbon Dioxide 29, Anion Gap 16, BUN 9, Creatinine 1.0, Est GFR ( Amer) > 60, Est GFR (Non- Af Amer) > 60, Random Glucose 77, Calcium 9.5, Total Bilirubin 0.3, AST 48, ALT 73 H, Alkaline Phosphatase 69, Total Protein 6.7, Albumin 4.3, Globulin 2.5, Albumin/Globulin Ratio 1.7 03/02/17 05:00: WBC 8.0, RBC 4.47, Hgb 13.2 L, Hct 40.0 L, MCV 89.5, MCH 29.5, MCHC 33.0, RDW 13.1, Plt Count 265, MPV 9.0, Gran % 51.0, Lymph % (Auto) 38.2 H , [place] % (Auto) 8.6 H, Eos % (Auto) 1.9, Baso % (Auto) 0.3, Gran # 4.06, Lymph # 3.0, [place] # 0.7 H, Eos # 0.2, Baso # 0.02
[2017-03-03] MEDS: Pantoprazole 40 mg EC Tab PO SCH (08:58)
--- NOTE | 2017-03-03 10:47 | CP.PCM.HP ---
History of Present Illness - History of Present Illness History of Present Illness: MEDICAL CONSULTATION CC: "Hearing voices" HPI: This is a 32 year old homeless male with past medical history of substance and alcohol abuse who presents with complaint of hearing voices. Also complains of homicidal thoughts (was thinking of hurting an individual he is accusing of being with his ex-girlfriend). He reports he recently got out of correction. Of note he had a recent psychiatric admission few weeks prior with same complaints. He admits to drinking alcohol and doing PCP still. Admits to smoking few cigarettes daily. Complains of depressed mood and hearing voices. Denies any fever, chills, chest pain, shortness of breath, abdominal pain, nausea or vomiting. He is requesting to be tested for HIV because he is sexually active but does not wish to go into details regarding his sexual activities. PMD: none PMH: substance/alcohol abuse PSH: denies Social History: homeless; admits to drinking and frequent PCP use; smokes few cigarettes daily Present on Admission - Present on Admission Any Indicators Present on Admission: No Review of Systems - Review of Systems All systems: reviewed and no additional remarkable complaints except - Constitutional Constitutional: absent: Anorexia, Chills, Weakness - EENT Eyes: absent: Blurred Vision Ears: absent: Dizziness - Cardiovascular Cardiovascular: absent: Chest Pain, Dyspnea - Respiratory Respiratory: absent: Cough, Dyspnea - Gastrointestinal Gastrointestinal: absent: Abdominal Pain, Nausea, Vomiting - Genitourinary Genitourinary: absent: Dysuria - Musculoskeletal Musculoskeletal: absent: Back Pain - Neurological Neurological: absent: Tremor, Weakness - Psychiatric Psychiatric: As Per HPI, Auditory Hallucinations Past Patient History - Infectious Disease Hx of Infectious Diseases: None - Tetanus Immunizations Tetanus Immunization: Unknown - Past Medical History & Family History Past Medical History?: No - Past Social History Smoking Status: Heavy Smoker > 10 Cigarettes Daily Alcohol: Occasional Drugs: Other (pcp) Home Situation {Lives}: Homeless - CARDIAC Hx Cardiac Disorders: No - PULMONARY Hx Respiratory Disorders: No Hx Tuberculosis: No - NEUROLOGICAL HX Cerebrovascular Accident: No Hx Seizures: No - HEENT Hx HEENT Problems: No Hx Cataracts: No Hx Deafness: No Hx Difficulty Chewing: No Hx Epistaxis: No Hx Glaucoma: No Hx Macular Degeneration: No - RENAL Hx Chronic Kidney Disease: No - ENDOCRINE/METABOLIC Hx Endocrine Disorders: No - HEMATOLOGICAL/ONCOLOGICAL Hx Blood Disorders: No - INTEGUMENTARY Hx Dermatological Problems: No - MUSCULOSKELETAL/RHEUMATOLOGICAL Hx Musculoskeletal Disorders: No - GASTROINTESTINAL Hx Gastrointestinal Disorders: No - GENITOURINARY/GYNECOLOGICAL Hx Genitourinary Disorders: No - PSYCHIATRIC Hx Substance Use: Yes - SURGICAL HISTORY Other/Comment: hernia surgery - ANESTHESIA Hx Anesthesia: Yes Hx Anesthesia Reactions: No Hx Malignant Hyperthermia: No Meds Allergies/Adverse Reactions: Allergies Allergy/AdvReac Type Severity Reaction Status Date / Time No Known Allergies Allergy Verified 02/20/17 12:45 Physical Exam - Constitutional Appears: Well, No Acute Distress - Head Exam Head Exam: NORMAL INSPECTION - Eye Exam Eye Exam: EOMI - ENT Exam ENT Exam: Normal Exam - Neck Exam Neck exam: Positive for: Full Rom - Respiratory Exam Respiratory Exam: Clear to Auscultation Bilateral. absent: Rales, Wheezes - Cardiovascular Exam Cardiovascular Exam: REGULAR RHYTHM, +S1, +S2 - GI/Abdominal Exam GI & Abdominal Exam: Normal Bowel Sounds, Soft. absent: Organomegaly, Tenderness - Extremities Exam Extremities exam: Positive for: normal inspection - Neurological Exam Neurological exam: Alert, Oriented x3 - Psychiatric Exam Psychiatric exam: Normal Affect, Normal Mood Results - Vital Signs Recent Vital Signs: Last Vital Signs Temp 98.1 F 03/02/17 03:01 Pulse 64 03/02/17 10:57 Resp 18 03/02/17 14:40 BP 125/64 03/02/17 10:57 Pulse Ox 99 03/02/17 10:57 - Labs Result Diagrams: 03/02/17 05:00 03/02/17 05:00 Labs: Laboratory Results - last 24 hr 03/02/17 12:29 Triglycerides 238 H Cholesterol 145 LDL Cholesterol Direct 76 HDL Cholesterol 35 Assessment & Plan - Assessment and Plan (Free Text) Plan: 32 year old male with past medical history of substance abuse who presented with auditory hallucinations and homicidal thoughts. Utox was positive for PCP and benzodiazepines. R/o depression vs substance induced mood disorder. Continue with supportive care. Watch for withdrawal symptoms which currently patient is not exhibiting. Continue with management as per psychiatrist. Patient is currently on ativan, paxil and risperdal. Patient was counselled on risks of continued substance abuse. Counselled on alcohol and tobacco cessation. Labs reviewed; ALT mildly elevated. Hepatitis panel is ordered. HIV screening ordered as patient requested. Thank you Dr. Green for allowing us to participate in the care of this patient. We will follow up on the above tests ordered for further recommendations if positive. Please reconsult as needed.
[2017-03-03 12:58] LABS: BASO # 0.02 K/mm3 (0.0-2.0); BASO % 0.3 % (0.0-3.0); EOS # 0.1 (0.0-0.7); EOS % 1.3 % (1.5-5.0); GRAN # 4.24 (1.4-6.5); GRAN % 61.7 % (50.0-68.0); LYMPH # 2.1 (1.2-3.4); MEAN CELL VOLUME 89.7 fl (80.0-105.0); MEAN CORPUSCULAR HEMOGLOBIN 29.8 pg (25.0-35.0); MEAN CORPUSCULAR HGB CONC 33.3 g/dl (31.0-37.0); MEAN PLATELET VOLUME 9.3 fl (7.0-11.0); MONO # 0.5 (0.1-0.6); MONO % 6.7 % (1.0-6.0); RED CELL DISTRIBUTION WIDTH 12.8 % (11.5-14.5); WHITE BLOOD COUNT 6.9 10^3/ul (4.5-11.0)
[2017-03-03 13:12] LABS: BLOOD UREA NITROGEN 10 mg/dL (7-21); CALCIUM 9.5 mg/dL (8.4-10.5); CARBON DIOXIDE 27 mmol/L (21-33); CHLORIDE 101 mmol/L (98-107); GFR AFRICAN-AMERICAN > 60; GLUCOSE,RANDOM 114 mg/dL (70-110); POTASSIUM 4.4 mmol/L (3.6-5.0); SODIUM 140 mmol/L (132-148)
[2017-03-04] MEDS: Pantoprazole 40 mg EC Tab PO SCH (08:47)
[2017-03-04 10:43] VITALS: BP 123/72; PULSE 72; RESP 17; TEMP 97.5
--- NOTE | 2017-03-04 14:37 | PCM.PYCHDC ---
Mental Status Examination - Mental Status Examination Orientation: Person, Place, Situation, Time Memory: Intact Mood: Neutral Affect: Constricted (but reactive mood congruent) Speech: Appropriate Attention: WNL Concentration: WNL Association: WNL Fund of Knowledge: WNL Formal Thought Process: Other (patient has some cognitive limitations due to chronic PCP use) Description of patient's judgement and insight: Pt has improved insight into mental and medical illness, pt was compliant with medications and unit rules and regulations, pt was going to groups, was calm, cooperative, socially appropriate, no behavioral incidents, no agitation, no aggression. Psychotic Thoughts and Behaviors: Pt denied v/a/t hallucinations, denied paranoid ideations, pt does not appear to be psychotic, and thought process is goal directed. Suicidal Ideation: No Current Homicidal Ideation?: No Plan: pt adamantly denied thoughts of harming self or others denied intent or plan "I am thinking about my daughter, I want to be there for her, I want to do better". Discharge Summary - Discharge Note Reason for Hospitalization: patient was admitted on the psych inpatient unit for possible suicidal and homicidal ideation, which was ruled out. Psychiatric History (includes Medical, Family, Personal Hx): patient has chronic PCP use, please see Dr. Hermosillo notes for details Laboratory Data: Abnormal Lab Results 03/02/17 03/03/17 03/03/17 12:29 12:40 12:40 Hemoglobin A1c 5.7 RPR Nonreactive Hepatitis A IgM Ab Hep Bs Antigen Hep B Core IgM Ab Hepatitis C Antibody HIV 1&2 Antibody Screen Negative 03/03/17 12:40 Hemoglobin A1c RPR Hepatitis A IgM Ab Negative Hep Bs Antigen Negative Hep B Core IgM Ab Negative Hepatitis C Antibody Negative HIV 1&2 Antibody Screen 03/03/17 12:40 03/03/17 12:40 Lab Results 03/03/17 12:40: Hepatitis A IgM Ab Negative, Hep Bs Antigen Negative, Hep B Core IgM Ab Negative, Hepatitis C Antibody Negative 03/03/17 12:40: HIV 1&2 Antibody Screen Negative 03/03/17 12:40: RPR Nonreactive 03/03/17 12:40: TSH 3rd Generation 2.13 03/03/17 12:40: Sodium 140, Potassium 4.4, Chloride 101, Carbon Dioxide 27, Anion Gap 16, BUN 10, Creatinine 1.0, Est GFR ( Amer) > 60, Est GFR (Non- Af Amer) > 60, Random Glucose 114 H, Calcium 9.5 03/03/17 12:40: WBC 6.9, RBC 4.46, Hgb 13.3 L, Hct 40.0 L, MCV 89.7, MCH 29.8, MCHC 33.3, RDW 12.8, Plt Count 251, MPV 9.3, Gran % 61.7, Lymph % (Auto) 30.0, [place] % (Auto) 6.7 H, Eos % (Auto) 1.3 L, Baso % (Auto) 0.3, Gran # 4.24, Lymph # 2.1, [place] # 0.5, Eos # 0.1, Baso # 0.02 03/02/17 12:29: Hemoglobin A1c 5.7 03/02/17 12:29: Triglycerides 238 H, Cholesterol 145, LDL Cholesterol Direct 76 , HDL Cholesterol 35 03/02/17 05:40: Urine Opiates Screen Negative, Urine Methadone Screen Negative, Ur Barbiturates Screen Negative, Ur Phencyclidine Scrn Positive H, Ur Amphetamines Screen Negative, U Benzodiazepines Scrn Positive H, U Oth Cocaine Metabols Negative, U Cannabinoids Screen Negative 03/02/17 05:40: Urine Color Yellow, Urine Appearance Clear, Urine pH 6.5, Ur Specific [place] 1.010, Urine Protein Negative, Urine Glucose (UA) Negative, Urine Ketones Negative, Urine Blood Negative, Urine Nitrate Negative, Urine Bilirubin Negative, Urine Urobilinogen 0.2, Ur Leukocyte Esterase Negative 03/02/17 05:00: Alcohol, Quantitative < 10 03/02/17 05:00: Salicylates < 1 L, Acetaminophen < 10.0 L 03/02/17 05:00: Sodium 146, Potassium 3.9, Chloride 105, Carbon Dioxide 29, Anion Gap 16, BUN 9, Creatinine 1.0, Est GFR ( Amer) > 60, Est GFR (Non- Af Amer) > 60, Random Glucose 77, Calcium 9.5, Total Bilirubin 0.3, AST 48, ALT 73 H, Alkaline Phosphatase 69, Total Protein 6.7, Albumin 4.3, Globulin 2.5, Albumin/Globulin Ratio 1.7 03/02/17 05:00: WBC 8.0, RBC 4.47, Hgb 13.2 L, Hct 40.0 L, MCV 89.5, MCH 29.5, MCHC 33.0, RDW 13.1, Plt Count 265, MPV 9.0, Gran % 51.0, Lymph % (Auto) 38.2 H , [place] % (Auto) 8.6 H, Eos % (Auto) 1.9, Baso % (Auto) 0.3, Gran # 4.06, Lymph # 3.0, [place] # 0.7 H, Eos # 0.2, Baso # 0.02 Vital Signs Temp Pulse Resp BP Pulse Ox 03/04/17 10:00 97.5 F L 72 17 123/72 03/03/17 16:39 79 117/69 03/02/17 14:40 18 03/02/17 10:57 64 18 125/64 99 03/02/17 06:49 78 16 132/79 99 03/02/17 03:01 98.1 F 77 18 139/92 H 98 Consultations:: List each consultation separately and include: 1. Reason for request. 2. Findings. 3. Follow-up Consultations: patient was seen by medical team Summary of Hospital Course include:: 1. Description of specific treatment plan utilized for patients during their course of treatmen. 2. Summarize the time- course for resolution of acute symptoms and/or regressed behaviors. 3. Describe issues identified and worked on during hospitalization. 4. Describe medication utilized. 5. Describe medical problems identified and treated. 6. Reassessment of suicide risk Summary of Hospital Course: as per Dr. Green's note: Patient was recently hospitalized 02/08/17-02/11/17. Patient left AMA without scripts due to [place] [facility] [place] [facility]. He arrived in ER intoxicated and made homicidal threats "I wanna kill the man that slept with the woman I loved". of note patient made the same statement last admission. this communications writer saw pt in ED on 02/18/17, signed off, pt was malingering. pt is very familiar to this unit and this communications writer from the previous admission. patient was seen today at the treatment team meeting, presented with improved personal hygiene, good ADLs, patient said that he came to the hospital looking for admission because he needed to have letter to the court which was scheduled for today. Patient also reported "food is good here, and I needed to have a shower". Patient presented with secondary gain, malingering. pt denied thoughts of harming self or others. when was asked about his statements in the ED, pt said that "I always think about my daughter, I want her to have a good life and good future, I want her to be educated, what might happen with her if I will hurt myself or others?" pt said that he has no good relationship with the mother of his daughter "she sleeps with everybody". pt said that she was intoxicated and wanted to harm himself with the razor blade, but "I was thinking about my daughter...", at the moment of the interview pt denied thoughts of harming self or others. pt said that he wants to go to the court today and "I will bring them a letter that I was here, I will be fine". signed 48hr notice. 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 pt said that he wants to have his ID in order to aguilar the check for his work. pt was recently released from [facility], "I am fine to go back there if I need to". "I would have a roof over my head and three meals a day". pt denied psychotic symptoms, but pt has some cognitive limitation due to his chronic PCP use. as per pt "I like PCP and alcohol, this is what I like to do, I enjoy it very much". pt denied smoking denied h/o abuse, but was neglected by his parents. medical h/o: pt is healthy. 03/03/17 12:40 03/03/17 12:40 Lab Results 03/03/17 12:40: Hepatitis A IgM Ab Negative, Hep Bs Antigen Negative, Hep B Core IgM Ab Negative, Hepatitis C Antibody Negative 03/03/17 12:40: HIV 1&2 Antibody Screen Negative 03/03/17 12:40: RPR Nonreactive 03/03/17 12:40: TSH 3rd Generation 2.13 03/03/17 12:40: Sodium 140, Potassium 4.4, Chloride 101, Carbon Dioxide 27, Anion Gap 16, BUN 10, Creatinine 1.0, Est GFR ( Amer) > 60, Est GFR (Non- Af Amer) > 60, Random Glucose 114 H, Calcium 9.5 03/03/17 12:40: WBC 6.9, RBC 4.46, Hgb 13.3 L, Hct 40.0 L, MCV 89.7, MCH 29.8, MCHC 33.3, RDW 12.8, Plt Count 251, MPV 9.3, Gran % 61.7, Lymph % (Auto) 30.0, [place] % (Auto) 6.7 H, Eos % (Auto) 1.3 L, Baso % (Auto) 0.3, Gran # 4.24, Lymph # 2.1, [place] # 0.5, Eos # 0.1, Baso # 0.02 03/02/17 12:29: Hemoglobin A1c 5.7 03/02/17 12:29: Triglycerides 238 H, Cholesterol 145, LDL Cholesterol Direct 76 , HDL Cholesterol 35 03/02/17 05:40: Urine Opiates Screen Negative, Urine Methadone Screen Negative, Ur Barbiturates Screen Negative, Ur Phencyclidine Scrn Positive H, Ur Amphetamines Screen Negative, U Benzodiazepines Scrn Positive H, U Oth Cocaine Metabols Negative, U Cannabinoids Screen Negative 03/02/17 05:40: Urine Color Yellow, Urine Appearance Clear, Urine pH 6.5, Ur Specific [place] 1.010, Urine Protein Negative, Urine Glucose (UA) Negative, Urine Ketones Negative, Urine Blood Negative, Urine Nitrate Negative, Urine Bilirubin Negative, Urine Urobilinogen 0.2, Ur Leukocyte Esterase Negative 03/02/17 05:00: Alcohol, Quantitative < 10 03/02/17 05:00: Salicylates < 1 L, Acetaminophen < 10.0 L 03/02/17 05:00: Sodium 146, Potassium 3.9, Chloride 105, Carbon Dioxide 29, Anion Gap 16, BUN 9, Creatinine 1.0, Est GFR ( Amer) > 60, Est GFR (Non- Af Amer) > 60, Random Glucose 77, Calcium 9.5, Total Bilirubin 0.3, AST 48, ALT 73 H, Alkaline Phosphatase 69, Total Protein 6.7, Albumin 4.3, Globulin 2.5, Albumin/Globulin Ratio 1.7 03/02/17 05:00: WBC 8.0, RBC 4.47, Hgb 13.2 L, Hct 40.0 L, MCV 89.5, MCH 29.5, MCHC 33.0, RDW 13.1, Plt Count 265, MPV 9.0, Gran % 51.0, Lymph % (Auto) 38.2 H , [place] % (Auto) 8.6 H, Eos % (Auto) 1.9, Baso % (Auto) 0.3, Gran # 4.06, Lymph # 3.0, [place] # 0.7 H, Eos # 0.2, Baso # 0.02 Vital Signs Temp Pulse Resp BP Pulse Ox 03/04/17 10:00 97.5 F L 72 17 123/72 03/03/17 16:39 79 117/69 03/02/17 14:40 18 03/02/17 10:57 64 18 125/64 99 03/02/17 06:49 78 16 132/79 99 03/02/17 03:01 98.1 F 77 18 139/92 H 98 pt said that "nothing is wrong with me, I don't need your medications". pt might benefit from the further hospitalization and observation, but signed 48hr notice because "I need to go to court" pt will be d/c ama pt eats 100% meals, no agitation, no aggression. pt is not in imminent danger to self or others. - Diagnosis (1) Phencyclidine (PCP)-induced psychosis Status: Acute (2) Stimulant use disorder Status: Acute (3) Substance induced mood disorder Status: Acute - Final Diagnosis (DSM 5) Condition upon Discharge: FAIR Disposition: AGAINST MEDICAL ADVICE Follow-up Treatment Plan: pt said that "nothing is wrong with me, I don't need your medications". pt might benefit from the further hospitalization and observation, but signed 48hr notice because "I need to go to court" pt will be d/c ama pt is not in imminent danger to self or others. - Smoking Cessation Smoking Cessation Medication prescribed: No Reason for not providing: denied smoking - Antipsychotic Medications Pt discharged on 2 or more routine antipsychotic medications: No
== END 2017-03-04 13:54 | disposition left against medical advice (07) | DRG 746 ==
LOC: ED 02:50 → ERH 10:58 → PSYC 11:58
PROVIDERS: ADMIT Psychiatry & Neurology Psychiatry; ATTEND Psychiatry & Neurology Psychiatry
DX: F16.159 Hallucinogen abuse with hallucinogen-induced psychotic disorder, unspecified (principal); R45.850 Homicidal ideations; F32.9 Major depressive disorder, single episode, unspecified; F17.210 Nicotine dependence, cigarettes, uncomplicated; F10.129 Alcohol abuse with intoxication, unspecified; Y90.0 Blood alcohol level of less than 20 mg/100 ml; Z59.0 Homelessness; Z76.5 Malingerer [conscious simulation]

== ENCOUNTER 2017-03-08 13:10 | Emergency (ER) | payer MEDICAID, OTHER ==
[2017-03-08 13:11] VITALS: BMI 25.8
[2017-03-08 13:31] VITALS: RESP 16; TEMP 99.2
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
--- NOTE | 2017-03-08 16:24 | RAD ---
PROCEDURE: Radiographs of the right humerus. HISTORY: arm pain COMPARISON: None. FINDINGS: BONES: Normal. No fracture or focal lesion. SOFT TISSUES: Normal. OTHER FINDINGS: None. IMPRESSION: Normal radiographs of right humerus.
[2017-03-08 16:31] VITALS: BP 115/84; PULSE 88; O2SAT 100
== END 2017-03-08 17:04 | disposition home or self-care (01) ==
LOC: ED 13:10
DX: S02.2XXA Fracture of nasal bones, initial encounter for closed fracture (principal); Y04.0XXA Assault by unarmed brawl or fight, initial encounter

== ENCOUNTER 2017-03-09 07:08 | Inpatient (IN) | payer MEDICAID, OTHER ==
[2017-03-09 07:08] VITALS: BMI 25.8
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
[2017-03-09 08:52] LABS: BASO # 0.02 K/mm3 (0.0-2.0); BASO % 0.2 % (0.0-3.0); EOS # 0.1 (0.0-0.7); EOS % 1.2 % (1.5-5.0); GRAN # 6.52 (1.4-6.5); GRAN % 73.3 % (50.0-68.0); HEMATOCRIT 40.4 % (42.0-52.0); LYMPH # 1.4 (1.2-3.4); LYMPH % 15.7 % (22.0-35.0); MEAN CELL VOLUME 89.6 fl (80.0-105.0); MEAN CORPUSCULAR HEMOGLOBIN 30.6 pg (25.0-35.0); MEAN CORPUSCULAR HGB CONC 34.2 g/dl (31.0-37.0); MEAN PLATELET VOLUME 9.3 fl (7.0-11.0); MONO # 0.9 (0.1-0.6); MONO % 9.6 % (1.0-6.0); RED CELL DISTRIBUTION WIDTH 12.9 % (11.5-14.5); WHITE BLOOD COUNT 8.9 10^3/ul (4.5-11.0)
[2017-03-09 09:04] LABS: ALB/GLOB RATIO 1.6 (1.1-1.8); ALKALINE PHOSPHATASE 88 U/L (38-126); ALT/SGPT 51 U/L (7-56); AST/SGOT 28 U/L (17-59); BILIRUBIN,TOTAL 0.8 mg/dL (0.2-1.3); BLOOD UREA NITROGEN 13 mg/dL (7-21); CALCIUM 9.3 mg/dL (8.4-10.5); CARBON DIOXIDE 28 mmol/L (21-33); CHLORIDE 102 mmol/L (98-107); GFR AFRICAN-AMERICAN > 60; GLUCOSE,RANDOM 81 mg/dL (70-110); POTASSIUM 3.9 mmol/L (3.6-5.0); SODIUM 144 mmol/L (132-148); TOTAL PROTEIN 7.3 g/dL (5.8-8.3)
--- NOTE | 2017-03-09 09:54 | CT ---
PROCEDURE: CT HEAD WITHOUT CONTRAST. HISTORY: head injury with headache COMPARISON: Comparison made with CT scan of the brain dated 12/11/2016 TECHNIQUE: Axial computed tomography images were obtained through the head/brain without intravenous contrast. Radiation dose: Total exam DLP = 774.23 mGy-cm. This CT exam was performed using one or more of the following dose reduction techniques: Automated exposure control, adjustment of the mA and/or kV according to patient size, and/or use of iterative reconstruction technique. FINDINGS: HEMORRHAGE: No acute parenchymal, subarachnoid nor extra-axial hemorrhage. BRAIN: No evidence of large acute infarct. No obvious parenchymal nor extra-axial mass or collection identified on this noncontrast study. There appears to be some minimal central volume loss evidenced by slight disproportionate enlargement of the ventricles compared the sulci. . VENTRICLES: No evidence of obstructive hydrocephalus. CALVARIUM: No acute calvarial fractures PARANASAL SINUSES: Paranasal sinuses are well-developed. Polypoid like mucosal thickening both maxillary antra with mild mucosal thickening in the ethmoid air complex extending slightly into the inferior margin of the frontal sinus. MASTOID AIR CELLS: Unremarkable as visualized. No inflammatory changes. OTHER FINDINGS: None. IMPRESSION: No acute intracranial hemorrhage.
[2017-03-09 10:04] LABS: URINE BILIRUBIN SMALL (NEGATIVE); URINE BLOOD NEGATIVE (NEGATIVE); URINE GLUCOSE (UA) NEGATIVE (NEGATIVE); URINE KETONE 40 mg/dL (NEGATIVE); URINE LEUKOCYTE ESTERASE NEGATIVE Leu/uL (NEGATIVE); URINE PROTEIN TRACE mg/dL (<30 mg/dL)
[2017-03-09 10:05] LABS: URINE APPEARANCE CLEAR (CLEAR); URINE COLOR YELLOW (YELLOW)
[2017-03-09 10:34] LABS: URINE RBC 0 - 2 /hpf (0-2); URINE WBC 0 - 2 /hpf (0-6)
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
[2017-03-10 09:36] LABS: CHOLESTEROL 182 mg/dL (130-200); GLUCOSE,FASTING 89 mg/dL (65-110)
[2017-03-10 09:58] LABS: FREE T4 0.99 ng/dL (0.78-2.19)
[2017-03-10 10:12] LABS: THYROID STIMULATING HORMONE 1.9 mIU/mL (0.46-4.68)
[2017-03-10] MEDS: Bacitracin/Neomycin/Polymyxin Oint(30GM) TOP SCH (16:57)
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
[2017-03-11] MEDS: Bacitracin/Neomycin/Polymyxin Oint(30GM) TOP SCH ×2 (08:49→16:50)
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
[2017-03-12] MEDS: Bacitracin/Neomycin/Polymyxin Oint(30GM) TOP SCH ×2 (09:07→17:45)
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
[2017-03-13 07:04] VITALS: O2SAT 98
[2017-03-13] MEDS: Bacitracin/Neomycin/Polymyxin Oint(30GM) TOP SCH ×2 (09:22→15:33)
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
[2017-03-14 08:09] VITALS: BP 120/67; PULSE 50; RESP 16; TEMP 97.9
[2017-03-14] MEDS: Bacitracin/Neomycin/Polymyxin Oint(30GM) TOP SCH (09:09)
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
== END 2017-03-14 12:00 | disposition home or self-care (01) | DRG 748 ==
LOC: ED 07:08 → ERH 12:41 → PSYC 13:12
PROVIDERS: ADMIT Psychiatry & Neurology Psychiatry; ATTEND Psychiatry & Neurology Psychiatry
PROC: GZ3ZZZZ Medication Management (ICD-10-PCS; principal; 2017-03-09)
DX: F16.159 Hallucinogen abuse with hallucinogen-induced psychotic disorder, unspecified (principal); F10.14 Alcohol abuse with alcohol-induced mood disorder; F32.9 Major depressive disorder, single episode, unspecified; Y90.0 Blood alcohol level of less than 20 mg/100 ml; F41.9 Anxiety disorder, unspecified; R51 Headache; S02.2XXD Fracture of nasal bones, subsequent encounter for fracture with routine healing; S01.511D Laceration without foreign body of lip, subsequent encounter; Y04.0XXD Assault by unarmed brawl or fight, subsequent encounter; F17.210 Nicotine dependence, cigarettes, uncomplicated; Z59.0 Homelessness

== ENCOUNTER 2017-06-15 04:58 | Inpatient (IN) | payer MEDICAID, OTHER ==
[2017-06-15 04:58] VITALS: BMI 25.8
--- NOTE | 2017-06-15 05:47 | ED PDOC ---
Arrival/HPI - General Chief Complaint: Psychiatric Evaluation Time Seen by Provider: 06/15/17 05:09 Historian: Patient - History of Present Illness Narrative History of Present Illness (Text): 06/15/17 05:47 pt hx of schizophrenia, depression and stated not feeling well, someone telling him to to kill someone. no nausea/vomiting/headache/dizziness/difficulty breathing/chest pain/abdomen pain/numbness/tingling/pain with urination. Time/Duration: 24 hours Symptom Onset: Gradual Symptom Course: Unchanged Quality: Other (wants to kill someone) Severity Level: 5 Past Medical History - Provider Review Nursing Documentation Reviewed: Yes - Past History Past History: Non-Contributing - Infectious Disease Hx of Infectious Diseases: None - Tetanus Immunization Tetanus Immunization: Unknown - Cardiac Hx Cardiac Disorders: No Hx Angina: No Hx Atrial Fibrillation: No Hx Cardiac Arrhythmia: No Hx Circulatory Problems: No - Pulmonary Hx Respiratory Disorders: No Hx Asthma: No Hx Bronchitis: No Hx Chronic Obstructive Pulmonary Disease (COPD): No Hx Emphysema: No Hx Lung Cancer: No Hx Pneumonia: No Hx Pulmonary Edema: No Hx Pulmonary Embolism: No Hx Respiratory Aspiration: No Hx Respiratory Tract Infection: No Hx Sleep Apnea: No Hx Tuberculosis: No - Neurological Hx Neurological Disorder: No Hx Alzheimer's Disease: No HX Cerebrovascular Accident: No Hx Dementia: No Hx Dizziness: No Hx Meningitis: No Hx Migraine: No Hx Multiple Sclerosis: No Hx Paralysis: No Hx Parkinson's Disease: No Hx Seizures: No Hx Syncope: No Hx Transient Ischemic Attacks (TIA): No Hx Vertigo: No - HEENT Hx HEENT Disorder: No Hx Blind: No Hx Cataracts: No Hx Deafness: No Hx Difficulty Chewing: No Hx Epistaxis: No Hx Glaucoma: No Hx Macular Degeneration: No - Renal Hx Renal Disorder: No - Endocrine/Metabolic Hx Endocrine Disorders: No - Hematological/Oncological Hx Blood Disorders: No - Integumentary Hx Dermatological Disorder: No - Musculoskeletal/Rheumatological Hx Musculoskeletal Disorders: No - Gastrointestinal Hx Gastrointestinal Disorders: No - Genitourinary/Gynecological Hx Genitourinary Disorders: No - Psychiatric Hx Psychophysiologic Disorder: Yes Hx Depression: Yes Hx Hallucinations: Yes Hx Substance Use: Yes Other/Comment: alcohol abuse - Surgical History Other/Comment: hernia surgery - Anesthesia Hx Anesthesia: Yes Hx Anesthesia Reactions: No Hx Malignant Hyperthermia: No - Suicidal Assessment Feels Threatened In Home Enviroment: No Family/Social History - Physician Review Nursing Documentation Reviewed: Yes Family/Social History: No Known Family HX Smoking Status: Heavy Smoker > 10 Cigarettes Daily Hx Alcohol Use: Yes Hx Substance Use: Yes Substance used: PCP Allergies/Home Meds Allergies/Adverse Reactions: Allergies No Known Allergies Allergy (Verified 03/09/17 07:55) Review of Systems - Review of Systems Constitutional: Normal, Other (not feeling well) Eyes: Normal ENT: Normal Respiratory: Normal Cardiovascular: Normal Gastrointestinal: Normal Genitourinary Male: Normal Musculoskeletal: Normal Skin: Normal Neurological: Normal Endocrine: Normal Hemo/Lymphatic: Normal Psychiatric: Normal, Depression, Other (wants to kill someone) Physical Exam Vital Signs Reviewed: Yes Vital Signs Temp Pulse Resp BP Pulse Ox 06/15/17 07:00 98.4 F 78 16 135/82 100 06/15/17 05:13 98.3 F 93 H 17 138/81 97 Temperature: Afebrile Blood Pressure: Hypertensive Pulse: Regular Respiratory Rate: Normal Appearance: Positive for: Well-Appearing, Non-Toxic, Other (mild agitation) Pain Distress: None Mental Status: Positive for: Alert and Oriented X 3 - Systems Exam Head: Present: Atraumatic, Normocephalic Pupils: Present: PERRL Extroacular Muscles: Present: EOMI Conjunctiva: Present: Normal Ears: Present: Normal Mouth: Present: Moist Mucous Membranes Pharnyx: Present: Normal Nose (External): Present: Atraumatic Nose (Internal): Present: Normal Inspection Neck: Present: Normal Range of Motion Respiratory/Chest: Present: Clear to Auscultation, Good Air Exchange Cardiovascular: Present: Regular Rate and Rhythm Abdomen: No: Tenderness, Distention, Normal Bowel Sounds, Peritoneal Signs, Rebound, Guarding, McBurney's Point Tender, Rovsing's Sign Present, Hernias, Feeding Tubes, Ostomy Tubes, Mass/Organomegaly, Scars, Other Back: Present: Normal Inspection Upper Extremity: Present: Normal Inspection Lower Extremity: Present: Normal Inspection Neurological: Present: GCS=15, CN II-XII Intact, Speech Normal, Motor Func Grossly Intact Skin: Present: Warm, Normal Color Psychiatric: Present: Alert, Oriented x 3, Anxious, Depressed Mood, Homicidal Ideation, Delusional, Hallucinations Medical Decision Making ED Course and Treatment: 06/15/17 05:50 pt hx of schizophrenia, depression and stated not feeling well, someone telling him to to kill someone. no nausea/vomiting/headache/dizziness/difficulty breathing/chest pain/abdomen pain/numbness/tingling/pain with urination. 06/15/17 07:[address] Carter to follow-up lab ck and PES - Lab Interpretations Lab Results: 06/15/17 05:20 06/15/17 05:20 Lab Results 06/15/17 05:20: PT 10.8, INR 0.98, APTT 24.6 L 06/15/17 05:20: Alcohol, Quantitative 23 H 06/15/17 05:20: Salicylates < 1 L, Acetaminophen < 10.0 L 06/15/17 05:20: Urine Opiates Screen Negative, Urine Methadone Screen Negative, Ur Barbiturates Screen Negative, Ur Phencyclidine Scrn Positive H, Ur Amphetamines Screen Negative, U Benzodiazepines Scrn Negative, U Oth Cocaine Metabols Negative, U Cannabinoids Screen Negative 06/15/17 05:20: Sodium 142, Potassium 3.6, Chloride 107, Carbon Dioxide 22, Anion Gap 17, BUN 17, Creatinine 0.9, Est GFR ( Amer) > 60, Est GFR (Non- Af Amer) > 60, Random Glucose 108, Calcium 9.2, Total Bilirubin 0.2, AST 39, ALT 35, Alkaline Phosphatase 58, Troponin I < 0.01, Total Protein 7.0, Albumin 4.3, Globulin 2.7, Albumin/Globulin Ratio 1.6 06/15/17 05:20: Urine Color Yellow, Urine Appearance Clear, Urine pH 6.0, Ur Specific [place] >= 1.030, Urine Protein Trace H, Urine Glucose (UA) Negative, Urine Ketones Trace H, Urine Blood Negative, Urine Nitrate Negative, Urine Bilirubin Negative, Urine Urobilinogen 0.2, Ur Leukocyte Esterase Negative, Urine RBC 0 - 2, Urine WBC 0 - 2, Ur Epithelial Cells 6 - 8, Urine Bacteria Many 06/15/17 05:20: WBC 9.4, RBC 4.32, Hgb 13.0 L, Hct 38.3 L, MCV 88.7, MCH 30.1, MCHC 33.9, RDW 13.1, Plt Count 263, MPV 9.5, Gran % 62.9, Lymph % (Auto) 27.1, [place] % (Auto) 7.8 H, Eos % (Auto) 2.0, Baso % (Auto) 0.2, Gran # 5.91, Lymph # 2.5, [place] # 0.7 H, Eos # 0.2, Baso # 0.02 - RAD Interpretation Narrative RAD Interpretations (Text): 06/15/17 06:20 CXR no acute Radiology Orders: 06/15/17 05:28 CHEST PORTABLE [RAD] Stat Decorator Store: ED Physician - EKG Interpretation Interpreted by ED Physician: Yes (NSR, flipped t waves av4, v1, iii) Type: 12 lead EKG Disposition/Present on Arrival - Present on Arrival Any Indicators Present on Arrival: No History of DVT/PE: No History of Uncontrolled Diabetes: No Urinary Catheter: No History of Decub. Ulcer: No History Surgical Site Infection Following: None - Disposition Have Diagnosis and Disposition been Completed?: Yes Diagnosis: Homicidal behavior Disposition Time: 07:26 Patient Plan: Other (pending disposition) Condition: STABLE Forms: [employer] (Divehi)
[2017-06-15 06:17] LABS: ALB/GLOB RATIO 1.6 (1.1-1.8); ALKALINE PHOSPHATASE 58 U/L (38-126); ALT/SGPT 35 U/L (7-56); AST/SGOT 39 U/L (17-59); BASO # 0.02 K/mm3 (0.0-2.0); BASO % 0.2 % (0.0-3.0); BILIRUBIN,TOTAL 0.2 mg/dL (0.2-1.3); BLOOD UREA NITROGEN 17 mg/dL (7-21); CALCIUM 9.2 mg/dL (8.4-10.5); CARBON DIOXIDE 22 mmol/L (21-33); CHLORIDE 107 mmol/L (98-107); EOS # 0.2 (0.0-0.7); GFR AFRICAN-AMERICAN > 60; GLUCOSE,RANDOM 108 mg/dL (70-110); GRAN # 5.91 (1.4-6.5); GRAN % 62.9 % (50.0-68.0); HEMATOCRIT 38.3 % (42.0-52.0); LYMPH # 2.5 (1.2-3.4); LYMPH % 27.1 % (22.0-35.0); MEAN CELL VOLUME 88.7 fl (80.0-105.0); MEAN CORPUSCULAR HEMOGLOBIN 30.1 pg (25.0-35.0); MEAN CORPUSCULAR HGB CONC 33.9 g/dl (31.0-37.0); MEAN PLATELET VOLUME 9.5 fl (7.0-11.0); MONO # 0.7 (0.1-0.6); MONO % 7.8 % (1.0-6.0); POTASSIUM 3.6 mmol/L (3.6-5.0); RED CELL DISTRIBUTION WIDTH 13.1 % (11.5-14.5); SODIUM 142 mmol/L (132-148); WHITE BLOOD COUNT 9.4 10^3/ul (4.5-11.0)
[2017-06-15 06:22] LABS: URINE APPEARANCE CLEAR (CLEAR); URINE BILIRUBIN NEGATIVE (NEGATIVE); URINE BLOOD NEGATIVE (NEGATIVE); URINE COLOR YELLOW (YELLOW); URINE GLUCOSE (UA) NEGATIVE (NEGATIVE); URINE KETONE TRACE mg/dL (NEGATIVE); URINE LEUKOCYTE ESTERASE NEGATIVE Leu/uL (NEGATIVE); URINE PROTEIN TRACE mg/dL (<30 mg/dL); URINE UROBILINOGEN 0.2 E.U./dL (<1 E.U./dL)
[2017-06-15 06:27] LABS: INR 0.98 (0.93-1.08); PARTIAL THROMBOPLASTIN TIME 24.6 Seconds (25.1-36.5); TROPONIN I < 0.01 ng/mL
[2017-06-15 06:52] LABS: URINE BACTERIA MANY (NEG); URINE RBC 0 - 2 /hpf (0-2); URINE WBC 0 - 2 /hpf (0-6)
--- NOTE | 2017-06-15 08:13 | ED PDOC ---
Physical Exam Vital Signs Reviewed: Yes Vital Signs Temp Pulse Resp BP Pulse Ox 06/15/17 08:39 89 20 97 06/15/17 07:34 80 16 135/80 100 06/15/17 07:00 98.4 F 78 16 135/82 100 06/15/17 05:13 98.3 F 93 H 17 138/81 97 Temperature: Afebrile Blood Pressure: Normal Pulse: Regular Respiratory Rate: Normal Appearance: Positive for: Well-Appearing, Non-Toxic, Comfortable Pain Distress: None Mental Status: Positive for: Alert and Oriented X 3 - Systems Exam Head: Present: Atraumatic, Normocephalic Pupils: Present: PERRL Extroacular Muscles: Present: EOMI Conjunctiva: Present: Normal Mouth: Present: Dry Neck: Present: Normal Range of Motion Respiratory/Chest: Present: Clear to Auscultation, Good Air Exchange. No: Respiratory Distress, Accessory Muscle Use Cardiovascular: Present: Regular Rate and Rhythm, Normal S1, S2. No: Murmurs Abdomen: Present: Normal Bowel Sounds. No: Tenderness, Distention, Peritoneal Signs Back: Present: Normal Inspection Upper Extremity: Present: Normal Inspection. No: Cyanosis, Edema Lower Extremity: Present: Normal Inspection. No: Edema Neurological: Present: GCS=15, CN II-XII Intact, Speech Normal Skin: Present: Warm, Dry, Normal Color. No: Rashes Psychiatric: Present: Alert (flat affect; resting in bed, cooperative currently) Medical Decision Making ED Course and Treatment: 06/15/17 07:00 Patient signed out to me by Dr. No. Awaiting CK levels. Pending finalization of PES evaluation and final disposition. 06/15/17 07:25 Patient evaluated by PES who recommends admission under Dr. Vergara. 06/15/17 08:31 Noted CK results, slightly elevated levels indicate that patient will require hydration. Will suggest to Psychiatric admitting team for continued PO fluid hydration. Patient remains MEDICALLY CLEARED FOR CONTINUOUS PSYCHIATRIC EVALUATION. 06/15/17 09:11 pt is made aware of his medical results agrees with final disposition/admission Reassessment Condition: Unchanged - Lab Interpretations Lab Results: 06/15/17 05:20 06/15/17 05:20 Lab Results 06/15/17 05:20: PT 10.8, INR 0.98, APTT 24.6 L 06/15/17 05:20: Alcohol, Quantitative 23 H 06/15/17 05:20: Salicylates < 1 L, Acetaminophen < 10.0 L 06/15/17 05:20: Urine Opiates Screen Negative, Urine Methadone Screen Negative, Ur Barbiturates Screen Negative, Ur Phencyclidine Scrn Positive H, Ur Amphetamines Screen Negative, U Benzodiazepines Scrn Negative, U Oth Cocaine Metabols Negative, U Cannabinoids Screen Negative 06/15/17 05:20: Sodium 142, Potassium 3.6, Chloride 107, Carbon Dioxide 22, Anion Gap 17, BUN 17, Creatinine 0.9, Est GFR ( Amer) > 60, Est GFR (Non- Af Amer) > 60, Random Glucose 108, Calcium 9.2, Total Bilirubin 0.2, AST 39, ALT 35, Alkaline Phosphatase 58, Troponin I < 0.01, Total Protein 7.0, Albumin 4.3, Globulin 2.7, Albumin/Globulin Ratio 1.6 06/15/17 05:20: Urine Color Yellow, Urine Appearance Clear, Urine pH 6.0, Ur Specific [place] >= 1.030, Urine Protein Trace H, Urine Glucose (UA) Negative, Urine Ketones Trace H, Urine Blood Negative, Urine Nitrate Negative, Urine Bilirubin Negative, Urine Urobilinogen 0.2, Ur Leukocyte Esterase Negative, Urine RBC 0 - 2, Urine WBC 0 - 2, Ur Epithelial Cells 6 - 8, Urine Bacteria Many 06/15/17 05:20: WBC 9.4, RBC 4.32, Hgb 13.0 L, Hct 38.3 L, MCV 88.7, MCH 30.1, MCHC 33.9, RDW 13.1, Plt Count 263, MPV 9.5, Gran % 62.9, Lymph % (Auto) 27.1, [place] % (Auto) 7.8 H, Eos % (Auto) 2.0, Baso % (Auto) 0.2, Gran # 5.91, Lymph # 2.5, [place] # 0.7 H, Eos # 0.2, Baso # 0.02 I have reviewed the lab results: Yes (elevated CK and + UTox) - RAD Interpretation Radiology Orders: 06/15/17 05:28 CHEST PORTABLE [RAD] Stat - Scribe Statement The provider has reviewed the documentation as recorded by the Dheeraj Pate Provider Scribe Attestation: All medical record entries made by the Scribe were at my direction and personally dictated by me. I have reviewed the chart and agree that the record accurately reflects my personal performance of the history, physical exam, medical decision making, and the department course for this patient. I have also personally directed, reviewed, and agree with the discharge instructions and disposition. Disposition/Present on Arrival - Present on Arrival Any Indicators Present on Arrival: No History of DVT/PE: No History of Uncontrolled Diabetes: No Urinary Catheter: No History of Decub. Ulcer: No History Surgical Site Infection Following: None - Disposition Have Diagnosis and Disposition been Completed?: Yes Diagnosis: Homicidal behavior, Acute psychosis, Drug abuse, Dehydration Disposition: HOSPITALIZED Disposition Time: 08:30 Patient Plan: Admission Patient Problems: Current Active Problems Problem Status Onset Homicidal behavior Acute Condition: STABLE
[2017-06-15 08:40] VITALS: O2SAT 97
--- NOTE | 2017-06-15 09:49 | CARD ---
APPROVED REPORT EKG Measurement Heart [id number] ID [id number] <Conclusion> Normal sinus rhythm Normal ECG
--- NOTE | 2017-06-15 12:42 | PCM.BM ---
<Tay Levy - Last Filed: 06/15/17 12:44> Treatment Plan Problems - Problems identified on initial assessmt ALTERED THOUGHT PROCESS Date Initiated: 06/15/17 Time Initiated: 12:39 Assessment reference: HP, NA Status: Active AUDITORY HALLUCINATIONS Date Initiated: 06/15/17 Time Initiated: 12:41 Assessment reference: HP, NA Status: Active SELF CARE DEFICIT Date Initiated: 06/15/17 Time Initiated: 12:41 Assessment reference: HP, Other Status: Active Treatment assets and liabiliti Patient Assests: adapts well, resourceful, ADL independent, negotiates basic needs, other Patient Liabilities: live alone, financial problems, poor support system, relationship conflicts - Milieu Protocol Maintain good personal hygiene: daily Encourage regular showers, daily Remind patient to perform daily oral care, daily Assist patient to perform ADL's Maintain personal safety: daily Educate patient to report safety concerns to staff, daily Monitor environment for contraband/sharps Medication safety: Monitor for expected outcome, potential side effects: daily, Assess barriers to learning: daily, Assess readiness for medication education: daily Discharge/Continuing Care - Education Needs Education Needs: Patient Medication, Patient Diagnosis/Disease Process, Patient Coping Skills, Patient Anger Management skills, Patient Activities of Daily Living (TO OVERCOME LAZINEES AND PASSIVE BEHAVIOR) <Ursula Palacios - Last Filed: 06/15/17 15:36> - Diagnosis (1) Substance induced mood disorder Status: Acute Interventions: 06/15/17 15:34 Pharmacotherapy for alcohol/benzos/opioid dependence Maintaining sobriety Relapse prevention Possible rehabilitation Motivational interviewing 12-step programs: AA meetings Psychoeducation/psychotherapy Psychoeducation Psychopharmacology/adjustment of medications as needed/ monitoring possible side effects Evaluate pt on daily basis Compliance with medications and follow up appointments Suicide and homicide risk assessment and prevention Relapse prevention Reduction of symptoms Improve functional status Family involvement As outpatient: cognitive behavioral therapy (2) PCP abuse Status: Chronic Interventions: 06/15/17 15:34 Pharmacotherapy for alcohol/benzos/opioid dependence Maintaining sobriety Relapse prevention Possible rehabilitation Motivational interviewing 12-step programs: AA meetings (3) Phencyclidine (PCP)-induced psychosis Status: Chronic Interventions: 06/15/17 15:34 Pharmacotherapy for alcohol/benzos/opioid dependence Maintaining sobriety Relapse prevention Possible rehabilitation Motivational interviewing 12-step programs: AA meetings Psychopharmacology/adjustment of medications as needed/ monitoring possible side effects Evaluate pt on daily basis Compliance with medications and follow up appointments Long acting medication if pt is noncompliant with pill form Suicide and homicide risk assessment and prevention, coping strategies, safety plan Relapse prevention Reduction of symptoms Improve functional status Possible assertive community treatment Cognitive behavioral therapy Family involvement Possible social skill training as outpatient
--- NOTE | 2017-06-15 13:19 | RAD ---
HISTORY: 32yoM, not feeling well additional relevant clinical information is not provided COMPARISON: 03/02/2017 FINDINGS: LUNGS: No active pulmonary disease. PLEURA: No significant pleural effusion identified, no pneumothorax apparent. CARDIOVASCULAR: Normal. OSSEOUS STRUCTURES: No significant abnormalities. VISUALIZED UPPER ABDOMEN: Normal. OTHER FINDINGS: None. IMPRESSION: No active disease. No significant interval change compared to the prior examination(s).
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
--- NOTE | 2017-06-15 16:15 | CP.PCM.CON ---
Addendum entered and electronically signed by Robina Boothe DO 06/15/17 17:37 : Repeat CPK is downtrending, repeat troponin is negative. continue to encourage oral water intake. Patient is medically stable, no acute intervention at this time. Thank you for the consult, please consult again if needed. Original Note: <Robina Boothe - Last Filed: 06/15/17 17:16> History of Present Illness - History of Present Illness History of Present Illness: PGY-2 Medicine consult for the hospitalist 32 yo male with PMH of schizophrenia and depression presented to ED with depression. Patient denies any medical problems. He is only on psychiatric medications at home, he states that he took his medication yesterday,He states that he is tired and would like to sleep. He states that he smoked pcp yesterday. He denies fever, chill, sob, abd ain, n/v, diarrhea, numbness/ tingling/pain with urination. PMH: schizophrenia and depression psh: inguinal hernia repair family history denies social history: smokes 1ppd, alcohol use and pcp use, deneis other illicit drug use. allergy: NKDA Review of Systems - Constitutional Constitutional: Headache. absent: Chills, Fever, Weakness - EENT Eyes: absent: Change in Vision Nose/Mouth/Throat: absent: Nasal Congestion, Sore Throat - Cardiovascular Cardiovascular: absent: Dyspnea, Irregular Heart Rhythm, Palpitations - Respiratory Respiratory: absent: Cough, Dyspnea - Gastrointestinal Gastrointestinal: absent: Abdominal Pain, Constipation, Diarrhea, Nausea, Vomiting - Genitourinary Genitourinary: absent: Dysuria - Musculoskeletal Musculoskeletal: absent: Numbness, Stiffness, Tingling - Integumentary Integumentary: absent: Pruritus, Rash, Skin Ulcer, Swelling, Wounds - Psychiatric Psychiatric: Depression - Hematologic/Lymphatic Hematologic: absent: Easy Bleeding, Easy Bruising Past Patient History - Infectious Disease Hx of Infectious Diseases: None - Tetanus Immunizations Tetanus Immunization: Unknown - Past Medical History & Family History Past Medical History?: No - Past Social History Smoking Status: Heavy Smoker > 10 Cigarettes Daily - CARDIAC Hx Cardiac Disorders: No Hx Angina: No Hx Atrial Fibrillation: No Hx Cardia Arrhythmia: No Hx Circulatory Problems: No - PULMONARY Hx Respiratory Disorders: No Hx Asthma: No Hx Bronchitis: No Hx Chronic Obstructive Pulmonary Disease (COPD): No Hx Emphysema: No Hx Lung Cancer: No Hx Pneumonia: No Hx Pulmonary Edema: No Hx Pulmonary Embolism: No Hx Respiratory Aspiration: No Hx Respiratory Tract Infection: No Hx Sleep Apnea: No Hx Tuberculosis: No - NEUROLOGICAL Hx Neurological Disorder: No Hx Alzheimer's Disease: No HX Cerebrovascular Accident: No Hx Dementia: No Hx Dizziness: No Hx Meningitis: No Hx Migraine: No Hx Multiple Sclerosis: No Hx Paralysis: No Hx Parkinson's Disease: No Hx Seizures: No Hx Syncope: No Hx Transient Ischemic Attacks (TIA): No Hx Vertigo: No - HEENT Hx HEENT Problems: No Hx Cataracts: No Hx Deafness: No Hx Difficulty Chewing: No Hx Epistaxis: No Hx Glaucoma: No Hx Macular Degeneration: No - RENAL Hx Chronic Kidney Disease: No - ENDOCRINE/METABOLIC Hx Endocrine Disorders: No - HEMATOLOGICAL/ONCOLOGICAL Hx Blood Disorders: No - INTEGUMENTARY Hx Dermatological Problems: No - MUSCULOSKELETAL/RHEUMATOLOGICAL Hx Musculoskeletal Disorders: No - GASTROINTESTINAL Hx Gastrointestinal Disorders: No - GENITOURINARY/GYNECOLOGICAL Hx Genitourinary Disorders: No - PSYCHIATRIC Hx Substance Use: Yes - SURGICAL HISTORY Other/Comment: hernia surgery - ANESTHESIA Hx Anesthesia: Yes Hx Anesthesia Reactions: No Hx Malignant Hyperthermia: No Meds Allergies/Adverse Reactions: Allergies Allergy/AdvReac Type Severity Reaction Status Date / Time No Known Allergies Allergy Verified 03/09/17 07:55 - Medications Medications: Current Medications Duloxetine HCl (Cymbalta) 20 mg PO DAILY [facility] Folic Acid (Folic Acid) 1 mg PO DAILY VALERIA Lorazepam (Ativan) 1 mg PO TID PRN; Protocol PRN Reason: Anxiety Multivitamins/Minerals (Therapeutic-M Tab) 1 tab PO 0800 [facility] Nicotine (Nicoderm Cq) 1 patch TD DAILY VALERIA Pantoprazole Sodium (Protonix Ec Tab) 40 mg PO 0600 VALERIA Risperidone (Risperdal Tab) 0.5 mg PO AMHS VALERIA PRN Reason: Protocol Thiamine HCl (Vitamin B1 Tab) 100 mg PO DAILY VALERIA Physical Exam - Constitutional Appears: No Acute Distress - Head Exam Head Exam: ATRAUMATIC, NORMAL INSPECTION, NORMOCEPHALIC - Eye Exam Eye Exam: EOMI, Normal appearance - ENT Exam ENT Exam: Mucous Membranes Moist - Respiratory Exam Respiratory Exam: Clear to Auscultation Bilateral, NORMAL BREATHING PATTERN. absent: Rhonchi, Wheezes, Respiratory Distress - Cardiovascular Exam Cardiovascular Exam: REGULAR RHYTHM, +S1, +S2. absent: Tachycardia, Systolic Murmur - GI/Abdominal Exam GI & Abdominal Exam: Normal Bowel Sounds, Soft. absent: Distended, Firm, Tenderness - Extremities Exam Extremities exam: Positive for: normal inspection. Negative for: pedal edema, tenderness - Neurological Exam Neurological exam: Alert, Oriented x3 - Skin Skin Exam: Dry, Intact, Normal Color, Warm Results - Vital Signs Recent Vital Signs: Last Vital Signs Temp 98.4 F 06/15/17 07:00 Pulse 89 06/15/17 08:39 Resp 22 06/15/17 14:47 BP 135/80 06/15/17 07:34 Pulse Ox 97 06/15/17 08:39 - Labs Result Diagrams: 06/15/17 05:20 06/15/17 05:20 Labs: Laboratory Results - last 24 hr 06/15/17 08:00 Total Creatine Kinase 800 H CK-MB (CK-2) 4.4 H CK-MB (CK-2) % Cancelled Assessment & Plan - Assessment and Plan (Free Text) Assessment: 32 yo male with PMH of schizophrenia and depression presented to ED with depression. Plan: 1. alcohol intoxication - elevated levels - ativan prn - multivitamin - thiamine and folic acid 2. pcp intoxication - elevated cpk - will repeat cpk and trops - encourage PO water intake 3. h/o smoking - nicotine patch Case discussed with attending, Dr. Pham <Anastacia Pham - Last Filed: 06/16/17 10:53> Meds - Medications Medications: Current Medications Acetaminophen (Tylenol 325mg Tab) 650 mg PO Q6 PRN PRN Reason: Pain, moderate (4-7) Duloxetine HCl (Cymbalta) 20 mg PO DAILY [facility] Last Admin: 06/16/17 09:09 Dose: 20 mg Folic Acid (Folic Acid) 1 mg PO DAILY [facility] Last Admin: 06/16/17 09:09 Dose: 1 mg Ibuprofen (Motrin Tab) 400 mg PO Q6 PRN PRN Reason: Pain, moderate (4-7) Lorazepam (Ativan) 1 mg PO TID PRN; Protocol PRN Reason: Anxiety Multivitamins/Minerals (Therapeutic-M Tab) 1 tab PO 0800 [facility] Last Admin: 06/16/17 09:08 Dose: 1 tab Nicotine (Nicoderm Cq) 1 patch TD DAILY [facility] Last Admin: 06/16/17 09:14 Dose: Not Given Pantoprazole Sodium (Protonix Ec Tab) 40 mg PO 0600 [facility] Last Admin: 06/16/17 06:51 Dose: 40 mg Risperidone (Risperdal Tab) 0.5 mg PO AMHS [facility] PRN Reason: Protocol Last Admin: 06/16/17 09:08 Dose: 0.5 mg Thiamine HCl (Vitamin B1 Tab) 100 mg PO DAILY [facility]IA Last Admin: 06/16/17 09:09 Dose: 100 mg Results - Vital Signs Recent Vital Signs: Last Vital Signs Temp 98.6 F 06/16/17 07:14 Pulse 68 06/16/17 07:14 Resp 20 06/16/17 07:14 BP 107/70 06/16/17 07:14 Pulse Ox 97 06/15/17 08:39 - Labs Result Diagrams: 06/16/17 07:30 06/16/17 07:30 Labs: Laboratory Results - last 24 hr 06/15/17 06/16/17 06/16/17 16:00 07:30 07:30 WBC 7.0 D RBC 4.34 Hgb 12.9 L Hct 39.2 L MCV 90.3 MCH 29.7 MCHC 32.9 RDW 13.4 Plt Count 204 MPV 9.1 Gran % 57.8 Lymph % (Auto) 30.8 [place] % (Auto) 8.5 H Eos % (Auto) 2.6 Baso % (Auto) 0.3 Gran # 4.04 Lymph # 2.2 [place] # 0.6 Eos # 0.2 Baso # 0.02 Sodium 142 Potassium 4.1 Chloride 106 Carbon Dioxide 26 Anion Gap 14 BUN 16 Creatinine 1.1 Est GFR ( Amer) > 60 Est GFR (Non-Af Amer) > 60 Random Glucose 100 Calcium 9.3 Total Bilirubin 0.4 AST 32 ALT 41 Alkaline Phosphatase 55 Lactate Dehydrogenase 394 Total Creatine Kinase 599 H CK-MB (CK-2) 2.8 CK-MB (CK-2) % Cancelled Troponin I < 0.01 Total Protein 6.3 Albumin 3.9 Globulin 2.4 Albumin/Globulin Ratio 1.6 Triglycerides 55 Cholesterol 117 L LDL Cholesterol Direct 55 HDL Cholesterol 52 TSH 3rd Generation 06/16/17 07:30 WBC RBC Hgb Hct MCV MCH MCHC RDW Plt Count MPV Gran % Lymph % (Auto) [place] % (Auto) Eos % (Auto) Baso % (Auto) Gran # Lymph # [place] # Eos # Baso # Sodium Potassium Chloride Carbon Dioxide Anion Gap BUN Creatinine Est GFR ( Amer) Est GFR (Non-Af Amer) Random Glucose Calcium Total Bilirubin AST ALT Alkaline Phosphatase Lactate Dehydrogenase Total Creatine Kinase CK-MB (CK-2) CK-MB (CK-2) % Troponin I Total Protein Albumin Globulin Albumin/Globulin Ratio Triglycerides Cholesterol LDL Cholesterol Direct HDL Cholesterol TSH 3rd Generation 1.56 Attending/Attestation - Attestation I have personally seen and examined this patient.: Yes I have fully participated in the care of the patient.: Yes I have reviewed all pertinent clinical information: Yes Notes (Text): 06/16/17 10:51 attending note; Patient seen and examined with resident in psychiatric floor. Patient is a 32 year old male with past medical history of of schizophrenia and depression is admitted for depression. Patient with a chronic history of alcohol abuse and PCP abuse. Currently not in withdrawal. Complete alcohol cessation is strongly advised. continue multivitamin, thiamine,folic acid. Ativan prn ordered. Active smoking; smoking cessation is strongly advised. Started on NicoDerm patch. drug abuse cessation is strongly advised. Lab work is reviewed. Mildly elevated CPK. Encouraged increased by mouth fluid intake. CPK is trending down. Patient is tolerating diet. Ambulating fine. no acute medical issues point. Please reconsult as needed. Patient is advised to follow-up with PMD of choice upon discharge.
[2017-06-15 17:10] LABS: CHOLESTEROL 117 mg/dL (130-200)
[2017-06-15 17:15] LABS: TROPONIN I < 0.01 ng/mL
[2017-06-16] MEDS: Pantoprazole 40 mg EC Tab PO SCH (06:51)
[2017-06-16 07:56] LABS: BASO # 0.02 K/mm3 (0.0-2.0); BASO % 0.3 % (0.0-3.0); EOS # 0.2 (0.0-0.7); EOS % 2.6 % (1.5-5.0); GRAN # 4.04 (1.4-6.5); GRAN % 57.8 % (50.0-68.0); HEMATOCRIT 39.2 % (42.0-52.0); LYMPH # 2.2 (1.2-3.4); LYMPH % 30.8 % (22.0-35.0); MEAN CELL VOLUME 90.3 fl (80.0-105.0); MEAN CORPUSCULAR HEMOGLOBIN 29.7 pg (25.0-35.0); MEAN CORPUSCULAR HGB CONC 32.9 g/dl (31.0-37.0); MEAN PLATELET VOLUME 9.1 fl (7.0-11.0); MONO # 0.6 (0.1-0.6); MONO % 8.5 % (1.0-6.0); RED CELL DISTRIBUTION WIDTH 13.4 % (11.5-14.5)
[2017-06-16 08:15] LABS: ALB/GLOB RATIO 1.6 (1.1-1.8); ALKALINE PHOSPHATASE 55 U/L (38-126); ALT/SGPT 41 U/L (7-56); AST/SGOT 32 U/L (17-59); BILIRUBIN,TOTAL 0.4 mg/dL (0.2-1.3); BLOOD UREA NITROGEN 16 mg/dL (7-21); CALCIUM 9.3 mg/dL (8.4-10.5); CARBON DIOXIDE 26 mmol/L (21-33); CHLORIDE 106 mmol/L (98-107); GFR AFRICAN-AMERICAN > 60; GLUCOSE,RANDOM 100 mg/dL (70-110); POTASSIUM 4.1 mmol/L (3.6-5.0); SODIUM 142 mmol/L (132-148); TOTAL PROTEIN 6.3 g/dL (5.8-8.3)
[2017-06-16] MEDS: Multivitamin With Minerals Tab PO SCH (09:08)
--- NOTE | 2017-06-16 18:59 | PCM.PYCHPN ---
Psychiatric Progress Note - Psychiatric Progress Note Patient seen today, length of contact: 30min Patient Chief Complaint: "people are jealous of me, I'm very intelligent, people just want to put me down , now I want to go..." Problems Identified/Issues Discussed: Suicide/ homicide prevention, past psychiatric h/o, current psychiatric symptoms , medical problems, risk/benefits and alternatives of medications, medications compliance, coping strategies, substance abuse h/o, relapse prevention, importance of follow up with psychiatrist and therapist, discharge plan. Medical Problems: relatively healthy Diagnostic Results: 06/16/17 07:30 06/16/17 07:30 Lab Results 06/16/17 07:30: TSH 3rd Generation 1.56 06/16/17 07:30: Sodium 142, Potassium 4.1, Chloride 106, Carbon Dioxide 26, Anion Gap 14, BUN 16, Creatinine 1.1, Est GFR ( Amer) > 60, Est GFR (Non- Af Amer) > 60, Random Glucose 100, Calcium 9.3, Total Bilirubin 0.4, AST 32, ALT 41, Alkaline Phosphatase 55, Total Protein 6.3, Albumin 3.9, Globulin 2.4, Albumin/Globulin Ratio 1.6 06/16/17 07:30: WBC 7.0 D, RBC 4.34, Hgb 12.9 L, Hct 39.2 L, MCV 90.3, MCH 29.7 , MCHC 32.9, RDW 13.4, Plt Count 204, MPV 9.1, Gran % 57.8, Lymph % (Auto) 30.8 , [place] % (Auto) 8.5 H, Eos % (Auto) 2.6, Baso % (Auto) 0.3, Gran # 4.04, Lymph # 2.2, [place] # 0.6, Eos # 0.2, Baso # 0.02 06/15/17 16:00: Lactate Dehydrogenase 394, Total Creatine Kinase 599 H, CK-MB ( CK-2) 2.8, CK-MB (CK-2) % Cancelled, Troponin I < 0.01, Triglycerides 55, Cholesterol 117 L, LDL Cholesterol Direct 55, HDL Cholesterol 52 06/15/17 08:00: Total Creatine Kinase 800 H, CK-MB (CK-2) 4.4 H, CK-MB (CK-2) % Cancelled 06/15/17 05:20: PT 10.8, INR 0.98, APTT 24.6 L 06/15/17 05:20: Alcohol, Quantitative 23 H 06/15/17 05:20: Salicylates < 1 L, Acetaminophen < 10.0 L 06/15/17 05:20: Urine Opiates Screen Negative, Urine Methadone Screen Negative, Ur Barbiturates Screen Negative, Ur Phencyclidine Scrn Positive H, Ur Amphetamines Screen Negative, U Benzodiazepines Scrn Negative, U Oth Cocaine Metabols Negative, U Cannabinoids Screen Negative 06/15/17 05:20: Sodium 142, Potassium 3.6, Chloride 107, Carbon Dioxide 22, Anion Gap 17, BUN 17, Creatinine 0.9, Est GFR ( Amer) > 60, Est GFR (Non- Af Amer) > 60, Random Glucose 108, Calcium 9.2, Total Bilirubin 0.2, AST 39, ALT 35, Alkaline Phosphatase 58, Troponin I < 0.01, Total Protein 7.0, Albumin 4.3, Globulin 2.7, Albumin/Globulin Ratio 1.6 06/15/17 05:20: Urine Color Yellow, Urine Appearance Clear, Urine pH 6.0, Ur Specific [place] >= 1.030, Urine Protein Trace H, Urine Glucose (UA) Negative, Urine Ketones Trace H, Urine Blood Negative, Urine Nitrate Negative, Urine Bilirubin Negative, Urine Urobilinogen 0.2, Ur Leukocyte Esterase Negative, Urine RBC 0 - 2, Urine WBC 0 - 2, Ur Epithelial Cells 6 - 8, Urine Bacteria Many 06/15/17 05:20: WBC 9.4, RBC 4.32, Hgb 13.0 L, Hct 38.3 L, MCV 88.7, MCH 30.1, MCHC 33.9, RDW 13.1, Plt Count 263, MPV 9.5, Gran % 62.9, Lymph % (Auto) 27.1, [place] % (Auto) 7.8 H, Eos % (Auto) 2.0, Baso % (Auto) 0.2, Gran # 5.91, Lymph # 2.5, [place] # 0.7 H, Eos # 0.2, Baso # 0.02 Vital Signs Temp Pulse Resp BP Pulse Ox 06/16/17 16:46 70 104/56 L 06/16/17 07:14 98.6 F 68 20 107/70 06/15/17 14:47 22 06/15/17 08:39 89 20 97 06/15/17 07:34 80 16 135/80 100 06/15/17 07:00 98.4 F 78 16 135/82 100 06/15/17 05:13 98.3 F 93 H 17 138/81 97 DSM 5 Symptoms Update: Patient this 32 year old -[place] male, long debilitating history of PCP abuse, multiple psychiatric admissions to this unit for anger problems, disorganized thoughts and behavior, patient has chronic noncompliance with the medications and follow-up appointments, most recent admission to this unit in February 2017, patient was transferred to inpatient rehabilitation for his PCP addiction. Patient brought himself to the hospital this time for evaluation of psychotic symptoms, command type hallucinations, suicidal and homicidal ideations, inability to function, pt was discharged from inpatient rehab because was caught smoking in the bathroom. In the ED pt was not able to contract for safety, was verbalizing thoughts of harming self and others, needs observation/stabilization. pt presented with poor personal hygiene, fair ADLs. pt presented to be grandiose, said "people are jealous of me, I'm very intelligent, people just want to put me down, now I want to go..." pt is disorganized, loud, make no much sense. "I know everything what I need to do, stay away from bed people, stay away from a bad crowd, stay away from the places", when was asked why he did not utilized his knowledge before coming to the hospital pt started to giggle. pt said "voices are better", I was able to sleep. pt tolerates medications well, no side effects observed or reported, aims 0, no EPS. DSM 5 Diagnosis: Phencyclidine (PCP)-induced psychosis Stimulant use disorder Substance induced mood disorder Depression NOS Medication Change: Yes Medical Record Reviewed: Yes Consults ordered or reviewed: medical consult called Mental Status Examination - Cognitive Function Orientation: Person, Place, Situation Memory: Intact Attention: Poor Concentration: Poor Association: Loose Fund of Knowledge: Poor - Mood Mood: Depressed, Anxious - Affect Affect: Flat - Formal Thought Process Formal Thought Process: Hallucinations, Delusions - Suicidal Ideation Suicidal Ideation: No - Homicidal Ideation Homicidal Ideation: No Goal/Treatment Plan - Goal/Treatment Plan Need for Continued Stay: Remain at risks for inpatient hospitalization, Severe depression anxiety, Discharge may exacerbated symptoms, Failed transitioning, Severe functional impairment Progress Toward Problem(s) and Goals/Treatment Plan: Milieu/structure/supportive therapy Medical consult appreciated, see medical team note for more detailed info consultation for discharge plan and social issues Med management Risperdal 1 mg twice a day for psychosis Cymbalta 20 mg daily for depression and anxiety Ativan for possible alcohol withdrawals Multivitamins, time and folic acid Family involvement Follow up on labs Will monitor closely evaluation for d/c planning Pt was educated about risk/benefits and alternatives of medications, coping strategies (safety plan, suicide prevention), relapse prevention, importance of follow up with psychiatrist and therapist, stay away from drugs/alcohol/smoking Estimated Date of D/C: 06/21/17
[2017-06-17] MEDS: Pantoprazole 40 mg EC Tab PO SCH (07:06)
[2017-06-17] MEDS: Multivitamin With Minerals Tab PO SCH (08:44)
--- NOTE | 2017-06-17 14:36 | CP.PCM.CON ---
History of Present Illness - History of Present Illness History of Present Illness: Podiatry Consult Note - Dr. Rosado 32 year old male patient PMHx substance abuse, acute psychosis, homicidal behavior seen and evaluated at bedside for bilateral foot fungal infection. Patient resting comfortably, hemodynamically stable and NAD. Patient reports feeling a constant burning, itching sensation to the bottom of both feet for a few weeks duration. Patient also complaining of painful, elongated, and incurvated nails that cause discomfort when wearing shoes and with ambulation. No other pedal complaints at this time. Denies N/V/F/D/C/SOB/calf pain. Review of Systems - Review of Systems All systems: reviewed and no additional remarkable complaints except (as per HPI ) Past Patient History - Infectious Disease Hx of Infectious Diseases: None - Tetanus Immunizations Tetanus Immunization: Unknown - Past Medical History & Family History Past Medical History?: No - Past Social History Smoking Status: Heavy Smoker > 10 Cigarettes Daily - CARDIAC Hx Cardiac Disorders: No Hx Angina: No Hx Atrial Fibrillation: No Hx Cardia Arrhythmia: No Hx Circulatory Problems: No - PULMONARY Hx Respiratory Disorders: No Hx Asthma: No Hx Bronchitis: No Hx Chronic Obstructive Pulmonary Disease (COPD): No Hx Emphysema: No Hx Lung Cancer: No Hx Pneumonia: No Hx Pulmonary Edema: No Hx Pulmonary Embolism: No Hx Respiratory Aspiration: No Hx Respiratory Tract Infection: No Hx Sleep Apnea: No Hx Tuberculosis: No - NEUROLOGICAL Hx Neurological Disorder: No Hx Alzheimer's Disease: No HX Cerebrovascular Accident: No Hx Dementia: No Hx Dizziness: No Hx Meningitis: No Hx Migraine: No Hx Multiple Sclerosis: No Hx Paralysis: No Hx Parkinson's Disease: No Hx Seizures: No Hx Syncope: No Hx Transient Ischemic Attacks (TIA): No Hx Vertigo: No - HEENT Hx HEENT Problems: No Hx Cataracts: No Hx Deafness: No Hx Difficulty Chewing: No Hx Epistaxis: No Hx Glaucoma: No Hx Macular Degeneration: No - RENAL Hx Chronic Kidney Disease: No - ENDOCRINE/METABOLIC Hx Endocrine Disorders: No - HEMATOLOGICAL/ONCOLOGICAL Hx Blood Disorders: No - INTEGUMENTARY Hx Dermatological Problems: No - MUSCULOSKELETAL/RHEUMATOLOGICAL Hx Musculoskeletal Disorders: No - GASTROINTESTINAL Hx Gastrointestinal Disorders: No - GENITOURINARY/GYNECOLOGICAL Hx Genitourinary Disorders: No - PSYCHIATRIC Hx Substance Use: Yes - SURGICAL HISTORY Other/Comment: hernia surgery - ANESTHESIA Hx Anesthesia: Yes Hx Anesthesia Reactions: No Hx Malignant Hyperthermia: No Meds Allergies/Adverse Reactions: Allergies Allergy/AdvReac Type Severity Reaction Status Date / Time No Known Allergies Allergy Verified 03/09/17 07:55 - Medications Medications: Current Medications Acetaminophen (Tylenol 325mg Tab) 650 mg PO Q6 PRN PRN Reason: Pain, moderate (4-7) Duloxetine HCl (Cymbalta) 20 mg PO DAILY [facility] Last Admin: 06/17/17 08:44 Dose: 20 mg Folic Acid (Folic Acid) 1 mg PO DAILY [facility] Last Admin: 06/17/17 08:44 Dose: 1 mg Ibuprofen (Motrin Tab) 400 mg PO Q6 PRN PRN Reason: Pain, moderate (4-7) Lorazepam (Ativan) 1 mg PO TID PRN; Protocol PRN Reason: Anxiety Multivitamins/Minerals (Therapeutic-M Tab) 1 tab PO 0800 [facility] Last Admin: 06/17/17 08:44 Dose: 1 tab Nicotine (Nicoderm Cq) 1 patch TD DAILY [facility] Last Admin: 06/17/17 08:45 Dose: Not Given Pantoprazole Sodium (Protonix Ec Tab) 40 mg PO 0600 [facility] Last Admin: 06/17/17 07:06 Dose: 40 mg Risperidone (Risperdal Tab) 1 mg PO AMHS [facility] PRN Reason: Protocol Thiamine HCl (Vitamin B1 Tab) 100 mg PO DAILY [facility] Last Admin: 06/17/17 08:44 Dose: 100 mg Physical Exam - Constitutional Appears: Well, Non-toxic, No Acute Distress, Unkempt - Extremities Exam Additional comments: VASC: DP and PT pulses palpable 2/4 b/l. CFT <3 seconds to all digits. Temperature gradient cool to cool. No edema noted. NEURO: Gross sensation intact bilaterally DERM: [place] discoloration to plantar aspect of both feet. Severe xerosis noted to plantar foot and webspaces with fissuring throughout. Xerosis and fissuring noted to webspaces 1-4 b/l. Nails 1-5 b/l are thickened, elongated, dystrophic, incurvated with the presence of subungual debris. ORTHO: Pain on palpation nails 1-5 b/l. Pain on palpation fissures b/l. - Neurological Exam Neurological exam: Alert - Psychiatric Exam Psychiatric exam: Normal Affect, Normal Mood Results - Vital Signs Recent Vital Signs: Last Vital Signs Temp 97.9 F 06/17/17 06:59 Pulse 64 06/17/17 06:59 Resp 17 06/17/17 06:59 BP 106/62 06/17/17 06:59 Pulse Ox 97 06/15/17 08:39 - Labs Result Diagrams: 06/16/17 07:30 06/16/17 07:30 Labs: Laboratory Results - last 24 hr 06/15/17 06/16/17 16:00 07:30 Hemoglobin A1c 5.4 RPR Nonreactive Assessment & Plan - Assessment and Plan (Free Text) Assessment: 32 year old male with tinea pedis and onychomycosis Plan: Patient seen and evaluated Discussed with attending, Dr. Rosado afebrile Clotrimazole 1% topical to be applied BID to soles of feet including webspaces Nails to be debrided tomorrow Pain mgmt per medicine Podiatry will conitnue to follow patient while in house
--- NOTE | 2017-06-17 14:55 | PCM.PYCHPN ---
Psychiatric Progress Note - Psychiatric Progress Note Patient seen today, length of contact: 30min Patient Chief Complaint: "people are jealous of me, I'm very intelligent, people just want to put me down , now I want to go..." Problems Identified/Issues Discussed: Suicide/ homicide prevention, past psychiatric h/o, current psychiatric symptoms , medical problems, risk/benefits and alternatives of medications, medications compliance, coping strategies, substance abuse h/o, relapse prevention, importance of follow up with psychiatrist and therapist, discharge plan. Medical Problems: relatively healthy Diagnostic Results: 06/16/17 07:30 06/16/17 07:30 Lab Results 06/16/17 07:30: TSH 3rd Generation 1.56 06/16/17 07:30: Sodium 142, Potassium 4.1, Chloride 106, Carbon Dioxide 26, Anion Gap 14, BUN 16, Creatinine 1.1, Est GFR ( Amer) > 60, Est GFR (Non- Af Amer) > 60, Random Glucose 100, Calcium 9.3, Total Bilirubin 0.4, AST 32, ALT 41, Alkaline Phosphatase 55, Total Protein 6.3, Albumin 3.9, Globulin 2.4, Albumin/Globulin Ratio 1.6 06/16/17 07:30: WBC 7.0 D, RBC 4.34, Hgb 12.9 L, Hct 39.2 L, MCV 90.3, MCH 29.7 , MCHC 32.9, RDW 13.4, Plt Count 204, MPV 9.1, Gran % 57.8, Lymph % (Auto) 30.8 , [place] % (Auto) 8.5 H, Eos % (Auto) 2.6, Baso % (Auto) 0.3, Gran # 4.04, Lymph # 2.2, [place] # 0.6, Eos # 0.2, Baso # 0.02 06/15/17 16:00: Lactate Dehydrogenase 394, Total Creatine Kinase 599 H, CK-MB ( CK-2) 2.8, CK-MB (CK-2) % Cancelled, Troponin I < 0.01, Triglycerides 55, Cholesterol 117 L, LDL Cholesterol Direct 55, HDL Cholesterol 52 06/15/17 08:00: Total Creatine Kinase 800 H, CK-MB (CK-2) 4.4 H, CK-MB (CK-2) % Cancelled 06/15/17 05:20: PT 10.8, INR 0.98, APTT 24.6 L 06/15/17 05:20: Alcohol, Quantitative 23 H 06/15/17 05:20: Salicylates < 1 L, Acetaminophen < 10.0 L 06/15/17 05:20: Urine Opiates Screen Negative, Urine Methadone Screen Negative, Ur Barbiturates Screen Negative, Ur Phencyclidine Scrn Positive H, Ur Amphetamines Screen Negative, U Benzodiazepines Scrn Negative, U Oth Cocaine Metabols Negative, U Cannabinoids Screen Negative 06/15/17 05:20: Sodium 142, Potassium 3.6, Chloride 107, Carbon Dioxide 22, Anion Gap 17, BUN 17, Creatinine 0.9, Est GFR ( Amer) > 60, Est GFR (Non- Af Amer) > 60, Random Glucose 108, Calcium 9.2, Total Bilirubin 0.2, AST 39, ALT 35, Alkaline Phosphatase 58, Troponin I < 0.01, Total Protein 7.0, Albumin 4.3, Globulin 2.7, Albumin/Globulin Ratio 1.6 06/15/17 05:20: Urine Color Yellow, Urine Appearance Clear, Urine pH 6.0, Ur Specific [place] >= 1.030, Urine Protein Trace H, Urine Glucose (UA) Negative, Urine Ketones Trace H, Urine Blood Negative, Urine Nitrate Negative, Urine Bilirubin Negative, Urine Urobilinogen 0.2, Ur Leukocyte Esterase Negative, Urine RBC 0 - 2, Urine WBC 0 - 2, Ur Epithelial Cells 6 - 8, Urine Bacteria Many 06/15/17 05:20: WBC 9.4, RBC 4.32, Hgb 13.0 L, Hct 38.3 L, MCV 88.7, MCH 30.1, MCHC 33.9, RDW 13.1, Plt Count 263, MPV 9.5, Gran % 62.9, Lymph % (Auto) 27.1, [place] % (Auto) 7.8 H, Eos % (Auto) 2.0, Baso % (Auto) 0.2, Gran # 5.91, Lymph # 2.5, [place] # 0.7 H, Eos # 0.2, Baso # 0.02 Vital Signs Temp Pulse Resp BP Pulse Ox 06/16/17 16:46 70 104/56 L 06/16/17 07:14 98.6 F 68 20 107/70 06/15/17 14:47 22 06/15/17 08:39 89 20 97 06/15/17 07:34 80 16 135/80 100 06/15/17 07:00 98.4 F 78 16 135/82 100 06/15/17 05:13 98.3 F 93 H 17 138/81 97 DSM 5 Symptoms Update: Patient this 32 year old -[place] male, long debilitating history of PCP abuse, multiple psychiatric admissions to this unit for anger problems, disorganized thoughts and behavior, patient has chronic noncompliance with the medications and follow-up appointments, most recent admission to this unit in February 2017, patient was transferred to inpatient rehabilitation for his PCP addiction. Patient brought himself to the hospital this time for evaluation of psychotic symptoms, command type hallucinations, suicidal and homicidal ideations, inability to function, pt was discharged from inpatient rehab because was caught smoking in the bathroom. In the ED pt was not able to contract for safety, was verbalizing thoughts of harming self and others, needs observation/stabilization. pt presented with poor personal hygiene, fair ADLs, pt was seen at the treatment team meeting with JOSÉ Hyatt. pt presented to be grandiose, siad that "people are jealous of me, I'm very intelligent, people just want to put me down , now I want to go..." pt is disorganized, loud, make no much sense. " pt requested to be discharged, pt was advised to submit 48hr notice. pt said "voices are better", I was able to sleep. pt tolerates medications well, no side effects observed or reported, aims 0, no EPS. DSM 5 Diagnosis: Phencyclidine (PCP)-induced psychosis Stimulant use disorder Substance induced mood disorder Depression NOS Medication Change: Yes (risperdal increased) Medical Record Reviewed: Yes Consults ordered or reviewed: medical consult called Mental Status Examination - Cognitive Function Orientation: Person, Place, Situation Memory: Intact Attention: Poor Concentration: Poor Association: Loose Fund of Knowledge: Poor - Mood Mood: Depressed, Anxious - Affect Affect: Flat - Formal Thought Process Formal Thought Process: Hallucinations, Delusions - Suicidal Ideation Suicidal Ideation: No - Homicidal Ideation Homicidal Ideation: No Goal/Treatment Plan - Goal/Treatment Plan Need for Continued Stay: Remain at risks for inpatient hospitalization, Severe depression anxiety, Discharge may exacerbated symptoms, Failed transitioning, Severe functional impairment Progress Toward Problem(s) and Goals/Treatment Plan: Milieu/structure/supportive therapy Medical consult appreciated, see medical team note for more detailed info consultation for discharge plan and social issues Med management pt submitted 48hr notice, will not initiate [facility] for now, most likely pt might be ready in two days Risperdal 1 mg twice a day for psychosis Cymbalta 20 mg daily for depression and anxiety Ativan for possible alcohol withdrawals Multivitamins, time and folic acid Family involvement Follow up on labs Will monitor closely evaluation for d/c planning Pt was educated about risk/benefits and alternatives of medications, coping strategies (safety plan, suicide prevention), relapse prevention, importance of follow up with psychiatrist and therapist, stay away from drugs/alcohol/smoking Estimated Date of D/C: 06/21/17
[2017-06-17] MEDS: Clotrimazole 1% Cream(30 gm) TOP SCH (17:00)
[2017-06-18] MEDS: Multivitamin With Minerals Tab PO SCH (09:22)
[2017-06-18] MEDS: Pantoprazole 40 mg EC Tab PO SCH (09:23)
[2017-06-18] MEDS: Clotrimazole 1% Cream(30 gm) TOP SCH ×2 (09:39→17:26)
--- NOTE | 2017-06-18 16:22 | CP.PCM.PN ---
Subjective - Date & Time of Evaluation Date of Evaluation: 06/18/17 Time of Evaluation: 16:18 - Subjective Subjective: Podiatry Progress Note- Dr Rosado 32 y.o male seen at bedside for painful onchymycosis and tinea pedis bilaterally. Patient is seen resting comfortably in bed, in NAD, and AA0x3. Patient denies acute overnight events. He reports he was given a cream to apply to the bilateral feet which was applied yesterday and today. He reports that the pain has decreased. He denies n/v/sob/cp/chills or f. He denies calf pain. No other pedal complaints at this time. Objective - Vital Signs/Intake and Output Vital Signs (last 24 hours): Temp Pulse Resp BP Pulse Ox 97.6 F 78 16 128/76 97 06/18/17 10:00 06/18/17 10:00 06/18/17 10:00 06/18/17 10:00 06/15/17 08:39 - Medications Medications: Current Medications Acetaminophen (Tylenol 325mg Tab) 650 mg PO Q6 PRN PRN Reason: Pain, moderate (4-7) Clotrimazole (Lotrimin 1%) 0 gm TOP BID [facility] Last Admin: 06/18/17 09:39 Dose: 1 oin Duloxetine HCl (Cymbalta) 20 mg PO DAILY [facility] Last Admin: 06/18/17 09:21 Dose: 20 mg Folic Acid (Folic Acid) 1 mg PO DAILY [facility] Last Admin: 06/18/17 09:23 Dose: 1 mg Ibuprofen (Motrin Tab) 400 mg PO Q6 PRN PRN Reason: Pain, moderate (4-7) Lorazepam (Ativan) 1 mg PO TID PRN; Protocol PRN Reason: Anxiety Multivitamins/Minerals (Therapeutic-M Tab) 1 tab PO 0800 [facility] Last Admin: 06/18/17 09:22 Dose: 1 tab Nicotine (Nicoderm Cq) 1 patch TD DAILY [facility] Last Admin: 06/18/17 09:21 Dose: 1 patch Pantoprazole Sodium (Protonix Ec Tab) 40 mg PO 0600 [facility] Last Admin: 06/18/17 09:23 Dose: 40 mg Risperidone (Risperdal Tab) 1 mg PO AMHS [facility] PRN Reason: Protocol Last Admin: 12/26/17 09:23 Dose: 1 mg Thiamine HCl (Vitamin B1 Tab) 100 mg PO DAILY [facility] Last Admin: 06/18/17 09:22 Dose: 100 mg - Labs Labs: 06/16/17 07:30 06/16/17 07:30 PT 10.8 SECONDS (9.4-12.5) 06/15/17 05:20 INR 0.98 (0.93-1.08) 06/15/17 05:20 APTT 24.6 Seconds (25.1-36.5) L 06/15/17 05:20 - Constitutional Appears: Well, Non-toxic, No Acute Distress - Extremities Exam Additional comments: VASC: DP and PT pulses palpable 2/4 b/l. CFT <3 seconds to all digits. Temperature gradient cool to cool. No edema noted. NEURO: Gross sensation intact bilaterally DERM: [place] discoloration stain to plantar aspect of both feet. Severe xerosis noted to plantar foot and webspaces with fissuring throughout. Xerosis and fissuring noted to webspaces 1-4 b/l. Nails 1-5 b/l are thickened, elongated, dystrophic, incurvated with the presence of subungual debris. ORTHO: Pain on palpation nails 1-5 b/l. Pain on palpation fissures b/l. - Neurological Exam Neurological Exam: Alert, Awake, Oriented x3 - Psychiatric Exam Psychiatric exam: Normal Affect, Normal Mood Assessment and Plan - Assessment and Plan (Free Text) Assessment: 32 y.o male seen at bedside for painful onchymycosis and tinea pedis bilaterally Plan: Patient seen and examined Discussed plan in detail with attending Dr. Rosado Labs, vitals, charts reviewed Elongated, hypertrophic nails x10 were sharply debrided using a nail nipper to normal length and thickness without incident. Patient tolerated the procedure well C/W Clotrimazole 1% topical to be applied BID to soles of feet including webspaces Pain mgmt per medicine Podiatry will sign off Please consult podiatry as needed. Thank you
--- NOTE | 2017-06-18 19:08 | PCM.PYCHPN ---
Psychiatric Progress Note - Psychiatric Progress Note Patient seen today, length of contact: 30min Patient Chief Complaint: "I want to go home" Problems Identified/Issues Discussed: Patient has signed a 48 hour notice. He indicates his problems prior to admission were due to a problem "with a female" which are no longer a problem. He indicates he needs to find a job and "take care of business". He is aware that his use of pcp precipitated the symptoms he was admitted for. Medical Problems: Tinea pedis, elongated toenails Diagnostic Results: Temp Pulse Resp BP Pulse Ox 97.6 F 78 16 128/76 97 06/18/17 10:00 06/18/17 10:00 06/18/17 10:00 06/18/17 10:00 06/15/17 08:39 Laboratory Tests 06/15/17 06/15/17 06/15/17 05:20 05:20 05:20 WBC 9.4 RBC 4.32 Hgb 13.0 L Hct 38.3 L MCV 88.7 MCH 30.1 MCHC 33.9 RDW 13.1 Plt Count 263 MPV 9.5 Gran % 62.9 Lymph % (Auto) 27.1 [place] % (Auto) 7.8 H Eos % (Auto) 2.0 Baso % (Auto) 0.2 Gran # 5.91 Lymph # 2.5 [place] # 0.7 H Eos # 0.2 Baso # 0.02 PT INR APTT Sodium 142 Potassium 3.6 Chloride 107 Carbon Dioxide 22 Anion Gap 17 BUN 17 Creatinine 0.9 Est GFR ( Amer) > 60 Est GFR (Non-Af Amer) > 60 Random Glucose 108 Hemoglobin A1c Calcium 9.2 Total Bilirubin 0.2 AST 39 ALT 35 Alkaline Phosphatase 58 Lactate Dehydrogenase Total Creatine Kinase CK-MB (CK-2) CK-MB (CK-2) % Troponin I < 0.01 Total Protein 7.0 Albumin 4.3 Globulin 2.7 Albumin/Globulin Ratio 1.6 Triglycerides Cholesterol LDL Cholesterol Direct HDL Cholesterol TSH 3rd Generation Urine Color Yellow Urine Appearance Clear Urine pH 6.0 Ur Specific [place] >= 1.030 Urine Protein Trace H Urine Glucose (UA) Negative Urine Ketones Trace H Urine Blood Negative Urine Nitrate Negative Urine Bilirubin Negative Urine Urobilinogen 0.2 Ur Leukocyte Esterase Negative Urine RBC 0 - 2 Urine WBC 0 - 2 Ur Epithelial Cells 6 - 8 Urine Bacteria Many Salicylates Urine Opiates Screen Urine Methadone Screen Acetaminophen Ur Barbiturates Screen Ur Phencyclidine Scrn Ur Amphetamines Screen U Benzodiazepines Scrn U Oth Cocaine Metabols U Cannabinoids Screen Alcohol, Quantitative RPR 06/15/17 06/15/17 06/15/17 05:20 05:20 05:20 WBC RBC Hgb Hct MCV MCH MCHC RDW Plt Count MPV Gran % Lymph % (Auto) [place] % (Auto) Eos % (Auto) Baso % (Auto) Gran # Lymph # [place] # Eos # Baso # PT INR APTT Sodium Potassium Chloride Carbon Dioxide Anion Gap BUN Creatinine Est GFR ( Amer) Est GFR (Non-Af Amer) Random Glucose Hemoglobin A1c Calcium Total Bilirubin AST ALT Alkaline Phosphatase Lactate Dehydrogenase Total Creatine Kinase CK-MB (CK-2) CK-MB (CK-2) % Troponin I Total Protein Albumin Globulin Albumin/Globulin Ratio Triglycerides Cholesterol LDL Cholesterol Direct HDL Cholesterol TSH 3rd Generation Urine Color Urine Appearance Urine pH Ur Specific [place] Urine Protein Urine Glucose (UA) Urine Ketones Urine Blood Urine Nitrate Urine Bilirubin Urine Urobilinogen Ur Leukocyte Esterase Urine RBC Urine WBC Ur Epithelial Cells Urine Bacteria Salicylates < 1 L Urine Opiates Screen Negative Urine Methadone Screen Negative Acetaminophen < 10.0 L Ur Barbiturates Screen Negative Ur Phencyclidine Scrn Positive H Ur Amphetamines Screen Negative U Benzodiazepines Scrn Negative U Oth Cocaine Metabols Negative U Cannabinoids Screen Negative Alcohol, Quantitative 23 H RPR 06/15/17 06/15/17 06/15/17 05:20 08:00 16:00 WBC RBC Hgb Hct MCV MCH MCHC RDW Plt Count MPV Gran % Lymph % (Auto) [place] % (Auto) Eos % (Auto) Baso % (Auto) Gran # Lymph # [place] # Eos # Baso # PT 10.8 INR 0.98 APTT 24.6 L Sodium Potassium Chloride Carbon Dioxide Anion Gap BUN Creatinine Est GFR ( Amer) Est GFR (Non-Af Amer) Random Glucose Hemoglobin A1c Calcium Total Bilirubin AST ALT Alkaline Phosphatase Lactate Dehydrogenase 394 Total Creatine Kinase 800 H 599 H CK-MB (CK-2) 4.4 H 2.8 CK-MB (CK-2) % Cancelled Cancelled Troponin I < 0.01 Total Protein Albumin Globulin Albumin/Globulin Ratio Triglycerides 55 Cholesterol 117 L LDL Cholesterol Direct 55 HDL Cholesterol 52 TSH 3rd Generation Urine Color Urine Appearance Urine pH Ur Specific [place] Urine Protein Urine Glucose (UA) Urine Ketones Urine Blood Urine Nitrate Urine Bilirubin Urine Urobilinogen Ur Leukocyte Esterase Urine RBC Urine WBC Ur Epithelial Cells Urine Bacteria Salicylates Urine Opiates Screen Urine Methadone Screen Acetaminophen Ur Barbiturates Screen Ur Phencyclidine Scrn Ur Amphetamines Screen U Benzodiazepines Scrn U Oth Cocaine Metabols U Cannabinoids Screen Alcohol, Quantitative RPR 06/15/17 06/16/17 06/16/17 16:00 07:30 07:30 WBC 7.0 D RBC 4.34 Hgb 12.9 L Hct 39.2 L MCV 90.3 MCH 29.7 MCHC 32.9 RDW 13.4 Plt Count 204 MPV 9.1 Gran % 57.8 Lymph % (Auto) 30.8 [place] % (Auto) 8.5 H Eos % (Auto) 2.6 Baso % (Auto) 0.3 Gran # 4.04 Lymph # 2.2 [place] # 0.6 Eos # 0.2 Baso # 0.02 PT INR APTT Sodium 142 Potassium 4.1 Chloride 106 Carbon Dioxide 26 Anion Gap 14 BUN 16 Creatinine 1.1 Est GFR ( Amer) > 60 Est GFR (Non-Af Amer) > 60 Random Glucose 100 Hemoglobin A1c 5.4 Calcium 9.3 Total Bilirubin 0.4 AST 32 ALT 41 Alkaline Phosphatase 55 Lactate Dehydrogenase Total Creatine Kinase CK-MB (CK-2) CK-MB (CK-2) % Troponin I Total Protein 6.3 Albumin 3.9 Globulin 2.4 Albumin/Globulin Ratio 1.6 Triglycerides Cholesterol LDL Cholesterol Direct HDL Cholesterol TSH 3rd Generation Urine Color Urine Appearance Urine pH Ur Specific [place] Urine Protein Urine Glucose (UA) Urine Ketones Urine Blood Urine Nitrate Urine Bilirubin Urine Urobilinogen Ur Leukocyte Esterase Urine RBC Urine WBC Ur Epithelial Cells Urine Bacteria Salicylates Urine Opiates Screen Urine Methadone Screen Acetaminophen Ur Barbiturates Screen Ur Phencyclidine Scrn Ur Amphetamines Screen U Benzodiazepines Scrn U Oth Cocaine Metabols U Cannabinoids Screen Alcohol, Quantitative RPR 06/16/17 06/16/17 07:30 07:30 WBC RBC Hgb Hct MCV MCH MCHC RDW Plt Count MPV Gran % Lymph % (Auto) [place] % (Auto) Eos % (Auto) Baso % (Auto) Gran # Lymph # [place] # Eos # Baso # PT INR APTT Sodium Potassium Chloride Carbon Dioxide Anion Gap BUN Creatinine Est GFR ( Amer) Est GFR (Non-Af Amer) Random Glucose Hemoglobin A1c Calcium Total Bilirubin AST ALT Alkaline Phosphatase Lactate Dehydrogenase Total Creatine Kinase CK-MB (CK-2) CK-MB (CK-2) % Troponin I Total Protein Albumin Globulin Albumin/Globulin Ratio Triglycerides Cholesterol LDL Cholesterol Direct HDL Cholesterol TSH 3rd Generation 1.56 Urine Color Urine Appearance Urine pH Ur Specific [place] Urine Protein Urine Glucose (UA) Urine Ketones Urine Blood Urine Nitrate Urine Bilirubin Urine Urobilinogen Ur Leukocyte Esterase Urine RBC Urine WBC Ur Epithelial Cells Urine Bacteria Salicylates Urine Opiates Screen Urine Methadone Screen Acetaminophen Ur Barbiturates Screen Ur Phencyclidine Scrn Ur Amphetamines Screen U Benzodiazepines Scrn U Oth Cocaine Metabols U Cannabinoids Screen Alcohol, Quantitative RPR Nonreactive Medication Change: No Medical Record Reviewed: Yes Mental Status Examination - Cognitive Function Orientation: Person, Place, Situation Memory: Intact Attention: Poor Concentration: Poor Association: Loose Fund of Knowledge: Poor - Mood Mood: Neutral - Affect Affect: Broad - Speech Speech: Loud - Formal Thought Process Formal Thought Process: Loosening of associations, Circumstantial Psychotic Thoughts and Behaviors: Patient denies the presence of hallucinations, delusions, or paranoia - Suicidal Ideation Suicidal Ideation: No - Homicidal Ideation Homicidal Ideation: No Goal/Treatment Plan - Goal/Treatment Plan Need for Continued Stay: Remain at risks for inpatient hospitalization, Severe depression anxiety, Discharge may exacerbated symptoms, Failed transitioning, Severe functional impairment Progress Toward Problem(s) and Goals/Treatment Plan: Treatment plan: Milieu/structure/supportive therapy Medical consult appreciated, see medical team note for more detailed info consultation for discharge plan and social issues Med management Family involvement Follow up on labs Will monitor closely evaluation for d/c planning Pt was educated about risk/benefits and alternatives of medications, coping strategies (safety plan, suicide prevention), relapse prevention, importance of follow up with psychiatrist and therapist, stay away from drugs/alcohol/smoking Estimated Date of D/C: 06/21/17 - Smoking Cessation Smoking Cessation Initiated: Yes
[2017-06-19] MEDS: Pantoprazole 40 mg EC Tab PO SCH (06:16)
[2017-06-19 07:42] VITALS: BP 119/65; RESP 20
[2017-06-19] MEDS: Clotrimazole 1% Cream(30 gm) TOP SCH (09:27)
[2017-06-19] MEDS: Multivitamin With Minerals Tab PO SCH (09:33)
[2017-06-19 11:18] VITALS: PULSE 663; TEMP 98.7
--- NOTE | 2017-06-19 21:31 | PCM.PYCHDC ---
Mental Status Examination - Mental Status Examination Memory: Intact Mood: Neutral Affect: Broad Speech: Loud Attention: Poor Concentration: Poor Association: WNL Fund of Knowledge: Poor Formal Thought Process: No Impairment Description of patient's judgement and insight: Patient has poor insight and judgment regarding the impact his substance use has on his mental health issues. He denies being suicidal or homicidal, appears in no imminent danger of hurting himself or others. Psychotic Thoughts and Behaviors: Patient denies the presence of hallucinations, delusions, or paranoia Suicidal Ideation: No Current Homicidal Ideation?: No Discharge Summary - Discharge Note Reason for Hospitalization: Patient this 32 year old -[place] male, long debilitating history of PCP abuse, multiple psychiatric admissions to this unit for anger problems, disorganized thoughts and behavior, patient has chronic noncompliance with the medications and follow-up appointments, most recent admission to this unit in February 2017, patient was transferred to inpatient rehabilitation for his PCP addiction. Patient brought himself to the hospital this time for evaluation of psychotic symptoms, command type hallucinations, suicidal and homicidal ideations, inability to function, pt was discharged from inpatient rehab because was caught smoking in the bathroom. In the ED pt was not able to contract for safety, was verbalizing thoughts of harming self and others, needs observation/stabilization. Psychiatric History (includes Medical, Family, Personal Hx): see HPI Laboratory Data: Laboratory Tests 06/15/17 06/15/17 06/15/17 05:20 05:20 05:20 WBC 9.4 RBC 4.32 Hgb 13.0 L Hct 38.3 L MCV 88.7 MCH 30.1 MCHC 33.9 RDW 13.1 Plt Count 263 MPV 9.5 Gran % 62.9 Lymph % (Auto) 27.1 [place] % (Auto) 7.8 H Eos % (Auto) 2.0 Baso % (Auto) 0.2 Gran # 5.91 Lymph # 2.5 [place] # 0.7 H Eos # 0.2 Baso # 0.02 PT INR APTT Sodium 142 Potassium 3.6 Chloride 107 Carbon Dioxide 22 Anion Gap 17 BUN 17 Creatinine 0.9 Est GFR ( Amer) > 60 Est GFR (Non-Af Amer) > 60 Random Glucose 108 Hemoglobin A1c Calcium 9.2 Total Bilirubin 0.2 AST 39 ALT 35 Alkaline Phosphatase 58 Lactate Dehydrogenase Total Creatine Kinase CK-MB (CK-2) CK-MB (CK-2) % Troponin I < 0.01 Total Protein 7.0 Albumin 4.3 Globulin 2.7 Albumin/Globulin Ratio 1.6 Triglycerides Cholesterol LDL Cholesterol Direct HDL Cholesterol TSH 3rd Generation Urine Color Yellow Urine Appearance Clear Urine pH 6.0 Ur Specific [place] >= 1.030 Urine Protein Trace H Urine Glucose (UA) Negative Urine Ketones Trace H Urine Blood Negative Urine Nitrate Negative Urine Bilirubin Negative Urine Urobilinogen 0.2 Ur Leukocyte Esterase Negative Urine RBC 0 - 2 Urine WBC 0 - 2 Ur Epithelial Cells 6 - 8 Urine Bacteria Many Salicylates Urine Opiates Screen Urine Methadone Screen Acetaminophen Ur Barbiturates Screen Ur Phencyclidine Scrn Ur Amphetamines Screen U Benzodiazepines Scrn U Oth Cocaine Metabols U Cannabinoids Screen Alcohol, Quantitative RPR 06/15/17 06/15/17 06/15/17 05:20 05:20 05:20 WBC RBC Hgb Hct MCV MCH MCHC RDW Plt Count MPV Gran % Lymph % (Auto) [place] % (Auto) Eos % (Auto) Baso % (Auto) Gran # Lymph # [place] # Eos # Baso # PT INR APTT Sodium Potassium Chloride Carbon Dioxide Anion Gap BUN Creatinine Est GFR ( Amer) Est GFR (Non-Af Amer) Random Glucose Hemoglobin A1c Calcium Total Bilirubin AST ALT Alkaline Phosphatase Lactate Dehydrogenase Total Creatine Kinase CK-MB (CK-2) CK-MB (CK-2) % Troponin I Total Protein Albumin Globulin Albumin/Globulin Ratio Triglycerides Cholesterol LDL Cholesterol Direct HDL Cholesterol TSH 3rd Generation Urine Color Urine Appearance Urine pH Ur Specific [place] Urine Protein Urine Glucose (UA) Urine Ketones Urine Blood Urine Nitrate Urine Bilirubin Urine Urobilinogen Ur Leukocyte Esterase Urine RBC Urine WBC Ur Epithelial Cells Urine Bacteria Salicylates < 1 L Urine Opiates Screen Negative Urine Methadone Screen Negative Acetaminophen < 10.0 L Ur Barbiturates Screen Negative Ur Phencyclidine Scrn Positive H Ur Amphetamines Screen Negative U Benzodiazepines Scrn Negative U Oth Cocaine Metabols Negative U Cannabinoids Screen Negative Alcohol, Quantitative 23 H RPR 06/15/17 06/15/17 06/15/17 05:20 08:00 16:00 WBC RBC Hgb Hct MCV MCH MCHC RDW Plt Count MPV Gran % Lymph % (Auto) [place] % (Auto) Eos % (Auto) Baso % (Auto) Gran # Lymph # [place] # Eos # Baso # PT 10.8 INR 0.98 APTT 24.6 L Sodium Potassium Chloride Carbon Dioxide Anion Gap BUN Creatinine Est GFR ( Amer) Est GFR (Non-Af Amer) Random Glucose Hemoglobin A1c Calcium Total Bilirubin AST ALT Alkaline Phosphatase Lactate Dehydrogenase 394 Total Creatine Kinase 800 H 599 H CK-MB (CK-2) 4.4 H 2.8 CK-MB (CK-2) % Cancelled Cancelled Troponin I < 0.01 Total Protein Albumin Globulin Albumin/Globulin Ratio Triglycerides 55 Cholesterol 117 L LDL Cholesterol Direct 55 HDL Cholesterol 52 TSH 3rd Generation Urine Color Urine Appearance Urine pH Ur Specific [place] Urine Protein Urine Glucose (UA) Urine Ketones Urine Blood Urine Nitrate Urine Bilirubin Urine Urobilinogen Ur Leukocyte Esterase Urine RBC Urine WBC Ur Epithelial Cells Urine Bacteria Salicylates Urine Opiates Screen Urine Methadone Screen Acetaminophen Ur Barbiturates Screen Ur Phencyclidine Scrn Ur Amphetamines Screen U Benzodiazepines Scrn U Oth Cocaine Metabols U Cannabinoids Screen Alcohol, Quantitative RPR 06/15/17 06/16/17 06/16/17 16:00 07:30 07:30 WBC 7.0 D RBC 4.34 Hgb 12.9 L Hct 39.2 L MCV 90.3 MCH 29.7 MCHC 32.9 RDW 13.4 Plt Count 204 MPV 9.1 Gran % 57.8 Lymph % (Auto) 30.8 [place] % (Auto) 8.5 H Eos % (Auto) 2.6 Baso % (Auto) 0.3 Gran # 4.04 Lymph # 2.2 [place] # 0.6 Eos # 0.2 Baso # 0.02 PT INR APTT Sodium 142 Potassium 4.1 Chloride 106 Carbon Dioxide 26 Anion Gap 14 BUN 16 Creatinine 1.1 Est GFR ( Amer) > 60 Est GFR (Non-Af Amer) > 60 Random Glucose 100 Hemoglobin A1c 5.4 Calcium 9.3 Total Bilirubin 0.4 AST 32 ALT 41 Alkaline Phosphatase 55 Lactate Dehydrogenase Total Creatine Kinase CK-MB (CK-2) CK-MB (CK-2) % Troponin I Total Protein 6.3 Albumin 3.9 Globulin 2.4 Albumin/Globulin Ratio 1.6 Triglycerides Cholesterol LDL Cholesterol Direct HDL Cholesterol TSH 3rd Generation Urine Color Urine Appearance Urine pH Ur Specific [place] Urine Protein Urine Glucose (UA) Urine Ketones Urine Blood Urine Nitrate Urine Bilirubin Urine Urobilinogen Ur Leukocyte Esterase Urine RBC Urine WBC Ur Epithelial Cells Urine Bacteria Salicylates Urine Opiates Screen Urine Methadone Screen Acetaminophen Ur Barbiturates Screen Ur Phencyclidine Scrn Ur Amphetamines Screen U Benzodiazepines Scrn U Oth Cocaine Metabols U Cannabinoids Screen Alcohol, Quantitative RPR 06/16/17 06/16/17 07:30 07:30 WBC RBC Hgb Hct MCV MCH MCHC RDW Plt Count MPV Gran % Lymph % (Auto) [place] % (Auto) Eos % (Auto) Baso % (Auto) Gran # Lymph # [place] # Eos # Baso # PT INR APTT Sodium Potassium Chloride Carbon Dioxide Anion Gap BUN Creatinine Est GFR ( Amer) Est GFR (Non-Af Amer) Random Glucose Hemoglobin A1c Calcium Total Bilirubin AST ALT Alkaline Phosphatase Lactate Dehydrogenase Total Creatine Kinase CK-MB (CK-2) CK-MB (CK-2) % Troponin I Total Protein Albumin Globulin Albumin/Globulin Ratio Triglycerides Cholesterol LDL Cholesterol Direct HDL Cholesterol TSH 3rd Generation 1.56 Urine Color Urine Appearance Urine pH Ur Specific [place] Urine Protein Urine Glucose (UA) Urine Ketones Urine Blood Urine Nitrate Urine Bilirubin Urine Urobilinogen Ur Leukocyte Esterase Urine RBC Urine WBC Ur Epithelial Cells Urine Bacteria Salicylates Urine Opiates Screen Urine Methadone Screen Acetaminophen Ur Barbiturates Screen Ur Phencyclidine Scrn Ur Amphetamines Screen U Benzodiazepines Scrn U Oth Cocaine Metabols U Cannabinoids Screen Alcohol, Quantitative RPR Nonreactive Temp Pulse Resp BP Pulse Ox 98.7 F 663 H 20 119/65 97 06/19/17 10:00 06/19/17 10:00 06/19/17 10:00 06/19/17 10:00 06/15/17 08:39 Consultations:: List each consultation separately and include: 1. Reason for request. 2. Findings. 3. Follow-up Consultations: 06/15/2017 Medically cleared in ER for psych admission Consult per Dr Felix for tx of Tinea Pedis thank you Summary of Hospital Course include:: 1. Description of specific treatment plan utilized for patients during their course of treatmen. 2. Summarize the time- course for resolution of acute symptoms and/or regressed behaviors. 3. Describe issues identified and worked on during hospitalization. 4. Describe medication utilized. 5. Describe medical problems identified and treated. 6. Reassessment of suicide risk Summary of Hospital Course: Patient cleared and had symptom improvement. Discharge Plan and Discharge Criteria: Pt will be not depressed or manic, will be more hopeful, will be not psychotic or anxious, will be not having thoughts of harming self or others, will be tolerating medications well, will not have major side effects, will be able to function, will not pose threat to self or others. Patient was no longer in any imminent danger of hurting himself or others, but did not want to stay in the hospital. It was felt he could benefit from a longer stay. Patient was not commitable so signed out AMA. - Diagnosis (1) Substance-induced psychotic disorder with hallucinations Status: Resolved (2) Phencyclidine (PCP)-induced psychosis Status: Resolved Priority: Medium - Final Diagnosis (DSM 5) Condition upon Discharge: FAIR Disposition: AGAINST MEDICAL ADVICE Follow-up Treatment Plan: Treatment plan: Milieu/structure/supportive therapy Medical consult appreciated, see medical team note for more detailed info consultation for discharge plan and social issues Med management Family involvement Follow up on labs Will monitor closely evaluation for d/c planning Pt was educated about risk/benefits and alternatives of medications, coping strategies (safety plan, suicide prevention), relapse prevention, importance of follow up with psychiatrist and therapist, stay away from drugs/alcohol/smoking - Smoking Cessation Smoking Cessation Medication prescribed: No Reason for not providing: Patient not a smoker - Antipsychotic Medications Pt discharged on 2 or more routine antipsychotic medications: No
== END 2017-06-19 12:40 | disposition left against medical advice (07) | DRG 743 ==
LOC: ED 04:58 → ERH 07:45 → UNDOADMIN 07:56 → ERH 08:03 → PSYC 09:43
PROVIDERS: ADMIT Psychiatry & Neurology Psychiatry; ATTEND Psychiatry & Neurology Psychiatry
DX: F16.151 Hallucinogen abuse with hallucinogen-induced psychotic disorder with hallucinations (principal); R45.851 Suicidal ideations; F20.9 Schizophrenia, unspecified; R45.850 Homicidal ideations; B35.1 Tinea unguium; E86.0 Dehydration; B35.3 Tinea pedis; F10.129 Alcohol abuse with intoxication, unspecified; F17.210 Nicotine dependence, cigarettes, uncomplicated; F15.151 Other stimulant abuse with stimulant-induced psychotic disorder with hallucinations; F11.251 Opioid dependence with opioid-induced psychotic disorder with hallucinations; F19.94 Other psychoactive substance use, unspecified with psychoactive substance-induced mood disorder; F32.89 Other specified depressive episodes; F41.9 Anxiety disorder, unspecified; Z79.899 Other long term (current) drug therapy; Z91.14 Patient's other noncompliance with medication regimen; R40.2412 Glasgow coma scale score 13-15, at arrival to emergency department

== ENCOUNTER 2017-06-21 22:53 | Emergency (ER) | payer OTHER ==
[2017-06-21 22:58] VITALS: BMI 31.1
[2017-06-21 23:01] VITALS: BP 122/76; PULSE 77; RESP 18; TEMP 97.8; O2SAT 98
--- NOTE | 2017-06-21 23:43 | ED PDOC ---
Arrival/HPI - General Chief Complaint: Medical Clearance Time Seen by Provider: 06/21/17 23:38 Historian: Patient - History of Present Illness Narrative History of Present Illness (Text): 06/21/17 23:41 32 y/o male, here because he needs a place to stay warm for this cold evening. Pt. stated that he just needs a place to stay warm, no chest pain or shortness of breath, no night sweat, no dizziness, no other medical or psychological complaints. Past Medical History - Provider Review Nursing Documentation Reviewed: Yes - Past History Past History: Non-Contributing - Infectious Disease Hx of Infectious Diseases: None - Tetanus Immunization Tetanus Immunization: Unknown - Cardiac Hx Cardiac Disorders: No Hx Angina: No Hx Atrial Fibrillation: No Hx Cardiac Arrhythmia: No Hx Circulatory Problems: No - Pulmonary Hx Respiratory Disorders: No Hx Asthma: No Hx Bronchitis: No Hx Chronic Obstructive Pulmonary Disease (COPD): No Hx Emphysema: No Hx Lung Cancer: No Hx Pneumonia: No Hx Pulmonary Edema: No Hx Pulmonary Embolism: No Hx Respiratory Aspiration: No Hx Respiratory Tract Infection: No Hx Sleep Apnea: No Hx Tuberculosis: No - Neurological Hx Neurological Disorder: No Hx Alzheimer's Disease: No HX Cerebrovascular Accident: No Hx Dementia: No Hx Dizziness: No Hx Meningitis: No Hx Migraine: No Hx Multiple Sclerosis: No Hx Paralysis: No Hx Parkinson's Disease: No Hx Seizures: No Hx Syncope: No Hx Transient Ischemic Attacks (TIA): No Hx Vertigo: No - HEENT Hx HEENT Disorder: No Hx Cataracts: No Hx Deafness: No Hx Difficulty Chewing: No Hx Epistaxis: No Hx Glaucoma: No Hx Macular Degeneration: No - Renal Hx Renal Disorder: No - Endocrine/Metabolic Hx Endocrine Disorders: No - Hematological/Oncological Hx Blood Disorders: No - Integumentary Hx Dermatological Disorder: No - Musculoskeletal/Rheumatological Hx Musculoskeletal Disorders: No - Gastrointestinal Hx Gastrointestinal Disorders: No - Genitourinary/Gynecological Hx Genitourinary Disorders: No - Psychiatric Hx Psychophysiologic Disorder: Yes Hx Depression: Yes Hx Hallucinations: Yes Hx Substance Use: Yes Other/Comment: alcohol abuse - Surgical History Other/Comment: hernia surgery - Anesthesia Hx Anesthesia: Yes Hx Anesthesia Reactions: No Hx Malignant Hyperthermia: No - Suicidal Assessment Feels Threatened In Home Enviroment: No Family/Social History - Physician Review Nursing Documentation Reviewed: Yes Family/Social History: Unknown Family HX Smoking Status: Heavy Smoker > 10 Cigarettes Daily Hx Alcohol Use: No Hx Substance Use: Yes Substance used: PCP Allergies/Home Meds Allergies/Adverse Reactions: Allergies No Known Allergies Allergy (Verified 03/09/17 07:55) Review of Systems - Review of Systems Constitutional: absent: Fatigue, Fevers Eyes: absent: Vision Changes ENT: absent: Hearing Changes Respiratory: absent: SOB, Cough Cardiovascular: absent: Chest Pain Gastrointestinal: absent: Abdominal Pain, Nausea, Vomiting Musculoskeletal: absent: Arthralgias, Back Pain Skin: absent: Rash Neurological: absent: Headache Psychiatric: absent: Anxiety, Depression, Suicidal Ideation Physical Exam Vital Signs Reviewed: Yes Vital Signs Temp Pulse Resp BP Pulse Ox 06/21/17 22:58 97.8 F 77 18 122/76 98 Temperature: Afebrile Blood Pressure: Normal Pulse: Regular Respiratory Rate: Normal Appearance: Positive for: Well-Appearing, Non-Toxic, Comfortable Pain Distress: None Mental Status: Positive for: Alert and Oriented X 3 - Systems Exam Head: Present: Atraumatic, Normocephalic Pupils: Present: PERRL Extroacular Muscles: Present: EOMI Conjunctiva: Present: Normal Respiratory/Chest: Present: Clear to Auscultation, Good Air Exchange. No: Respiratory Distress, Accessory Muscle Use Cardiovascular: Present: Regular Rate and Rhythm, Normal S1, S2. No: Murmurs Abdomen: Present: Normal Bowel Sounds. No: Tenderness, Distention, Peritoneal Signs Upper Extremity: Present: Normal Inspection. No: Cyanosis, Edema Lower Extremity: Present: Normal Inspection. No: Edema Neurological: Present: GCS=15, Speech Normal, Motor Func Grossly Intact, Memory Normal Skin: Present: Warm, Dry, Normal Color. No: Rashes Psychiatric: Present: Alert, Oriented x 3, Normal Insight, Normal Concentration Medical Decision Making ED Course and Treatment: 06/22/17 00:33 -Warming residential list provided to the patient. -There is no emergent labs/radiology test indicated at this time. -Discharge home with education on follow up with the warming center, return to the ER for any new or worsening signs or symptoms. - PA / TRAFFIC LAW ATTORNEY / Resident Statement / has reviewed & agrees with the documentation as recorded. Disposition/Present on Arrival - Present on Arrival Any Indicators Present on Arrival: No History of DVT/PE: No History of Uncontrolled Diabetes: No Urinary Catheter: No History of Decub. Ulcer: No History Surgical Site Infection Following: None - Disposition Have Diagnosis and Disposition been Completed?: Yes Diagnosis: General medical examination Disposition: HOME/ ROUTINE Disposition Time: 00:48 Patient Plan: Discharge Condition: GOOD Additional Instructions: -Discharge home with education on follow up with the warming center, return to the ER for any new or worsening signs or symptoms. Referrals: Gonzalo Hernandes, [Primary Care Provider] - Follow up with primary
== END 2017-06-22 01:00 | disposition home or self-care (01) ==
LOC: ED 22:53
DX: Z04.8 Encounter for examination and observation for other specified reasons (principal)

== ENCOUNTER 2017-06-22 22:05 | Emergency (ER) | payer OTHER ==
[2017-06-22 22:05] VITALS: BMI 31.1
--- NOTE | 2017-06-22 22:34 | ED PDOC ---
Arrival/HPI - General Chief Complaint: Alcohol Ingestion Time Seen by Provider: 06/22/17 22:21 Historian: Patient - History of Present Illness Narrative History of Present Illness (Text): 06/22/17 22:30 Hi Talamantes is a 32 year old male, whose past medical history includes alcohol abuse, who presents to the Emergency department brought in by EMS for public intoxication tonight. Patient was found inebriated outside by EMS. Patient admits to drinking alcohol tonight and denies any somatic complaints. Symptom Onset: Gradual Symptom Course: Unchanged Activities at Onset: Light Context: Street Past Medical History - Provider Review Nursing Documentation Reviewed: Yes - Past History Past History: Non-Contributing - Infectious Disease Hx of Infectious Diseases: None - Tetanus Immunization Tetanus Immunization: Unknown - Cardiac Hx Cardiac Disorders: No Hx Angina: No Hx Atrial Fibrillation: No Hx Cardiac Arrhythmia: No Hx Circulatory Problems: No - Pulmonary Hx Respiratory Disorders: No Hx Asthma: No Hx Bronchitis: No Hx Chronic Obstructive Pulmonary Disease (COPD): No Hx Emphysema: No Hx Lung Cancer: No Hx Pneumonia: No Hx Pulmonary Edema: No Hx Pulmonary Embolism: No Hx Respiratory Aspiration: No Hx Respiratory Tract Infection: No Hx Sleep Apnea: No Hx Tuberculosis: No - Neurological Hx Neurological Disorder: No Hx Alzheimer's Disease: No HX Cerebrovascular Accident: No Hx Dementia: No Hx Dizziness: No Hx Meningitis: No Hx Migraine: No Hx Multiple Sclerosis: No Hx Paralysis: No Hx Parkinson's Disease: No Hx Seizures: No Hx Syncope: No Hx Transient Ischemic Attacks (TIA): No Hx Vertigo: No - HEENT Hx HEENT Disorder: No Hx Cataracts: No Hx Deafness: No Hx Difficulty Chewing: No Hx Epistaxis: No Hx Glaucoma: No Hx Macular Degeneration: No - Renal Hx Renal Disorder: No - Endocrine/Metabolic Hx Endocrine Disorders: No - Hematological/Oncological Hx Blood Disorders: No - Integumentary Hx Dermatological Disorder: No - Musculoskeletal/Rheumatological Hx Musculoskeletal Disorders: No - Gastrointestinal Hx Gastrointestinal Disorders: No - Genitourinary/Gynecological Hx Genitourinary Disorders: No - Psychiatric Hx Psychophysiologic Disorder: Yes Hx Depression: Yes Hx Hallucinations: Yes Hx Substance Use: Yes Other/Comment: alcohol abuse - Surgical History Other/Comment: hernia surgery - Anesthesia Hx Anesthesia: Yes Hx Anesthesia Reactions: No Hx Malignant Hyperthermia: No - Suicidal Assessment Feels Threatened In Home Enviroment: No Family/Social History - Physician Review Nursing Documentation Reviewed: Yes Family/Social History: Unknown Family HX Smoking Status: Heavy Smoker > 10 Cigarettes Daily Hx Alcohol Use: No Hx Substance Use: Yes Substance used: PCP Allergies/Home Meds Allergies/Adverse Reactions: Allergies No Known Allergies Allergy (Verified 06/22/17 22:26) Review of Systems - Physician Review All systems were reviewed & negative as marked: Yes - Review of Systems Constitutional: Normal. absent: Fevers Eyes: Normal ENT: Normal Respiratory: Normal. absent: SOB, Cough Cardiovascular: Normal. absent: Chest Pain Gastrointestinal: Normal. absent: Abdominal Pain, Diarrhea, Nausea, Vomiting Genitourinary Male: Normal. absent: Dysuria, Frequency, Hematuria, Urinary Output Changes Musculoskeletal: Normal. absent: Back Pain, Neck Pain Skin: Normal. absent: Rash Neurological: Normal. absent: Headache, Dizziness Endocrine: Normal Hemo/Lymphatic: Normal Psychiatric: Normal Physical Exam Vital Signs Reviewed: Yes Vital Signs Temp Pulse Resp BP Pulse Ox 06/23/17 04:00 98.7 F 76 16 130/75 100 06/23/17 02:00 98.7 F 90 18 132/75 99 06/23/17 00:05 98.6 F 93 H 16 130/98 H 100 06/22/17 22:05 98.6 F 90 16 131/67 100 Temperature: Afebrile Blood Pressure: Normal Pulse: Regular Respiratory Rate: Normal Appearance: Positive for: Well-Appearing, Comfortable Pain Distress: None Mental Status: Positive for: Alert and Oriented X 3, other (Inebriated) - Systems Exam Head: Present: Atraumatic, Normocephalic Pupils: Present: PERRL Extroacular Muscles: Present: EOMI Conjunctiva: Present: Normal Mouth: Present: Moist Mucous Membranes Neck: Present: Normal Range of Motion Respiratory/Chest: Present: Clear to Auscultation, Good Air Exchange. No: Respiratory Distress, Accessory Muscle Use Cardiovascular: Present: Regular Rate and Rhythm, Normal S1, S2. No: Murmurs Abdomen: Present: Normal Bowel Sounds. No: Tenderness, Distention, Peritoneal Signs Back: Present: Normal Inspection Upper Extremity: Present: Normal Inspection. No: Cyanosis, Edema Lower Extremity: Present: Normal Inspection. No: Edema Neurological: Present: GCS=15, CN II-XII Intact, Speech Normal Skin: Present: Warm, Dry, Normal Color. No: Rashes Psychiatric: Present: Alert, Oriented x 3, Intoxicated Medical Decision Making ED Course and Treatment: 06/22/17 22:30 Impression: 32 year old male brought in for public intoxication tonight. Differential Diagnosis included but are not limited to: alcohol intoxication Plan: -- Reassess and disposition Progress Notes: 06/23/17 06:05 Pt awake, alert, ambulating with steady gait. Clinically sober. Pt stable for d/ c. - Scribe Statement The provider has reviewed the documentation as recorded by the Dheeraj Mckee Provider Scribe Attestation: All medical record entries made by the Scribe were at my direction and personally dictated by me. I have reviewed the chart and agree that the record accurately reflects my personal performance of the history, physical exam, medical decision making, and the department course for this patient. I have also personally directed, reviewed, and agree with the discharge instructions and disposition. Disposition/Present on Arrival - Present on Arrival Any Indicators Present on Arrival: No History of DVT/PE: No History of Uncontrolled Diabetes: No Urinary Catheter: No History of Decub. Ulcer: No History Surgical Site Infection Following: None - Disposition Have Diagnosis and Disposition been Completed?: Yes Diagnosis: Alcohol intoxication Disposition: HOME/ ROUTINE Disposition Time: 06:18 Patient Plan: Discharge Condition: GOOD Discharge Instructions (ExitCare): Abuse of Alcohol (ED) Referrals: Gonzalo Hernandes, [Primary Care Provider] - Follow up with primary Alcoholics Anonymous [Outside] - Follow up with primary Forms: [employer] (N[place]alese)
[2017-06-23 05:06] VITALS: RESP 16
[2017-06-23 06:24] VITALS: BP 138/82; PULSE 80; TEMP 97.6; O2SAT 99
== END 2017-06-23 06:24 | disposition home or self-care (01) ==
LOC: ED 22:05
DX: F10.129 Alcohol abuse with intoxication, unspecified (principal); Y90.9 Presence of alcohol in blood, level not specified

== ENCOUNTER 2017-07-02 12:23 | Emergency (ER) | payer OTHER ==
[2017-07-02 12:23] VITALS: BMI 31.1
[2017-07-02 12:45] VITALS: RESP 18; TEMP 98
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
[2017-07-02 14:28] LABS: BASO # 0.02 K/mm3 (0.0-2.0); BASO % 0.2 % (0.0-3.0); EOS # 0.2 (0.0-0.7); EOS % 2.4 % (1.5-5.0); GRAN # 5.5 (1.4-6.5); GRAN % 68.6 % (50.0-68.0); LYMPH # 1.8 (1.2-3.4); LYMPH % 22.8 % (22.0-35.0); MEAN CELL VOLUME 90.3 fl (80.0-105.0); MEAN CORPUSCULAR HEMOGLOBIN 30.2 pg (25.0-35.0); MEAN CORPUSCULAR HGB CONC 33.4 g/dl (31.0-37.0); MEAN PLATELET VOLUME 9.9 fl (7.0-11.0); MONO # 0.5 (0.1-0.6); RBC 4.97 10^6/uL (3.5-6.1); RED CELL DISTRIBUTION WIDTH 12.8 % (11.5-14.5)
[2017-07-02 14:36] LABS: ACETAMINOPHEN < 10.0 ug/ml (10.0-20.0); SALICYLATE < 1 mg/dL (2.0-20.0)
[2017-07-02 14:42] LABS: ALB/GLOB RATIO 1.6 (1.1-1.8); ALT/SGPT 51 U/L (7-56); AST/SGOT 34 U/L (17-59); BLOOD UREA NITROGEN 14 mg/dL (7-21); CALCIUM 10.2 mg/dL (8.4-10.5); GFR AFRICAN-AMERICAN > 60; GFR NON-AFRICAN AMERICAN > 60
--- NOTE | 2017-07-02 15:15 | RAD ---
HISTORY: r/o infiltrate COMPARISON: 07/01/2017 FINDINGS: LUNGS: No active pulmonary disease. PLEURA: No significant pleural effusion identified, no pneumothorax apparent. CARDIOVASCULAR: Normal. OSSEOUS STRUCTURES: No significant abnormalities. VISUALIZED UPPER ABDOMEN: Normal. OTHER FINDINGS: None. IMPRESSION: No active disease.
[2017-07-02 15:48] VITALS: BP 134/85; PULSE 65; O2SAT 97
--- NOTE | 2017-07-02 21:55 | CARD ---
APPROVED REPORT EKG Measurement Heart [id number] <Conclusion> Normal sinus rhythm Normal ECG
== END 2017-07-02 15:57 | disposition home or self-care (01) ==
LOC: ED 12:23
DX: F32.9 Major depressive disorder, single episode, unspecified (principal); F17.210 Nicotine dependence, cigarettes, uncomplicated

== ENCOUNTER 2017-07-03 20:10 | Emergency (ER) | payer OTHER ==
[2017-07-03 20:11] VITALS: BMI 31.1
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
[2017-07-04 06:04] VITALS: BP 124/77; PULSE 81; RESP 17; TEMP 98.2; O2SAT 98
== END 2017-07-04 06:05 | disposition home or self-care (01) ==
LOC: ED 20:10
DX: F10.129 Alcohol abuse with intoxication, unspecified (principal); F17.210 Nicotine dependence, cigarettes, uncomplicated

== ENCOUNTER 2017-07-04 14:09 | Emergency (ER) | payer OTHER ==
[2017-07-04 14:49] VITALS: BP 132/77; PULSE 78; RESP 18; TEMP 97.8; O2SAT 98; BMI 25.8
== END 2017-07-04 16:08 | disposition left against medical advice (07) ==
LOC: ED 14:09
DX: Z02.89 Encounter for other administrative examinations (principal); Z00.00 Encounter for general adult medical examination without abnormal findings

== ENCOUNTER 2017-07-04 20:16 | Emergency (ER) | payer OTHER ==
[2017-07-04 20:18] VITALS: BMI 25.8
[2017-07-04 20:47] VITALS: BP 138/89; PULSE 87; RESP 14; TEMP 97.8; O2SAT 100
== END 2017-07-04 23:09 | disposition left against medical advice (07) ==
LOC: ED 20:16
DX: Z02.89 Encounter for other administrative examinations (principal); R05 Cough

== ENCOUNTER 2017-07-06 21:10 | Emergency (ER) | payer OTHER ==
[2017-07-06 21:10] VITALS: BMI 25.8
[2017-07-06 22:51] VITALS: BP 138/84; PULSE 89; RESP 18; TEMP 98; O2SAT 99
== END 2017-07-07 03:22 | disposition left against medical advice (07) ==
LOC: ED 21:10
DX: Z02.89 Encounter for other administrative examinations (principal); Z59.0 Homelessness

== ENCOUNTER 2017-07-07 13:39 | Inpatient (IN) | payer MEDICAID, OTHER ==
[2017-07-07 13:39] VITALS: BMI 25.8
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
[2017-07-07 16:41] LABS: PH,URINE 5.5 (4.7-8.0); URINE APPEARANCE CLEAR (CLEAR); URINE BILIRUBIN NEGATIVE (NEGATIVE); URINE BLOOD NEGATIVE (NEGATIVE); URINE COLOR LIGHT YELLOW (YELLOW); URINE GLUCOSE (UA) NEGATIVE (NEGATIVE); URINE LEUKOCYTE ESTERASE NEGATIVE Leu/uL (NEGATIVE); URINE NITRATE NEGATIVE (NEGATIVE); URINE PROTEIN NEGATIVE mg/dL (<30 mg/dL); URINE UROBILINOGEN 0.2 E.U./dL (<1 E.U./dL)
[2017-07-07 16:59] LABS: BASO % 0.3 % (0.0-3.0); EOS % 1.6 % (1.5-5.0); GRAN % 60.9 % (50.0-68.0); HEMOGLOBIN 13.4 g/dL (14.0-18.0); LYMPH % 25.1 % (22.0-35.0); MEAN CELL VOLUME 91.4 fl (80.0-105.0); MEAN CORPUSCULAR HEMOGLOBIN 29.6 pg (25.0-35.0); MEAN CORPUSCULAR HGB CONC 32.4 g/dl (31.0-37.0); MEAN PLATELET VOLUME 9.7 fl (7.0-11.0); MONO % 12.1 % (1.0-6.0); RBC 4.52 10^6/uL (3.5-6.1)
[2017-07-07 17:00] LABS: ACETAMINOPHEN < 10.0 ug/ml (10.0-20.0); BASO # 0.02 K/mm3 (0.0-2.0); EOS # 0.1 (0.0-0.7); GRAN # 4.24 (1.4-6.5); LYMPH # 1.8 (1.2-3.4); MONO # 0.8 (0.1-0.6); SALICYLATE < 1 mg/dL (2.0-20.0)
[2017-07-07 17:10] LABS: BARBITURATES, UR NEGATIVE (NEGATIVE); BENZODIAZEPINES, UR NEGATIVE (NEGATIVE); OPIATES, UR NEGATIVE (NEGATIVE)
[2017-07-07 17:21] LABS: PHENCYCLIDINE, UR POSITIVE (NEGATIVE)
[2017-07-07 17:30] LABS: ALB/GLOB RATIO 1.6 (1.1-1.8); ALBUMIN 4.3 g/dL (3.0-4.8); ALT/SGPT 39 U/L (7-56); AST/SGOT 28 U/L (17-59); BLOOD UREA NITROGEN 20 mg/dL (7-21); CALCIUM 9.6 mg/dL (8.4-10.5); GFR AFRICAN-AMERICAN > 60; GFR NON-AFRICAN AMERICAN > 60
[2017-07-07 20:11] VITALS: O2SAT 99
[2017-07-07] MEDS ORDERED: Alum-Mag Hydrox-Simethicone Susp (30 mL) PO PRN (20:22)
[2017-07-07] MEDS ORDERED: Magnesium Hydroxide Susp 30 ml UD PO PRN (20:22)
--- NOTE | 2017-07-08 03:12 | PCM.BM ---
<Yinka Buchanan - Last Filed: 07/08/17 03:09> Treatment Plan Problems - Problems identified on initial assessmt DEPRESSION Date Initiated: 07/07/17 Time Initiated: 20:00 Assessment reference: NA Status: Active MEDICATION NON COMPLIANCE Date Initiated: 07/07/17 Time Initiated: 20:00 Assessment reference: NA Status: Active SUBSTANCE ABUSE Date Initiated: 07/07/17 Time Initiated: 20:00 Assessment reference: NA Status: Active Treatment assets and liabiliti Patient Assests: adapts well, cooperative, resourceful, self-reliant, ADL independent, negotiates basic needs, cognitively intact, other Patient Liabilities: live alone, substance abuse, medical problems - Milieu Protocol Maintain good personal hygiene: every other day Encourage regular showers, every shift Remind patient to perform daily oral care, every shift Assist patient to perform ADL's Maintain personal safety: every shift Educate patient to report safety concerns to staff, every shift Monitor environment for contraband/sharps Medication safety: Monitor for expected outcome, potential side effects: every shift, Assess barriers to learning: every shift, Assess readiness for medication education: every shift Family Contact Family involvement: Family/SO is involved Family contact: Patient agrees to contact, Family meeting planned to review treatment plan Discharge/Continuing Care - Education Needs Education Needs: Patient Medication, Patient Diagnosis/Disease Process, Patient Coping Skills, Patient Placement options, Patient Community resources, Patient Activities of Daily Living, Patient Health Practices/Safety - Discharge Discharge Criteria: Tolerates medication w/o severe side effects, Free of Suicidal thoughts, Free of Homicidal thoughts, Free of paranoid thoughts, Normal sleep pattern, Ability to care for self <Navin Sweet - Last Filed: 07/08/17 10:20> Treatment Plan Problems - Problems identified on initial assessmt Ineffective Coping Date Initiated: 07/08/17 Time Initiated: 10:23 Assessment reference: NA Status: Active Priority: 1 Hopelessness Date Initiated: 07/08/17 Time Initiated: 10:23 Assessment reference: NA Status: Active Priority: 2 Discharge/Continuing Care - Education Needs Education Needs: Patient Aftercare Safety Plan <Nereida Ellison - Last Filed: 07/08/17 16:32> Family Contact Family involvement: Famliy/SO not involved
[2017-07-08 07:05] VITALS: RESP 20
[2017-07-08 08:23] LABS: GLUCOSE,FASTING 105 mg/dL (65-110); HDL CHOLESTEROL 49 mg/dL (29-60)
[2017-07-08 08:33] LABS: LDL CHOLESTEROL 55 mg/dL (0-129)
--- NOTE | 2017-07-08 08:49 | RAD ---
HISTORY: psych eval COMPARISON: 07/02/2017. FINDINGS: LUNGS: The lungs are well inflated and clear. PLEURA: No significant pleural effusion identified, no pneumothorax apparent. CARDIOVASCULAR: Normal. OSSEOUS STRUCTURES: No significant abnormalities. VISUALIZED UPPER ABDOMEN: Normal. OTHER FINDINGS: None. IMPRESSION: No active pulmonary disease.
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
[2017-07-08] MEDS ORDERED: DiphenhydrAMINE 50 mg/ml Inj IM PRN (15:07)
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
--- NOTE | 2017-07-08 16:58 | CARD ---
APPROVED REPORT EKG Measurement Heart [id number] <Conclusion> Normal sinus rhythm with sinus arrhythmia Normal ECG
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
[2017-07-09 07:07] VITALS: TEMP 98.4
[2017-07-09] MEDS: Multivitamin Therapeutic Tab PO SCH (10:03)
--- NOTE | 2017-07-09 15:37 | PCM.PYCHPN ---
Psychiatric Progress Note - Psychiatric Progress Note Patient seen today, length of contact: 30 min Patient Chief Complaint: "I am signing 48 hr notice not because I want to leave, but make sure I will be discharged" Problems Identified/Issues Discussed: Suicide/ homicide prevention, past psychiatric h/o, current psychiatric symptoms , medical problems, risk/benefits and alternatives of medications, medications compliance, coping strategies, substance abuse h/o, relapse prevention, importance of follow up with psychiatrist and therapist, discharge plan. Medical Problems: no major medical issues Diagnostic Results: 07/07/17 16:27 07/07/17 16:27 Lab Results 07/08/17 07:45: RPR Nonreactive 07/08/17 07:45: TSH 3rd Generation 1.38 07/08/17 07:45: Fasting Glucose 105, Triglycerides 103, Cholesterol 122 L, LDL Cholesterol Direct 55, HDL Cholesterol 49 07/07/17 16:27: Alcohol, Quantitative < 10 07/07/17 16:27: Salicylates < 1 L, Acetaminophen < 10.0 L 07/07/17 16:27: Urine Opiates Screen Negative, Urine Methadone Screen Negative, Ur Barbiturates Screen Negative, Ur Phencyclidine Scrn Positive H, Ur Amphetamines Screen Negative, U Benzodiazepines Scrn Negative, U Oth Cocaine Metabols Negative, U Cannabinoids Screen Negative 07/07/17 16:27: Sodium 145, Potassium 4.2, Chloride 106, Carbon Dioxide 27, Anion Gap 16, BUN 20, Creatinine 1.2, Est GFR ( Amer) > 60, Est GFR (Non- Af Amer) > 60, Random Glucose 47 L* D, Calcium 9.6, Total Bilirubin 0.2, AST 28 , ALT 39, Alkaline Phosphatase 51, Total Protein 7.0, Albumin 4.3, Globulin 2.7 , Albumin/Globulin Ratio 1.6 07/07/17 16:27: Urine Color Light yellow, Urine Appearance Clear, Urine pH 5.5, Ur Specific Dawson >= 1.030, Urine Protein Negative, Urine Glucose (UA) Negative, Urine Ketones Negative, Urine Blood Negative, Urine Nitrate Negative, Urine Bilirubin Negative, Urine Urobilinogen 0.2, Ur Leukocyte Esterase Negative 07/07/17 16:27: WBC 7.0, RBC 4.52, Hgb 13.4 L, Hct 41.3 L, MCV 91.4, MCH 29.6, MCHC 32.4, RDW 13.0, Plt Count 274, MPV 9.7, Gran % 60.9, Lymph % (Auto) 25.1, Real % (Auto) 12.1 H, Eos % (Auto) 1.6, Baso % (Auto) 0.3, Gran # 4.24, Lymph # 1.8, Real # 0.8 H, Eos # 0.1, Baso # 0.02 Vital Signs Temp Pulse Resp BP Pulse Ox 07/09/17 07:07 98.4 F 64 20 110/62 07/08/17 07:04 98.0 F 60 20 102/54 L 07/07/17 20:21 22 07/07/17 20:00 98.6 F 80 16 130/72 99 07/07/17 18:00 89 18 136/79 98 07/07/17 14:20 98.6 F 86 18 137/88 100 DSM 5 Symptoms Update: Patient this 32 year old -[place] male, long debilitating history of PCP abuse, multiple psychiatric admissions to this unit for anger problems, disorganized thoughts and behavior, patient has chronic noncompliance with the medications and follow-up appointments, most recent admission to this unit in May 2017, since that time pt came to the ED 9times, this time pt presented to be disorganized, verbalized thoughts of harming self, which ruled out today at tx team meeting, but pt presented to be loud, disorganized, paranoid, guarded, pt requires further evaluation and stabilization, meds resumption and titration. pt was seen in his room with JOSÉ Holden. pt is s/p IM for severe agitation, pt almost hit a PCP, pt presented to be paranoid, guarded, grandiose that he is "gifted and talented". pt denied thoughts of harming self but others, but impulses are still unpredictable. Earlier pt signed 48 hr notice "it is not because I want to go, but to be sure I will be discharged...". pt's statements makes no much sense. as per staff pt is unpredictable, disrespectful, paranoid. pt tolerates meds well, no side effects observed or reported, AIMS 0, no EPS. 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 ) - Affect Affect: Flat - Formal Thought Process Formal Thought Process: Hallucinations, Delusions, Paranoia - Suicidal Ideation Suicidal Ideation: No - Homicidal Ideation Homicidal Ideation: No Goal/Treatment Plan - Goal/Treatment Plan Need for Continued Stay: Remain at risks for inpatient hospitalization, Severe depression anxiety, Discharge may exacerbated symptoms, Failed transitioning, Severe functional impairment Progress Toward Problem(s) and Goals/Treatment Plan: Milieu/structure/supportive therapy pt submitted 48hr notice today at 11.30am today, will consider to screen pt Medical consult appreciated, see medical team note for more detailed info SW consultation for discharge plan and social issues Med management seroquel 200amhs mg for psychosis celexa will be continued for mood symptoms PRN meds Family involvement Follow up on labs Will monitor closely Pt was educated about risk/benefits and alternatives of medications, coping strategies (safety plan, suicide prevention), relapse prevention, importance of follow up with psychiatrist and therapist, stay away from drugs/alcohol/smoking Estimated Date of D/C: 07/15/17
[2017-07-10] MEDS: Multivitamin Therapeutic Tab PO SCH (08:56)
[2017-07-10 16:15] VITALS: BP 109/68; PULSE 73
--- NOTE | 2017-07-10 17:16 | PCM.PYCHDC ---
Mental Status Examination - Mental Status Examination Orientation: Person, Place, Situation, Time Memory: Impaired (but better) Mood: Neutral Affect: Constricted Attention: Poor (but with imrpovement) Concentration: Poor (with improvement) Association: Loose (chronic) Fund of Knowledge: Poor Formal Thought Process: No Impairment Description of patient's judgement and insight: pt has poor insight into his drug addiction pt does not want to to to rehab does not want to continue medications Psychotic Thoughts and Behaviors: psychosis is much better pt did not have behavioral disturbances for more than 24hrs has good appetite and sleep Suicidal Ideation: No Current Homicidal Ideation?: No Plan: pt adamantly denied thoughts of harming self or others. Discharge Summary - Discharge Note Reason for Hospitalization: initially pt was admitted for possible suicidal ideation, but pt made clear that he "lied", but pt presented to be disorganized, loud, delusions of grandor. Psychiatric History (includes Medical, Family, Personal Hx): see HPI Laboratory Data: 07/07/17 16:27 07/07/17 16:27 Lab Results 07/08/17 07:45: RPR Nonreactive 07/08/17 07:45: TSH 3rd Generation 1.38 07/08/17 07:45: Fasting Glucose 105, Triglycerides 103, Cholesterol 122 L, LDL Cholesterol Direct 55, HDL Cholesterol 49 07/07/17 16:27: Alcohol, Quantitative < 10 07/07/17 16:27: Salicylates < 1 L, Acetaminophen < 10.0 L 07/07/17 16:27: Urine Opiates Screen Negative, Urine Methadone Screen Negative, Ur Barbiturates Screen Negative, Ur Phencyclidine Scrn Positive H, Ur Amphetamines Screen Negative, U Benzodiazepines Scrn Negative, U Oth Cocaine Metabols Negative, U Cannabinoids Screen Negative 07/07/17 16:27: Sodium 145, Potassium 4.2, Chloride 106, Carbon Dioxide 27, Anion Gap 16, BUN 20, Creatinine 1.2, Est GFR ( Amer) > 60, Est GFR (Non- Af Amer) > 60, Random Glucose 47 L* D, Calcium 9.6, Total Bilirubin 0.2, AST 28 , ALT 39, Alkaline Phosphatase 51, Total Protein 7.0, Albumin 4.3, Globulin 2.7 , Albumin/Globulin Ratio 1.6 07/07/17 16:27: Urine Color Light yellow, Urine Appearance Clear, Urine pH 5.5, Ur Specific [place] >= 1.030, Urine Protein Negative, Urine Glucose (UA) Negative, Urine Ketones Negative, Urine Blood Negative, Urine Nitrate Negative, Urine Bilirubin Negative, Urine Urobilinogen 0.2, Ur Leukocyte Esterase Negative 07/07/17 16:27: WBC 7.0, RBC 4.52, Hgb 13.4 L, Hct 41.3 L, MCV 91.4, MCH 29.6, MCHC 32.4, RDW 13.0, Plt Count 274, MPV 9.7, Gran % 60.9, Lymph % (Auto) 25.1, [place] % (Auto) 12.1 H, Eos % (Auto) 1.6, Baso % (Auto) 0.3, Gran # 4.24, Lymph # 1.8, [place] # 0.8 H, Eos # 0.1, Baso # 0.02 Vital Signs Temp Pulse Resp BP Pulse Ox 07/10/17 16:15 73 109/68 07/09/17 07:07 98.4 F 64 20 110/62 07/08/17 07:04 98.0 F 60 20 102/54 L 07/07/17 20:21 22 07/07/17 20:00 98.6 F 80 16 130/72 99 07/07/17 18:00 89 18 136/79 98 07/07/17 14:20 98.6 F 86 18 137/88 100 Consultations:: List each consultation separately and include: 1. Reason for request. 2. Findings. 3. Follow-up Consultations: medical consult appreciated see notes for more detailed information Summary of Hospital Course include:: 1. Description of specific treatment plan utilized for patients during their course of treatmen. 2. Summarize the time- course for resolution of acute symptoms and/or regressed behaviors. 3. Describe issues identified and worked on during hospitalization. 4. Describe medication utilized. 5. Describe medical problems identified and treated. 6. Reassessment of suicide risk Summary of Hospital Course: Patient this 32 year old -Japanese male, long debilitating history of PCP abuse, multiple psychiatric admissions to this unit for anger problems, disorganized thoughts and behavior, patient has chronic noncompliance with the medications and follow-up appointments, most recent admission to this unit in May 2017, since that time pt came to the ED 9times, this time pt presented to be disorganized, verbalized thoughts of harming self, which ruled out today at tx team meeting, but pt presented to be loud, disorganized, paranoid, guarded, pt requires further evaluation and stabilization, meds resumption and titration. at the time of admission pt was seen at tx team meeting, presented to be loud, said he lied about the suicidal and homicidal ideation, "I have no place to go, I cannot stay on streets, yes, you can throw me out too, but I know you are jealous of me, I am gifted and talented...", when was asked about his talents, pt said he played basketball, but when this entry writer asked when was the last play , pt became angry, disrespectful, paranoid, screaming, cursing at this entry writer. pt refused to sign tx plan and left the room. pt presented with poor personal hygiene, fair ADLs. pt's favorite drug use is a PCP, initially pt patient wanted to go to rehabilitation but during this hospitalization pt changed his mind and refused to go there. pt signed 48hr notice, requested to be discharged. pt denied thoughts of harming self or others, pt is less psychotic. pt has good appetite and sleep. 07/07/17 16:27 07/07/17 16:27 Lab Results 07/08/17 07:45: TSH 3rd Generation 1.38 07/08/17 07:45: Fasting Glucose 105, Triglycerides 103, Cholesterol 122 L, LDL Cholesterol Direct 55, HDL Cholesterol 49 07/07/17 16:27: Alcohol, Quantitative < 10 07/07/17 16:27: Salicylates < 1 L, Acetaminophen < 10.0 L 07/07/17 16:27: Urine Opiates Screen Negative, Urine Methadone Screen Negative, Ur Barbiturates Screen Negative, Ur Phencyclidine Scrn Positive H, Ur Amphetamines Screen Negative, U Benzodiazepines Scrn Negative, U Oth Cocaine Metabols Negative, U Cannabinoids Screen Negative 07/07/17 16:27: Sodium 145, Potassium 4.2, Chloride 106, Carbon Dioxide 27, Anion Gap 16, BUN 20, Creatinine 1.2, Est GFR ( Amer) > 60, Est GFR (Non- Af Amer) > 60, Random Glucose 47 L* D, Calcium 9.6, Total Bilirubin 0.2, AST 28 , ALT 39, Alkaline Phosphatase 51, Total Protein 7.0, Albumin 4.3, Globulin 2.7 , Albumin/Globulin Ratio 1.6 07/07/17 16:27: Urine Color Light yellow, Urine Appearance Clear, Urine pH 5.5, Ur Specific [place] >= 1.030, Urine Protein Negative, Urine Glucose (UA) Negative, Urine Ketones Negative, Urine Blood Negative, Urine Nitrate Negative, Urine Bilirubin Negative, Urine Urobilinogen 0.2, Ur Leukocyte Esterase Negative 07/07/17 16:27: WBC 7.0, RBC 4.52, Hgb 13.4 L, Hct 41.3 L, MCV 91.4, MCH 29.6, MCHC 32.4, RDW 13.0, Plt Count 274, MPV 9.7, Gran % 60.9, Lymph % (Auto) 25.1, [place] % (Auto) 12.1 H, Eos % (Auto) 1.6, Baso % (Auto) 0.3, Gran # 4.24, Lymph # 1.8, [place] # 0.8 H, Eos # 0.1, Baso # 0.02 Vital Signs Temp Pulse Resp BP Pulse Ox 07/08/17 07:04 98.0 F 60 20 102/54 L 07/07/17 20:21 22 07/07/17 20:00 98.6 F 80 16 130/72 99 07/07/17 18:00 89 18 136/79 98 07/07/17 14:20 98.6 F 86 18 137/88 100 pt was stabilized on seroquel, celexa, but pt made it clear that he does not wan to take meds. pt will not benefit from further hospitalization pt was provided with info for outpatient programs At the time of the discharge pt denied been depressed, denied thoughts of harming self or others, denied psychotic symptoms, but still was grandiose. pt is not in imminent danger to self or others if he will be off drugs. will be following up at clinic of his choice, information about outpatient programs provided by , it is patient responsibility to follow up with outpatient clinic , PMD as well as specialists (see note for more detailed information). In case pt will need to obtain results of studies pending at discharge pt was provided with contact information of Psychiatric Inpatient unit [phone] as well as Medical Record Department [phone]. Counseling about smoking and alcohol cessation provided AA meetings as well as smoking cessation treatment program information was provided by the pt refused to continue on meds Pt was educated about safety plan in case of worsening of symptoms or in case of suicidal or homicidal ideation call 911 or go to the nearest ER, also was educated to take meds as prescribed and stay away from drugs, pt verbalized understanding. - Diagnosis (1) PCP abuse Current Visit: No Status: Chronic Priority: Medium (2) Phencyclidine (PCP)-induced psychosis Current Visit: No Status: Resolved Priority: Low - Final Diagnosis (DSM 5) Condition upon Discharge: STABLE Disposition: AGAINST MEDICAL ADVICE Follow-up Treatment Plan: At the time of the discharge pt denied been depressed, denied thoughts of harming self or others, denied psychotic symptoms, but still was grandiose. pt is not in imminent danger to self or others if he will be off drugs. will be following up at clinic of his choice, information about outpatient programs provided by , it is patient responsibility to follow up with outpatient clinic , PMD as well as specialists (see note for more detailed information). In case pt will need to obtain results of studies pending at discharge pt was provided with contact information of Psychiatric Inpatient unit [phone] as well as Medical Record Department [phone]. Counseling about smoking and alcohol cessation provided AA meetings as well as smoking cessation treatment program information was provided by the [facility] pt refused to continue on meds Pt was educated about safety plan in case of worsening of symptoms or in case of suicidal or homicidal ideation call 911 or go to the nearest ER, also was educated to take meds as prescribed and stay away from drugs, pt verbalized understanding. - Smoking Cessation Smoking Cessation Medication prescribed: No Reason for not providing: pt refused - Antipsychotic Medications Pt discharged on 2 or more routine antipsychotic medications: No
== END 2017-07-10 16:46 | disposition left against medical advice (07) | DRG 746 ==
LOC: ED 13:39 → ERH 19:08 → PSYC 20:17
PROVIDERS: ADMIT Psychiatry & Neurology Psychiatry; ATTEND Psychiatry & Neurology Psychiatry
DX: F16.159 Hallucinogen abuse with hallucinogen-induced psychotic disorder, unspecified (principal); F17.210 Nicotine dependence, cigarettes, uncomplicated; F41.9 Anxiety disorder, unspecified; F32.9 Major depressive disorder, single episode, unspecified; Z59.0 Homelessness

== ENCOUNTER 2017-07-12 23:45 | Emergency (ER) | payer OTHER ==
[2017-07-12 23:45] VITALS: BMI 25.8
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
[2017-07-13 01:57] LABS: BASO # 0.02 K/mm3 (0.0-2.0); BASO % 0.2 % (0.0-3.0); EOS # 0.1 (0.0-0.7); EOS % 0.5 % (1.5-5.0); GRAN # 7.04 (1.4-6.5); GRAN % 62.5 % (50.0-68.0); HEMOGLOBIN 13.5 g/dL (14.0-18.0); LYMPH # 3.5 (1.2-3.4); LYMPH % 30.9 % (22.0-35.0); MEAN CELL VOLUME 88.4 fl (80.0-105.0); MEAN CORPUSCULAR HEMOGLOBIN 29.7 pg (25.0-35.0); MEAN CORPUSCULAR HGB CONC 33.6 g/dl (31.0-37.0); MEAN PLATELET VOLUME 9.3 fl (7.0-11.0); MONO # 0.7 (0.1-0.6); MONO % 5.9 % (1.0-6.0); RBC 4.55 10^6/uL (3.5-6.1); RED CELL DISTRIBUTION WIDTH 12.5 % (11.5-14.5); WHITE BLOOD COUNT 11.3 10^3/ul (4.5-11.0)
[2017-07-13 02:09] LABS: ACETAMINOPHEN < 10.0 ug/ml (10.0-20.0); SALICYLATE < 1 mg/dL (2.0-20.0)
[2017-07-13 02:17] LABS: ALB/GLOB RATIO 1.7 (1.1-1.8); ALBUMIN 4.6 g/dL (3.0-4.8); ALT/SGPT 52 U/L (7-56); AST/SGOT 28 U/L (17-59); BLOOD UREA NITROGEN 9 mg/dL (7-21); CALCIUM 9.7 mg/dL (8.4-10.5); GFR AFRICAN-AMERICAN > 60; GFR NON-AFRICAN AMERICAN > 60
[2017-07-13 02:41] LABS: URINE BILIRUBIN NEGATIVE (NEGATIVE); URINE BLOOD NEGATIVE (NEGATIVE); URINE GLUCOSE (UA) NEGATIVE (NEGATIVE); URINE LEUKOCYTE ESTERASE NEGATIVE Leu/uL (NEGATIVE); URINE NITRATE NEGATIVE (NEGATIVE); URINE PROTEIN NEGATIVE mg/dL (<30 mg/dL); URINE UROBILINOGEN 0.2 E.U./dL (<1 E.U./dL)
[2017-07-13 02:42] LABS: URINE APPEARANCE CLEAR (CLEAR); URINE COLOR LIGHT YELLOW (YELLOW)
[2017-07-13 03:16] LABS: BARBITURATES, UR NEGATIVE (NEGATIVE); BENZODIAZEPINES, UR NEGATIVE (NEGATIVE); OPIATES, UR NEGATIVE (NEGATIVE)
[2017-07-13 03:17] LABS: PHENCYCLIDINE, UR POSITIVE (NEGATIVE)
[2017-07-13 04:53] VITALS: RESP 17; O2SAT 98
[2017-07-13 06:22] VITALS: BP 135/78; PULSE 82; TEMP 98.2
--- NOTE | 2017-07-13 08:22 | RAD ---
PROCEDURE: CHEST RADIOGRAPH, 1 VIEW HISTORY: pes eval COMPARISON: 07/07/2017 FINDINGS: LUNGS: Clear. PLEURA: No pneumothorax or pleural fluid seen. CARDIOVASCULAR: Normal. OSSEOUS STRUCTURES: No significant abnormalities. VISUALIZED UPPER ABDOMEN: Normal. OTHER FINDINGS: None. IMPRESSION: No active disease.
--- NOTE | 2017-07-13 11:09 | CARD ---
APPROVED REPORT EKG Measurement Heart [id number] <Conclusion> Normal sinus rhythm with sinus arrhythmia Normal ECG No change
== END 2017-07-13 06:22 | disposition home or self-care (01) ==
LOC: ED 23:45
DX: F41.9 Anxiety disorder, unspecified (principal); F32.9 Major depressive disorder, single episode, unspecified; F17.210 Nicotine dependence, cigarettes, uncomplicated

== ENCOUNTER 2017-07-15 11:47 | Emergency (ER) | payer OTHER ==
[2017-07-15 11:48] VITALS: BMI 25.8
[2017-07-15 11:57] VITALS: BP 143/90; PULSE 80; RESP 20; TEMP 97.9; O2SAT 98
[2017-07-15 14:40] LABS: BASO # 0.02 K/mm3 (0.0-2.0); BASO % 0.2 % (0.0-3.0); EOS # 0.1 (0.0-0.7); EOS % 1.2 % (1.5-5.0); GRAN # 4.96 (1.4-6.5); GRAN % 60.7 % (50.0-68.0); HEMOGLOBIN 13.1 g/dL (14.0-18.0); LYMPH # 2.6 (1.2-3.4); MEAN CELL VOLUME 89.5 fl (80.0-105.0); MEAN CORPUSCULAR HEMOGLOBIN 29.8 pg (25.0-35.0); MEAN CORPUSCULAR HGB CONC 33.2 g/dl (31.0-37.0); MEAN PLATELET VOLUME 9.6 fl (7.0-11.0); MONO # 0.5 (0.1-0.6); MONO % 5.9 % (1.0-6.0); RBC 4.4 10^6/uL (3.5-6.1); RED CELL DISTRIBUTION WIDTH 12.6 % (11.5-14.5); WHITE BLOOD COUNT 8.2 10^3/ul (4.5-11.0)
[2017-07-15 14:46] LABS: ALB/GLOB RATIO 1.5 (1.1-1.8); ALT/SGPT 37 U/L (7-56); AST/SGOT 21 U/L (17-59); BLOOD UREA NITROGEN 15 mg/dL (7-21); CALCIUM 9.5 mg/dL (8.4-10.5); GFR AFRICAN-AMERICAN > 60; GFR NON-AFRICAN AMERICAN > 60
[2017-07-15 14:47] LABS: ACETAMINOPHEN < 10.0 ug/ml (10.0-20.0); SALICYLATE < 1 mg/dL (2.0-20.0)
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
[2017-07-15 15:10] LABS: BARBITURATES, UR NEGATIVE (NEGATIVE); BENZODIAZEPINES, UR NEGATIVE (NEGATIVE); OPIATES, UR NEGATIVE (NEGATIVE)
[2017-07-15 15:28] LABS: PHENCYCLIDINE, UR POSITIVE (NEGATIVE)
[2017-07-15] MEDS ORDERED: Clotrimazole 1% Cream(30 gm) TOP STA (18:01)
== END 2017-07-15 18:10 | disposition home or self-care (01) ==
LOC: ED 11:47
DX: F32.9 Major depressive disorder, single episode, unspecified (principal); F19.94 Other psychoactive substance use, unspecified with psychoactive substance-induced mood disorder; F17.210 Nicotine dependence, cigarettes, uncomplicated

== ENCOUNTER 2017-08-02 18:44 | Emergency (ER) | payer OTHER ==
[2017-08-02 18:44] VITALS: BMI 25.8
[2017-08-02 21:37] VITALS: BP 131/80; PULSE 75; RESP 16; TEMP 97.6; O2SAT 99
== END 2017-08-02 21:23 | disposition left against medical advice (07) ==
LOC: ED 18:44
DX: Z02.89 Encounter for other administrative examinations (principal); F10.10 Alcohol abuse, uncomplicated

== ENCOUNTER 2017-08-03 00:55 | Emergency (ER) | payer OTHER ==
[2017-08-03 00:55] VITALS: BMI 25.8
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
[2017-08-03 06:48] VITALS: BP 130/82; PULSE 82; RESP 17; O2SAT 98
[2017-08-03 07:09] VITALS: TEMP 98
--- NOTE | 2017-08-03 09:56 | RAD ---
PROCEDURE: Right Knee Radiographs. HISTORY: 32yoM, right knee pain COMPARISON: None. FINDINGS: BONES: Normal. No fracture. JOINTS: Normal. No osteoarthritis. JOINT EFFUSION: None. OTHER FINDINGS: None. IMPRESSION: Normal radiographs of the right knee.
== END 2017-08-03 07:09 | disposition home or self-care (01) ==
LOC: ED 00:55
DX: M25.561 Pain in right knee (principal)

== ENCOUNTER 2017-08-23 14:01 | Emergency (ER) | payer MEDICAID, OTHER ==
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
[2017-08-23 15:58] VITALS: BMI 27.3
[2017-08-23 16:07] VITALS: TEMP 97.7
[2017-08-23 17:44] VITALS: BP 124/78; PULSE 82; RESP 18; O2SAT 97
== END 2017-08-23 18:07 | disposition home or self-care (01) ==
LOC: ED 14:01
DX: F10.129 Alcohol abuse with intoxication, unspecified (principal); F17.210 Nicotine dependence, cigarettes, uncomplicated

== ENCOUNTER 2017-08-24 08:12 | Emergency (ER) | payer MEDICAID, OTHER ==
[2017-08-24 08:12] VITALS: BMI 27.3
[2017-08-24 08:35] VITALS: RESP 18; O2SAT 97
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
--- NOTE | 2017-08-24 08:52 | RAD ---
HISTORY: medical clearance COMPARISON: 07/13/2017 FINDINGS: LUNGS: No active pulmonary disease. PLEURA: No significant pleural effusion identified, no pneumothorax apparent. CARDIOVASCULAR: Normal. OSSEOUS STRUCTURES: No significant abnormalities. VISUALIZED UPPER ABDOMEN: Normal. OTHER FINDINGS: None. IMPRESSION: No active disease.
[2017-08-24 09:20] LABS: URINE BILIRUBIN NEGATIVE (NEGATIVE); URINE BLOOD NEGATIVE (NEGATIVE); URINE GLUCOSE (UA) NEGATIVE (NEGATIVE); URINE LEUKOCYTE ESTERASE NEGATIVE Leu/uL (NEGATIVE); URINE NITRATE NEGATIVE (NEGATIVE); URINE PROTEIN NEGATIVE mg/dL (<30 mg/dL); URINE UROBILINOGEN 0.2 E.U./dL (<1 E.U./dL)
[2017-08-24 09:26] LABS: BASO # 0.04 K/mm3 (0.0-2.0); BASO % 0.5 % (0.0-3.0); EOS # 0.2 (0.0-0.7); EOS % 2.5 % (1.5-5.0); GRAN # 4.83 (1.4-6.5); GRAN % 63.6 % (50.0-68.0); HEMOGLOBIN 13.8 g/dL (14.0-18.0); LYMPH % 26.2 % (22.0-35.0); MEAN CELL VOLUME 90.1 fl (80.0-105.0); MEAN CORPUSCULAR HEMOGLOBIN 29.7 pg (25.0-35.0); MEAN PLATELET VOLUME 9.9 fl (7.0-11.0); MONO # 0.6 (0.1-0.6); MONO % 7.2 % (1.0-6.0); RBC 4.64 10^6/uL (3.5-6.1); RED CELL DISTRIBUTION WIDTH 13.1 % (11.5-14.5); WHITE BLOOD COUNT 7.6 10^3/ul (4.5-11.0)
[2017-08-24 09:29] LABS: URINE APPEARANCE CLEAR (CLEAR); URINE COLOR YELLOW (YELLOW)
[2017-08-24 09:32] LABS: ALB/GLOB RATIO 1.7 (1.1-1.8); ALBUMIN 4.2 g/dL (3.0-4.8); ALT/SGPT 25 U/L (7-56); AST/SGOT 17 U/L (17-59); BLOOD UREA NITROGEN 14 mg/dL (7-21); CALCIUM 9.6 mg/dL (8.4-10.5); GFR AFRICAN-AMERICAN > 60; GFR NON-AFRICAN AMERICAN > 60
[2017-08-24 09:45] LABS: BARBITURATES, UR NEGATIVE (NEGATIVE); BENZODIAZEPINES, UR NEGATIVE (NEGATIVE); OPIATES, UR NEGATIVE (NEGATIVE); PHENCYCLIDINE, UR POSITIVE (NEGATIVE)
[2017-08-24 12:08] VITALS: TEMP 98
[2017-08-24 13:36] VITALS: BP 129/76; PULSE 58
--- NOTE | 2017-08-24 16:40 | CARD ---
APPROVED REPORT EKG Measurement Heart [id number] <Conclusion> Sinus bradycardia Otherwise normal ECG
== END 2017-08-24 13:30 | disposition home or self-care (01) ==
LOC: ED 08:12
DX: F16.10 Hallucinogen abuse, uncomplicated (principal); F17.210 Nicotine dependence, cigarettes, uncomplicated
CPT/HCPCS: 71045; 80053; 81003; 82550; 85025; 93005; 99284; G0480

== ENCOUNTER 2017-08-26 14:45 | Emergency (ER) | payer MEDICAID, OTHER ==
[2017-08-26 14:46] VITALS: BMI 27.3
[2017-08-26 15:30] VITALS: BP 119/84; PULSE 64; RESP 17; TEMP 98.6; O2SAT 98
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
== END 2017-08-26 16:53 | disposition home or self-care (01) ==
LOC: ED 14:45
DX: M25.561 Pain in right knee (principal); F17.210 Nicotine dependence, cigarettes, uncomplicated

== ENCOUNTER 2017-08-26 19:41 | Emergency (ER) | payer MEDICAID, OTHER ==
[2017-08-26 19:42] VITALS: BMI 27.3
[2017-08-26 19:54] VITALS: BP 135/80; PULSE 66; RESP 16; TEMP 97.7; O2SAT 98
== END 2017-08-26 22:04 | disposition left against medical advice (07) ==
LOC: ED 19:41
DX: Z02.89 Encounter for other administrative examinations (principal); R53.1 Weakness

== ENCOUNTER 2017-08-26 23:58 | Emergency (ER) | payer MEDICAID, OTHER ==
[2017-08-26 23:58] VITALS: BMI 27.3
[2017-08-27 00:27] VITALS: RESP 18; TEMP 98.1
[2017-08-27 04:35] VITALS: BP 128/74; PULSE 88; O2SAT 100
== END 2017-08-27 04:39 | disposition left against medical advice (07) ==
LOC: ED 23:58
DX: Z02.89 Encounter for other administrative examinations (principal); F32.9 Major depressive disorder, single episode, unspecified

== ENCOUNTER 2017-08-27 04:41 | Emergency (ER) | payer MEDICAID, OTHER ==
[2017-08-27 04:41] VITALS: BMI 27.3
[2017-08-27 04:58] VITALS: BP 136/74; PULSE 78; RESP 18; TEMP 98.4; O2SAT 99
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
== END 2017-08-27 06:19 | disposition home or self-care (01) ==
LOC: ED 04:41
DX: Z00.00 Encounter for general adult medical examination without abnormal findings (principal); F17.210 Nicotine dependence, cigarettes, uncomplicated

== ENCOUNTER 2017-08-27 14:08 | Emergency (ER) | payer MEDICAID, OTHER ==
[2017-08-27 14:08] VITALS: BMI 27.3
[2017-08-27 15:00] VITALS: TEMP 98.1
[2017-08-27 15:18] LABS: URINE BILIRUBIN NEGATIVE (NEGATIVE); URINE BLOOD NEGATIVE (NEGATIVE); URINE GLUCOSE (UA) NEGATIVE (NEGATIVE); URINE LEUKOCYTE ESTERASE NEGATIVE Leu/uL (NEGATIVE); URINE NITRATE NEGATIVE (NEGATIVE); URINE PROTEIN NEGATIVE mg/dL (<30 mg/dL); URINE UROBILINOGEN 0.2 E.U./dL (<1 E.U./dL)
[2017-08-27 15:19] LABS: URINE APPEARANCE CLEAR (CLEAR); URINE COLOR YELLOW (YELLOW)
[2017-08-27 15:21] LABS: BASO # 0.02 K/mm3 (0.0-2.0); BASO % 0.3 % (0.0-3.0); EOS # 0.2 (0.0-0.7); GRAN # 4.69 (1.4-6.5); GRAN % 63.6 % (50.0-68.0); HEMOGLOBIN 13.5 g/dL (14.0-18.0); LYMPH # 1.9 (1.2-3.4); MEAN CELL VOLUME 90.2 fl (80.0-105.0); MEAN CORPUSCULAR HEMOGLOBIN 30.1 pg (25.0-35.0); MEAN CORPUSCULAR HGB CONC 33.4 g/dl (31.0-37.0); MEAN PLATELET VOLUME 9.8 fl (7.0-11.0); MONO # 0.6 (0.1-0.6); MONO % 8.1 % (1.0-6.0); RBC 4.48 10^6/uL (3.5-6.1); RED CELL DISTRIBUTION WIDTH 13.2 % (11.5-14.5); WHITE BLOOD COUNT 7.4 10^3/ul (4.5-11.0)
[2017-08-27 15:37] LABS: ACETAMINOPHEN < 10.0 ug/ml (10.0-20.0); SALICYLATE < 1 mg/dL (2.0-20.0)
[2017-08-27 15:39] LABS: ALB/GLOB RATIO 1.6 (1.1-1.8); ALBUMIN 4.2 g/dL (3.0-4.8); ALT/SGPT 35 U/L (7-56); AST/SGOT 22 U/L (17-59); BLOOD UREA NITROGEN 13 mg/dL (7-21); CALCIUM 10.3 mg/dL (8.4-10.5); GFR AFRICAN-AMERICAN > 60; GFR NON-AFRICAN AMERICAN > 60
[2017-08-27 15:58] LABS: BARBITURATES, UR NEGATIVE (NEGATIVE); BENZODIAZEPINES, UR NEGATIVE (NEGATIVE); OPIATES, UR NEGATIVE (NEGATIVE); PHENCYCLIDINE, UR POSITIVE (NEGATIVE)
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
[2017-08-27 16:32] VITALS: BP 115/87; PULSE 67; RESP 16; O2SAT 100
== END 2017-08-27 16:29 | disposition home or self-care (01) ==
LOC: ED 14:08
DX: Z76.5 Malingerer [conscious simulation] (principal); Z59.0 Homelessness; F16.10 Hallucinogen abuse, uncomplicated; F17.210 Nicotine dependence, cigarettes, uncomplicated
CPT/HCPCS: 80053; 81003; 85025; 99284; G0480

== ENCOUNTER 2017-08-29 13:46 | Emergency (ER) | payer MEDICAID, OTHER ==
[2017-08-29 13:46] VITALS: BMI 27.3
[2017-08-29 16:17] VITALS: RESP 18; TEMP 98.7; O2SAT 98
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
[2017-08-29 16:56] VITALS: BP 126/74; PULSE 65
== END 2017-08-29 17:02 | disposition home or self-care (01) ==
LOC: ED 13:46
DX: M79.604 Pain in right leg (principal); G89.29 Other chronic pain

== ENCOUNTER 2017-08-29 20:46 | Emergency (ER) | payer MEDICAID ==
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
[2017-08-29 21:19] VITALS: BMI 25.8
[2017-08-29 22:12] VITALS: TEMP 98.2
[2017-08-30 06:19] VITALS: BP 120/70; PULSE 87; RESP 17; O2SAT 99
--- NOTE | 2017-08-30 09:45 | RAD ---
HISTORY: medical clearance COMPARISON: 08/24/2017 FINDINGS: LUNGS: No active pulmonary disease. PLEURA: No significant pleural effusion identified, no pneumothorax apparent. CARDIOVASCULAR: Normal. OSSEOUS STRUCTURES: No significant abnormalities. VISUALIZED UPPER ABDOMEN: Normal. OTHER FINDINGS: None. IMPRESSION: No active disease.
--- NOTE | 2017-08-30 17:37 | CARD ---
APPROVED REPORT EKG Measurement Heart [id number] <Conclusion> Sinus bradycardia Otherwise normal ECG
== END 2017-08-30 06:19 | disposition home or self-care (01) ==
LOC: ED 20:46
DX: M79.1 Myalgia (principal); Z76.5 Malingerer [conscious simulation]

== ENCOUNTER → 2017-08-30 | Emergency (ER) | payer MEDICAID ==
[2017-08-30 15:11] VITALS: BMI 25.8
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
[2017-08-30 16:47] VITALS: BP 129/78; PULSE 65; RESP 18; TEMP 98.7; O2SAT 100
--- NOTE | 2017-08-30 18:36 | RAD ---
HISTORY: chest pain COMPARISON: Chest x-ray performed 08/29/17 TECHNIQUE: Chest PA and lateral FINDINGS: LUNGS: 5 mm nodular density at the left lung base. No focal consolidation. Please note that chest x-ray has limited sensitivity for the detection of pulmonary masses. PLEURA: No significant pleural effusion identified. No definite pneumothorax . CARDIOVASCULAR: Heart size appears top normal. OSSEOUS STRUCTURES: Degenerative changes. VISUALIZED UPPER ABDOMEN: Unremarkable. OTHER FINDINGS: None. IMPRESSION: 5 mm nodular density at the left lung base. Follow-up CT of the chest may be considered.
--- NOTE | 2017-08-30 22:03 | CARD ---
APPROVED REPORT EKG Measurement Heart [id number] <Conclusion> Normal sinus rhythm with sinus arrhythmia Normal ECG
== END | disposition left against medical advice (07) ==
LOC: ED 15:07
DX: R07.89 Other chest pain (principal); Z59.0 Homelessness

== ENCOUNTER 2017-08-31 14:51 | Emergency (ER) | payer MEDICAID, OTHER ==
[2017-08-31 14:51] VITALS: BMI 25.8
[2017-08-31 15:43] VITALS: RESP 18; TEMP 97.4
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
[2017-08-31 17:19] VITALS: BP 122/73; PULSE 89; O2SAT 100
== END 2017-08-31 17:22 | disposition home or self-care (01) ==
LOC: ED 14:51
DX: R10.13 Epigastric pain (principal)

== ENCOUNTER 2017-09-05 14:22 | Emergency (ER) | payer MEDICAID ==
[2017-09-05 14:38] VITALS: BMI 26.5
[2017-09-05 14:42] VITALS: RESP 18; TEMP 98.2
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
--- NOTE | 2017-09-05 17:20 | CT ---
PROCEDURE: CT HEAD WITHOUT CONTRAST. HISTORY: dizziness, alcohol abuse COMPARISON: 03/09/2017 TECHNIQUE: Axial computed tomography images were obtained through the head/brain without intravenous contrast. Radiation dose: Total exam DLP = 885 mGy-cm. This CT exam was performed using one or more of the following dose reduction techniques: Automated exposure control, adjustment of the mA and/or kV according to patient size, and/or use of iterative reconstruction technique. FINDINGS: HEMORRHAGE: No intracranial hemorrhage. BRAIN: No mass effect or edema. No atrophy or chronic microvascular ischemic changes. VENTRICLES: Unremarkable. No hydrocephalus. CALVARIUM: Unremarkable. PARANASAL SINUSES: Unremarkable as visualized. No significant inflammatory changes. MASTOID AIR CELLS: Unremarkable as visualized. No inflammatory changes. OTHER FINDINGS: None. IMPRESSION: No acute findings
[2017-09-05 17:39] VITALS: BP 127/76; PULSE 64; O2SAT 97
--- NOTE | 2017-09-06 10:44 | CARD ---
APPROVED REPORT EKG Measurement Heart [id number] <Conclusion> Normal sinus rhythm with sinus arrhythmia Normal ECG No change
== END 2017-09-05 18:36 | disposition home or self-care (01) ==
LOC: ED 14:22
DX: F19.10 Other psychoactive substance abuse, uncomplicated (principal); F17.210 Nicotine dependence, cigarettes, uncomplicated; Z59.0 Homelessness

== ENCOUNTER 2017-09-07 01:20 | Emergency (ER) | payer MEDICAID ==
[2017-09-07 01:21] VITALS: BMI 25.8
[2017-09-07 01:44] VITALS: TEMP 97
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
[2017-09-07 05:46] VITALS: BP 135/85; PULSE 72; RESP 18; O2SAT 97
== END 2017-09-07 06:20 | disposition home or self-care (01) ==
LOC: ED 01:20
DX: F10.129 Alcohol abuse with intoxication, unspecified (principal); F17.210 Nicotine dependence, cigarettes, uncomplicated; Z59.0 Homelessness

== ENCOUNTER 2017-09-07 16:55 | Emergency (ER) | payer MEDICAID ==
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
[2017-09-07 17:14] VITALS: TEMP 98.2; BMI 29.8
[2017-09-07 18:15] LABS: BASO # 0.01 K/mm3 (0.0-2.0); BASO % 0.1 % (0.0-3.0); EOS # 0.2 (0.0-0.7); EOS % 1.6 % (1.5-5.0); GRAN # 5.62 (1.4-6.5); GRAN % 59.2 % (50.0-68.0); HEMOGLOBIN 15.1 g/dL (14.0-18.0); LYMPH % 31.1 % (22.0-35.0); MEAN CELL VOLUME 87.9 fl (80.0-105.0); MEAN CORPUSCULAR HEMOGLOBIN 30.5 pg (25.0-35.0); MEAN CORPUSCULAR HGB CONC 34.7 g/dl (31.0-37.0); MEAN PLATELET VOLUME 9.2 fl (7.0-11.0); MONO # 0.8 (0.1-0.6); RBC 4.95 10^6/uL (3.5-6.1); RED CELL DISTRIBUTION WIDTH 12.9 % (11.5-14.5); WHITE BLOOD COUNT 9.5 10^3/ul (4.5-11.0)
[2017-09-07 18:16] LABS: PH,URINE 5.5 (4.7-8.0); URINE BILIRUBIN SMALL (NEGATIVE); URINE BLOOD NEGATIVE (NEGATIVE); URINE GLUCOSE (UA) NEGATIVE (NEGATIVE); URINE LEUKOCYTE ESTERASE NEGATIVE Leu/uL (NEGATIVE); URINE PROTEIN TRACE mg/dL (<30 mg/dL); URINE UROBILINOGEN 0.2 E.U./dL (<1 E.U./dL)
[2017-09-07 18:19] LABS: URINE APPEARANCE CLEAR (CLEAR); URINE COLOR YELLOW (YELLOW)
[2017-09-07 18:22] LABS: ACETAMINOPHEN < 10.0 ug/ml (10.0-20.0); SALICYLATE < 1 mg/dL (2.0-20.0)
[2017-09-07 18:23] LABS: ALB/GLOB RATIO 1.7 (1.1-1.8); ALBUMIN 4.8 g/dL (3.0-4.8); ALT/SGPT 32 U/L (7-56); AST/SGOT 19 U/L (17-59); BLOOD UREA NITROGEN 16 mg/dL (7-21); CALCIUM 10.3 mg/dL (8.4-10.5); GFR AFRICAN-AMERICAN > 60; GFR NON-AFRICAN AMERICAN > 60
[2017-09-07 18:27] LABS: URINE BACTERIA FEW (NEG); URINE RBC NEGATIVE /hpf (0-2)
[2017-09-07 18:31] LABS: BARBITURATES, UR NEGATIVE (NEGATIVE); BENZODIAZEPINES, UR NEGATIVE (NEGATIVE); OPIATES, UR NEGATIVE (NEGATIVE); PHENCYCLIDINE, UR POSITIVE (NEGATIVE)
[2017-09-07 19:47] VITALS: BP 120/82; PULSE 72; RESP 17; O2SAT 100
== END 2017-09-07 19:47 | disposition home or self-care (01) ==
LOC: ED 16:55
DX: F32.9 Major depressive disorder, single episode, unspecified (principal); Z59.0 Homelessness; F17.210 Nicotine dependence, cigarettes, uncomplicated

== ENCOUNTER 2017-09-21 17:49 | Emergency (ER) | payer MEDICAID ==
[2017-09-21 17:49] VITALS: BMI 25.8
[2017-09-21 18:17] VITALS: RESP 18
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
[2017-09-21 23:11] VITALS: TEMP 98; O2SAT 99
[2017-09-21 23:18] VITALS: BP 125/79; PULSE 69
== END 2017-09-21 23:16 | disposition home or self-care (01) ==
LOC: ED 17:49
DX: R51 Headache (principal); M79.605 Pain in left leg; M79.604 Pain in right leg; F17.210 Nicotine dependence, cigarettes, uncomplicated

== ENCOUNTER 2017-09-24 06:44 | Emergency (ER) | payer MEDICAID, OTHER ==
[2017-09-24 06:44] VITALS: BMI 25.8
[2017-09-24 08:03] VITALS: TEMP 98.4
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
[2017-09-24 09:34] LABS: BASO # 0.02 K/mm3 (0.0-2.0); BASO % 0.3 % (0.0-3.0); EOS # 0.2 (0.0-0.7); EOS % 2.3 % (1.5-5.0); GRAN # 4.15 (1.4-6.5); GRAN % 54.9 % (50.0-68.0); HEMOGLOBIN 13.3 g/dL (14.0-18.0); LYMPH # 2.6 (1.2-3.4); MEAN CELL VOLUME 88.1 fl (80.0-105.0); MEAN CORPUSCULAR HEMOGLOBIN 29.8 pg (25.0-35.0); MEAN CORPUSCULAR HGB CONC 33.8 g/dl (31.0-37.0); MEAN PLATELET VOLUME 9.4 fl (7.0-11.0); MONO # 0.6 (0.1-0.6); MONO % 7.5 % (1.0-6.0); RBC 4.47 10^6/uL (3.5-6.1); RED CELL DISTRIBUTION WIDTH 12.9 % (11.5-14.5); WHITE BLOOD COUNT 7.6 10^3/ul (4.5-11.0)
[2017-09-24 09:43] LABS: URINE BILIRUBIN NEGATIVE (NEGATIVE); URINE BLOOD TRACE-INTACT (NEGATIVE); URINE GLUCOSE (UA) NEGATIVE (NEGATIVE); URINE LEUKOCYTE ESTERASE NEGATIVE Leu/uL (NEGATIVE); URINE PROTEIN NEGATIVE mg/dL (<30 mg/dL); URINE UROBILINOGEN 0.2 E.U./dL (<1 E.U./dL)
[2017-09-24 09:47] LABS: URINE APPEARANCE CLEAR (CLEAR); URINE COLOR YELLOW (YELLOW)
[2017-09-24 09:50] LABS: ACETAMINOPHEN < 10.0 ug/ml (10.0-20.0); SALICYLATE < 1 mg/dL (2.0-20.0)
[2017-09-24 09:51] LABS: ALB/GLOB RATIO 1.6 (1.1-1.8); ALT/SGPT 35 U/L (7-56); AST/SGOT 17 U/L (17-59); BLOOD UREA NITROGEN 13 mg/dL (7-21); CALCIUM 9.9 mg/dL (8.4-10.5); GFR AFRICAN-AMERICAN > 60; GFR NON-AFRICAN AMERICAN > 60
[2017-09-24 10:00] LABS: URINE BACTERIA FEW (NEG); URINE RBC NEGATIVE /hpf (0-2); URINE WBC 0 - 2 /hpf (0-6)
[2017-09-24 10:06] LABS: BARBITURATES, UR NEGATIVE (NEGATIVE); BENZODIAZEPINES, UR NEGATIVE (NEGATIVE); OPIATES, UR NEGATIVE (NEGATIVE); PHENCYCLIDINE, UR POSITIVE (NEGATIVE)
--- NOTE | 2017-09-24 10:25 | RAD ---
HISTORY: PES COMPARISON: 08/30/2017 FINDINGS: LUNGS: No active pulmonary disease. PLEURA: No significant pleural effusion identified, no pneumothorax apparent. CARDIOVASCULAR: Normal. OSSEOUS STRUCTURES: No significant abnormalities. VISUALIZED UPPER ABDOMEN: Normal. OTHER FINDINGS: None. IMPRESSION: No active disease.
[2017-09-24 15:09] VITALS: BP 121/65; PULSE 80; RESP 18; O2SAT 100
--- NOTE | 2017-09-24 19:20 | CARD ---
APPROVED REPORT EKG Measurement Heart [id number] <Conclusion> Sinus bradycardia Otherwise normal ECG
== END 2017-09-24 15:18 | disposition home or self-care (01) ==
LOC: ED 06:44
DX: F16.10 Hallucinogen abuse, uncomplicated (principal); F32.9 Major depressive disorder, single episode, unspecified; Z59.0 Homelessness; F17.210 Nicotine dependence, cigarettes, uncomplicated

== ENCOUNTER 2017-09-28 02:33 | Emergency (ER) | payer OTHER ==
[2017-09-28 02:34] VITALS: BMI 25.8
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
[2017-09-28 03:02] VITALS: BP 131/85; PULSE 75; RESP 18; TEMP 98.7; O2SAT 100
== END 2017-09-28 02:56 | disposition home or self-care (01) ==
LOC: ED 02:33
DX: Z76.5 Malingerer [conscious simulation] (principal)

== ENCOUNTER 2017-10-10 17:31 | Emergency (ER) | payer MEDICAID, OTHER ==
[2017-10-10 17:33] VITALS: RESP 18; BMI 26.6
[2017-10-10] MEDS ORDERED: Sodium Chloride 0.9% 1,000 ML IV STA (19:55)
--- NOTE | 2017-10-10 19:57 | ED PDOC ---
Arrival/HPI - General Chief Complaint: Medical Clearance Time Seen by Provider: 10/10/17 19:08 Historian: Patient - History of Present Illness Narrative History of Present Illness (Text): 10/10/17 19:57 A 32 year old male presents to the emergency department for evaluation. Patient reports "not feeling well and hurting all over" today. Patient reports episodes of non-bilious non-bloody vomiting but denies any fever, chills, abdominal pain , chest pain, shortness of breath or any other complaints. Time/Duration: Other (today) Past Medical History - Provider Review Nursing Documentation Reviewed: Yes - Past History Past History: Non-Contributing - Infectious Disease Hx of Infectious Diseases: None - Tetanus Immunization Tetanus Immunization: Unknown - Cardiac Hx Hypertension: No - Pulmonary Hx Chronic Obstructive Pulmonary Disease (COPD): No - Neurological Hx Seizures: No - HEENT Hx HEENT Disorder: No - Renal Hx Renal Disorder: No Hx Dialysis: No - Endocrine/Metabolic Hx Endocrine Disorders: No - Hematological/Oncological Hx Cancer: No - Integumentary Hx Cellulitis: No - Musculoskeletal/Rheumatological Hx Spinal Stenosis: No Hx Unsteady Gait: Yes - Gastrointestinal HX Swallowing Problems: No - Genitourinary/Gynecological Hx Ovarian Cancer: No Hx Sexually Transmitted Diseases: No - Psychiatric Hx Anxiety: Yes Hx Depression: Yes Hx Substance Use: Yes (daily) - Surgical History Hx Amputation: No Hx Joint Replacement: No - Anesthesia Hx Anesthesia: Yes Hx Anesthesia Reactions: No Hx Malignant Hyperthermia: No - Suicidal Assessment Feels Threatened In Home Enviroment: No Family/Social History - Physician Review Nursing Documentation Reviewed: Yes Family/Social History: No Known Family HX Smoking Status: Heavy Smoker > 10 Cigarettes Daily Hx Alcohol Use: Yes Hx Substance Use: Yes (daily) Substance used: PCP, marijuana Allergies/Home Meds Allergies/Adverse Reactions: Allergies No Known Allergies Allergy (Verified 09/07/17 17:12) Home Medications: Home Meds Medication Instructions Recorded Confirmed No Known Home Med 09/05/17 09/24/17 Review of Systems - Physician Review All systems were reviewed & negative as marked: Yes - Review of Systems Constitutional: Other ("not feeling well"). absent: Fevers, Night Sweats Respiratory: absent: SOB Cardiovascular: absent: Chest Pain Gastrointestinal: Vomiting. absent: Abdominal Pain Physical Exam Vital Signs Reviewed: Yes Vital Signs Temp Pulse Resp BP Pulse Ox 10/10/17 19:39 75 18 148/88 100 10/10/17 17:32 98.2 F 86 18 128/76 98 Temperature: Afebrile Blood Pressure: Normal Pulse: Regular Respiratory Rate: Normal Appearance: Positive for: Well-Appearing, Non-Toxic, Comfortable Pain Distress: None Mental Status: Positive for: Alert and Oriented X 3 - Systems Exam Head: Present: Atraumatic, Normocephalic Pupils: Present: PERRL Extroacular Muscles: Present: EOMI Conjunctiva: Present: Normal Mouth: Present: Moist Mucous Membranes Neck: Present: Normal Range of Motion Respiratory/Chest: Present: Clear to Auscultation, Good Air Exchange. No: Respiratory Distress, Accessory Muscle Use Cardiovascular: Present: Regular Rate and Rhythm, Normal S1, S2. No: Murmurs Abdomen: No: Tenderness, Distention, Peritoneal Signs Back: Present: Normal Inspection Upper Extremity: Present: Normal Inspection. No: Cyanosis, Edema Lower Extremity: Present: Normal Inspection. No: Edema Neurological: Present: GCS=15, CN II-XII Intact, Speech Normal Skin: Present: Warm, Dry, Normal Color. No: Rashes Psychiatric: Present: Alert, Oriented x 3, Normal Insight, Normal Concentration Medical Decision Making ED Course and Treatment: 10/10/17 19:57 Impression: A 32 year old male stating "not feeling well" with vomiting. Plan: -- Chest xray -- EKG -- Labs -- Urinalysis -- Zofran and IV fluids -- Reassess and disposition Progress Notes: - Lab Interpretations Lab Results: 10/10/17 20:35 10/10/17 20:35 Lab Results 10/10/17 22:21: Urine Opiates Screen Negative, Urine Methadone Screen Negative, Ur Barbiturates Screen Negative, Ur Phencyclidine Scrn Positive H, Ur Amphetamines Screen Negative, U Benzodiazepines Scrn Negative, U Oth Cocaine Metabols Negative, U Cannabinoids Screen Negative 10/10/17 20:50: Urine Color Yellow, Urine Appearance Clear, Urine pH 7.5, Ur Specific Cecil 1.015, Urine Protein Trace H, Urine Glucose (UA) Negative, Urine Ketones Negative, Urine Blood Negative, Urine Nitrate Negative, Urine Bilirubin Negative, Urine Urobilinogen 0.2, Ur Leukocyte Esterase Negative, Urine RBC 0 - 2, Urine WBC 0 - 2, Ur Epithelial Cells None, Urine Bacteria Few 10/10/17 20:35: Alcohol, Quantitative < 10 10/10/17 20:35: Sodium 139, Chloride 98, Potassium 5.0, Carbon Dioxide 28, Anion Gap 18, BUN 12, Creatinine 0.8, Est GFR ( Amer) > 60, Est GFR (Non- Af Amer) > 60, Random Glucose 98, Calcium 9.9, Total Bilirubin 0.4, Direct Bilirubin 0.4, AST 43, ALT 44, Alkaline Phosphatase 65, Total Protein 7.7, Albumin 4.8, Globulin 2.9, Albumin/Globulin Ratio 1.7, Lipase 46 10/10/17 20:35: pO2 29 L, VBG pH 7.33, VBG pCO2 61.0 H, VBG HCO3 32.2 H, VBG Total CO2 34.1 H, VBG O2 Sat (Calc) 62.8, VBG Base Excess 4.5 H, VBG Potassium 5.2, Sodium 136.0, Chloride 99.0, Glucose 102, Lactate 1.5, FiO2 21.0, Venous Blood Potassium 5.2 10/10/17 20:35: WBC 11.5 H D, RBC 4.79, Hgb 14.5, Hct 41.0 L, MCV 85.6, MCH 30.3 , MCHC 35.4, RDW 12.6, Plt Count 245, MPV 9.2, Gran % 69.7 H, Lymph % (Auto) 22.4, Carl[place] % (Auto) 7.3 H, Eos % (Auto) 0.4 L, Baso % (Auto) 0.2, Gran # 8.01 H , Lymph # (Auto) 2.6, [place] # (Auto) 0.8 H, Eos # (Auto) 0.1, Baso # (Auto) 0.02 I have reviewed the lab results: Yes - RAD Interpretation Radiology Orders: 10/10/17 19:55 CHEST PORTABLE [RAD] Stat - Medication Orders Current Medication Orders: Discontinued Medications Sodium Chloride (Sodium Chloride 0.9%) 1,000 mls @ 999 mls/hr IV .Q1H1M STA Stop: 10/10/17 20:55 Last Admin: 10/10/17 20:30 Dose: 999 mls/hr eMAR Start Stop Document 10/10/17 20:30 RG (Rec: 10/10/17 20:45 RG [id number]) Intravenous Solution Start Date 10/10/17 Start Time 20:30 Ondansetron HCl (Zofran Inj) 4 mg IVP STAT STA Stop: 10/10/17 19:56 Last Admin: 10/10/17 20:31 Dose: 4 mg IVP Administration Document 10/10/17 20:31 RG (Rec: 10/10/17 20:46 RG [id number]) Charges for Administration # of IVP Administrations 1 Disposition/Present on Arrival - Present on Arrival Any Indicators Present on Arrival: No History of DVT/PE: No History of Uncontrolled Diabetes: No Urinary Catheter: No History of Decub. Ulcer: No History Surgical Site Infection Following: None - Disposition Have Diagnosis and Disposition been Completed?: Yes Diagnosis: PCP (phencyclidine) abuse Disposition: HOME/ ROUTINE Disposition Time: 23:07 Patient Plan: Discharge Condition: GOOD Discharge Instructions (ExitCare): Drug Abuse and Drug Addiction (DC) Additional Instructions: [place] - Sorry that your not feeling well. All of your tests check out ok. The PCP in your system is probably not helping you feel well. Drink plenty of clear liquids, advance your diet slowly and return to us if worse. Follow up with your doctors next week. Luís- Dr. Abraham No Referrals: PCP,NO [Primary Care Provider] - Follow up with primary Forms: Pen[employer] (Turkmen)
[2017-10-10 20:53] LABS: BASO # 0.02 K/mm3 (0.0-2.0); BASO % 0.2 % (0.0-3.0); EOS # 0.1 (0.0-0.7); EOS % 0.4 % (1.5-5.0); GRAN # 8.01 (1.4-6.5); GRAN % 69.7 % (50.0-68.0); HEMOGLOBIN 14.5 g/dL (14.0-18.0); LYMPH # 2.6 (1.2-3.4); LYMPH % 22.4 % (22.0-35.0); MEAN CELL VOLUME 85.6 fl (80.0-105.0); MEAN CORPUSCULAR HEMOGLOBIN 30.3 pg (25.0-35.0); MEAN CORPUSCULAR HGB CONC 35.4 g/dl (31.0-37.0); MEAN PLATELET VOLUME 9.2 fl (7.0-11.0); MONO # 0.8 (0.1-0.6); MONO % 7.3 % (1.0-6.0); RBC 4.79 10^6/uL (3.5-6.1); RED CELL DISTRIBUTION WIDTH 12.6 % (11.5-14.5); WHITE BLOOD COUNT 11.5 10^3/ul (4.5-11.0)
[2017-10-10 20:57] LABS: VENOUS BLOOD GAS BASE EXCESS 4.5 mmol/L (0.0-2.0); VENOUS BLOOD GAS PO2 29 mm/Hg (30-55); VENOUS BLOOD PH 7.33 (7.32-7.43)
[2017-10-10 21:03] LABS: ALB/GLOB RATIO 1.7 (1.1-1.8); ALBUMIN 4.8 g/dL (3.0-4.8); ALT/SGPT 44 U/L (7-56); AST/SGOT 43 U/L (17-59); BILIRUBIN,DIRECT 0.4 mg/dL (0.0-0.4); BLOOD UREA NITROGEN 12 mg/dL (7-21); CALCIUM 9.9 mg/dL (8.4-10.5); GFR AFRICAN-AMERICAN > 60; GFR NON-AFRICAN AMERICAN > 60; LIPASE 46 U/L (23-300)
[2017-10-10 21:33] LABS: PH,URINE 7.5 (4.7-8.0); URINE BILIRUBIN NEGATIVE (NEGATIVE); URINE BLOOD NEGATIVE (NEGATIVE); URINE GLUCOSE (UA) NEGATIVE (NEGATIVE); URINE LEUKOCYTE ESTERASE NEGATIVE Leu/uL (NEGATIVE); URINE PROTEIN TRACE mg/dL (<30 mg/dL); URINE UROBILINOGEN 0.2 E.U./dL (<1 E.U./dL)
[2017-10-10 21:34] LABS: URINE APPEARANCE CLEAR (CLEAR); URINE COLOR YELLOW (YELLOW)
[2017-10-10 21:40] LABS: URINE RBC 0 - 2 /hpf (0-2); URINE WBC 0 - 2 /hpf (0-6)
[2017-10-10 21:41] LABS: URINE BACTERIA FEW (NEG)
[2017-10-10 22:51] LABS: BARBITURATES, UR NEGATIVE (NEGATIVE); BENZODIAZEPINES, UR NEGATIVE (NEGATIVE); OPIATES, UR NEGATIVE (NEGATIVE); PHENCYCLIDINE, UR POSITIVE (NEGATIVE)
[2017-10-10 23:44] VITALS: BP 149/59; PULSE 79; TEMP 98.4; O2SAT 97
--- NOTE | 2017-10-11 08:48 | RAD ---
HISTORY: MEDICAL CLEARANCE COMPARISON: 09/24/2017 FINDINGS: LUNGS: The lungs are well inflated and clear. PLEURA: No significant pleural effusion identified, no pneumothorax apparent. CARDIOVASCULAR: Normal. OSSEOUS STRUCTURES: No significant abnormalities. VISUALIZED UPPER ABDOMEN: Normal. OTHER FINDINGS: None. IMPRESSION: No active pulmonary disease.
--- NOTE | 2017-10-11 19:31 | CARD ---
APPROVED REPORT EKG Measurement Heart [id number] <Conclusion> Sinus bradycardia with sinus arrhythmia Otherwise normal ECG
== END 2017-10-10 23:42 | disposition home or self-care (01) ==
LOC: ED 17:31
DX: F16.10 Hallucinogen abuse, uncomplicated (principal)
CPT/HCPCS: 71045; 80053; 80320; 80324; 80345; 80346; 80349; 80353; 80358; 80361; 81001; 82248; 82803; 83690; 83992; 85025; 93005; 96374; 99284; J2405; J7040

== ENCOUNTER 2017-10-12 04:54 | Emergency (ER) | payer MEDICAID, OTHER ==
[2017-10-12 04:54] VITALS: BMI 26.6
[2017-10-12 05:09] VITALS: BP 132/75; PULSE 77; RESP 18; TEMP 98; O2SAT 99
--- NOTE | 2017-10-12 05:45 | ED PDOC ---
Arrival/HPI - General Chief Complaint: Lower Extremity Problem/Injury Time Seen by Provider: 10/12/17 05:42 Historian: Patient EM Caveat: Intoxicated - History of Present Illness Narrative History of Present Illness (Text): 10/12/17 05:45 A 32 year old homeless male, whose past medical history includes alcohol/drug abuse, presents to the emergency department complaining of bilateral calf pain. Patient reports he was sleeping on the side walk yesterday and today noted the pain on both his calfs. Patient denies any rashes, recent injuries/falls. History is limited due to being under the influence of alcohol. Patient denies any fever, chills, chest pain, shortness of breath, nausea, vomiting, diarrhea, urinary symptoms, back pain, neck pain, headache, dizziness, or any other complaints. Activities at Onset: Light Context: Street Past Medical History - Provider Review Nursing Documentation Reviewed: Yes - Past History Past History: Non-Contributing - Infectious Disease Hx of Infectious Diseases: None - Tetanus Immunization Tetanus Immunization: Unknown - Cardiac Hx Hypertension: No - Pulmonary Hx Chronic Obstructive Pulmonary Disease (COPD): No - Neurological Hx Seizures: No - HEENT Hx HEENT Disorder: No - Renal Hx Renal Disorder: No Hx Dialysis: No - Endocrine/Metabolic Hx Endocrine Disorders: No - Hematological/Oncological Hx Cancer: No - Integumentary Hx Cellulitis: No - Musculoskeletal/Rheumatological Hx Spinal Stenosis: No Hx Unsteady Gait: Yes - Gastrointestinal HX Swallowing Problems: No - Genitourinary/Gynecological Hx Ovarian Cancer: No Hx Sexually Transmitted Diseases: No - Psychiatric Hx Anxiety: Yes Hx Depression: Yes Hx Substance Use: Yes (daily) - Surgical History Hx Amputation: No Hx Joint Replacement: No - Anesthesia Hx Anesthesia: Yes Hx Anesthesia Reactions: No Hx Malignant Hyperthermia: No - Suicidal Assessment Feels Threatened In Home Enviroment: No Family/Social History - Physician Review Nursing Documentation Reviewed: Yes Family/Social History: No Known Family HX Smoking Status: Heavy Smoker > 10 Cigarettes Daily Hx Alcohol Use: Yes Hx Substance Use: Yes (daily) Substance used: PCP, marijuana Allergies/Home Meds Allergies/Adverse Reactions: Allergies No Known Allergies Allergy (Verified 09/07/17 17:12) Review of Systems - Physician Review All systems were reviewed & negative as marked: Yes - Review of Systems Constitutional: absent: Fevers, Other (Chills) Respiratory: absent: SOB Cardiovascular: Calf Pain (bilateral). absent: Chest Pain Gastrointestinal: absent: Vomiting Genitourinary Male: absent: Dysuria, Frequency Musculoskeletal: absent: Back Pain, Neck Pain Neurological: absent: Headache, Dizziness Physical Exam Vital Signs Reviewed: Yes Vital Signs Temp Pulse Resp BP Pulse Ox 10/12/17 05:00 98.0 F 77 18 132/75 99 Temperature: Afebrile Blood Pressure: Normal Pulse: Regular Respiratory Rate: Normal Appearance: Positive for: Non-Toxic, Comfortable, Unkept (Foul smelling. AOB Able to answer basic questions. Cooperative for exam) Pain Distress: None Mental Status: Positive for: Alert and Oriented X 3 - Systems Exam Head: Present: Atraumatic, Normocephalic Pupils: Present: PERRL Extroacular Muscles: Present: EOMI Conjunctiva: Present: Normal Mouth: Present: Moist Mucous Membranes Neck: Present: Normal Range of Motion Respiratory/Chest: Present: Clear to Auscultation, Good Air Exchange. No: Respiratory Distress, Accessory Muscle Use Cardiovascular: Present: Regular Rate and Rhythm, Normal S1, S2. No: Murmurs Abdomen: No: Tenderness, Distention, Peritoneal Signs Back: Present: Normal Inspection Upper Extremity: Present: Normal Inspection. No: Cyanosis, Edema Lower Extremity: Present: CALF TENDERNESS (Subjective tenderness over both distal calfs), NORMAL PULSES (Distal pulses 2+). No: Edema, Cyanosis, Eddie's Sign, Other (no changes in circumference of either lower extremities. ) Neurological: Present: GCS=15, CN II-XII Intact, Speech Normal Skin: Present: Warm, Dry, Normal Color. No: Rashes Psychiatric: Present: Alert, Oriented x 3, Normal Insight, Normal Concentration Medical Decision Making ED Course and Treatment: 10/12/17 05:54 Impression: 32 year old male presents complaining of bilateral calf pain that began today. Patient is homeless and was sleeping on the sidewalk yesterday. Differential Diagnosis included but are not limited to: Compression Calf strain Plan: -- Reassess and disposition Progress Notes: On re-evaluation, patient feels better and is in no acute distress. I have discussed the plan with the patient, who expresses understanding. Patient in agreement with plan to be discharged home. Patient is stable for discharge. Patient was instructed to follow up with physician or return if symptoms worsen or new concerning symptoms arise. - Scribe Statement The provider has reviewed the documentation as recorded by the Dheeraj Hess Provider Scribe Attestation: All medical record entries made by the Scribe were at my direction and personally dictated by me. I have reviewed the chart and agree that the record accurately reflects my personal performance of the history, physical exam, medical decision making, and the department course for this patient. I have also personally directed, reviewed, and agree with the discharge instructions and disposition. Disposition/Present on Arrival - Present on Arrival Any Indicators Present on Arrival: No History of DVT/PE: No History of Uncontrolled Diabetes: No Urinary Catheter: No History of Decub. Ulcer: No History Surgical Site Infection Following: None - Disposition Have Diagnosis and Disposition been Completed?: Yes Diagnosis: Strain of calf muscle Disposition: HOME/ ROUTINE Disposition Time: 06:36 Patient Problems: Current Active Problems Problem Status Onset Strain of calf muscle Acute Condition: FAIR Discharge Instructions (ExitCare): Muscle Strain Print Language: UZBEK Prescriptions: Naproxen [Naprosyn] 500 mg PO BID #20 tablet Forms: [employer] (Chinese)
== END 2017-10-12 07:16 | disposition home or self-care (01) ==
LOC: ED 04:54
DX: S86.912A Strain of unspecified muscle(s) and tendon(s) at lower leg level, left leg, initial encounter (principal); S86.911A Strain of unspecified muscle(s) and tendon(s) at lower leg level, right leg, initial encounter; X58.XXXA Exposure to other specified factors, initial encounter; Y92.9 Unspecified place or not applicable

== ENCOUNTER 2017-10-12 12:37 | Emergency (ER) | payer OTHER ==
[2017-10-12 12:40] VITALS: BMI 25.8
--- NOTE | 2017-10-12 12:44 | ED PDOC ---
Arrival/HPI - General Time Seen by Provider: 10/12/17 12:39 Historian: Patient - History of Present Illness Narrative History of Present Illness (Text): 10/12/17 12:39 32 y/o male, psychiatric history including alcohol/drug abuse, nkda, c/o Past Medical History - Past History Past History: Non-Contributing - Infectious Disease Hx of Infectious Diseases: None - Tetanus Immunization Tetanus Immunization: Unknown - Cardiac Hx Hypertension: No - Pulmonary Hx Chronic Obstructive Pulmonary Disease (COPD): No - Neurological Hx Seizures: No - HEENT Hx HEENT Disorder: No - Renal Hx Renal Disorder: No Hx Dialysis: No - Endocrine/Metabolic Hx Endocrine Disorders: No - Hematological/Oncological Hx Cancer: No - Integumentary Hx Cellulitis: No - Musculoskeletal/Rheumatological Hx Spinal Stenosis: No Hx Unsteady Gait: Yes - Gastrointestinal HX Swallowing Problems: No - Genitourinary/Gynecological Hx Ovarian Cancer: No Hx Sexually Transmitted Diseases: No - Psychiatric Hx Anxiety: Yes Hx Depression: Yes Hx Substance Use: Yes (daily) - Surgical History Hx Amputation: No Hx Joint Replacement: No - Anesthesia Hx Anesthesia: Yes Hx Anesthesia Reactions: No Hx Malignant Hyperthermia: No - Suicidal Assessment Feels Threatened In Home Enviroment: No Family/Social History Smoking Status: Heavy Smoker > 10 Cigarettes Daily Hx Alcohol Use: Yes Hx Substance Use: Yes (daily) Substance used: PCP, marijuana Allergies/Home Meds Allergies/Adverse Reactions: Allergies No Known Allergies Allergy (Verified 09/07/17 17:12) Disposition/Present on Arrival - Present on Arrival History of DVT/PE: No History of Uncontrolled Diabetes: No Urinary Catheter: No History Surgical Site Infection Following: None - Disposition
[2017-10-12 12:46] VITALS: TEMP 97.7
--- NOTE | 2017-10-12 12:52 | ED PDOC ---
Arrival/HPI - General Chief Complaint: Headache Time Seen by Provider: 10/12/17 12:39 Historian: Patient - History of Present Illness Narrative History of Present Illness (Text): 10/12/17 12:49 A 32 year old male, whose past psychiatric history includes alcohol and drug abuse, the patient was just seen in the emergency department this morning and was discharged home. The patient is currently complaining of not sleeping well and has a headache. He states he will feel better if he sleeps. The patient denies any falls/trauma to the head/neck, vision changes, neck stiffness, fever , chills, chest pain, shortness of breath, or any other medical/psychological complaints at this time. Time/Duration: Prior to Arrival Symptom Onset: Gradual Symptom Course: Unchanged Activities at Onset: Light Context: Home Past Medical History - Provider Review Nursing Documentation Reviewed: Yes - Past History Past History: Non-Contributing - Infectious Disease Hx of Infectious Diseases: None - Tetanus Immunization Tetanus Immunization: Unknown - Cardiac Hx Hypertension: No - Pulmonary Hx Chronic Obstructive Pulmonary Disease (COPD): No - Neurological Hx Seizures: No - HEENT Hx HEENT Disorder: No - Renal Hx Renal Disorder: No Hx Dialysis: No - Endocrine/Metabolic Hx Endocrine Disorders: No - Hematological/Oncological Hx Cancer: No - Integumentary Hx Cellulitis: No - Musculoskeletal/Rheumatological Hx Spinal Stenosis: No Hx Unsteady Gait: Yes - Gastrointestinal HX Swallowing Problems: No - Genitourinary/Gynecological Hx Ovarian Cancer: No Hx Sexually Transmitted Diseases: No - Psychiatric Hx Anxiety: Yes Hx Depression: Yes Hx Substance Use: Yes (daily) - Surgical History Hx Amputation: No Hx Joint Replacement: No - Anesthesia Hx Anesthesia: Yes Hx Anesthesia Reactions: No Hx Malignant Hyperthermia: No - Suicidal Assessment Feels Threatened In Home Enviroment: No Family/Social History - Physician Review Nursing Documentation Reviewed: Yes Family/Social History: No Known Family HX Smoking Status: Heavy Smoker > 10 Cigarettes Daily Hx Alcohol Use: Yes Hx Substance Use: Yes (daily) Substance used: PCP, marijuana Allergies/Home Meds Allergies/Adverse Reactions: Allergies No Known Allergies Allergy (Verified 09/07/17 17:12) Review of Systems - Physician Review All systems were reviewed & negative as marked: Yes - Review of Systems Constitutional: absent: Fatigue, Fevers Eyes: absent: Vision Changes Respiratory: absent: SOB Cardiovascular: absent: Chest Pain Musculoskeletal: absent: Arthralgias, Neck Pain Neurological: Headache Psychiatric: absent: Anxiety, Depression Physical Exam Vital Signs Reviewed: Yes Vital Signs Temp Pulse Resp BP Pulse Ox 10/12/17 12:37 97.7 F 72 18 132/76 96 Temperature: Afebrile Blood Pressure: Normal Pulse: Regular Respiratory Rate: Normal Appearance: Positive for: Well-Appearing, Non-Toxic, Comfortable Pain Distress: None Mental Status: Positive for: Alert and Oriented X 3 - Systems Exam Head: Present: Atraumatic, Normocephalic Pupils: Present: PERRL Extroacular Muscles: Present: EOMI Conjunctiva: Present: Normal Mouth: Present: Moist Mucous Membranes Neck: Present: Normal Range of Motion, Trachea Midline. No: Meningeal Signs, MIDLINE TENDERNESS, Paraspinal Tenderness, Lymphadenopathy Respiratory/Chest: Present: Clear to Auscultation, Good Air Exchange. No: Respiratory Distress, Accessory Muscle Use Cardiovascular: Present: Regular Rate and Rhythm, Normal S1, S2. No: Murmurs Abdomen: No: Tenderness, Distention, Peritoneal Signs Back: Present: Normal Inspection Upper Extremity: Present: Normal Inspection. No: Cyanosis, Edema Lower Extremity: Present: Normal Inspection. No: Edema Neurological: Present: GCS=15, CN II-XII Intact, Speech Normal, Motor Func Grossly Intact, Gait Normal, Memory Normal, Other (no focal neurological deficits, normal finger to nose test, normal heel to james test, no drift. ) Skin: Present: Warm, Dry, Normal Color. No: Rashes Psychiatric: Present: Alert, Oriented x 3, Normal Insight, Normal Concentration Medical Decision Making ED Course and Treatment: 10/12/17 12:52 Impression: A 32 year old male with atraumatic headache. Differential Diagnosis included but are not limited to: Plan: -- Tylenol -- Observation -- Reassess and disposition 10/12/17 15:49 -Headache resolved, no focal neurological deficits, walking with normal gait and posture, no emergent further medical or radiology studies indicated at this time. -Discharge home with education bed rest, follow up with your own pmd and neurologist within 2 days, return to the ER for any new or worsening signs or symptoms. - Medication Orders Current Medication Orders: Discontinued Medications Acetaminophen (Tylenol 325mg Tab) 650 mg PO STAT STA Stop: 10/12/17 12:45 Last Admin: 10/12/17 13:02 Dose: 650 mg MAR Pain/Vitals Document 10/12/17 13:02 [facility] (Rec: 10/12/17 13:02 [facility] [id number]) Pain Reassessment Is This A Pain ReAssessment? No Sleep Is patient sleeping during reassessment? 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 - Scribe Statement The provider has reviewed the documentation as recorded by the Scribe Shanice Noel Provider Scribe Attestation: All medical record entries made by the Scribe were at my direction and personally dictated by me. I have reviewed the chart and agree that the record accurately reflects my personal performance of the history, physical exam, medical decision making, and the department course for this patient. I have also personally directed, reviewed, and agree with the discharge instructions and disposition. Disposition/Present on Arrival - Present on Arrival Any Indicators Present on Arrival: No History of DVT/PE: No History of Uncontrolled Diabetes: No Urinary Catheter: No History of Decub. Ulcer: No History Surgical Site Infection Following: None - Disposition Have Diagnosis and Disposition been Completed?: Yes Diagnosis: Headache, Problems related to lack of adequate sleep Disposition: HOME/ ROUTINE Disposition Time: 13:21 Patient Plan: Discharge Patient Problems: Current Active Problems Problem Status Onset Headache Acute Problems related to lack of adequate sleep Acute Condition: IMPROVED Additional Instructions: -Discharge home with education bed rest, follow up with your own pmd and neurologist within 2 days, return to the ER for any new or worsening signs or symptoms. Referrals: [facility] [place] - Follow up with primary Forms: WORK NOTE
[2017-10-12 16:16] VITALS: RESP 17; O2SAT 99
[2017-10-12 18:35] VITALS: BP 118/66; PULSE 68
== END 2017-10-12 19:16 | disposition home or self-care (01) ==
LOC: ED 12:37
DX: R51 Headache (principal); Z72.820 Sleep deprivation

== ENCOUNTER 2017-10-16 19:46 | Emergency (ER) | payer OTHER ==
[2017-10-16 20:57] VITALS: BMI 24.3
[2017-10-16 20:59] VITALS: RESP 18; TEMP 98.6
--- NOTE | 2017-10-16 22:10 | ED PDOC ---
Arrival/HPI - General Chief Complaint: Pain, Chronic Time Seen by Provider: 10/16/17 20:00 Historian: Patient - History of Present Illness Narrative History of Present Illness (Text): 32yoM, who stated angry, depressed, and wants to harm self. denies trauma/fall/ injury/sob/chest pain/abdomen pain/dizziness/hallucinations/homicidal. 10/16/17 22:08 Time/Duration: Prior to Arrival Symptom Onset: Gradual Symptom Course: Unchanged Quality: Aching Past Medical History - Provider Review Nursing Documentation Reviewed: Yes - Travel History Have you recently traveled outside [place] w/in the past 3 mons?: No - Past History Past History: Non-Contributing - Infectious Disease Hx of Infectious Diseases: None - Tetanus Immunization Tetanus Immunization: Unknown - Cardiac Hx Hypertension: No - Pulmonary Hx Chronic Obstructive Pulmonary Disease (COPD): No - Neurological Hx Seizures: No - HEENT Hx HEENT Disorder: No - Renal Hx Renal Disorder: No Hx Dialysis: No - Endocrine/Metabolic Hx Endocrine Disorders: No - Hematological/Oncological Hx Cancer: No - Integumentary Hx Cellulitis: No - Musculoskeletal/Rheumatological Hx Spinal Stenosis: No Hx Unsteady Gait: Yes - Gastrointestinal HX Swallowing Problems: No - Genitourinary/Gynecological Hx Ovarian Cancer: No Hx Sexually Transmitted Diseases: No - Psychiatric Hx Anxiety: Yes Hx Depression: Yes Hx Substance Use: Yes (daily) - Surgical History Hx Amputation: No Hx Joint Replacement: No - Anesthesia Hx Anesthesia: Yes Hx Anesthesia Reactions: No Hx Malignant Hyperthermia: No - Suicidal Assessment Feels Threatened In Home Enviroment: No Family/Social History - Physician Review Nursing Documentation Reviewed: Yes Family/Social History: No Known Family HX Smoking Status: Heavy Smoker > 10 Cigarettes Daily Hx Alcohol Use: Yes Hx Substance Use: Yes (daily) Substance used: PCP, marijuana Allergies/Home Meds Allergies/Adverse Reactions: Allergies No Known Allergies Allergy (Verified 09/07/17 17:12) Review of Systems - Review of Systems Constitutional: Normal Eyes: Normal ENT: Normal Respiratory: Normal Cardiovascular: Normal Gastrointestinal: Normal Genitourinary Male: Normal Musculoskeletal: Normal Skin: Normal Neurological: Normal Endocrine: Normal Hemo/Lymphatic: Normal Psychiatric: Anxiety, Depression, Suicidal Ideation Physical Exam Vital Signs Reviewed: Yes Vital Signs Temp Pulse Resp BP Pulse Ox 10/17/17 03:30 98.6 F 79 18 127/74 100 10/17/17 02:00 77 18 129/84 100 10/16/17 20:59 98.6 F 75 18 133/86 97 Temperature: Afebrile Blood Pressure: Hypertensive Pulse: Regular Respiratory Rate: Normal Appearance: Positive for: Well-Appearing, Non-Toxic, Comfortable Pain Distress: None Mental Status: Positive for: Alert and Oriented X 3 - Systems Exam Head: Present: Atraumatic, Normocephalic Pupils: Present: PERRL Extroacular Muscles: Present: EOMI Conjunctiva: Present: Normal Ears: Present: Normal Mouth: Present: Moist Mucous Membranes Pharnyx: Present: Normal Nose (External): Present: Atraumatic Nose (Internal): Present: Normal Inspection Neck: Present: Normal Range of Motion Respiratory/Chest: Present: Clear to Auscultation, Good Air Exchange Cardiovascular: Present: Regular Rate and Rhythm Abdomen: No: Tenderness, Distention, Normal Bowel Sounds, Peritoneal Signs, Rebound, Guarding, McBurney's Point Tender, Rovsing's Sign Present, Hernias, Feeding Tubes, Ostomy Tubes, Mass/Organomegaly, Scars, Other Back: Present: Normal Inspection Upper Extremity: Present: Normal Inspection Lower Extremity: Present: Normal Inspection Neurological: Present: GCS=15, CN II-XII Intact, Speech Normal, Motor Func Grossly Intact Skin: Present: Warm, Normal Color Psychiatric: Present: Alert, Oriented x 3, Anxious, Depressed Mood, Suicidal Ideation Medical Decision Making ED Course and Treatment: 32yoM, who stated angry, depressed, and wants to harm self. denies trauma/fall/ injury/sob/chest pain/abdomen pain/dizziness/hallucinations/homicidal. 10/16/17 22:11 10/16/17 23:[address] Cummings to fu PES and disposition. Reassessment Condition: Re-examined, Improved - Lab Interpretations Lab Results: 10/16/17 22:30 10/16/17 22:30 Lab Results 10/16/17 22:30: Acetaminophen < 10.0 L 10/16/17 22:30: Alcohol, Quantitative < 10 10/16/17 22:30: Salicylates < 1 L 10/16/17 22:30: Sodium 141, Potassium 4.0, Chloride 103, Carbon Dioxide 27, Anion Gap 16, BUN 13, Creatinine 0.8, Est GFR ( Amer) > 60, Est GFR (Non- Af Amer) > 60, Random Glucose 92, Calcium 9.6, Magnesium 1.9, Total Bilirubin 0.2, AST 16 L D, ALT 29, Alkaline Phosphatase 53, Lactate Dehydrogenase 314 L, Total Creatine Kinase 87, Troponin I < 0.01, Total Protein 6.7, Albumin 4.3, Globulin 2.5, Albumin/Globulin Ratio 1.7 10/16/17 22:30: PT 11.3, INR 0.99, APTT 28.2 10/16/17 22:30: WBC 9.7, RBC 4.35, Hgb 12.8 L, Hct 37.6 L, MCV 86.4, MCH 29.4, MCHC 34.0, RDW 12.8, Plt Count 242, MPV 8.7, Gran % 51.7, Lymph % (Auto) 40.5 H , [place] % (Auto) 6.0, Eos % (Auto) 1.6, Baso % (Auto) 0.2, Gran # 5.02, Lymph # ( Auto) 3.9 H, [place] # (Auto) 0.6, Eos # (Auto) 0.2, Baso # (Auto) 0.02 10/16/17 22:20: Urine Opiates Screen Negative, Urine Methadone Screen Negative, Ur Barbiturates Screen Negative, Ur Phencyclidine Scrn Positive H, Ur Amphetamines Screen Negative, U Benzodiazepines Scrn Negative, U Oth Cocaine Metabols Negative, U Cannabinoids Screen Negative 10/16/17 22:20: Urine Color Yellow, Urine Appearance Clear, Urine pH 6.0, Ur Specific [place] 1.015, Urine Protein Negative, Urine Glucose (UA) Negative, Urine Ketones Negative, Urine Blood Negative, Urine Nitrate Negative, Urine Bilirubin Negative, Urine Urobilinogen 0.2, Ur Leukocyte Esterase Negative I have reviewed the lab results: Yes - RAD Interpretation Radiology Orders: 10/16/17 22:04 CHEST PORTABLE [RAD] Stat Fur Glosser: ED Physician (cxr no acute) - EKG Interpretation Interpreted by ED Physician: Yes (NSR) Type: 12 lead EKG Disposition/Present on Arrival - Present on Arrival Any Indicators Present on Arrival: No History of DVT/PE: No History of Uncontrolled Diabetes: No Urinary Catheter: No History of Decub. Ulcer: No History Surgical Site Infection Following: None - Disposition Have Diagnosis and Disposition been Completed?: Yes Diagnosis: Depression, PCP abuse Disposition: HOME/ ROUTINE Disposition Time: 19:52 Patient Plan: Discharge Condition: IMPROVED Discharge Instructions (ExitCare): Depression, Drug Abuse and Drug Addiction ( [place]) Forms: [employer] (Yi)
[2017-10-16 22:36] LABS: URINE BILIRUBIN NEGATIVE (NEGATIVE); URINE BLOOD NEGATIVE (NEGATIVE); URINE GLUCOSE (UA) NEGATIVE (NEGATIVE); URINE LEUKOCYTE ESTERASE NEGATIVE Leu/uL (NEGATIVE); URINE PROTEIN NEGATIVE mg/dL (<30 mg/dL); URINE UROBILINOGEN 0.2 E.U./dL (<1 E.U./dL)
[2017-10-16 22:39] LABS: BASO # 0.02 K/mm3 (0.0-2.0); BASO % 0.2 % (0.0-3.0); EOS # 0.2 (0.0-0.7); EOS % 1.6 % (1.5-5.0); GRAN # 5.02 (1.4-6.5); GRAN % 51.7 % (50.0-68.0); HEMOGLOBIN 12.8 g/dL (14.0-18.0); LYMPH # 3.9 (1.2-3.4); LYMPH % 40.5 % (22.0-35.0); MEAN CELL VOLUME 86.4 fl (80.0-105.0); MEAN CORPUSCULAR HEMOGLOBIN 29.4 pg (25.0-35.0); MEAN PLATELET VOLUME 8.7 fl (7.0-11.0); MONO # 0.6 (0.1-0.6); RBC 4.35 10^6/uL (3.5-6.1); RED CELL DISTRIBUTION WIDTH 12.8 % (11.5-14.5); WHITE BLOOD COUNT 9.7 10^3/ul (4.5-11.0)
[2017-10-16 22:44] LABS: URINE APPEARANCE CLEAR (CLEAR); URINE COLOR YELLOW (YELLOW)
[2017-10-16 22:51] LABS: INR 0.99 (0.93-1.08); PARTIAL THROMBOPLASTIN TIME 28.2 Seconds (25.1-36.5); PROTHROMBIN TIME 11.3 SECONDS (9.4-12.5)
[2017-10-16 22:55] LABS: ALB/GLOB RATIO 1.7 (1.1-1.8); ALBUMIN 4.3 g/dL (3.0-4.8); ALT/SGPT 29 U/L (7-56); AST/SGOT 16 U/L (17-59); BLOOD UREA NITROGEN 13 mg/dL (7-21); CALCIUM 9.6 mg/dL (8.4-10.5); GFR AFRICAN-AMERICAN > 60; GFR NON-AFRICAN AMERICAN > 60
[2017-10-16 23:02] LABS: BARBITURATES, UR NEGATIVE (NEGATIVE); BENZODIAZEPINES, UR NEGATIVE (NEGATIVE); OPIATES, UR NEGATIVE (NEGATIVE); PHENCYCLIDINE, UR POSITIVE (NEGATIVE)
[2017-10-16 23:15] LABS: TROPONIN I < 0.01 ng/mL
--- NOTE | 2017-10-17 01:51 | ED PDOC ---
Physical Exam Vital Signs Temp Pulse Resp BP Pulse Ox 10/17/17 02:00 77 18 129/84 100 10/16/17 20:59 98.6 F 75 18 133/86 97 Medical Decision Making ED Course and Treatment: 10/16/17 23:00 Case endorsed to me by Dr. No, pending PES evaluation and disposition. 10/17/17 03:22 Patient seen by PES screener, who discussed case with psychiatrist circulation clerk. Patient is psychiatrically cleared for discharge with outpatient mental health follow-up. Patient agrees with plan. - Lab Interpretations Lab Results: 10/16/17 22:30 10/16/17 22:30 Lab Results 10/16/17 22:30: Acetaminophen < 10.0 L 10/16/17 22:30: Alcohol, Quantitative < 10 10/16/17 22:30: Salicylates < 1 L 10/16/17 22:30: Sodium 141, Potassium 4.0, Chloride 103, Carbon Dioxide 27, Anion Gap 16, BUN 13, Creatinine 0.8, Est GFR ( Amer) > 60, Est GFR (Non- Af Amer) > 60, Random Glucose 92, Calcium 9.6, Magnesium 1.9, Total Bilirubin 0.2, AST 16 L D, ALT 29, Alkaline Phosphatase 53, Lactate Dehydrogenase 314 L, Total Creatine Kinase 87, Troponin I < 0.01, Total Protein 6.7, Albumin 4.3, Globulin 2.5, Albumin/Globulin Ratio 1.7 10/16/17 22:30: PT 11.3, INR 0.99, APTT 28.2 10/16/17 22:30: WBC 9.7, RBC 4.35, Hgb 12.8 L, Hct 37.6 L, MCV 86.4, MCH 29.4, MCHC 34.0, RDW 12.8, Plt Count 242, MPV 8.7, Gran % 51.7, Lymph % (Auto) 40.5 H , [place] % (Auto) 6.0, Eos % (Auto) 1.6, Baso % (Auto) 0.2, Gran # 5.02, Lymph # ( Auto) 3.9 H, [place] # (Auto) 0.6, Eos # (Auto) 0.2, Baso # (Auto) 0.02 10/16/17 22:20: Urine Opiates Screen Negative, Urine Methadone Screen Negative, Ur Barbiturates Screen Negative, Ur Phencyclidine Scrn Positive H, Ur Amphetamines Screen Negative, U Benzodiazepines Scrn Negative, U Oth Cocaine Metabols Negative, U Cannabinoids Screen Negative 10/16/17 22:20: Urine Color Yellow, Urine Appearance Clear, Urine pH 6.0, Ur Specific [place] 1.015, Urine Protein Negative, Urine Glucose (UA) Negative, Urine Ketones Negative, Urine Blood Negative, Urine Nitrate Negative, Urine Bilirubin Negative, Urine Urobilinogen 0.2, Ur Leukocyte Esterase Negative - RAD Interpretation Radiology Orders: 10/16/17 22:04 CHEST PORTABLE [RAD] Stat Disposition/Present on Arrival - Present on Arrival Any Indicators Present on Arrival: No History of DVT/PE: No History of Uncontrolled Diabetes: No Urinary Catheter: No History of Decub. Ulcer: No History Surgical Site Infection Following: None - Disposition Have Diagnosis and Disposition been Completed?: Yes Diagnosis: Depression, PCP abuse Disposition: HOME/ ROUTINE Disposition Time: 03:25 Condition: IMPROVED Discharge Instructions (ExitCare): Depression, Drug Abuse and Drug Addiction ( [place]) Forms: [employer] (Wallisian)
[2017-10-17 02:56] VITALS: O2SAT 100
[2017-10-17 04:19] VITALS: BP 127/74; PULSE 79
--- NOTE | 2017-10-17 08:27 | RAD ---
HISTORY: 32 the yoM, medical evaluation. COMPARISON: Comparison made with prior study dated 10/10/2017 FINDINGS: LUNGS: No active pulmonary disease. PLEURA: No significant pleural effusion identified, no pneumothorax apparent. CARDIOVASCULAR: Normal. OSSEOUS STRUCTURES: No significant abnormalities. VISUALIZED UPPER ABDOMEN: Normal. OTHER FINDINGS: None. IMPRESSION: No active disease.
--- NOTE | 2017-10-17 13:12 | CARD ---
APPROVED REPORT EKG Measurement Heart [id number] <Conclusion> Normal sinus rhythm Normal ECG
== END 2017-10-17 03:30 | disposition home or self-care (01) ==
LOC: ED 19:46
DX: F32.9 Major depressive disorder, single episode, unspecified (principal); F16.10 Hallucinogen abuse, uncomplicated

== ENCOUNTER 2017-10-18 07:22 | Emergency (ER) | payer OTHER ==
[2017-10-18 07:23] VITALS: BMI 24.3
--- NOTE | 2017-10-18 07:49 | ED PDOC ---
Arrival/HPI - General Time Seen by Provider: 10/18/17 07:30 Historian: Patient - History of Present Illness Narrative History of Present Illness (Text): you were treated in the ED today for bodyaches as he has been laying on ground and otherwise without any nausea/vomiting/headache/dizziness/difficulty breathing/chest pain/abdomen pain/numbness/tingling/loss of limb function/pain with urination/thoughts to harm yourself or others or hallucinations. 10/18/17 07:47 Time/Duration: 1-3 hours Symptom Onset: Gradual Quality: Aching Severity Level: 2 Activities at Onset: Rest Context: Sitting Past Medical History - Provider Review Nursing Documentation Reviewed: Yes - Travel History Have you recently traveled outside [place] w/in the past 3 mons?: No - Past History Past History: Non-Contributing - Infectious Disease Hx of Infectious Diseases: None - Tetanus Immunization Tetanus Immunization: Unknown - Cardiac Hx Hypertension: No - Pulmonary Hx Chronic Obstructive Pulmonary Disease (COPD): No - Neurological Hx Seizures: No - HEENT Hx HEENT Disorder: No - Renal Hx Renal Disorder: No Hx Dialysis: No - Endocrine/Metabolic Hx Endocrine Disorders: No - Hematological/Oncological Hx Cancer: No - Integumentary Hx Cellulitis: No - Musculoskeletal/Rheumatological Hx Spinal Stenosis: No Hx Unsteady Gait: Yes - Gastrointestinal HX Swallowing Problems: No - Genitourinary/Gynecological Hx Sexually Transmitted Diseases: No - Psychiatric Hx Anxiety: Yes Hx Depression: Yes Hx Substance Use: Yes (daily) - Surgical History Hx Amputation: No Hx Joint Replacement: No - Anesthesia Hx Anesthesia: Yes Hx Anesthesia Reactions: No Hx Malignant Hyperthermia: No - Suicidal Assessment Feels Threatened In Home Enviroment: No Family/Social History - Physician Review Nursing Documentation Reviewed: Yes Family/Social History: No Known Family HX Smoking Status: Heavy Smoker > 10 Cigarettes Daily Hx Alcohol Use: Yes Hx Substance Use: Yes (daily) Substance used: PCP, marijuana Allergies/Home Meds Allergies/Adverse Reactions: Allergies No Known Allergies Allergy (Verified 09/07/17 17:12) Review of Systems - Review of Systems Constitutional: Normal Eyes: Normal ENT: Normal Respiratory: Normal Cardiovascular: Normal Gastrointestinal: Normal Genitourinary Male: Normal Musculoskeletal: Normal Skin: Normal Neurological: Normal Endocrine: Normal Hemo/Lymphatic: Normal Psychiatric: Normal Physical Exam Vital Signs Reviewed: Yes Vital Signs Temp Pulse Resp BP Pulse Ox 10/18/17 13:00 88 18 134/70 99 10/18/17 11:23 78 18 135/79 99 10/18/17 07:44 97.5 F L 72 17 123/77 100 Appearance: Positive for: Well-Appearing, Non-Toxic, Comfortable Pain Distress: None Mental Status: Positive for: Alert and Oriented X 3 - Systems Exam Head: Present: Atraumatic, Normocephalic Pupils: Present: PERRL Extroacular Muscles: Present: EOMI Conjunctiva: Present: Normal Ears: Present: Normal Mouth: Present: Moist Mucous Membranes Pharnyx: Present: Normal Nose (External): Present: Atraumatic Nose (Internal): Present: Normal Inspection Neck: Present: Normal Range of Motion Respiratory/Chest: Present: Clear to Auscultation, Good Air Exchange Cardiovascular: Present: Regular Rate and Rhythm Abdomen: No: Tenderness, Distention, Normal Bowel Sounds, Peritoneal Signs, Rebound, Guarding, McBurney's Point Tender, Rovsing's Sign Present, Hernias, Feeding Tubes, Ostomy Tubes, Mass/Organomegaly, Scars, Other Upper Extremity: Present: Normal Inspection Lower Extremity: Present: Normal Inspection Neurological: Present: GCS=15, CN II-XII Intact, Speech Normal, Motor Func Grossly Intact Skin: Present: Warm, Normal Color Psychiatric: Present: Alert, Oriented x 3, Normal Insight, Normal Concentration Medical Decision Making ED Course and Treatment: you were treated in the ED today for bodyaches as he has been laying on ground and otherwise without any nausea/vomiting/headache/dizziness/difficulty breathing/chest pain/abdomen pain/numbness/tingling/loss of limb function/pain with urination/thoughts to harm yourself or others or hallucinations. You were otherwise breathing easily, talking easily, good strength/sensation, walking easily, clear lungs, no abdomen tenderness, no fever temp 97.5, stable heart rate 72, stable breathing rate 17, excellent oxygen level 100% room air, elevated blood pressure 123/77 which we recommend repeat in 2-3 days primary care office to determine further treatment, observation done in the ED with improvement, counselled to monitior symptoms. pt walked out prior to discharge. 10/18/17 15:08 Reassessment Condition: Re-examined, Improved Disposition/Present on Arrival - Present on Arrival Any Indicators Present on Arrival: No History of DVT/PE: No History of Uncontrolled Diabetes: No Urinary Catheter: No History Surgical Site Infection Following: None - Disposition Have Diagnosis and Disposition been Completed?: Yes Diagnosis: Homelessness Disposition: ELOPEMENT - ER ONLY Disposition Time: 15:09 Condition: IMPROVED Forms: [employer] (Niuean)
[2017-10-18 08:11] VITALS: TEMP 97.5
[2017-10-18 15:00] VITALS: BP 134/70; PULSE 88; RESP 18; O2SAT 99
== END 2017-10-18 15:03 | disposition left against medical advice (07) ==
LOC: ED 07:22
DX: Z59.0 Homelessness (principal); F17.210 Nicotine dependence, cigarettes, uncomplicated

== ENCOUNTER 2017-11-05 11:07 | Emergency (ER) | payer MEDICAID, OTHER ==
[2017-11-05 11:07] VITALS: BMI 25.1
[2017-11-05 12:12] VITALS: RESP 16; O2SAT 97
--- NOTE | 2017-11-05 12:37 | ED PDOC ---
Arrival/HPI - General Chief Complaint: Pain, Chronic Time Seen by Provider: 11/05/17 12:20 Historian: Patient - History of Present Illness Narrative History of Present Illness (Text): 11/05/17 12:32 A 32 year old male whose past medical history includes psychiatric history includes alcohol and drug abuse, presents to the emergency department complaining of depression, "not feeling well", and expressing suicidal ideation. The patient states that he was discharged from the psychiatric floor at [facility]. The patient states that he is homeless, living on the streets of [place], and has not gotten his prescriptions filled. The patient denies fevers, chills, headache, dizziness, chest pain, shortness of breath, dyspnea on exertion, cough, abdominal pain, nausea, vomiting, diarrhea, back pain, neck pain, urinary/bowel changes, or any other complaint. Time/Duration: Other (Today) Symptom Onset: Sudden Symptom Course: Unchanged Activities at Onset: Rest, Light Context: Street Past Medical History - Provider Review Nursing Documentation Reviewed: Yes - Past History Past History: Non-Contributing - Infectious Disease Hx of Infectious Diseases: None - Tetanus Immunization Tetanus Immunization: Unknown - Cardiac Hx Atrial Fibrillation: No Hx Cardiac Arrhythmia: No Hx Congestive Heart Failure: No Hx Hypertension: No Hx Mitral Valve Prolapse: No Hx Pacemaker: No Hx Peripheral Edema: No - Pulmonary Hx Asthma: No Hx Bronchitis: No Hx Chronic Obstructive Pulmonary Disease (COPD): No Hx Emphysema: No Hx Pneumonia: No Hx Pulmonary Embolism: No Hx Sleep Apnea: No - Neurological Hx Alzheimer's Disease: No Hx Dementia: No Hx Migraine: No Hx Multiple Sclerosis: No Hx Parkinson's Disease: No Hx Seizures: No Hx Transient Ischemic Attacks (TIA): No - HEENT Hx HEENT Disorder: No - Renal Hx Renal Disorder: No - Endocrine/Metabolic Hx Endocrine Disorders: No - Hematological/Oncological Hx Cancer: No - Integumentary Hx Cellulitis: No - Musculoskeletal/Rheumatological Hx Unsteady Gait: Yes - Gastrointestinal HX Swallowing Problems: No Other/Comment: inguinal hernia - Genitourinary/Gynecological Hx Sexually Transmitted Diseases: No - Psychiatric Hx Anxiety: Yes Hx Bipolar Disorder: Yes Hx Depression: Yes Hx Schizophrenia: Yes Hx Substance Use: No - Surgical History Hx Amputation: No Hx Joint Replacement: No - Anesthesia Hx Anesthesia: Yes Hx Anesthesia Reactions: No Hx Malignant Hyperthermia: No - Suicidal Assessment Feels Threatened In Home Enviroment: No Family/Social History - Physician Review Nursing Documentation Reviewed: Yes Family/Social History: No Known Family HX Smoking Status: Heavy Smoker > 10 Cigarettes Daily Hx Alcohol Use: No Hx Substance Use: No Substance used: marijuana,pcp Allergies/Home Meds Allergies/Adverse Reactions: Allergies No Known Allergies Allergy (Verified 11/05/17 12:07) Review of Systems - Physician Review All systems were reviewed & negative as marked: Yes - Review of Systems Constitutional: absent: Fevers, Night Sweats Respiratory: absent: SOB, Cough Cardiovascular: absent: Chest Pain, DAVIS Gastrointestinal: absent: Abdominal Pain, Stool Changes, Diarrhea, Nausea, Vomiting Genitourinary Male: absent: Urinary Output Changes Musculoskeletal: absent: Back Pain, Neck Pain Neurological: absent: Headache, Dizziness Psychiatric: Depression, Suicidal Ideation Physical Exam Vital Signs Reviewed: Yes Vital Signs Temp Pulse Resp BP Pulse Ox 11/05/17 12:09 97.8 F 78 16 121/81 97 Temperature: Afebrile Blood Pressure: Normal Pulse: Regular Respiratory Rate: Normal Appearance: Positive for: Well-Appearing, Non-Toxic, Comfortable Pain Distress: None Mental Status: Positive for: Alert and Oriented X 3 - Systems Exam Head: Present: Atraumatic, Normocephalic Pupils: Present: PERRL, Other (psychotic stare) Extroacular Muscles: Present: EOMI Conjunctiva: Present: Normal Mouth: Present: Moist Mucous Membranes Neck: Present: Normal Range of Motion Respiratory/Chest: Present: Decreased Breath Sounds Cardiovascular: Present: Regular Rate and Rhythm, Normal S1, S2. No: Murmurs Abdomen: No: Tenderness, Distention, Peritoneal Signs Back: Present: Normal Inspection Upper Extremity: Present: Normal Inspection. No: Cyanosis, Edema Lower Extremity: Present: Normal Inspection. No: Edema Neurological: Present: GCS=15, CN II-XII Intact, Speech Normal Skin: Present: Warm, Dry, Normal Color. No: Rashes Psychiatric: Present: Alert, Oriented x 3, Normal Insight, Normal Concentration Medical Decision Making ED Course and Treatment: 11/05/17 12:38 Impression: A 32 year old male presents to the emergency department complaining of depression, suicidal ideation, and "not feeling well". Plan: -- EKG -- Chest X-ray -- Labs -- Urinalysis -- Reassess and disposition Progress Notes: CHEST X-RAY Dictator : Sergio Latham MD Report Date : 11/05/2017 13:22:53 IMPRESSION: No active disease. 11/05/17 13:53 Seen and evaluated by crisis. Patient will be discharged home. He will be seen today by the [facility] program. 11/05/17 14:03 EKG shows normal sinus rhythm rate approximately [address] or T-wave changes. - Lab Interpretations Lab Results: 11/05/17 13:19 11/05/17 13:19 Lab Results 11/05/17 13:19: Alcohol, Quantitative < 10 11/05/17 13:19: Salicylates Pending, Acetaminophen < 10.0 L 11/05/17 13:19: Urine Opiates Screen Negative, Urine Methadone Screen Negative, Ur Barbiturates Screen Negative, Ur Phencyclidine Scrn Positive H, Ur Amphetamines Screen Negative, U Benzodiazepines Scrn Negative, U Oth Cocaine Metabols Negative, U Cannabinoids Screen Negative 11/05/17 13:19: Sodium 146, Potassium 4.4, Chloride 106, Carbon Dioxide 26, Anion Gap 18, BUN 22 H, Creatinine 1.6 H, Est GFR ( Amer) > 60, Est GFR ( Non-Af Amer) 51, Random Glucose 96, Calcium 9.3, Magnesium 2.2, Total Bilirubin 0.7, AST 21, ALT 30, Alkaline Phosphatase 62, Total Creatine Kinase 100, Total Protein 7.1, Albumin 4.4, Globulin 2.8, Albumin/Globulin Ratio 1.6 11/05/17 13:19: Urine Color Yellow, Urine Appearance Clear, Urine pH 6.0, Ur Specific [place] >= 1.030, Urine Protein Trace H, Urine Glucose (UA) Negative, Urine Ketones Trace H, Urine Blood Negative, Urine Nitrate Negative, Urine Bilirubin Negative, Urine Urobilinogen 0.2, Ur Leukocyte Esterase Negative, Urine RBC 0 - 2, Urine WBC 1 - 3, Ur Epithelial Cells None, Urine Bacteria Few 11/05/17 13:19: WBC 11.8 H D, RBC 4.69, Hgb 14.2, Hct 40.9 L, MCV 87.2, MCH 30.3 , MCHC 34.7, RDW 12.9, Plt Count 282, MPV 8.9, Gran % 72.6 H, Lymph % (Auto) 20.5 L, [place] % (Auto) 5.7, Eos % (Auto) 1.0 L, Baso % (Auto) 0.2, Gran # 8.59 H , Lymph # (Auto) 2.4, [place] # (Auto) 0.7 H, Eos # (Auto) 0.1, Baso # (Auto) 0.02 I have reviewed the lab results: Yes - RAD Interpretation Radiology Orders: 11/05/17 12:27 CHEST PORTABLE [RAD] Stat - EKG Interpretation Interpreted by ED Physician: Yes Type: 12 lead EKG - Scribe Statement The provider has reviewed the documentation as recorded by the Scribe Dionne Durán Provider Scribe Attestation: All medical record entries made by the Scribe were at my direction and personally dictated by me. I have reviewed the chart and agree that the record accurately reflects my personal performance of the history, physical exam, medical decision making, and the department course for this patient. I have also personally directed, reviewed, and agree with the discharge instructions and disposition. Disposition/Present on Arrival - Present on Arrival Any Indicators Present on Arrival: No History of DVT/PE: No History of Uncontrolled Diabetes: No Urinary Catheter: No History of Decub. Ulcer: No History Surgical Site Infection Following: None - Disposition Have Diagnosis and Disposition been Completed?: Yes Diagnosis: Homelessness, Depression, Drug abuse Disposition: HOME/ ROUTINE Disposition Time: 13:54 Patient Plan: Discharge Patient Problems: Current Active Problems Problem Status Onset Depression Acute Drug abuse Acute Homelessness Acute Condition: GOOD Discharge Instructions (ExitCare): Depression Forms: [employer] (Honduran)
--- NOTE | 2017-11-05 13:24 | RAD ---
HISTORY: PES COMPARISON: 10/16/2017 FINDINGS: LUNGS: No active pulmonary disease. PLEURA: No significant pleural effusion identified, no pneumothorax apparent. CARDIOVASCULAR: Normal. OSSEOUS STRUCTURES: No significant abnormalities. VISUALIZED UPPER ABDOMEN: Normal. OTHER FINDINGS: None. IMPRESSION: No active disease.
[2017-11-05 13:35] LABS: BASO # 0.02 K/mm3 (0.0-2.0); BASO % 0.2 % (0.0-3.0); EOS # 0.1 (0.0-0.7); GRAN # 8.59 (1.4-6.5); GRAN % 72.6 % (50.0-68.0); HEMOGLOBIN 14.2 g/dL (14.0-18.0); LYMPH # 2.4 (1.2-3.4); LYMPH % 20.5 % (22.0-35.0); MEAN CELL VOLUME 87.2 fl (80.0-105.0); MEAN CORPUSCULAR HEMOGLOBIN 30.3 pg (25.0-35.0); MEAN CORPUSCULAR HGB CONC 34.7 g/dl (31.0-37.0); MEAN PLATELET VOLUME 8.9 fl (7.0-11.0); MONO # 0.7 (0.1-0.6); MONO % 5.7 % (1.0-6.0); RBC 4.69 10^6/uL (3.5-6.1); RED CELL DISTRIBUTION WIDTH 12.9 % (11.5-14.5); WHITE BLOOD COUNT 11.8 10^3/ul (4.5-11.0)
[2017-11-05 13:37] LABS: URINE BILIRUBIN NEGATIVE (NEGATIVE); URINE BLOOD NEGATIVE (NEGATIVE); URINE GLUCOSE (UA) NEGATIVE (NEGATIVE); URINE LEUKOCYTE ESTERASE NEGATIVE Leu/uL (NEGATIVE); URINE PROTEIN TRACE mg/dL (<30 mg/dL); URINE UROBILINOGEN 0.2 E.U./dL (<1 E.U./dL)
[2017-11-05 13:44] LABS: URINE APPEARANCE CLEAR (CLEAR); URINE COLOR YELLOW (YELLOW)
[2017-11-05 13:50] LABS: ALB/GLOB RATIO 1.6 (1.1-1.8); ALBUMIN 4.4 g/dL (3.0-4.8); ALT/SGPT 30 U/L (7-56); AST/SGOT 21 U/L (17-59); BLOOD UREA NITROGEN 22 mg/dL (7-21); CALCIUM 9.3 mg/dL (8.4-10.5); GFR NON-AFRICAN AMERICAN 51
[2017-11-05 13:52] LABS: ACETAMINOPHEN < 10.0 ug/ml (10.0-20.0)
[2017-11-05 13:54] LABS: URINE BACTERIA FEW (NEG); URINE RBC 0 - 2 /hpf (0-2)
[2017-11-05 13:55] LABS: BARBITURATES, UR NEGATIVE (NEGATIVE); BENZODIAZEPINES, UR NEGATIVE (NEGATIVE); OPIATES, UR NEGATIVE (NEGATIVE); PHENCYCLIDINE, UR POSITIVE (NEGATIVE)
[2017-11-05 14:07] LABS: SALICYLATE < 1 mg/dL (2.0-20.0)
[2017-11-05 14:11] VITALS: BP 131/79; PULSE 72
--- NOTE | 2017-11-05 14:55 | CARD ---
APPROVED REPORT EKG Measurement Heart [id number] <Conclusion> Normal sinus rhythm Normal ECG
[2017-11-05 16:52] VITALS: TEMP 98.1
== END 2017-11-05 16:51 | disposition home or self-care (01) ==
LOC: ED 11:07
DX: F32.9 Major depressive disorder, single episode, unspecified (principal); Z59.0 Homelessness; F19.10 Other psychoactive substance abuse, uncomplicated; F17.210 Nicotine dependence, cigarettes, uncomplicated

== ENCOUNTER 2017-11-06 20:26 | Emergency (ER) | payer OTHER ==
[2017-11-06 20:27] VITALS: BMI 25.1
--- NOTE | 2017-11-06 21:12 | ED PDOC ---
Arrival/HPI - General Chief Complaint: Headache Time Seen by Provider: 11/06/17 20:43 Historian: Patient - History of Present Illness Narrative History of Present Illness (Text): 11/06/17 21:11 Hi Talamantes is a 32 year old male who presents to the Emergency department requesting a place to stay for the night. Patient states he is homeless and living on the streets. Patient also complaining of a slight headache. Patient denies any head trauma, fever, chills, chest pain, shortness of breath, nausea, vomiting, back pain, neck pain, dizziness, or any other complaints. Symptom Onset: Gradual Symptom Course: Unchanged Activities at Onset: Light Context: Street Past Medical History - Provider Review Nursing Documentation Reviewed: Yes - Past History Past History: Non-Contributing - Infectious Disease Hx of Infectious Diseases: None - Tetanus Immunization Tetanus Immunization: Unknown - Cardiac Hx Atrial Fibrillation: No Hx Cardiac Arrhythmia: No Hx Congestive Heart Failure: No Hx Hypertension: No Hx Mitral Valve Prolapse: No Hx Pacemaker: No Hx Peripheral Edema: No - Pulmonary Hx Asthma: No Hx Bronchitis: No Hx Chronic Obstructive Pulmonary Disease (COPD): No Hx Emphysema: No Hx Pneumonia: No Hx Pulmonary Embolism: No Hx Sleep Apnea: No - Neurological Hx Alzheimer's Disease: No Hx Dementia: No Hx Migraine: No Hx Multiple Sclerosis: No Hx Parkinson's Disease: No Hx Seizures: No Hx Transient Ischemic Attacks (TIA): No - HEENT Hx HEENT Disorder: No - Renal Hx Renal Disorder: No - Endocrine/Metabolic Hx Endocrine Disorders: No - Hematological/Oncological Hx Cancer: No - Integumentary Hx Cellulitis: No - Musculoskeletal/Rheumatological Hx Unsteady Gait: Yes - Gastrointestinal HX Swallowing Problems: No Other/Comment: inguinal hernia - Genitourinary/Gynecological Hx Sexually Transmitted Diseases: No - Psychiatric Hx Anxiety: Yes Hx Bipolar Disorder: Yes Hx Depression: Yes Hx Schizophrenia: Yes Hx Substance Use: No - Surgical History Hx Amputation: No Hx Joint Replacement: No - Anesthesia Hx Anesthesia: Yes Hx Anesthesia Reactions: No Hx Malignant Hyperthermia: No - Suicidal Assessment Feels Threatened In Home Enviroment: No Family/Social History - Physician Review Nursing Documentation Reviewed: Yes Family/Social History: Unknown Family HX Smoking Status: Heavy Smoker > 10 Cigarettes Daily Hx Alcohol Use: No Hx Substance Use: No Substance used: marijuana,pcp Allergies/Home Meds Allergies/Adverse Reactions: Allergies No Known Allergies Allergy (Verified 11/05/17 12:07) Review of Systems - Physician Review All systems were reviewed & negative as marked: Yes - Review of Systems Constitutional: Normal. absent: Fevers Eyes: Normal ENT: Normal Respiratory: Normal. absent: SOB, Cough Cardiovascular: Normal. absent: Chest Pain Gastrointestinal: Normal. absent: Abdominal Pain, Diarrhea, Nausea, Vomiting Genitourinary Male: Normal. absent: Dysuria, Frequency, Hematuria, Urinary Output Changes Musculoskeletal: Normal. absent: Back Pain, Neck Pain Skin: Normal. absent: Rash Neurological: Headache. absent: Dizziness Endocrine: Normal Hemo/Lymphatic: Normal Psychiatric: Normal Physical Exam Vital Signs Reviewed: Yes Vital Signs Temp Pulse Resp BP Pulse Ox 11/06/17 20:40 97.8 F 82 18 135/78 98 Temperature: Afebrile Blood Pressure: Normal Pulse: Regular Respiratory Rate: Normal Appearance: Positive for: Well-Appearing, Non-Toxic, Comfortable, Unkept Pain Distress: None Mental Status: Positive for: Alert and Oriented X 3 - Systems Exam Head: Present: Atraumatic, Normocephalic Pupils: Present: PERRL Extroacular Muscles: Present: EOMI Conjunctiva: Present: Normal Mouth: Present: Moist Mucous Membranes Neck: Present: Normal Range of Motion Respiratory/Chest: Present: Clear to Auscultation, Good Air Exchange. No: Respiratory Distress, Accessory Muscle Use Cardiovascular: Present: Regular Rate and Rhythm, Normal S1, S2. No: Murmurs Abdomen: No: Tenderness, Distention, Peritoneal Signs Back: Present: Normal Inspection Upper Extremity: Present: Normal Inspection. No: Cyanosis, Edema Lower Extremity: Present: Normal Inspection. No: Edema Neurological: Present: GCS=15, CN II-XII Intact, Speech Normal Skin: Present: Warm, Dry, Normal Color. No: Rashes Psychiatric: Present: Alert, Oriented x 3, Normal Insight, Normal Concentration Medical Decision Making ED Course and Treatment: 11/06/17 21:11 Impression: 32 year old male requesting to stay night, also with a slight headache. Plan: -- Tylenol -- Reassess and disposition Prior Visits: Notes and results from previous visits were reviewed. Progress Notes: - Medication Orders Current Medication Orders: Discontinued Medications Acetaminophen (Tylenol 325mg Tab) 650 mg PO STAT STA Stop: 11/06/17 21:12 Last Admin: 11/06/17 21:33 Dose: 650 mg MAR Pain/Vitals Document 11/06/17 21:33 IT (Rec: 11/06/17 21:33 IT [id number]) Pain Reassessment Is This A Pain ReAssessment? No Sleep Is patient sleeping during reassessment? No Presence of Pain Presence of Pain Yes Pain Scale Used Pain Scale Used Numeric - Scribe Statement The provider has reviewed the documentation as recorded by the Dawitibsaeid Mckee Provider Scribe Attestation: All medical record entries made by the Scribe were at my direction and personally dictated by me. I have reviewed the chart and agree that the record accurately reflects my personal performance of the history, physical exam, medical decision making, and the department course for this patient. I have also personally directed, reviewed, and agree with the discharge instructions and disposition. Disposition/Present on Arrival - Present on Arrival Any Indicators Present on Arrival: No History of DVT/PE: No History of Uncontrolled Diabetes: No Urinary Catheter: No History of Decub. Ulcer: No History Surgical Site Infection Following: None - Disposition Have Diagnosis and Disposition been Completed?: Yes Diagnosis: Homelessness, Headache Disposition: HOME/ ROUTINE Disposition Time: 00:01 Patient Plan: Discharge Condition: STABLE Discharge Instructions (ExitCare): Tension Headache (DC) Additional Instructions: Tylenol as directed/follow up medical clinic Referrals: Kem Flynn PA [Primary Care Provider] - Follow up with primary [facility] [Outside] - Follow up with primary Forms: [employer] (Irish)
[2017-11-07 01:17] VITALS: BP 128/72; PULSE 89; RESP 17; TEMP 98.2; O2SAT 100
== END 2017-11-07 01:17 | disposition home or self-care (01) ==
LOC: ED 20:26
DX: R51 Headache (principal); Z59.0 Homelessness; F20.9 Schizophrenia, unspecified; F17.210 Nicotine dependence, cigarettes, uncomplicated

== ENCOUNTER 2017-11-08 17:16 | Emergency (ER) | payer OTHER ==
[2017-11-08 17:16] VITALS: BMI 25.1
[2017-11-08 17:33] VITALS: RESP 18
--- NOTE | 2017-11-08 17:58 | ED PDOC ---
Arrival/HPI - General Chief Complaint: Substance Abuse Time Seen by Provider: 11/08/17 17:51 Historian: Patient - History of Present Illness Narrative History of Present Illness (Text): 11/08/17 17:55 Hi Talamantes is a 32 year old male who presents to the Emergency department requesting a place to stay for the night. Patient states he is homeless and living on the streets. Patient admits drinking a couple shots early today. Patient denies any somatic complains at this time. He requested food. Time/Duration: Other (see hpi) Context: Other (homeless) Past Medical History - Provider Review Nursing Documentation Reviewed: Yes - Past History Past History: Non-Contributing - Infectious Disease Hx of Infectious Diseases: None - Tetanus Immunization Tetanus Immunization: Unknown - Cardiac Hx Atrial Fibrillation: No Hx Cardiac Arrhythmia: No Hx Congestive Heart Failure: No Hx Hypertension: No Hx Mitral Valve Prolapse: No Hx Pacemaker: No Hx Peripheral Edema: No - Pulmonary Hx Asthma: No Hx Bronchitis: No Hx Chronic Obstructive Pulmonary Disease (COPD): No Hx Emphysema: No Hx Pneumonia: No Hx Pulmonary Embolism: No Hx Sleep Apnea: No - Neurological Hx Alzheimer's Disease: No Hx Dementia: No Hx Migraine: No Hx Multiple Sclerosis: No Hx Parkinson's Disease: No Hx Seizures: No Hx Transient Ischemic Attacks (TIA): No - HEENT Hx HEENT Disorder: No - Renal Hx Renal Disorder: No - Endocrine/Metabolic Hx Endocrine Disorders: No - Hematological/Oncological Hx Cancer: No - Integumentary Hx Cellulitis: No - Musculoskeletal/Rheumatological Hx Unsteady Gait: Yes - Gastrointestinal HX Swallowing Problems: No Other/Comment: inguinal hernia - Genitourinary/Gynecological Hx Sexually Transmitted Diseases: No - Psychiatric Hx Anxiety: Yes Hx Bipolar Disorder: Yes Hx Depression: Yes Hx Schizophrenia: Yes Hx Substance Use: No - Surgical History Hx Amputation: No Hx Joint Replacement: No - Anesthesia Hx Anesthesia: Yes Hx Anesthesia Reactions: No Hx Malignant Hyperthermia: No - Suicidal Assessment Feels Threatened In Home Enviroment: No Family/Social History - Physician Review Nursing Documentation Reviewed: Yes Family/Social History: Other (noncontributory) Smoking Status: Heavy Smoker > 10 Cigarettes Daily Hx Alcohol Use: No Hx Substance Use: No Substance used: marijuana,pcp Allergies/Home Meds Allergies/Adverse Reactions: Allergies No Known Allergies Allergy (Verified 11/08/17 17:26) Home Medications: Home Meds Medication Instructions Recorded Confirmed No Known Home Med 11/08/17 11/08/17 Review of Systems - Review of Systems Constitutional: Normal. absent: Fatigue, Weight Change, Fevers Eyes: Normal. absent: Vision Changes ENT: Normal Respiratory: Normal. absent: SOB, Cough, Sputum, Wheezing Cardiovascular: Normal. absent: Chest Pain, Palpitations Gastrointestinal: Normal. absent: Abdominal Pain, Nausea, Vomiting Genitourinary Male: Normal. absent: Dysuria, Hematuria Musculoskeletal: Normal. absent: Back Pain Skin: Normal. absent: Rash Neurological: Normal. absent: Headache, Dizziness, Focal Weakness, Gait Changes , Speech Changes, Facial Droop, Disequilibrium, Seizure Endocrine: Normal Hemo/Lymphatic: Normal Psychiatric: Other (homeless, and hungry. Alcohol use). absent: Anxiety, Depression, Suicidal Ideation Physical Exam Vital Signs Temp Pulse Resp BP Pulse Ox 11/08/17 20:59 88 18 135/72 98 11/08/17 17:30 99.1 F 84 18 138/78 99 Temperature: Afebrile Blood Pressure: Normal Pulse: Regular Respiratory Rate: Normal Appearance: Positive for: Well-Appearing, Non-Toxic, Comfortable Pain Distress: None Mental Status: Positive for: Alert and Oriented X 3 - Systems Exam Head: Present: Atraumatic, Normocephalic Pupils: Present: PERRL Extroacular Muscles: Present: EOMI Conjunctiva: Present: Normal Mouth: Present: Moist Mucous Membranes Neck: Present: Normal Range of Motion Respiratory/Chest: Present: Clear to Auscultation, Good Air Exchange. No: Respiratory Distress, Accessory Muscle Use Cardiovascular: Present: Regular Rate and Rhythm, Normal S1, S2. No: Murmurs Abdomen: No: Tenderness, Distention, Peritoneal Signs Back: Present: Normal Inspection Upper Extremity: Present: Normal Inspection. No: Cyanosis, Edema Lower Extremity: Present: Normal Inspection. No: Edema Neurological: Present: GCS=15, CN II-XII Intact, Speech Normal Skin: Present: Warm, Dry, Normal Color. No: Rashes Psychiatric: Present: Alert, Oriented x 3, Normal Insight, Normal Concentration Medical Decision Making ED Course and Treatment: 11/09/17 02:24 Re-evaluation. Patient feels better. Discussed results and plan with patient who expresses understanding. All questions answered and there is agreement with the plan to discharge home with instructions. Patient stable for discharge. Return if symptoms persist or worsen Re-evaluation Time: 02:24 Reassessment Condition: Re-examined, Improved Disposition/Present on Arrival - Present on Arrival Any Indicators Present on Arrival: No History of DVT/PE: No History of Uncontrolled Diabetes: No Urinary Catheter: No History of Decub. Ulcer: No History Surgical Site Infection Following: None - Disposition Have Diagnosis and Disposition been Completed?: Yes Diagnosis: Homelessness, Alcohol abuse Disposition: HOME/ ROUTINE Disposition Time: 02:24 Patient Plan: Discharge Condition: IMPROVED Discharge Instructions (ExitCare): Alcohol Abuse and Alcoholism (DC) Additional Instructions: Call private doctor for follow up visit in 1-2 days. Stop using alcohol Return to ED if new symptoms develop Referrals: Gonzalo Hernandes, [Primary Care Provider] - Follow up with primary [facility] [Outside] - Follow up with primary [facility] [Outside] - Follow up with primary Forms: [employer] (Slovenian)
[2017-11-09 03:48] VITALS: BP 125/70; PULSE 80; TEMP 98; O2SAT 100
== END 2017-11-09 03:11 | disposition home or self-care (01) ==
LOC: ED 17:16
DX: F10.10 Alcohol abuse, uncomplicated (principal); Z59.0 Homelessness

== ENCOUNTER 2017-11-13 21:08 | Emergency (ER) | payer OTHER ==
[2017-11-13 21:08] VITALS: BMI 25.1
[2017-11-13 23:07] VITALS: RESP 18
--- NOTE | 2017-11-13 23:59 | ED PDOC ---
Arrival/HPI - General Historian: Patient - General Chief Complaint: Psychiatric Evaluation Time Seen by Provider: 11/13/17 23:55 - History of Present Illness Narrative History of Present Illness (Text): 11/13/17 23:57 32 y/o male, nkda, c/o feeling fatigue and tired x 1 days. Pt. stated that he feels fatigue, stated that it's time for him to sleep, also told the triage nurse that he feels depress chronically. Pt. has no homicidal or suicidal ideation, no auditory or visual hallucination, no rash, no numbness or tingling , no palpitation, no other medical or psychological complaints. (Elie Guerrero) Past Medical History - Provider Review Nursing Documentation Reviewed: Yes - Past History Past History: Non-Contributing - Infectious Disease Hx of Infectious Diseases: None - Tetanus Immunization Tetanus Immunization: Unknown - Cardiac Hx Atrial Fibrillation: No Hx Cardiac Arrhythmia: No Hx Congestive Heart Failure: No Hx Hypertension: No Hx Mitral Valve Prolapse: No Hx Pacemaker: No Hx Peripheral Edema: No - Pulmonary Hx Asthma: No Hx Bronchitis: No Hx Chronic Obstructive Pulmonary Disease (COPD): No Hx Emphysema: No Hx Pneumonia: No Hx Pulmonary Embolism: No Hx Sleep Apnea: No - Neurological Hx Alzheimer's Disease: No Hx Dementia: No Hx Migraine: No Hx Multiple Sclerosis: No Hx Parkinson's Disease: No Hx Seizures: No Hx Transient Ischemic Attacks (TIA): No - HEENT Hx HEENT Disorder: No - Renal Hx Renal Disorder: No - Endocrine/Metabolic Hx Endocrine Disorders: No - Hematological/Oncological Hx Cancer: No - Integumentary Hx Cellulitis: No - Musculoskeletal/Rheumatological Hx Unsteady Gait: Yes - Gastrointestinal HX Swallowing Problems: No Other/Comment: inguinal hernia - Genitourinary/Gynecological Hx Sexually Transmitted Diseases: No - Psychiatric Hx Anxiety: Yes Hx Bipolar Disorder: Yes Hx Depression: Yes Hx Schizophrenia: Yes Hx Substance Use: No - Surgical History Hx Amputation: No Hx Joint Replacement: No - Anesthesia Hx Anesthesia: Yes Hx Anesthesia Reactions: No Hx Malignant Hyperthermia: No - Suicidal Assessment Feels Threatened In Home Enviroment: No Family/Social History - Physician Review Nursing Documentation Reviewed: Yes Family/Social History: Unknown Family HX Smoking Status: Heavy Smoker > 10 Cigarettes Daily Hx Alcohol Use: No Hx Substance Use: No Substance used: marijuana,pcp Allergies/Home Meds Allergies/Adverse Reactions: Allergies No Known Allergies Allergy (Verified 11/08/17 17:26) Home Medications: Home Meds Medication Instructions Recorded Confirmed No Known Home Med 11/08/17 11/08/17 Review of Systems - Review of Systems Constitutional: absent: Fevers, Night Sweats Eyes: absent: Vision Changes ENT: absent: Hearing Changes Respiratory: absent: SOB, Cough Cardiovascular: absent: Chest Pain Gastrointestinal: absent: Abdominal Pain, Nausea, Vomiting Musculoskeletal: absent: Arthralgias, Back Pain Skin: absent: Rash, Pruritis Neurological: absent: Headache Psychiatric: Depression. absent: Anxiety Physical Exam Vital Signs Reviewed: Yes Temperature: Afebrile Pulse: Regular Respiratory Rate: Normal Appearance: Positive for: Well-Appearing, Non-Toxic, Comfortable Pain Distress: None Mental Status: Positive for: Alert and Oriented X 3 - Systems Exam Head: Present: Atraumatic, Normocephalic Pupils: Present: PERRL Extroacular Muscles: Present: EOMI Conjunctiva: Present: Normal Mouth: Present: Moist Mucous Membranes Neck: Present: Normal Range of Motion Respiratory/Chest: Present: Clear to Auscultation, Good Air Exchange. No: Respiratory Distress, Accessory Muscle Use Cardiovascular: Present: Regular Rate and Rhythm, Normal S1, S2. No: Murmurs Abdomen: No: Tenderness, Distention, Peritoneal Signs Back: Present: Normal Inspection Upper Extremity: Present: Normal Inspection. No: Cyanosis, Edema Lower Extremity: Present: Normal Inspection. No: Edema Neurological: Present: GCS=15, CN II-XII Intact, Speech Normal Skin: Present: Warm, Dry, Normal Color. No: Rashes Psychiatric: Present: Alert, Oriented x 3, Normal Insight, Normal Concentration Vital Signs Temp Pulse Resp BP Pulse Ox 11/14/17 03:37 98.4 F 67 18 122/57 L 96 11/13/17 23:04 98.2 F 84 18 99 Medical Decision Making ED Course and Treatment: 11/13/17 23:59 -Pt. is medially clear and stable at this time for PES evaluation. -PES notified -Observe and reassess 11/14/17 01:45 -Pt. evaluated by the PES Falguni, evaluated the patient and pending for the dispo. -Case discussed and endorsed to the ER attending Dr. Cummings, he would follow up the PES consult. (Elie Guerrero) Pt evaluated by PES screener julisa Montes De Oca medically and psychiatrically cleared for discharge with outpt f/u. (Markie Cummings) - PA / MAP MAKER / Resident Statement MD/DO has reviewed & agrees with the documentation as recorded. Disposition/Present on Arrival - Present on Arrival Any Indicators Present on Arrival: No History of DVT/PE: No History of Uncontrolled Diabetes: No Urinary Catheter: No History of Decub. Ulcer: No History Surgical Site Infection Following: None - Disposition Have Diagnosis and Disposition been Completed?: Yes Disposition Time: 23:59 - Disposition Diagnosis: Psychiatric care Disposition: HOME/ ROUTINE Patient Problems: Current Active Problems Problem Status Onset Psychiatric care Acute Condition: STABLE Referrals: PayParrot Hari Req, [Primary Care Provider] - Follow up with primary Forms: [employer] (Sami)
[2017-11-14 03:38] VITALS: BP 122/57; PULSE 67; TEMP 98.4; O2SAT 96
== END 2017-11-14 03:38 | disposition home or self-care (01) ==
LOC: ED 21:08
DX: Z00.8 Encounter for other general examination (principal)

== ENCOUNTER 2017-11-17 12:11 | Emergency (ER) | payer OTHER ==
[2017-11-17 12:11] VITALS: BMI 25.1
[2017-11-17 12:43] VITALS: RESP 18
--- NOTE | 2017-11-17 12:50 | ED PDOC ---
Arrival/HPI - General Chief Complaint: Lower Extremity Problem/Injury Time Seen by Provider: 11/17/17 12:30 Historian: Patient - History of Present Illness Narrative History of Present Illness (Text): 11/17/17 12:44 A 32 year old male, whose past medical history includes depression, bipolar disorder, anxiety, and schizophrenia, presents to the emergency department complaining of left leg pain. Patient reports also "I just don't feel good, I' ve been having suicidal thoughts and I'm hungry." Patient mentions no other complaints at this time. No PMD Past Medical History - Provider Review Nursing Documentation Reviewed: Yes - Past History Past History: Non-Contributing - Infectious Disease Hx of Infectious Diseases: None - Tetanus Immunization Tetanus Immunization: Unknown - Cardiac Hx Atrial Fibrillation: No Hx Cardiac Arrhythmia: No Hx Congestive Heart Failure: No Hx Hypertension: No Hx Mitral Valve Prolapse: No Hx Pacemaker: No Hx Peripheral Edema: No - Pulmonary Hx Asthma: No Hx Bronchitis: No Hx Chronic Obstructive Pulmonary Disease (COPD): No Hx Emphysema: No Hx Pneumonia: No Hx Pulmonary Embolism: No Hx Sleep Apnea: No - Neurological Hx Alzheimer's Disease: No Hx Dementia: No Hx Migraine: No Hx Multiple Sclerosis: No Hx Parkinson's Disease: No Hx Seizures: No Hx Transient Ischemic Attacks (TIA): No - HEENT Hx HEENT Disorder: No - Renal Hx Renal Disorder: No - Endocrine/Metabolic Hx Endocrine Disorders: No - Hematological/Oncological Hx Cancer: No - Integumentary Hx Cellulitis: No - Musculoskeletal/Rheumatological Hx Unsteady Gait: Yes - Gastrointestinal HX Swallowing Problems: No Other/Comment: inguinal hernia - Genitourinary/Gynecological Hx Sexually Transmitted Diseases: No - Psychiatric Hx Anxiety: Yes Hx Bipolar Disorder: Yes Hx Depression: Yes Hx Schizophrenia: Yes Hx Substance Use: No - Surgical History Hx Amputation: No Hx Joint Replacement: No - Anesthesia Hx Anesthesia: Yes Hx Anesthesia Reactions: No Hx Malignant Hyperthermia: No - Suicidal Assessment Feels Threatened In Home Enviroment: No Family/Social History - Physician Review Nursing Documentation Reviewed: Yes Family/Social History: No Known Family HX Smoking Status: Heavy Smoker > 10 Cigarettes Daily Hx Alcohol Use: No Hx Substance Use: No Substance used: marijuana,pcp Allergies/Home Meds Allergies/Adverse Reactions: Allergies No Known Allergies Allergy (Verified 11/08/17 17:26) Home Medications: Home Meds Medication Instructions Recorded Confirmed No Known Home Med 11/08/17 11/17/17 Review of Systems - Physician Review All systems were reviewed & negative as marked: Yes - Review of Systems Musculoskeletal: Other (left leg pain) Psychiatric: Suicidal Ideation Physical Exam Vital Signs Reviewed: Yes Vital Signs Temp Pulse Resp BP Pulse Ox 11/17/17 14:12 98.6 F 79 18 133/79 98 11/17/17 12:30 98.9 F 82 18 135/84 99 Temperature: Afebrile Blood Pressure: Normal Pulse: Regular Respiratory Rate: Normal Appearance: Positive for: Well-Appearing Pain Distress: None Mental Status: Positive for: Alert and Oriented X 3 - Systems Exam Head: Present: Atraumatic, Normocephalic Pupils: Present: PERRL Extroacular Muscles: Present: EOMI Conjunctiva: Present: Normal Mouth: Present: Moist Mucous Membranes Neck: Present: Normal Range of Motion Respiratory/Chest: Present: Clear to Auscultation, Good Air Exchange. No: Respiratory Distress, Accessory Muscle Use Cardiovascular: Present: Regular Rate and Rhythm, Normal S1, S2. No: Murmurs Abdomen: No: Tenderness, Distention, Peritoneal Signs Back: Present: Normal Inspection Upper Extremity: Present: Normal Inspection. No: Cyanosis, Edema Lower Extremity: Present: Normal Inspection. No: Edema Neurological: Present: GCS=15, CN II-XII Intact, Speech Normal Skin: Present: Warm, Dry, Normal Color. No: Rashes Psychiatric: Present: Alert, Oriented x 3, Normal Insight, Normal Concentration Medical Decision Making ED Course and Treatment: 11/17/17 12:47 Impression: 32 year old male complaining of leg pain and suicidal ideation. Plan: -- EKG -- Chest X-ray -- Labs -- Urinalysis -- [facility] Crisis Evaluation -- Reassess and disposition Prior Visits: Notes and results from previous visits were reviewed. Patient was last seen in the emergency department on 11/13/2017 for psychiatric evaluation. Progress Notes: 11/17/2017 13:36 Chest X-ray IMPRESSION: No active disease. Dictator: Edinson Scott DO EKG: Ordered, reviewed, and independently interpreted the EKG. Rate : 72 BPM Rhythm : NSR Interpretation : No ST-segment elevations or depressions, no T-wave inversions, normal intervals. Comparison : No previous EKG for comparison. - Lab Interpretations Lab Results: 11/17/17 14:15 11/17/17 14:15 Lab Results 11/17/17 14:15: Alcohol, Quantitative < 10 11/17/17 14:15: Salicylates < 1 L, Acetaminophen < 10.0 L 11/17/17 14:15: Sodium 147, Potassium 3.9, Chloride 109 H, Carbon Dioxide 26, Anion Gap 16, BUN 16, Creatinine 0.9, Est GFR ( Amer) > 60, Est GFR (Non- Af Amer) > 60, Random Glucose 106, Calcium 9.3, Magnesium 2.1, Total Bilirubin 0.2, AST 17, ALT 24, Alkaline Phosphatase 50, Total Creatine Kinase 103, Total Protein 6.7, Albumin 4.3, Globulin 2.4, Albumin/Globulin Ratio 1.8 11/17/17 14:15: WBC 8.8 D, RBC 4.24, Hgb 12.7 L, Hct 36.8 L, MCV 86.8, MCH 30.0 , MCHC 34.5, RDW 12.9, Plt Count 223, MPV 9.1, Gran % 61.5, Lymph % (Auto) 30.2 , [place] % (Auto) 7.0 H, Eos % (Auto) 1.1 L, Baso % (Auto) 0.2, Gran # 5.43, Lymph # (Auto) 2.7, [place] # (Auto) 0.6, Eos # (Auto) 0.1, Baso # (Auto) 0.02 - RAD Interpretation Radiology Orders: 11/17/17 12:47 CHEST PORTABLE [RAD] Stat - Scribe Statement The provider has reviewed the documentation as recorded by the Dheeraj Ochoa Provider Scribe Attestation: All medical record entries made by the Dawitibsaeid were at my direction and personally dictated by me. I have reviewed the chart and agree that the record accurately reflects my personal performance of the history, physical exam, medical decision making, and the department course for this patient. I have also personally directed, reviewed, and agree with the discharge instructions and disposition. Disposition/Present on Arrival - Present on Arrival Any Indicators Present on Arrival: No History of DVT/PE: No History of Uncontrolled Diabetes: No Urinary Catheter: No History of Decub. Ulcer: No History Surgical Site Infection Following: None - Disposition Have Diagnosis and Disposition been Completed?: Yes Diagnosis: Homelessness, Situational depression Disposition: HOME/ ROUTINE Disposition Time: 16:46 Patient Plan: Discharge Condition: GOOD Discharge Instructions (ExitCare): Depression, Adult (DC) Additional Instructions: [place] - Try and take better care of yourself. Return to us if any problems. Luís- Dr. Abraham No Forms: [employer] (Ukrainian)
--- NOTE | 2017-11-17 13:37 | RAD ---
HISTORY: MEDICAL CLEARANCE COMPARISON: Comparison made with prior chest radiograph 11/05/2017. FINDINGS: LUNGS: No active pulmonary disease. PLEURA: No significant pleural effusion identified, no pneumothorax apparent. CARDIOVASCULAR: Normal. OSSEOUS STRUCTURES: No significant abnormalities. VISUALIZED UPPER ABDOMEN: Normal. OTHER FINDINGS: None. IMPRESSION: No active disease.
[2017-11-17 14:21] LABS: BASO # 0.02 K/mm3 (0.0-2.0); BASO % 0.2 % (0.0-3.0); EOS # 0.1 (0.0-0.7); EOS % 1.1 % (1.5-5.0); GRAN # 5.43 (1.4-6.5); GRAN % 61.5 % (50.0-68.0); HEMOGLOBIN 12.7 g/dL (14.0-18.0); LYMPH # 2.7 (1.2-3.4); LYMPH % 30.2 % (22.0-35.0); MEAN CELL VOLUME 86.8 fl (80.0-105.0); MEAN CORPUSCULAR HGB CONC 34.5 g/dl (31.0-37.0); MEAN PLATELET VOLUME 9.1 fl (7.0-11.0); MONO # 0.6 (0.1-0.6); RBC 4.24 10^6/uL (3.5-6.1); RED CELL DISTRIBUTION WIDTH 12.9 % (11.5-14.5); WHITE BLOOD COUNT 8.8 10^3/ul (4.5-11.0)
[2017-11-17 14:37] LABS: ACETAMINOPHEN < 10.0 ug/ml (10.0-20.0); ALB/GLOB RATIO 1.8 (1.1-1.8); ALBUMIN 4.3 g/dL (3.0-4.8); ALT/SGPT 24 U/L (7-56); AST/SGOT 17 U/L (17-59); BLOOD UREA NITROGEN 16 mg/dL (7-21); CALCIUM 9.3 mg/dL (8.4-10.5); GFR AFRICAN-AMERICAN > 60; GFR NON-AFRICAN AMERICAN > 60; SALICYLATE < 1 mg/dL (2.0-20.0)
[2017-11-17 15:19] VITALS: TEMP 98.6
[2017-11-17 17:06] VITALS: O2SAT 100
[2017-11-17 17:08] VITALS: BP 135/75; PULSE 78
[2017-11-17 17:18] LABS: URINE BILIRUBIN NEGATIVE (NEGATIVE); URINE BLOOD NEGATIVE (NEGATIVE); URINE GLUCOSE (UA) NEGATIVE (NEGATIVE); URINE LEUKOCYTE ESTERASE NEGATIVE Leu/uL (NEGATIVE); URINE PROTEIN NEGATIVE mg/dL (<30 mg/dL); URINE UROBILINOGEN 0.2 E.U./dL (<1 E.U./dL)
[2017-11-17 17:22] LABS: URINE COLOR YELLOW (YELLOW)
[2017-11-17 17:23] LABS: URINE APPEARANCE CLEAR (CLEAR)
[2017-11-17 17:34] LABS: BARBITURATES, UR NEGATIVE (NEGATIVE); BENZODIAZEPINES, UR NEGATIVE (NEGATIVE); OPIATES, UR NEGATIVE (NEGATIVE); PHENCYCLIDINE, UR POSITIVE (NEGATIVE)
--- NOTE | 2017-11-18 07:54 | CARD ---
APPROVED REPORT EKG Measurement Heart [id number] <Conclusion> Normal sinus rhythm Normal ECG
== END 2017-11-17 17:06 | disposition home or self-care (01) ==
LOC: ED 12:11
DX: Z59.0 Homelessness (principal); F43.21 Adjustment disorder with depressed mood; F20.9 Schizophrenia, unspecified; F17.210 Nicotine dependence, cigarettes, uncomplicated

== ENCOUNTER 2017-11-19 12:34 | Emergency (ER) | payer OTHER ==
[2017-11-19 12:35] VITALS: BMI 25.1
[2017-11-19 13:34] VITALS: TEMP 98; O2SAT 100
--- NOTE | 2017-11-19 13:40 | ED PDOC ---
Arrival/HPI - General Time Seen by Provider: 11/19/17 13:36 Historian: Patient - History of Present Illness Narrative History of Present Illness (Text): 11/19/17 13:38 32yo male who present with complaint of depression and suicidal thoughts. Patient was just discharged from [facility] [place] for same complaint. He denies hallucination, homicidal ideation, any other complaint. Past Medical History - Provider Review Nursing Documentation Reviewed: Yes - Past History Past History: Non-Contributing - Infectious Disease Hx of Infectious Diseases: None - Tetanus Immunization Tetanus Immunization: Unknown - Cardiac Hx Atrial Fibrillation: No Hx Cardiac Arrhythmia: No Hx Congestive Heart Failure: No Hx Hypertension: No Hx Mitral Valve Prolapse: No Hx Pacemaker: No Hx Peripheral Edema: No - Pulmonary Hx Asthma: No Hx Bronchitis: No Hx Chronic Obstructive Pulmonary Disease (COPD): No Hx Emphysema: No Hx Pneumonia: No Hx Pulmonary Embolism: No Hx Sleep Apnea: No - Neurological Hx Alzheimer's Disease: No Hx Dementia: No Hx Migraine: No Hx Multiple Sclerosis: No Hx Parkinson's Disease: No Hx Seizures: No Hx Transient Ischemic Attacks (TIA): No - HEENT Hx HEENT Disorder: No - Renal Hx Renal Disorder: No - Endocrine/Metabolic Hx Endocrine Disorders: No - Hematological/Oncological Hx Cancer: No - Integumentary Hx Cellulitis: No - Musculoskeletal/Rheumatological Hx Unsteady Gait: Yes - Gastrointestinal HX Swallowing Problems: No Other/Comment: inguinal hernia - Genitourinary/Gynecological Hx Sexually Transmitted Diseases: No - Psychiatric Hx Anxiety: Yes Hx Bipolar Disorder: Yes Hx Depression: Yes Hx Schizophrenia: Yes Hx Substance Use: No - Surgical History Hx Amputation: No Hx Joint Replacement: No - Anesthesia Hx Anesthesia: Yes Hx Anesthesia Reactions: No Hx Malignant Hyperthermia: No - Suicidal Assessment Feels Threatened In Home Enviroment: No Family/Social History - Physician Review Nursing Documentation Reviewed: Yes Family/Social History: Unknown Family HX Smoking Status: Heavy Smoker > 10 Cigarettes Daily Hx Alcohol Use: No Hx Substance Use: No Substance used: marijuana,pcp Allergies/Home Meds Allergies/Adverse Reactions: Allergies No Known Allergies Allergy (Verified 11/08/17 17:26) Home Medications: Home Meds Medication Instructions Recorded Confirmed No Known Home Med 11/08/17 11/17/17 Review of Systems - Physician Review All systems were reviewed & negative as marked: Yes - Review of Systems Constitutional: Normal Eyes: Normal ENT: Normal Respiratory: Normal Cardiovascular: Normal Gastrointestinal: Normal Genitourinary Male: Normal Musculoskeletal: Normal Skin: Normal Neurological: Normal Endocrine: Normal Hemo/Lymphatic: Normal Psychiatric: Depression, Suicidal Ideation Physical Exam Vital Signs Reviewed: Yes Vital Signs Temp Pulse Resp BP Pulse Ox 11/19/17 13:33 98.0 F 88 18 122/72 100 Temperature: Afebrile Blood Pressure: Normal Pulse: Regular Respiratory Rate: Normal Appearance: Positive for: Well-Appearing, Non-Toxic, Comfortable Pain Distress: None Mental Status: Positive for: Alert and Oriented X 3 - Systems Exam Head: Present: Atraumatic, Normocephalic Pupils: Present: PERRL Extroacular Muscles: Present: EOMI Conjunctiva: Present: Normal Mouth: Present: Moist Mucous Membranes Neck: Present: Normal Range of Motion Respiratory/Chest: Present: Clear to Auscultation, Good Air Exchange. No: Respiratory Distress, Accessory Muscle Use Cardiovascular: Present: Regular Rate and Rhythm, Normal S1, S2. No: Murmurs Abdomen: No: Tenderness, Distention, Peritoneal Signs Back: Present: Normal Inspection Upper Extremity: Present: Normal Inspection. No: Cyanosis, Edema Lower Extremity: Present: Normal Inspection. No: Edema Neurological: Present: GCS=15, CN II-XII Intact, Speech Normal Skin: Present: Warm, Dry, Normal Color. No: Rashes Psychiatric: Present: Alert, Oriented x 3, Normal Insight, Normal Concentration Medical Decision Making ED Course and Treatment: 11/19/17 14:40 PT was medically cleared for psych evaluation. He was seen in ED by [facility] juwan Marsh and [facility] - Lab Interpretations Lab Results: 11/19/17 14:18 Lab Results 11/19/17 14:18: Alcohol, Quantitative < 10 11/19/17 14:18: Salicylates < 1 L, Acetaminophen < 10.0 L 11/19/17 14:18: WBC 7.5, RBC 4.27, Hgb 12.8 L, Hct 37.1 L, MCV 86.9, MCH 30.0, MCHC 34.5, RDW 12.8, Plt Count 215, MPV 9.1, Gran % 63.3, Lymph % (Auto) 28.3, [place] % (Auto) 7.4 H, Eos % (Auto) 0.9 L, Baso % (Auto) 0.1, Gran # 4.75, Lymph # (Auto) 2.1, [place] # (Auto) 0.6, Eos # (Auto) 0.1, Baso # (Auto) 0.01 Disposition/Present on Arrival - Present on Arrival Any Indicators Present on Arrival: No History of DVT/PE: No History of Uncontrolled Diabetes: No Urinary Catheter: No History Surgical Site Infection Following: None - Disposition Have Diagnosis and Disposition been Completed?: Yes Diagnosis: Homelessness, Depression Disposition: HOME/ ROUTINE Disposition Time: 14:30 Patient Plan: Discharge Patient Problems: Current Active Problems Problem Status Onset Depression Acute Homelessness Acute Condition: STABLE Discharge Instructions (ExitCare): Depression, Adult (DC), Suicide Prevention Additional Instructions: Follow up with outpt mental health Return to ED for any new symptoms [place] [facility] [place] - Follow up with primary [facility] [place] [Outside] - Follow up with primary
[2017-11-19 14:27] LABS: BASO # 0.01 K/mm3 (0.0-2.0); BASO % 0.1 % (0.0-3.0); EOS # 0.1 (0.0-0.7); EOS % 0.9 % (1.5-5.0); GRAN # 4.75 (1.4-6.5); GRAN % 63.3 % (50.0-68.0); HEMOGLOBIN 12.8 g/dL (14.0-18.0); LYMPH # 2.1 (1.2-3.4); LYMPH % 28.3 % (22.0-35.0); MEAN CELL VOLUME 86.9 fl (80.0-105.0); MEAN CORPUSCULAR HGB CONC 34.5 g/dl (31.0-37.0); MEAN PLATELET VOLUME 9.1 fl (7.0-11.0); MONO # 0.6 (0.1-0.6); MONO % 7.4 % (1.0-6.0); RBC 4.27 10^6/uL (3.5-6.1); RED CELL DISTRIBUTION WIDTH 12.8 % (11.5-14.5); WHITE BLOOD COUNT 7.5 10^3/ul (4.5-11.0)
[2017-11-19 14:39] LABS: ACETAMINOPHEN < 10.0 ug/ml (10.0-20.0); SALICYLATE < 1 mg/dL (2.0-20.0)
[2017-11-19 14:41] LABS: ALB/GLOB RATIO 1.7 (1.1-1.8); ALBUMIN 4.2 g/dL (3.0-4.8); ALT/SGPT 24 U/L (7-56); AST/SGOT 16 U/L (17-59); BLOOD UREA NITROGEN 20 mg/dL (7-21); GFR AFRICAN-AMERICAN > 60; GFR NON-AFRICAN AMERICAN > 60
[2017-11-19 14:44] VITALS: BP 125/80; PULSE 84; RESP 17
== END 2017-11-19 14:43 | disposition home or self-care (01) ==
LOC: ED 12:34
DX: F32.9 Major depressive disorder, single episode, unspecified (principal); Z59.0 Homelessness; F17.210 Nicotine dependence, cigarettes, uncomplicated

== ENCOUNTER 2018-10-19 09:14 | Emergency (ER) | payer MEDICAID, OTHER ==
[2018-10-19 09:15] VITALS: BMI 25.1
[2018-10-19 09:24] VITALS: BP 152/89; PULSE 77; RESP 18; TEMP 97.9; O2SAT 97
--- NOTE | 2018-10-19 10:01 | ED PDOC ---
Arrival/HPI - General Chief Complaint: Chest Pain Time Seen by Provider: 10/19/18 09:21 Historian: Patient - History of Present Illness Narrative History of Present Illness (Text): 10/19/18 09:59 A 33 year old homeless male, whose past medical history includes depression, alcohol abuse, who presents to the ED for chest discomfort since yesterday. Patient reports eating chicken and drinking alcohol last night. Patient denies any fevers, chills, headache, dizziness, shortness of breath, dyspnea on exertion, cough, abdominal pain, nausea, vomiting, diarrhea, back pain, neck pain, urinary/bowel changes, or any other complaints. Time/Duration: 24 hours (Last night) Symptom Onset: Gradual Symptom Course: Unchanged Activities at Onset: Light Context: Home Past Medical History - Provider Review Nursing Documentation Reviewed: Yes - Past History Past History: Non-Contributing - Infectious Disease Hx of Infectious Diseases: None - Tetanus Immunization Tetanus Immunization: Unknown - Cardiac Hx Atrial Fibrillation: No Hx Cardiac Arrhythmia: No Hx Congestive Heart Failure: No Hx Hypertension: No Hx Mitral Valve Prolapse: No Hx Pacemaker: No Hx Peripheral Edema: No - Pulmonary Hx Asthma: No Hx Bronchitis: No Hx Chronic Obstructive Pulmonary Disease (COPD): No Hx Emphysema: No Hx Pneumonia: No Hx Pulmonary Embolism: No Hx Sleep Apnea: No - Neurological Hx Alzheimer's Disease: No Hx Dementia: No Hx Migraine: No Hx Multiple Sclerosis: No Hx Parkinson's Disease: No Hx Seizures: No Hx Transient Ischemic Attacks (TIA): No - HEENT Hx HEENT Disorder: No - Renal Hx Renal Disorder: No - Endocrine/Metabolic Hx Endocrine Disorders: No - Hematological/Oncological Hx Cancer: No - Integumentary Hx Cellulitis: No - Musculoskeletal/Rheumatological Hx Unsteady Gait: Yes - Gastrointestinal HX Swallowing Problems: No Other/Comment: inguinal hernia - Genitourinary/Gynecological Hx Sexually Transmitted Diseases: No - Psychiatric Hx Anxiety: Yes Hx Bipolar Disorder: Yes Hx Depression: Yes Hx Schizophrenia: Yes Hx Substance Use: Yes - Surgical History Hx Amputation: No Hx Joint Replacement: No - Anesthesia Hx Anesthesia: Yes Hx Anesthesia Reactions: No Hx Malignant Hyperthermia: No - Suicidal Assessment Feels Threatened In Home Enviroment: No Family/Social History - Physician Review Nursing Documentation Reviewed: Yes Family/Social History: Unknown Family HX Smoking Status: Heavy Smoker > 10 Cigarettes Daily Hx Alcohol Use: Yes Frequency of alcohol use: Daily Hx Substance Use: Yes Substance used: marijuana,pcp Allergies/Home Meds Allergies/Adverse Reactions: Allergies No Known Allergies Allergy (Verified 10/19/18 09:25) Review of Systems - Physician Review All systems were reviewed & negative as marked: Yes - Review of Systems Constitutional: absent: Fatigue, Fevers Eyes: absent: Vision Changes ENT: absent: Hearing Changes Respiratory: absent: SOB Cardiovascular: Chest Pain Gastrointestinal: absent: Abdominal Pain, Vomiting Genitourinary Male: absent: Dysuria, Hematuria Musculoskeletal: absent: Back Pain, Neck Pain Skin: absent: Rash Neurological: absent: Headache Endocrine: absent: Diaphoresis Hemo/Lymphatic: absent: Adenopathy Psychiatric: absent: Anxiety, Depression Physical Exam Vital Signs Reviewed: Yes Vital Signs Temp Pulse Resp BP Pulse Ox 10/19/18 09:22 97.9 F 77 18 152/89 H 97 Temperature: Afebrile Blood Pressure: Hypertensive Pulse: Regular Respiratory Rate: Normal Appearance: Positive for: Well-Appearing, Non-Toxic, Comfortable Pain Distress: None Mental Status: Positive for: Alert and Oriented X 3 - Systems Exam Head: Present: Atraumatic, Normocephalic Pupils: Present: PERRL Extroacular Muscles: Present: EOMI Conjunctiva: Present: Normal Respiratory/Chest: Present: Clear to Auscultation, Good Air Exchange. No: Respiratory Distress, Accessory Muscle Use Cardiovascular: Present: Regular Rate and Rhythm, Normal S1, S2. No: Murmurs Upper Extremity: No: Other (Tremors) Neurological: Present: GCS=15, CN II-XII Intact, Speech Normal (Not slurred). No: Other (Ataxia) Skin: Present: Warm, Dry, Normal Color. No: Rashes Psychiatric: Present: Alert, Oriented x 3, Normal Insight, Normal Concentration Medical Decision Making ED Course and Treatment: 10/19/18 10:03 Impression: A 33 year old male who presents to the ED for chest discomfort. Diagnosis: Reflux. Plan: -- EKG -- Pepcid -- Reassess and disposition Prior Visits: Notes and results from previous visits were reviewed. Progress Notes: EKG: NSR @ 86 bpm. Normal intervals. No ST elevations. 10/19/18 10:08 Patient was given a list of homeless shelters. Will follow up with clinic. - Medication Orders Current Medication Orders: Discontinued Medications Famotidine (Pepcid) 20 mg PO STAT STA Stop: 10/19/18 09:28 Last Admin: 10/19/18 09:32 Dose: 20 mg - Scribe Statement The provider has reviewed the documentation as recorded by the Dheeraj Santos Provider Dawitibe Attestation: All medical record entries made by the Scribe were at my direction and personally dictated by me. I have reviewed the chart and agree that the record accurately reflects my personal performance of the history, physical exam, medical decision making, and the department course for this patient. I have also personally directed, reviewed, and agree with the discharge instructions and disposition. Disposition/Present on Arrival - Present on Arrival Any Indicators Present on Arrival: No History of DVT/PE: No History of Uncontrolled Diabetes: No Urinary Catheter: No History of Decub. Ulcer: No History Surgical Site Infection Following: None - Disposition Have Diagnosis and Disposition been Completed?: Yes Diagnosis: Chest pain Disposition: HOME/ ROUTINE Disposition Time: 09:36 Patient Plan: Discharge Condition: IMPROVED Discharge Instructions (ExitCare): Chest Pain (ED) Additional Instructions: ASHU KIMBALL, thank you for letting us take care of you today. Your provider was Clifton Marvin DO and you were treated for Chest Pain. The emergency medical care you received today was directed at your acute symptoms. If you were prescribed any medication, please fill it and take as directed. It may take several days for your symptoms to resolve. Return to the Emergency Department if your symptoms worsen, do not improve, or if you have any other problems. Please contact your doctor or call one of the physicians/clinics you have been referred to that are listed on the Patient Visit Information form that is included in your discharge packet. Bring any paperwork you were given at discharge with you along with any medications you are taking to your follow up visit. Our treatment cannot replace ongoing medical care by a primary care provider outside of the emergency department. Thank you for allowing the [facility] team to be part of your care today. If you had an X-Ray or CT scan: A Radiologist will review the ED reading if any change in treatment is needed we will contact you. If you had a blood, urine, or wound culture: It will take several days for the results, if any change in treatment is needed we will contact you. If you had an STI test: It will take 48 hours for the results. Please call after 1 week if you have not heard back. Prescriptions: Famotidine [Pepcid] 20 mg PO DAILY #30 tab Referrals: [facility] [Outside] - Follow up with primary Mildred Zhou MD [Medical Doctor] - Follow up with primary Forms: [employer] (Serbian)
--- NOTE | 2018-10-19 18:42 | CARD ---
APPROVED REPORT Date of service: 10/19/2018 EKG Measurement Heart [id number] <Conclusion> Normal sinus rhythm Normal ECG
== END 2018-10-19 09:36 | disposition home or self-care (01) ==
LOC: ED 09:14
DX: R07.9 Chest pain, unspecified (principal)

== ENCOUNTER 2018-11-18 23:49 | Inpatient (IN) | payer MEDICAID ==
[2018-11-18 23:49] VITALS: BMI 29.7
--- NOTE | 2018-11-19 01:06 | ED PDOC ---
Arrival/HPI <Braden Caceres - Last Filed: 11/19/18 06:16> - General Historian: Patient - History of Present Illness Narrative History of Present Illness (Text): 33 y/o male with PMH of depression and substance abuse presents to the ED c/o suicidal ideations and depression x 1 week without a plan. Discharged from [facility] floor on 11/13/18. Admits to alcohol, marijuana, and PCP use today. Denies hallucinations, fever, chills, dizziness, vision changes, neck pain, chest pain, SOB, abdominal pain, nausea, vomiting, urinary symptoms, or any other complaints. <Myriam Nayak - Last Filed: 11/19/18 18:24> - General Chief Complaint: Psychiatric Evaluation Time Seen by Provider: 11/19/18 00:28 Past Medical History - Provider Review Nursing Documentation Reviewed: Yes - Infectious Disease Hx of Infectious Diseases: None - Tetanus Immunization Tetanus Immunization: Unknown - Cardiac Hx Atrial Fibrillation: No Hx Cardiac Arrhythmia: No Hx Congestive Heart Failure: No Hx Hypertension: No Hx Mitral Valve Prolapse: No Hx Peripheral Edema: No - Pulmonary Hx Asthma: No Hx Bronchitis: No Hx Chronic Obstructive Pulmonary Disease (COPD): No Hx Emphysema: No Hx Pneumonia: No Hx Pulmonary Embolism: No Hx Sleep Apnea: No - Neurological Hx Alzheimer's Disease: No Hx Dementia: No Hx Migraine: No Hx Multiple Sclerosis: No Hx Parkinson's Disease: No Hx Seizures: No Hx Transient Ischemic Attacks (TIA): No - HEENT Hx HEENT Disorder: No - Renal Hx Renal Disorder: No - Endocrine/Metabolic Hx Endocrine Disorders: No - Hematological/Oncological Hx Cancer: No - Integumentary Hx Cellulitis: No - Musculoskeletal/Rheumatological Hx Unsteady Gait: Yes - Gastrointestinal HX Swallowing Problems: No - Genitourinary/Gynecological Hx Sexually Transmitted Diseases: No - Psychiatric Hx Psychophysiologic Disorder: Yes Hx Depression: Yes Hx Substance Use: Yes (PCP,Marijuana) - Surgical History Hx Amputation: No Hx Joint Replacement: No - Anesthesia Hx Anesthesia: No Hx Anesthesia Reactions: No Hx Malignant Hyperthermia: No - Suicidal Assessment Feels Threatened In Home Enviroment: No <Myriam Nayak - Last Filed: 11/19/18 18:24> Family/Social History - Physician Review Nursing Documentation Reviewed: Yes Family/Social History: No Known Family HX Smoking Status: Heavy Smoker > 10 Cigarettes Daily Hx Alcohol Use: Yes Hx Substance Use: Yes (PCP,Marijuana) Substance used: marijuana,pcp <Myriam Nayak - Last Filed: 11/19/18 18:24> Allergies/Home Meds <Braden Caceres - Last Filed: 11/19/18 06:16> <Myriam Nayak - Last Filed: 11/19/18 18:24> Allergies/Adverse Reactions: Allergies No Known Allergies Allergy (Verified 10/19/18 09:25) Review of Systems - Review of Systems Constitutional: Normal. absent: Fevers Eyes: Normal. absent: Vision Changes ENT: Normal. absent: Sore Throat, Sinus Congestion Respiratory: Normal. absent: SOB, Cough Cardiovascular: Normal. absent: Chest Pain, Palpitations, Syncope Gastrointestinal: Normal. absent: Abdominal Pain, Nausea, Vomiting Genitourinary Male: Normal. absent: Dysuria, Frequency Musculoskeletal: Normal. absent: Back Pain, Neck Pain Skin: Normal. absent: Rash Neurological: Normal. absent: Headache, Dizziness Psychiatric: Depression, Suicidal Ideation <Myriam Nayak - Last Filed: 11/19/18 18:24> Physical Exam Vital Signs Temp Pulse Resp BP Pulse Ox 11/19/18 00:07 98.2 F 74 18 133/87 96 <Braden Caceres - Last Filed: 11/19/18 06:16> Vital Signs Reviewed: Yes Vital Signs Temp Pulse Resp BP Pulse Ox 11/19/18 00:07 98.2 F 74 18 133/87 96 Temperature: Afebrile Blood Pressure: Normal Pulse: Regular Respiratory Rate: Normal Appearance: Positive for: Well-Appearing, Non-Toxic, Comfortable Pain Distress: None Mental Status: Positive for: Alert and Oriented X 3 - Systems Exam Head: Present: Atraumatic, Normocephalic Pupils: Present: PERRL Extroacular Muscles: Present: EOMI Conjunctiva: Present: Normal Mouth: Present: Moist Mucous Membranes Neck: Present: Normal Range of Motion Respiratory/Chest: Present: Clear to Auscultation, Good Air Exchange. No: Respiratory Distress, Accessory Muscle Use Cardiovascular: Present: Regular Rate and Rhythm, Normal S1, S2 Abdomen: No: Tenderness Back: Present: Normal Inspection. No: CVA Tenderness Upper Extremity: Present: Normal Inspection, Normal ROM, Neurovascularly Intact. No: Temperature Abnormalties Lower Extremity: Present: Normal Inspection, NORMAL PULSES, Normal ROM. No: Temperature Abnormalties Neurological: Present: GCS=15, Speech Normal, Motor Func Grossly Intact, Normal Sensory Function, Gait Normal Skin: Present: Warm, Dry, Normal Color. No: Rashes Psychiatric: Present: Alert, Oriented x 3, Depressed Mood, Suicidal Ideation, Homicidal Ideation. No: Hallucinations <Myriam Nayak - Last Filed: 11/19/18 18:24> Medical Decision Making ED Course and Treatment: 11/19/18 07:00 Case endorsed to /pending bed availability at [facility] or [facility] - Lab Interpretations Lab Results: Total Bilirubin 0.4 mg/dL (0.2-1.3) 11/19/18 00:55 AST 27 U/L (17-59) 11/19/18 00:55 ALT 51 U/L (7-56) 11/19/18 00:55 Alkaline Phosphatase 81 U/L (38-126) 11/19/18 00:55 Total Protein 7.2 g/dL (5.8-8.3) 11/19/18 00:55 Albumin 4.4 g/dL (3.0-4.8) 11/19/18 00:55 Globulin 2.7 gm/dL 11/19/18 00:55 Albumin/Globulin Ratio 1.6 (1.1-1.8) 11/19/18 00:55 Urine Color Yellow (YELLOW) 11/19/18 01:09 Urine Appearance Clear (CLEAR) 11/19/18 01:09 Urine pH 6.0 (4.7-8.0) 11/19/18 01:09 Ur Specific [place] 1.020 (1.005-1.035) 11/19/18 01:09 Urine Protein Negative mg/dL (<30 mg/dL) 11/19/18 01:09 Urine Glucose (UA) Negative mg/dL (NEGATIVE) 11/19/18 01:09 Urine Ketones Negative mg/dL (NEGATIVE) 11/19/18 01:09 Urine Blood Negative (NEGATIVE) 11/19/18 01:09 Urine Nitrate Negative (NEGATIVE) 11/19/18 01:09 Urine Bilirubin Negative (NEGATIVE) 11/19/18 01:09 Urine Urobilinogen 0.2 E.U./dL (<1 E.U./dL) 11/19/18 01:09 Ur Leukocyte Esterase Negative Mesha/uL (NEGATIVE) 11/19/18 01:09 - RAD Interpretation Radiology Orders: 11/19/18 00:29 CHEST PORTABLE [RAD] Stat <Morris,Braden - Last Filed: 11/19/18 06:16> ED Course and Treatment: Initial Plan: * Labs * UA, UDS * EKG * CXR * PES Yariel * 1:1 EKG shows bradycardia at 58 with PACs, no signs of ischemia CXR negative as read by me Bloodwork reviewed, unremarkable. No leukocytosis, anemia, or electrolyte imbalances. 01:42 Patient medically cleared for psychiatric evaluation/admission. 02:11 Advised by PES wong Leonard that there are no beds available here at [facility], patient will need to be transferred to [facility] or [facility]. 02:15 Pt endorsed to ED attending Dr. Caceres pending acceptance on to psychiatric unit at either [facility] or [facility]. Pt resting comfortably in stretcher with no complaints at this time. Vitals stable. Pt continues to be on 1:1. - Lab Interpretations Narrative Lab Interpretation (Text): 11/19/18 01:42 11/19/18 00:55 11/19/18 00:55 Lab Results 11/19/18 01:09: Urine Color Yellow, Urine Appearance Clear, Urine pH 6.0, Ur Specific [place] 1.020, Urine Protein Negative, Urine Glucose (UA) Negative, U rine Ketones Negative, Urine Blood Negative, Urine Nitrate Negative, Urine Bilirubin Negative, Urine Urobilinogen 0.2, Ur Leukocyte Esterase Negative 11/19/18 00:55: Alcohol, Quantitative 16 H 11/19/18 00:55: Sodium 140, Potassium 3.8, Chloride 106, Carbon Dioxide 21, Anion Gap 16, BUN 9, Creatinine 0.8, Est GFR ( Amer) > 60, Est GFR (Non- Af Amer) > 60, Random Glucose 85, Calcium 9.4, Total Bilirubin 0.4, AST 27, ALT 51, Alkaline Phosphatase 81, Total Protein 7.2, Albumin 4.4, Globulin 2.7, Albumin/Globulin Ratio 1.6 11/19/18 00:55: WBC 9.5, RBC 4.81, Hgb 13.9 L, Hct 41.4 L, MCV 86.1, MCH 28.9, MCHC 33.6, RDW 13.2, Plt Count 283, MPV 8.8, Neut % (Auto) 58.9, Lymph % (Auto) 31.6, [place] % (Auto) 7.7 H, Eos % (Auto) 1.6, Baso % (Auto) 0.2, Lymph # (Auto) 3.0, [place] # (Auto) 0.7 H, Eos # (Auto) 0.2, Baso # (Auto) 0.02, Absolute Neuts (auto) 5.63 I have reviewed the lab results: Yes - RAD Interpretation Radiology Orders: 11/19/18 00:29 CHEST PORTABLE [RAD] Stat <Myriam Nayak - Last Filed: 11/19/18 18:24> - PA / MUSICAL PERFORMER / Resident Statement / has reviewed & agrees with the documentation as recorded. / has examined the patient and agrees with the treatment plan. <Braden Caceres - Last Filed: 11/19/18 06:16> Disposition/Present on Arrival - Present on Arrival Any Indicators Present on Arrival: No - Disposition Have Diagnosis and Disposition been Completed?: No Disposition Time: 07:00 <Braden Caceres - Last Filed: 11/19/18 06:16> - Present on Arrival Any Indicators Present on Arrival: No History of DVT/PE: No History of Uncontrolled Diabetes: No Urinary Catheter: No History of Decub. Ulcer: No History Surgical Site Infection Following: None - Disposition Have Diagnosis and Disposition been Completed?: No Disposition Time: 02:15 <Myriam Nayak - Last Filed: 11/19/18 18:24> - Disposition Diagnosis: Suicidal ideations Disposition: HOSPITALIZED Patient Problems: Current Active Problems Problem Status Onset Suicidal ideation Acute Condition: STABLE
[2018-11-19 01:24] LABS: BASO # 0.02 K/mm3 (0.0-2.0); BASO % 0.2 % (0.0-3.0); EOS # 0.2 (0.0-0.7); EOS % 1.6 % (1.5-5.0); HEMOGLOBIN 13.9 g/dL (14.0-18.0); LYMPH % 31.6 % (22.0-35.0); MEAN CELL VOLUME 86.1 fl (80.0-105.0); MEAN CORPUSCULAR HEMOGLOBIN 28.9 pg (25.0-35.0); MEAN CORPUSCULAR HGB CONC 33.6 g/dl (31.0-37.0); MEAN PLATELET VOLUME 8.8 fl (7.0-11.0); MONO # 0.7 (0.1-0.6); MONO % 7.7 % (1.0-6.0); RBC 4.81 10^6/uL (3.5-6.1); RED CELL DISTRIBUTION WIDTH 13.2 % (11.5-14.5); WHITE BLOOD COUNT 9.5 10^3/uL (4.5-11.0)
[2018-11-19 01:25] LABS: URINE APPEARANCE CLEAR (CLEAR); URINE BILIRUBIN NEGATIVE (NEGATIVE); URINE BLOOD NEGATIVE (NEGATIVE); URINE COLOR YELLOW (YELLOW); URINE GLUCOSE (UA) NEGATIVE (NEGATIVE); URINE LEUKOCYTE ESTERASE NEGATIVE Leu/uL (NEGATIVE); URINE PROTEIN NEGATIVE mg/dL (<30 mg/dL); URINE UROBILINOGEN 0.2 E.U./dL (<1 E.U./dL)
[2018-11-19 01:32] LABS: ALB/GLOB RATIO 1.6 (1.1-1.8); ALBUMIN 4.4 g/dL (3.0-4.8); ALT/SGPT 51 U/L (7-56); AST/SGOT 27 U/L (17-59); BLOOD UREA NITROGEN 9 mg/dL (7-21); CALCIUM 9.4 mg/dL (8.4-10.5); GFR NON-AFRICAN AMERICAN > 60
[2018-11-19 01:48] LABS: BENZODIAZEPINES, UR NEGATIVE (NEGATIVE)
[2018-11-19 01:49] LABS: BARBITURATES, UR NEGATIVE (NEGATIVE); OPIATES, UR NEGATIVE (NEGATIVE); PHENCYCLIDINE, UR POSITIVE (NEGATIVE)
[2018-11-19 03:12] LABS: ACETAMINOPHEN < 10.0 ug/ml (10.0-20.0); SALICYLATE < 1 mg/dL (2.0-20.0)
--- NOTE | 2018-11-19 07:28 | ED PDOC ---
Physical Exam Vital Signs Reviewed: Yes Vital Signs Temp Pulse Resp BP Pulse Ox 11/19/18 07:20 55 L 17 123/76 97 11/19/18 06:39 73 18 123/76 99 11/19/18 05:39 82 18 115/87 100 11/19/18 00:07 98.2 F 74 18 133/87 96 Temperature: Afebrile Blood Pressure: Normal Pulse: Regular Respiratory Rate: Normal Appearance: Positive for: Well-Appearing, Non-Toxic, Comfortable Pain Distress: None Mental Status: Positive for: Alert and Oriented X 3 Medical Decision Making ED Course and Treatment: 11/19/18 07:27: Case endorsed to me by Dr. Caceres. Pending acceptance on to psychiatric unit at either [facility] or [facility]. Patient in no acute distress and resting comfortably. - Lab Interpretations Lab Results: Total Bilirubin 0.4 mg/dL (0.2-1.3) 11/19/18 00:55 AST 27 U/L (17-59) 11/19/18 00:55 ALT 51 U/L (7-56) 11/19/18 00:55 Alkaline Phosphatase 81 U/L (38-126) 11/19/18 00:55 Total Protein 7.2 g/dL (5.8-8.3) 11/19/18 00:55 Albumin 4.4 g/dL (3.0-4.8) 11/19/18 00:55 Globulin 2.7 gm/dL 11/19/18 00:55 Albumin/Globulin Ratio 1.6 (1.1-1.8) 11/19/18 00:55 Urine Color Yellow (YELLOW) 11/19/18 01:09 Urine Appearance Clear (CLEAR) 11/19/18 01:09 Urine pH 6.0 (4.7-8.0) 11/19/18 01:09 Ur Specific [place] 1.020 (1.005-1.035) 11/19/18 01:09 Urine Protein Negative mg/dL (<30 mg/dL) 11/19/18 01:09 Urine Glucose (UA) Negative mg/dL (NEGATIVE) 11/19/18 01:09 Urine Ketones Negative mg/dL (NEGATIVE) 11/19/18 01:09 Urine Blood Negative (NEGATIVE) 11/19/18 01:09 Urine Nitrate Negative (NEGATIVE) 11/19/18 01:09 Urine Bilirubin Negative (NEGATIVE) 11/19/18 01:09 Urine Urobilinogen 0.2 E.U./dL (<1 E.U./dL) 11/19/18 01:09 Ur Leukocyte Esterase Negative Mesha/uL (NEGATIVE) 11/19/18 01:09 - RAD Interpretation Radiology Orders: 11/19/18 00:29 CHEST PORTABLE [RAD] Stat - Scribe Statement The provider has reviewed the documentation as recorded by the Scribe Dionne Durán Provider Scribe Attestation: All medical record entries made by the Scribe were at my direction and personally dictated by me. I have reviewed the chart and agree that the record accurately reflects my personal performance of the history, physical exam, me dical decision making, and the department course for this patient. I have also personally directed, reviewed, and agree with the discharge instructions and disposition. Disposition/Present on Arrival - Present on Arrival Any Indicators Present on Arrival: No History of DVT/PE: No History of Uncontrolled Diabetes: No Urinary Catheter: No History of Decub. Ulcer: No History Surgical Site Infection Following: None - Disposition Have Diagnosis and Disposition been Completed?: Yes Diagnosis: Suicidal ideations Disposition: HOSPITALIZED Disposition Time: 08:24 Patient Plan: Admission Patient Problems: Current Active Problems Problem Status Onset Suicidal ideation Acute Condition: STABLE Forms: ASOCS (Croatian)
--- NOTE | 2018-11-19 08:47 | RAD ---
Date of service: 11/19/2018 HISTORY: pes COMPARISON: No prior. FINDINGS: LUNGS: No active pulmonary disease. PLEURA: No significant pleural effusion identified, no pneumothorax apparent. CARDIOVASCULAR: No atherosclerotic calcification present Normal. OSSEOUS STRUCTURES: No significant abnormalities. VISUALIZED UPPER ABDOMEN: Normal. OTHER FINDINGS: None. IMPRESSION: No active disease.
[2018-11-19 12:14] VITALS: O2SAT 98
[2018-11-19] MEDS ORDERED: Alum-Mag Hydrox-Simethicone Susp (30 mL) PO PRN (14:52)
[2018-11-19] MEDS ORDERED: Magnesium Hydroxide Susp 30 ml UD PO PRN (14:52)
--- NOTE | 2018-11-19 16:20 | PCM.BM ---
<Chaparrita Mejía - Last Filed: 11/19/18 16:16> Treatment Plan Problems - Problems identified on initial assessmt SUICIDE IDEATION Date Initiated: 11/19/18 Time Initiated: 16:00 Assessment reference: NA Status: Active Priority: 1 HOPELESSNESS Date Initiated: 11/19/18 Assessment reference: NA Status: Active Priority: 2 INEFFECTIVE COPING Date Initiated: 11/19/18 Time Initiated: 16:00 Assessment reference: NA Status: Active Priority: 3 ANXIETY R/T SUBSTANCE USE Date Initiated: 11/19/18 Time Initiated: 16:00 Assessment reference: NA Status: Active Priority: 4 HIGH RISK FOR VIOLENCE Date Initiated: 11/19/18 Time Initiated: 16:00 Assessment reference: NA Status: Active Priority: 5 Treatment assets and liabiliti Patient Assests: adapts well, cooperative, resourceful, self-reliant, ADL independent, physically healthy, negotiates basic needs, cognitively intact, other Patient Liabilities: live alone, poor support system, substance abuse - Milieu Protocol Maintain good personal hygiene: daily Encourage regular showers, daily Remind patient to perform daily oral care, daily Assist patient to perform ADL's Maintain personal safety: every shift Educate patient to report safety concerns to staff, every shift Monitor environment for contraband/sharps Medication safety: Monitor for expected outcome, potential side effects: every shift, Assess barriers to learning: every shift, Assess readiness for medication education: every shift Discharge/Continuing Care - Education Needs Education Needs: Patient Medication, Patient Diagnosis/Disease Process, Patient Coping Skills, Patient Community resources, Patient Activities of Daily Living, Patient Nutrition, Patient Health Practices/Safety, Patient Personal Hygiene/Grooming, Patient Aftercare Safety Plan - Discharge Discharge Criteria: Tolerates medication w/o severe side effects, Free of Suicidal thoughts, Free of Homicidal thoughts, Free of agitation, Ability to care for self, No longer exhibiting s/s of withdrawal, Reduction of target symptoms Discharge to:: Retirement, Substance Abuse Rehab <Ursula Palacios - Last Filed: 11/20/18 12:56> - Diagnosis (1) Mood disorder Status: Acute Interventions: 11/20/18 12:57 Psychoeducation Psychopharmacology/adjustment of medications as needed/ monitoring possible side effects Evaluate pt on daily basis Compliance with medications and follow up appointments Suicide and homicide risk assessment and prevention Relapse prevention Reduction of symptoms Improve functional status Family involvement As outpatient: cognitive behavioral therapy (2) Phencyclidine (PCP)-induced psychosis Status: Resolved Interventions: 11/20/18 12:57 Maintaining sobriety Relapse prevention Possible rehabilitation Motivational interviewing 12-step programs: AA meetings <Nereida Ellison - Last Filed: 11/21/18 16:57> Family Contact Family involvement: Famliy/SO not involved
--- NOTE | 2018-11-19 16:43 | CARD ---
APPROVED REPORT Date of service: 11/19/2018 EKG Measurement Heart [id number] <Conclusion> Sinus bradycardia with premature atrial complexes Otherwise normal ECG
[2018-11-20 07:41] LABS: HDL CHOLESTEROL 45 mg/dL (29-60)
[2018-11-20 07:52] LABS: LDL CHOLESTEROL 112 mg/dL (0-129)
[2018-11-20 07:56] LABS: FREE T4 0.8 ng/dL (0.78-2.19)
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
--- NOTE | 2018-11-21 14:36 | PCM.PYCHPN ---
Psychiatric Progress Note - Psychiatric Progress Note Patient seen today, length of contact: 30min Patient Chief Complaint: "I was suppose to be living large. I understanding it's people, person, and places. I feel that people want me to come in last place and I don't feel like I should come in last place. People are just jealous of me, really ever felt like people jealous of you? I am very talented you know, I have a lot of money...." Problems Identified/Issues Discussed: Treatment plan, medication management, current symptoms, 48-hour notice, [facility] screening. Medical Problems: Patient does not have any major medical issues, patient was seen by medical team in the emergency room. Diagnostic Results: 11/19/18 00:55 11/19/18 00:55 Lab Results 11/20/18 07:15: Triglycerides 140, Cholesterol 169, LDL Cholesterol Direct 112, HDL Cholesterol 45 11/20/18 07:15: Free T4 0.80, TSH 3rd Generation 1.39 11/20/18 07:15: RPR Nonreactive 11/19/18 01:09: Urine Opiates Screen Negative, Urine Methadone Screen Negative, Ur Barbiturates Screen Negative, Ur Phencyclidine Scrn Positive H, Ur Amphetamin es Screen Negative, U Benzodiazepines Scrn Negative, U Oth Cocaine Metabols Negative, U Cannabinoids Screen Positive H 11/19/18 01:09: Urine Color Yellow, Urine Appearance Clear, Urine pH 6.0, Ur Specific [place] 1.020, Urine Protein Negative, Urine Glucose (UA) Negative, Ur ine Ketones Negative, Urine Blood Negative, Urine Nitrate Negative, Urine Bilirubin Negative, Urine Urobilinogen 0.2, Ur Leukocyte Esterase Negative 11/19/18 00:55: Alcohol, Quantitative 16 H 11/19/18 00:55: Salicylates < 1 L, Acetaminophen < 10.0 L 11/19/18 00:55: Sodium 140, Potassium 3.8, Chloride 106, Carbon Dioxide 21, Anion Gap 16, BUN 9, Creatinine 0.8, Est GFR ( Amer) > 60, Est GFR (Non- Af Amer) > 60, Random Glucose 85, Calcium 9.4, Total Bilirubin 0.4, AST 27, ALT 51, Alkaline Phosphatase 81, Total Protein 7.2, Albumin 4.4, Globulin 2.7, Albumin/Globulin Ratio 1.6 11/19/18 00:55: WBC 9.5, RBC 4.81, Hgb 13.9 L, Hct 41.4 L, MCV 86.1, MCH 28.9, MCHC 33.6, RDW 13.2, Plt Count 283, MPV 8.8, Neut % (Auto) 58.9, Lymph % (Auto) 31.6, Lane % (Auto) 7.7 H, Eos % (Auto) 1.6, Baso % (Auto) 0.2, Lymph # (Auto) 3.0, Lane # (Auto) 0.7 H, Eos # (Auto) 0.2, Baso # (Auto) 0.02, Absolute Neuts (auto) 5.63 Vital Signs Temp Pulse Resp BP Pulse Ox 11/21/18 07:19 97.6 F 48 L 20 104/71 11/20/18 16:00 64 129/85 11/19/18 14:00 97.8 F 64 18 141/86 11/19/18 12:09 98.1 F 66 17 122/76 98 11/19/18 10:42 57 L 15 113/67 95 11/19/18 07:20 55 L 17 123/76 97 11/19/18 06:39 73 18 123/76 99 11/19/18 05:39 82 18 115/87 100 11/19/18 00:07 98.2 F 74 18 133/87 96 DSM 5 Symptoms Update: Shortly, patient is 33-year old -E[place]ian male with reported history of psychotic spectrum disorder, polysubstance abuse and dependence including alcohol/marijuana/PCP, patient had multiple psychiatric admissions in the past, most recent was in [place] patient was discharged from there 11/13/2018, but then patient signed AGAINST MEDICAL ADVICE from [place] after being screened by [facility] and not committed, patient came to [facility] emergency room for evaluation of depressive symptoms, suicidal ideation, possible homicidal ideation, patient also was noncompliant with her medications, relapsed on drugs including alcohol plus marijuana and PCP. Patient requires further evaluation stabilization and medication adjustment. Patient is very well-known to this public relations writer from multiple admissions to the psychiatric inpatient unit which took place here in [place] most recent was in June 2017. Patient was seen today at the treatment team meeting, patient presented to be disorganized, grandiose, thought process seems to be circumstantial and tangential and overinclusive, patient wanted to speak to this public relations writer in private only, does not have any reasonable explanation why, patient presented to be grandiose, patient feels that people are jealous of him, patient does not have any idea why people are jealous of him, "they just want to put me down, I do want to be down, I have a lot of money..." "I don't know why people are jealous of me...people are making me at the bottom. These people want me to be homeless and begging for change." Patient was keep asking to be discharged, patient was educated about 48-hour notice, patient signed that, will initiate screening process. Patient was keep coming back to the room with different level or agitation, but no aggression, patient then was redirected back to his room. So far patient tolerates medications well, no side effects observed or reported, aims 0, no EPS. Impression: As per history patient has bipolar disorder Out substance-induced psychosis Polysubstance abuse and dependence including synthetic drugs such as [place] Medication Change: Yes Medical Record Reviewed: Yes Consults ordered or reviewed: Patient was cleared by medical team in the emergency room Mental Status Examination - Cognitive Function Orientation: Person, Place, Situation Memory: Impaired Attention: Poor Concentration: Poor Association: Loose - Affect Affect: Flat - Formal Thought Process Formal Thought Process: Circumstantial, Other (grandiose) - Suicidal Ideation Suicidal Ideation: No - Homicidal Ideation Homicidal Ideation: No Goal/Treatment Plan - Goal/Treatment Plan Need for Continued Stay: Remain at risks for inpatient hospitalization, Severe depression anxiety, Discharge may exacerbated symptoms, Severe functional impairment Progress Toward Problem(s) and Goals/Treatment Plan: Milieu/structure/supportive therapy SW consultation for discharge plan and social issues Med management prozac seroquel Family involvement Follow up on labs Will monitor closely Pt was educated about risk/benefits and alternatives of medications, coping strategies (safety plan, suicide prevention), relapse prevention, importance of follow up with psychiatrist and therapist, stay away from drugs/alcohol/smoking Patient submitted 48-hour notice, will initiate [facility] screening process This public relations writer also cannot exclude the patient risk was sent 48-hour notice, and complete his treatment. Estimated Date of D/C: 11/25/18
--- NOTE | 2018-11-22 09:50 | PCM.PYCHPN ---
Psychiatric Progress Note - Psychiatric Progress Note Patient seen today, length of contact: 30min Problems Identified/Issues Discussed: I reviewed assessment and recent notes. Patient is well-known to this provider from his multiple psychiatric admissions to this unit. He has a history of poly substance dependency which is usually somehow related to his admissions. He seems more disorganized, delusional and edgy during this admission based on recent notes. He put in a 48 hour letter yesterday and screeners didn't find that he met commitment criteria. Nonetheless patient is impulsive, restless, poorly focused and functioning poorly. Thought process is scattered. Patient will benefit from continued observation and treatment on this unit until his 48 hour letter expires on Saturday. He is agreeable to stay and does not argue when I discuss this recommendation. Impulse control is tenuous, insight and judgement are poor. Diagnostic Results: As per history patient has bipolar disorder Out substance-induced psychosis Polysubstance abuse and dependence including synthetic drugs such as [place] Medication Change: No Medical Record Reviewed: Yes Mental Status Examination - Cognitive Function Orientation: Person, Place, Situation Memory: Impaired Attention: Poor Concentration: Poor Association: Loose - Mood Mood: Depressed - Affect Affect: Flat - Speech Speech: Soft - Formal Thought Process Formal Thought Process: Circumstantial, Other (grandiose) - Suicidal Ideation Suicidal Ideation: No - Homicidal Ideation Homicidal Ideation: No Goal/Treatment Plan - Goal/Treatment Plan Need for Continued Stay: Remain at risks for inpatient hospitalization, Severe depression anxiety, Discharge may exacerbated symptoms, Severe functional impairment Progress Toward Problem(s) and Goals/Treatment Plan: * c/w current tx and plan * Vitals reviewed and noted below: Selected Entries 11/19/18 11/20/18 11/21/18 14:00 16:00 07:19 Temperature 97.8 F 97.6 F Pulse Rate 64 64 48 L Respiratory 18 20 Rate Blood Pressure 141/86 129/85 104/71 11/21/18 16:00 Temperature Pulse Rate 79 Respiratory Rate Blood Pressure 111/67 * No new weekend lab results noted thus far * Patient will be discharged on his 48 hour notice on Saturday~ the day that it expires to ensure maximum stability as illicit drugs are further metabolized out of his system and psychiatric medications increase in his system. 11/19/18 01:09 Ur Phencyclidine Scrn Positive H U Cannabinoids Screen Positive H Estimated Date of D/C: 11/25/18
[2018-11-22 16:04] VITALS: PULSE 57
[2018-11-23 07:33] VITALS: BP 110/57; RESP 20; TEMP 97.9
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
== END 2018-11-23 10:05 | disposition left against medical advice (07) | DRG 753 ==
LOC: ED 23:49 → ERH 11-19 08:25 → PSYC 11-19 13:30
PROVIDERS: ADMIT Psychiatry & Neurology Psychiatry; ATTEND Psychiatry & Neurology Psychiatry
PROC: GZ3ZZZZ Medication Management (ICD-10-PCS; principal; 2018-11-19)
DX: F31.9 Bipolar disorder, unspecified (principal); F16.259 Hallucinogen dependence with hallucinogen-induced psychotic disorder, unspecified; R45.851 Suicidal ideations; F12.259 Cannabis dependence with psychotic disorder, unspecified; F10.20 Alcohol dependence, uncomplicated; Y90.0 Blood alcohol level of less than 20 mg/100 ml; F17.210 Nicotine dependence, cigarettes, uncomplicated; Z91.14 Patient's other noncompliance with medication regimen